=== PATIENT | male | born 1935 | race Caucasian/White ===

== ENCOUNTER 2018-01-26 09:14 | Inpatient (IN) ==
[2018-01-26] MEDS ORDERED: Furosemide 40 MG/4 ML VIAL IVP ONE (09:22)
--- NOTE | 2018-01-26 09:28 | Emergency Department Note ---
Disposition Clinical Impression: Anasarca, Atrial fibrillation with rapid ventricular response Disposition: Admitted As Inpatient Condition: Fair Referrals: Nguyễn Gilbert Jr, MD [Primary Care Provider] - Forms: ED Satisfaction Letter SOB HPI - General Chief Complaint: ED Shortness of Breath/Dyspnea Stated Complaint: BLE swelling; a-fib Time Seen by Provider: 01/26/18 09:19 Source: patient, EMS Mode of arrival: EMS Limitations: no limitations Nursing Notes Reviewed: Yes Vital Signs Reviewed: Yes - History of Present Illness Patient [facility] over from [facility] and Dr. Norton's office for increasing peripheral edema, A. fib, and shortness of breath. He does have a history of coronary artery disease, and 5 stents back in the s. His last EF in 2014 was approximately 65%. EMS reports that over the last few weeks, he has been having increasing swelling in his eye lateral lower extremities. He reports that he is more short of breath than usual. He is also having intermittent chest pain that is poorly localizable and he describes it as a heaviness. No headaches or changes in vision. EMS reports that the patient has been borderline hypotensive at times and they have tried adjusting his medication, but it keeps bottoming out his blood pressure. Patient states he feels okay other than his difficulty breathing. He does have orthopnea. - Related Data Home Medications Medication Instructions Recorded Confirmed Aspirin 81 mg PO QAM 04/20/15 01/01/16 Rivaroxaban [Xarelto] 15 mg PO QAM 04/20/15 01/01/16 Insulin Human Regular [HumuLIN R] 5 unit SQ TIDWM 04/22/15 01/01/16 Insulin Glargine,Hum.rec.anlog 50 units SQ BID 11/08/15 01/01/16 [Lantus Solostar] Digoxin [Lanoxin] 0.125 mg PO QAM 12/02/15 01/01/16 Diltiazem CD (24hr) [Cardizem CD] 360 mg PO QAM 12/02/15 01/01/16 Furosemide [Lasix] 40 mg PO BID 12/02/15 01/01/16 Allergies Allergy/AdvReac Type Severity Reaction Status Date / Time sulfamethoxazole Allergy See Verified 12/06/16 09:00 [From Bactrim] Comments trimethoprim [From Bactrim] Allergy See Verified 12/06/16 09:00 Comments atorvastatin AdvReac Dizziness Verified 12/06/16 09:00 clopidogrel [From Plavix] AdvReac Dizziness Verified 12/06/16 09:00 lovastatin AdvReac Dizziness Verified 12/06/16 09:00 pioglitazone [From Actos] AdvReac Dizziness Verified 12/06/16 09:00 pravastatin AdvReac Dizziness Verified 12/06/16 09:00 Rosiglitazone AdvReac Dizziness Verified 12/06/16 09:00 flu vaccine Allergy Dizziness Uncoded 06/14/16 22:01 Review of Systems: As reviewed in the HPI. All other systems reviewed are negative or normal. Past Medical History - Past Medical History Attestation: Yes The following information was validated with the patient. Source: patient, old records reviewed Medical history: Reports: asthma, atrial fibrillation, COPD, coronary artery disease, diabetes, hypertension, kidney stones, myocardial infarction, other Surgical history: Reports: cataract Psychiatric history: Reports: anxiety, depression - Social History Smoking Status: Former smoker Smokeless Tobacco Status: No Alcohol use: Reports: none Drug use: Reports: none Physical Exam CONSTITUTIONAL: [well appearing in no acute distress] SKIN: [Warm, dry, and intact without rash] EYES: [extraocular movements are grossly intact, clear conjunctiva] HENT: [Normocephalic, atraumatic, moist mucus membranes] NECK: [no obvious swelling, normal range of motion] PULMONARY: [normal chest rise and fall, no respiratory distress or stridor CARDIOVASCULAR: [Slightly tachycardic, irregularly irregular, distal extremities are warm and well perfused, pitting edema bilaterally, patient also has an area in a dermatomal distribution on his chest/back that is vesicular but well healing. He reports he was told that was psoriasis as well.] GASTROINSTESTINAL: [nondistended, non-tender] GENITOURINARY: [deferred] NEUROLOGIC: [normal speech, moves all extremities] MUSCULOSKELETAL: [no gross deformities, atraumatic, the left lower extremity does have what the patient described a psoriasis, but could also be an early cellulitis] PSYCHIATRIC: [normal mood and affect] Course Course Narrative: Patient presenting with suspected CHF exacerbation and A. fib. Unable to adjust his medications at [facility] due to hypotension. His blood pressure is fine here. He is stable. We will get workup and admit Shortness of Breath/Dyspnea - Medical Records Medical records reviewed: Yes I reviewed the patient's medical records. - Lab Data Lab results reviewed: Yes I reviewed the patient's lab results. Result diagrams: 01/26/18 09:35 01/26/18 09:35 - Radiology Data Radiology results reviewed: Yes I reviewed the patient's radiology results. - EKG Data EKG attestation: Yes I reviewed and interpreted this EKG. EKG results narrative: A. fib with RVR, rate 1:15, QRS 126, QTC 391, indeterminate axis, right bundle branch block, no previous available. Attestation Statement - Attestation Attestation: I examined this patient and my medical decision-making was reviewed with the Resident Physician. I agree with the documented findings, disposition and treatment plan as described except to the extent set forth below.
[2018-01-26 09:50] LABS: Basophils % 0.8 %; Eosinophils # 0.1 K/mcL (0.0-0.6); Eosinophils % 1.6 %; Hematocrit 32.5 % (37.5-50.1); Hemoglobin 11.1 g/dL (12.9-16.9); Immature Granulocytes % 3.2 % (0-4); Lymphocytes # 0.4 K/mcL (0.6-4.6); Lymphocytes % 7.1 %; Mean Corpuscular HGB Conc 34.2 g/dL (31.6-35.5); Mean Corpuscular Volume 96.7 fL (83.0-100.0); Mean Platelet Volume 8.7 fL (9.4-12.4); Monocytes # 0.5 K/mcL (0.0-1.3); Monocytes % 10.8 %; Neutrophils # 3.8 K/mcL (1.6-8.9); Platelet Count 198 K/mcL (140-400); Red Blood Count 3.36 M/mcL (4.19-5.50); Red Cell Distribution Width 16.7 % (11.5-14.5); Segmented Neutrophils % 76.5 %
[2018-01-26 09:57] LABS: INR 1.2; Prothrombin Time 12.9 Seconds (9.4-12.1)
[2018-01-26 10:00] LABS: Activated Partial Thrombo Time 32.2 Seconds (26.0-36.0)
[2018-01-26 10:05] LABS: BUN/Creatinine Ratio 17 (6-26); Blood Urea Nitrogen 16 mg/dL (8-23); Calcium 8.8 mg/dL (8.6-10.3); Carbon Dioxide 32 mEq/L (23-29); Chloride 92 mEq/L (98-107); Glucose 336 mg/dL (70-105); Magnesium 1.8 mg/dL (1.6-2.6); Osmolality,Calculated 284 (280-300); Potassium 3.8 mEq/L (3.5-5.1); Sodium 130 mEq/L (136-145); Troponin I < 0.03 ng/mL (< 0.04); eGFR For African Americans > 60 (> 60); eGFR For Non-African Americans > 60 (> 60)
[2018-01-26 10:19] LABS: Thyroid Stimulating Hormone 2.981 mcIU/mL (0.340-5.600)
[2018-01-26 11:15] LABS: Digoxin 1.1 ng/mL (0.8-2.0)
--- NOTE | 2018-01-26 12:10 | Emergency Department Note ---
Disposition Clinical Impression: Anasarca, Atrial fibrillation with rapid ventricular response Disposition: Admitted As Inpatient Condition: Fair Forms: ED Satisfaction Letter Time of Disposition: 12:14 General Adult HPI - General Chief complaint: ED Shortness of Breath/Dyspnea Stated complaint: BLE swelling; a-fib Time Seen by Provider: 01/26/18 09:19 Source: patient, EMS Mode of arrival: EMS Limitations: no limitations - History of Present Illness Pain Scale: 5 - Related Data Home Medications Medication Instructions Recorded Confirmed Aspirin 81 mg PO QAM 04/20/15 01/01/16 Rivaroxaban [Xarelto] 15 mg PO QAM 04/20/15 01/01/16 Insulin Human Regular [HumuLIN R] 5 unit SQ TIDWM 04/22/15 01/01/16 Insulin Glargine,Hum.rec.anlog 50 units SQ BID 11/08/15 01/01/16 [Lantus Solostar] Digoxin [Lanoxin] 0.125 mg PO QAM 12/02/15 01/01/16 Diltiazem CD (24hr) [Cardizem CD] 360 mg PO QAM 12/02/15 01/01/16 Furosemide [Lasix] 40 mg PO BID 12/02/15 01/01/16 Allergies Allergy/AdvReac Type Severity Reaction Status Date / Time sulfamethoxazole Allergy See Verified 12/06/16 09:00 [From Bactrim] Comments trimethoprim [From Bactrim] Allergy See Verified 12/06/16 09:00 Comments atorvastatin AdvReac Dizziness Verified 12/06/16 09:00 clopidogrel [From Plavix] AdvReac Dizziness Verified 12/06/16 09:00 lovastatin AdvReac Dizziness Verified 12/06/16 09:00 pioglitazone [From Actos] AdvReac Dizziness Verified 12/06/16 09:00 pravastatin AdvReac Dizziness Verified 12/06/16 09:00 Rosiglitazone AdvReac Dizziness Verified 12/06/16 09:00 flu vaccine Allergy Dizziness Uncoded 06/14/16 22:01 Past Medical History - Past Medical History Medical history: Reports: asthma, atrial fibrillation, COPD, coronary artery disease, diabetes, hypertension, kidney stones, myocardial infarction, other Surgical history: Reports: cataract Psychiatric history: Reports: anxiety, depression - Social History Smoking Status: Former smoker Smokeless Tobacco Status: No Alcohol use: Reports: none Drug use: Reports: none Physical Exam - General Limitations: no limitations General appearance: alert, in no apparent distress Course Vital Signs Temperature 98.3 F 01/26/18 09:21 Pulse Rate 110 01/26/18 09:21 Respiratory Rate 18 01/26/18 09:21 Blood Pressure 128/95 01/26/18 09:21 O2 Sat by Pulse Oximetry 96 01/26/18 09:21 Temperature 98.3 F 01/26/18 09:21 Pulse Rate 110 01/26/18 09:21 Respiratory Rate 18 01/26/18 09:21 Blood Pressure 128/95 01/26/18 09:21 O2 Sat by Pulse Oximetry 96 01/26/18 09:21 Oxygen Delivery Oxygen Delivery Room Air Medical Decision Making - Lab Data Result diagrams: 01/26/18 09:35 01/26/18 09:35 Lab Results 01/26/18 01/26/18 01/26/18 Range/Units 09:35 09:35 09:35 WBC 4.9 (4.3-11.1) K/mcL RBC 3.36 L (4.19-5.50) M/mcL Hgb 11.1 L (12.9-16.9) g/dL Hct 32.5 L (37.5-50.1) % MCV 96.7 (83.0-100.0) fL MCH 33.0 (28.0-33.3) pg MCHC 34.2 (31.6-35.5) g/dL RDW 16.7 H (11.5-14.5) % Plt Count 198 (140-400) K/mcL MPV 8.7 L (9.4-12.4) fL Immature Gran % 3.2 (0-4) % Seg Neutrophils % 76.5 % Lymphocytes % 7.1 % Monocytes % 10.8 % Eosinophils % 1.6 % Basophils % 0.8 % Neutrophils # 3.8 (1.6-8.9) K/mcL Lymphocytes # 0.4 L (0.6-4.6) K/mcL Monocytes # 0.5 (0.0-1.3) K/mcL Eosinophils # 0.1 (0.0-0.6) K/mcL Basophils # 0.0 (0.0-0.2) K/mcL PT (9.4-12.1) Seconds INR APTT (26.0-36.0) Seconds Sodium 130 L (136-145) mEq/L Potassium 3.8 (3.5-5.1) mEq/L Chloride 92 L (98-107) mEq/L Carbon Dioxide 32 H (23-29) mEq/L BUN 16 (8-23) mg/dL Creatinine 0.94 (0.70-1.30) mg/dL Est GFR ( Amer) > 60 (> 60) Est GFR (Non-Af Amer) > 60 (> 60) BUN/Creatinine Ratio 17 (6-26) Glucose 336 H (70-105) mg/dL Calculated Osmolality 284 (280-300) Calcium 8.8 (8.6-10.3) mg/dL Magnesium 1.8 (1.6-2.6) mg/dL Troponin I < 0.03 (< 0.04) ng/mL B-Natriuretic Peptide 156 H (Less than 100) pg/mL TSH 2.981 (0.340-5.600) mcIU/mL Digoxin 1.1 (0.8-2.0) ng/mL 01/26/18 Range/Units 09:35 WBC (4.3-11.1) K/mcL RBC (4.19-5.50) M/mcL Hgb (12.9-16.9) g/dL Hct (37.5-50.1) % MCV (83.0-100.0) fL MCH (28.0-33.3) pg MCHC (31.6-35.5) g/dL RDW (11.5-14.5) % Plt Count (140-400) K/mcL MPV (9.4-12.4) fL Immature Gran % (0-4) % Seg Neutrophils % % Lymphocytes % % Monocytes % % Eosinophils % % Basophils % % Neutrophils # (1.6-8.9) K/mcL Lymphocytes # (0.6-4.6) K/mcL Monocytes # (0.0-1.3) K/mcL Eosinophils # (0.0-0.6) K/mcL Basophils # (0.0-0.2) K/mcL PT 12.9 H (9.4-12.1) Seconds INR 1.2 APTT 32.2 (26.0-36.0) Seconds Sodium (136-145) mEq/L Potassium (3.5-5.1) mEq/L Chloride (98-107) mEq/L Carbon Dioxide (23-29) mEq/L BUN (8-23) mg/dL Creatinine (0.70-1.30) mg/dL Est GFR ( Amer) (> 60) Est GFR (Non-Af Amer) (> 60) BUN/Creatinine Ratio (6-26) Glucose (70-105) mg/dL Calculated Osmolality (280-300) Calcium (8.6-10.3) mg/dL Magnesium (1.6-2.6) mg/dL Troponin I (< 0.04) ng/mL B-Natriuretic Peptide (Less than 100) pg/mL TSH (0.340-5.600) mcIU/mL Digoxin (0.8-2.0) ng/mL Attestation Statement - Attestation Attestation: I examined this patient and my medical decision-making was reviewed with the Resident Physician. I agree with the documented findings, disposition and treatment plan as described except to the extent set forth below. 82-year-old male presents ED because of dyspnea, orthopnea and peripheral edema. He went to his flight nurse's office this morning and they deferred him here for initiation of IV diuretics and admission to the hospital. He has history of chronic paroxysmal atrial fibrillation and currently on digoxin for rate control when Xarelto for embolic prophylaxis. He denies associated chest pain. No fevers or productive cough. Denies abdominal pain. Denies palpitations. No focal weakness. No lightheadedness or dizziness. Pleasant, elderly male in no apparent physiologic distress. He has no conversational dyspnea. Maintains normal conversation. Oropharynx clear mucous membranes membranes moist. Neck is supple. No JVD. Chest with scattered inspiratory rales in the bases with diminished breath sounds in the right base. Cardiac exam is tachycardic, irregular. Chest wall nontender. Abdomen soft, nondistended not, nontender. Extremities with 2-3+ pitting edema lower extremities. There is erythema on the lateral aspect of the left lower leg as well. Peripheral pulses are brisk. EKG with atrial fibrillation with rapid ventricular response rate ranging from 110 - 130. He is given IV diuretics and will be admitted at the request of the flight nurse. At this point rate control was not necessary due to his heart rate of 110. The high probability of a clinically significant, sudden or life threatening deterioration of the [cardioopulmonary] system(s) required my full and direct attention, intervention and personal management. The aggregate critical care time was [10] minutes. This time is in addition to time spent performing reported procedures but includes the following: [x] Data Review and interpretation [x] Patient assessment and monitoring of vital signs [x] Documentation [x] Medication orders and management
[2018-01-26] MEDS ORDERED: Naloxone 0.4 MG/ML INJ IVP PRN (12:47)
--- NOTE | 2018-01-26 13:11 | Internal Med History&Physical ---
Date of Encounter: 01/26/18 Time of Encounter: 12:58 Internal Medicine - H&P: HPI Chief complaint: shortness of breath Admitted From: Emergency Dept Plans for Post Hospital Care: Transfer Pace Analyst Care History of present illness: Mr. Johnson is a 82 year old male was a background medical history for diabetes, hypertension, dyslipidemia, chronic kidney disease, atrial fibrillation on Xarelto, coronary artery disease. Patient was getting evaluated at the cardiology office. Data Processing Mechanic evaluated the patient. Noted that patient was tachycardic and also shortness of breath. He was not able to complete his sentences during the conversation. In view of this patient was sent to the emergency room from the cardiology office for further evaluation. Patient denies nausea, chest pain, abdominal pain, dizziness and diarrhea. Workup in the emergency room: Patient was evaluated in the emergency room. Basic labs were drawn. X-ray was done. Noted that patient's heart rate was in 120s. Reason for admission: Atrial fibrillation with rapid ventricular rate which is likely precipitated by congestive heart failure likely precipitated by underlying CAD. Family History: noncontributory Past Med Surg Social Fam HX - Past Medical History Medical history: asthma, atrial fibrillation, COPD, coronary artery disease, diabetes, hypertension, kidney stones, myocardial infarction, other Psychiatric history: anxiety, depression - Past Surgical History Surgical History: cataract - Social History Smoking Status: Former smoker Smokeless Tobacco Status: No Alcohol use: none Drug use: none - Family History Mother Living Status: Hx Family Cardiac Disorders: Yes Hx Family Respiratory Disorders: No Hx Family Cancer: No Hx Family GI Disorders: No Hx Family Endocrine Disorder: Yes Hx Family Neuromuscular Disorders: No Hx Family Neurologic Disorders: Yes Hx Family HEENT Disorders: No Hx Family Autoimmune Disorders: No Father Adopted: No Family Member Ethnicity: Non- Living Status: Hx Family Cardiac Disorders: Yes Internal Medicine - H&P: Meds Aspirin 81 mg PO QAM 04/20/15 [History] Rivaroxaban [Xarelto] 15 mg PO QAM 04/20/15 [History] Insulin Human Regular [HumuLIN R] 6 unit SQ TIDWM 04/22/15 [History] Insulin Glargine,Hum.rec.anlog [Lantus Solostar] 32 units SQ BID 11/08/15 [ History] Digoxin [Lanoxin] 0.125 mg PO QAM 12/02/15 [History] Diltiazem CD (24hr) [Cardizem CD] 360 mg PO QAM 12/02/15 [History] Furosemide [Lasix] 40 mg PO BID 12/02/15 [History] ALPRAZolam [Xanax 0.5 MG Tablet] 0.5 mg PO HS 01/26/18 [History] Acetaminophen [Non-Aspirin] 650 mg PO Q6H PRN 01/26/18 [History] Apremilast [Otezla] 30 mg PO BID 01/26/18 [History] Calcipotriene [Dovonex] 1 appl TP HS 01/26/18 [History] Clotrimazole/Betameth Dip CRM [Lotrisone CRM] 1 appl TP QAM 01/26/18 [History] Docusate Sodium [Dok] 100 mg PO BID 01/26/18 [History] FluocinoNIDE 0.05% CRM [Lidex] 1 appl TP BID 01/26/18 [History] Fluticasone/Vilanterol [Breo Ellipta 200-25 Mcg INH] 1 puff IH QAM 01/26/18 [ History] Guaifenesin [Mucinex] 600 mg PO BID 01/26/18 [History] Polyethylene Glycol 3350 [MiraLAX Powder Bulk 17.9 Oz] 1 scoop PO DAILY [History] Ranitidine HCl [Acid Director Of It Operations] 150 mg PO QAM 01/26/18 [History] Tizanidine HCl [Zanaflex] 2 mg PO TID 01/26/18 [History] carBAMazepine [Tegretol] 200 mg PO QAM 01/26/18 [History] 3 Allergy/AdvReac Type Severity Reaction Status Date / Time sulfamethoxazole Allergy See Verified 12/06/16 09:00 [From Bactrim] Comments trimethoprim [From Bactrim] Allergy See Verified 12/06/16 09:00 Comments atorvastatin AdvReac Dizziness Verified 12/06/16 09:00 clopidogrel [From Plavix] AdvReac Dizziness Verified 12/06/16 09:00 lovastatin AdvReac Dizziness Verified 12/06/16 09:00 pioglitazone [From Actos] AdvReac Dizziness Verified 12/06/16 09:00 pravastatin AdvReac Dizziness Verified 12/06/16 09:00 Rosiglitazone AdvReac Dizziness Verified 12/06/16 09:00 flu vaccine Allergy Dizziness Uncoded 06/14/16 22:01 All Systems PM: A 10-system review of systems was performed and is negative for pertinent findings except as documented above in the HPI. - Constitutional Constitutional: no chills, no fever(s), no night sweats - EENT Eyes: no change in vision, no discharge, no pain, no photophobia Ears: no ear discharge, no ear pain, no tinnitus Nose, mouth and throat: no dysphagia, no nasal discharge, no neck pain, no sore throat - Cardiovascular Cardiovascular ROS IM: dyspnea, dyspnea on exertion, irregular heart rhythm, no chest pain, no diaphoresis, no lightheadedness, no palpitations, no syncope - Respiratory Respiratory: dyspnea, dyspnea on exertion, no cough, no wheezing, no excessive phlegm production - Gastrointestinal Gastrointestinal: no abdominal pain, no diarrhea, no hematemesis, no hematochezia, no melena, no nausea, no vomiting - Musculoskeletal Musculoskeletal ROS IM: no numbness, no tingling - Integumentary Integumentary IM: no rash, no unusual bruising - Neurological Neurological ROS: no confusion, no convulsions, no focal weakness, no numbness, no tingling, no tremor(s) - Hematologic/Lymphatic Hematologic/Lymphatic: no easy bruising - Constitutional Vitals: Temp Pulse Resp BP Pulse Ox 98.3 F 106 16 123/95 93 01/26/18 09:21 01/26/18 12:13 01/26/18 12:13 01/26/18 12:13 01/26/18 12:13 General appearance: Present: A&O X 3, pleasant, no acute distress, loss of weight - Head Head exam: Present: atraumatic, normocephalic - Eye Eye exam: Present: PERRL, conjuntiva pink, sclera anicteric Pupils: Present: PERRL - Neck Neck exam general surgery: Present: supple, trachea midline. Absent: lymphadenopathy - Respiratory Respiratory exam: Present: CTAB. Absent: accessory muscle use, rales, rhonchi, wheezes - Cardiovascular Cardiovascular exam: Present: RRR, +S1, +S2. Absent: diastolic murmur, gallop, rubs, systolic murmur - GI/Abdominal GI/Abdominal exam: Present: normal bowel sounds, soft, no peritoneal signs. Absent: distended, tenderness - Extremities Exam Extremities exam: Present: warm, radial pulses palpable and symmetrical. Absent : calf tenderness, cyanotic, pedal edema - Neurological Exam Neurological exam: Present: CN II-XII intact, oriented X3, no focal deficits. Absent: pronater drift, facial droop, speech deficit - Skin Skin exam: Present: dry, intact Internal Med - H&P Results - Labs CBC & Chem 7: 01/26/18 09:35 01/26/18 09:35 - Assessment and plan (1) Atrial fibrillation with RVR Current Visit: No Status: Chronic Assessment and plan: 82/male Admitted with atrial fibrillation with rapid ventricular rate. Serum digoxin level is within therapeutic range. We will hold the Cardizem at this point by mouth. We will start intravenous Cardizem. Cardiology on the board. We will follow the recommendations from cardiology. Anticoagulation: Grant Proctor examined this patient in the emergency room #23. Along with me emergency room physician was present at bedside. Plan of care was expended the patient. He verbalized understanding. (2) Diabetes mellitus type 2, controlled Current Visit: No Status: Chronic Assessment and plan: Patient is known to have a diabetes mellitus. Patient's sugar is within acceptable range. We will follow the recommendations from subcutaneous tenderness insulin order set. Qualifiers: Diabetes mellitus correction insulin use: unspecified correction insulin use status Diabetes mellitus complication status: with other specified complication Qualified Code(s): E11.69 - Type 2 diabetes mellitus with other specified complication (3) Dry skin Current Visit: No Status: Acute Assessment and plan: The assessment is a dry skin, patient likely has a psoriasis. Patient is on appropriate medication for the psoriasis. We will resume this medication during this hospitalization. At this point I am not extremely concerned regarding the possibility of her infected psoriasis has patient does not have a elevated white blood cell count, does not have a fever, In spite of these medication if the patient's symptoms does not improve in next 1-2 days then please consider dermatology evaluation. I have discussed personally this with the cardiology nurse practitioner. (4) CAD (coronary artery disease) Current Visit: Yes Status: Acute Assessment and plan: Patient does have a coronary artery disease. Patient is on appropriate medication for the same. Cardiology on the board. we will follow the recommendations from cardiology. Qualifiers: Coronary Disease-Associated Artery/Lesion type: [place] artery [place] vs. transplanted heart: [place] heart Associated angina: without angina Qualified Code(s): I25.10 - Atherosclerotic heart disease of [place] coronary artery without angina pectoris (5) DVT prophylaxis Current Visit: No Status: Acute Assessment and plan: Xarelto Medical decision-making: This patient is a moderate to severe risk of worsening in spite of being on appropriate medication due to the complex underlying conditions. - Time Spent With Patient Total time spent is greater than 50% in coordination of care (as documented) at patient's floor/unit and/or counseling patient:
--- NOTE | 2018-01-26 13:16 | Cardiology Consult Note ---
Date of Encounter: 01/26/18 Time of Encounter: 13:00 Assessment and Plan (1) Dyspnea Current Visit: Yes Status: Acute Reports worsening shortness of breath over the past 3-4 months. BNP mildly elevated at 156, CXR demonstrates small bilateral pleural effusions. Prior TTE (2014) shows preserved LVEF, 60%. Agree with IV diuresis. Re-check TTE to evaluate structure and function. Strict I&O's, daily weights, Na/fluid restricted diet. Qualifiers: Dyspnea type: shortness of breath Qualified Code(s): R06.02 - Shortness of breath; R06.00 - Dyspnea, unspecified; R06.01 - Orthopnea (2) Atrial fibrillation with RVR Current Visit: Yes Status: Chronic Hx of persistent atrial fibrillation on Xarelto (renal adjusted dose) for AC. Reports palpitations/tachycardia over the past several weeks. Unable to titrate as outpatient d/t hypotension. ECG upon arrival shows AF, HR 115. On Cardizem gtt at 5 mg/hr, titrate to keep HR less than 100. Continue digoxin. Consider addition of BB if able. Continue Xarelto for AC. (3) CAD (coronary artery disease) Current Visit: Yes Status: Acute Hx of CAD with remote PCI to LAD, LCx. Atypical chest pain reported, suspect GI in etiology as occurs after eating. Troponin negative. No ischemic ECG changes. Negative nuclear stress in 2014. Prior TTE shows preserved LVEF. Continue asa. May add BB by d/c if BP will tolerate, d/c'ed in the outpatient setting d/t hypotension. Does not tolerate statin d/t myalgias. Repeat TTE pending. Qualifiers: Coronary Disease-Associated Artery/Lesion type: [place] artery [place] vs. transplanted heart: [place] heart Associated angina: without angina Qualified Code(s): I25.10 - Atherosclerotic heart disease of [place] coronary artery without angina pectoris Discussion w patient/family: The assessment and plan as outlined above was discussed with the patient and/or family members who expressed understanding and agreement. All questions were answered. Thank you for involving us in the care of your patient. Please call with any questions. The patient will be discussed and reviewed with Dr. Carney; changes to be made accordingly. History of Present Illness Consult date: 01/26/18 Requesting physician: Antonio Drake Consult reason: atrial fibrillation Chief complaint: Shortness of breath History of present illness: Mr. Johnson is a 82 year old male with PMHx significant for CAD s/p remote PCI ( LAD 2003, LCx 2005), atrial fibrillation on Xarelto, DMII, COPD, HTN, CKD-3 who presented to the ED after recommendation by Dr. Norton after being seen this morning due to concerns for shortness of breath and atrial fibrillation with RVR. ECG in office demonstrated mild RVR, HR 111. BP stable. Reportedly, at the SNF, medications were unable to be adjusted to improve HR due to hypotension. He reports progressively worsening shortness of breath over the past 3-4 months. Associated symptoms include chest discomfort, different from angina, primarily left-sided and extends to abdomen--occurs at rest and after meals. No significant distress upon exam. Reports chronic cough secondary to asbestos. CXR shows small bilateral pleural effusions. Prior CV testing: TTE 05/29/15: LVEF 60%, grossly normal left ventricular structure and function, indeterminate diastolic function, mildly dilated right ventricle with normal systolic function, moderately dilated left atrium, no obvious significant valvular dysfunction. [place] nuclear 06/2015: perfusion imagining negative for ischemia or infarct , normal hemodynamic response, EF 65% Past Med Surg Social Fam HX - Past Medical History Attestation: Yes The following information was validated with the patient. Source: patient Medical history: asthma, atrial fibrillation, COPD, coronary artery disease, diabetes, hypertension, kidney stones, myocardial infarction, other Psychiatric history: anxiety, depression - Past Surgical History Surgical History: cataract - Social History Smoking Status: Former smoker Smokeless Tobacco Status: No Alcohol use: none Drug use: none - Family History Mother Living Status: Hx Family Cardiac Disorders: Yes Hx Family Respiratory Disorders: No Hx Family Cancer: No Hx Family GI Disorders: No Hx Family Endocrine Disorder: Yes Hx Family Neuromuscular Disorders: No Hx Family Neurologic Disorders: Yes Hx Family HEENT Disorders: No Hx Family Autoimmune Disorders: No Father Adopted: No Family Member Ethnicity: Non- Living Status: Hx Family Cardiac Disorders: Yes Medications and Allergies Aspirin 81 mg PO QAM 04/20/15 [History] Rivaroxaban [Xarelto] 15 mg PO QAM 04/20/15 [History] Insulin Human Regular [HumuLIN R] 6 unit SQ TIDWM 04/22/15 [History] Insulin Glargine,Hum.rec.anlog [Lantus Solostar] 32 units SQ BID 11/08/15 [ History] Digoxin [Lanoxin] 0.125 mg PO QAM 12/02/15 [History] Diltiazem CD (24hr) [Cardizem CD] 360 mg PO QAM 12/02/15 [History] Furosemide [Lasix] 40 mg PO BID 12/02/15 [History] ALPRAZolam [Xanax 0.5 MG Tablet] 0.5 mg PO HS 01/26/18 [History] Acetaminophen [Non-Aspirin] 650 mg PO Q6H PRN 01/26/18 [History] Apremilast [Otezla] 30 mg PO BID 01/26/18 [History] Calcipotriene [Dovonex] 1 appl TP HS 01/26/18 [History] Clotrimazole/Betameth Dip CRM [Lotrisone CRM] 1 appl TP QAM 01/26/18 [History] Docusate Sodium [Dok] 100 mg PO BID 01/26/18 [History] FluocinoNIDE 0.05% CRM [Lidex] 1 appl TP BID 01/26/18 [History] Fluticasone/Vilanterol [Breo Ellipta 200-25 Mcg INH] 1 puff IH QAM 01/26/18 [ History] Guaifenesin [Mucinex] 600 mg PO BID 01/26/18 [History] Polyethylene Glycol 3350 [MiraLAX Powder Bulk 17.9 Oz] 1 scoop PO DAILY [History] Ranitidine HCl [Acid Director Of Knowledge Management] 150 mg PO QAM 01/26/18 [History] Tizanidine HCl [Zanaflex] 2 mg PO TID 01/26/18 [History] carBAMazepine [Tegretol] 200 mg PO QAM 01/26/18 [History] 3 Allergy/AdvReac Type Severity Reaction Status Date / Time sulfamethoxazole Allergy See Verified 12/06/16 09:00 [From Bactrim] Comments trimethoprim [From Bactrim] Allergy See Verified 12/06/16 09:00 Comments atorvastatin AdvReac Dizziness Verified 12/06/16 09:00 clopidogrel [From Plavix] AdvReac Dizziness Verified 12/06/16 09:00 lovastatin AdvReac Dizziness Verified 12/06/16 09:00 pioglitazone [From Actos] AdvReac Dizziness Verified 12/06/16 09:00 pravastatin AdvReac Dizziness Verified 12/06/16 09:00 Rosiglitazone AdvReac Dizziness Verified 12/06/16 09:00 flu vaccine Allergy Dizziness Uncoded 06/14/16 22:01 All Systems Review: The remainder of the systems were reviewed and are negative Physical Examination General: Conversant, No Apparent Distress HEENT: Atraumatic, Normocephaly Cardiac: Other (tachycardiac, irregularly irregular) Lungs: Normal Breath Sounds Neuro: Alert and responsive Abdomen: Soft Skin: No rashes noted on visualized skin Musculoskeletal: No Chest Wall Tenderness Extremities: Other (+1-2 BLE edema; open areas/scabs LLE) Results 01/26/18 09:35 01/26/18 09:35 Active Medications Alprazolam (Xanax) 0.5 mg PO HS [facility] PRN Reason: Protocol Stop: 07/28/18 21:01 Aspirin (Aspirin) 81 mg PO QAM [facility] Stop: 07/29/18 09:01 Betamethasone/Clotrimazole (Lotrisone Crm) 1 appl TP QAM [facility] Stop: 07/29/18 09:01 Budesonide/Formoterol Fumarate (Symbicort) 2 puff IH BIDR [facility] PRN Reason: Protocol Stop: 07/28/18 22:01 Carbamazepine (Tegretol) 200 mg PO QAM [facility] PRN Reason: Protocol Stop: 07/29/18 09:01 Digoxin (Lanoxin) 0.125 mg PO QAM [facility] Stop: 07/29/18 09:01 Docusate Sodium (Colace) 100 mg PO BID [facility] PRN Reason: Protocol Stop: 07/28/18 21:01 Famotidine (Pepcid) 20 mg PO QAM [facility] Stop: 07/29/18 09:01 Fluocinonide (Lidex) 1 appl TP BID [facility] PRN Reason: Protocol Stop: 07/28/18 21:01 Furosemide (Lasix) 40 mg IVP BIDDIURETIC [facility] Stop: 07/28/18 17:01 Guaifenesin (Mucinex) 600 mg PO BID [facility] Stop: 07/28/18 21:01 Diltiazem HCl 125 mg/ Sodium (Chloride) 125 mls @ 5 mls/hr IVC .Q24H MACIEL; 5 MG/ HR PRN Reason: Protocol Stop: 07/28/18 13:16 Insulin Detemir (Levemir) 32 unit SQ BID [facility] Stop: 07/28/18 21:01 Insulin Human Lispro (Humalog) 6 units SQ TIDWM [facility] Stop: 07/28/18 17:01 Naloxone HCl (Narcan) 0.4 mg IVP Q2MIN PRN PRN Reason: SEE COMMENTS Stop: 07/28/18 12:48 Pharmacy Profile Note (Patient Taking Own Medication) 1 each PO BID [facility] Stop: 07/28/18 21:01 Pharmacy Profile Note (Patient Taking Own Medication) 1 each TP HS [facility] Stop: 07/28/18 21:01 Polyethylene Glycol (Miralax) 17 gm PO DAILY [facility] Stop: 07/29/18 09:01 Rivaroxaban (Xarelto) 15 mg PO QAM [facility] Stop: 07/29/18 09:01 Tizanidine HCl (Zanaflex) 2 mg PO TID [facility] Stop: 07/28/18 15:01 - Imaging and Cardiology Stress Test: report reviewed Echo: report reviewed - EKG Interpretation EKG results cardiology: personally reviewed Consult Discharge Plan - Plan Referrals: Nguyễn Gilbert Jr, MD [Primary Care Provider] -
[2018-01-26] MEDS ORDERED: *HR* Dextrose 50 % in Water (Syg) 50 ML SYRINGE IVP PRN (13:59)
[2018-01-26] MEDS ORDERED: D5% in Water 1,000 ML IVC PRN (13:59)
[2018-01-26] MEDS ORDERED: Dextrose Gel 15 GM/37.5 ML TUBE PO PRN ×2 (13:59)
[2018-01-26] MEDS ORDERED: Furosemide 40 MG/4 ML VIAL IVP SCH (16:00)
[2018-01-26] MEDS: Insulin LISPRO 300 UNITS/3 ML VIAL SQ SCH (17:57)
[2018-01-26] MEDS: tiZANidine 4 MG TABLET PO SCH ×2 (17:57→20:25)
[2018-01-26] MEDS: Furosemide 40 MG/4 ML VIAL IVP SCH (18:00)
[2018-01-26] MEDS: Insulin DETEMIR 100 UNIT/ML X5UNITS SQ SCH (20:23)
[2018-01-26] MEDS ORDERED: [UNRECOGNIZED DRUG - OTHER] TP SCH (21:00)
[2018-01-26] MEDS ORDERED: Insulin LISPRO 300 UNITS/3 ML VIAL SQ SCH ×3 (21:00)
[2018-01-26] MEDS ORDERED: ALPRAZolam 0.5 MG TABLET PO SCH (21:00)
[2018-01-26] MEDS: Apremilast [Otezla] 30 MG PO SCH (21:09)
[2018-01-26] MEDS: FluocinoNIDE 0.05% CRM 15 GM TUBE TP SCH (21:09)
[2018-01-26] MEDS: Budesonide/Formoterol 160/4.5 MDI IH SCH (22:26)
--- NOTE | 2018-01-27 05:32 | Electrocardiograph Report ---
[place] [id number] Test Date: 2018-01-26 Pat Name: Lobito Johnson Department: 104 Room: 2A42 Gender: M Dorr Operator: SANJAY : 1935 Requested By: [id number] Order Number: [id number] Reading MD: Ortiz Pinto Measurements Intervals [place] Rate: 115 P: AR: 0 QRS: 21 QRSD: 126 T: 20 QT: 323 QTc: 391 Interpretive Statements ATRIAL FIBRILLATION WITH RAPID VENTRICULAR RESPONSE INDETERMINATE AXIS RIGHT BUNDLE BRANCH BLOCK Electronically Signed On 01-27-2018 5:31:10 EDT by Ortiz Pinto
[2018-01-27 06:04] LABS: Basophils % 0.5 %; Eosinophils # 0.1 K/mcL (0.0-0.6); Eosinophils % 1.6 %; Hematocrit 28.9 % (37.5-50.1); Hemoglobin 10.2 g/dL (12.9-16.9); Immature Granulocytes % 3.7 % (0-4); Immature Platelets 2.1 % (1.1-6.1); Lymphocytes # 0.4 K/mcL (0.6-4.6); Lymphocytes % 7.5 %; Mean Corpuscular HGB Conc 35.3 g/dL (31.6-35.5); Mean Corpuscular Hemoglobin 34.3 pg (28.0-33.3); Mean Corpuscular Volume 97.3 fL (83.0-100.0); Mean Platelet Volume 9.2 fL (9.4-12.4); Monocytes # 0.7 K/mcL (0.0-1.3); Monocytes % 11.9 %; Neutrophils # 4.1 K/mcL (1.6-8.9); Nucleated Red Blood Cells 0.5 /100 WBC (0); Platelet Count 243 K/mcL (140-400); Red Blood Count 2.97 M/mcL (4.19-5.50); Red Cell Distribution Width 16.3 % (11.5-14.5); Segmented Neutrophils % 74.8 %
[2018-01-27 06:08] LABS: Alanine Aminotransferase 16 Units/L (7-52); Albumin 3.3 g/dL (3.5-5.7); Albumin/Globulin Ratio 1.3 (1.1-2.2); Alkaline Phosphatase 136 Units/L (34-104); Aspartate Amino Transferase 23 Units/L (13-39); BUN/Creatinine Ratio 15 (6-26); Bilirubin,Total 0.7 mg/dL (0.3-1.0); Blood Urea Nitrogen 17 mg/dL (8-23); Calcium 8.7 mg/dL (8.6-10.3); Carbon Dioxide 33 mEq/L (23-29); Chloride 92 mEq/L (98-107); Chol/HDL Ratio 5.2 (0-4.9); Cholesterol 167 mg/dL (< 200); Globulin 2.6 g/dL (2.4-3.5); Glucose 247 mg/dL (70-105); HDL Cholesterol 32 mg/dL (40-59); LDL Cholesterol,Calculated 115 mg/dL (0-99); Magnesium 1.8 mg/dL (1.6-2.6); Osmolality,Calculated 284 (280-300); Phosphorous 2.7 mg/dL (2.7-4.5); Potassium 3.5 mEq/L (3.5-5.1); Sodium 132 mEq/L (136-145); Total Protein 5.9 g/dL (6.4-8.9); Triglycerides 102 mg/dL (< 150); eGFR For African Americans > 60 (> 60); eGFR For Non-African Americans > 60 (> 60)
[2018-01-27 06:44] LABS: Activated Partial Thrombo Time 30.3 Seconds (26.0-36.0)
[2018-01-27 06:46] LABS: INR 1.2; Prothrombin Time 13.2 Seconds (9.4-12.1)
[2018-01-27] MEDS ORDERED: Insulin LISPRO 300 UNITS/3 ML VIAL SQ SCH ×3 (07:45→21:00)
[2018-01-27] MEDS: Budesonide/Formoterol 160/4.5 MDI IH SCH (07:52)
[2018-01-27] MEDS: tiZANidine 4 MG TABLET PO SCH ×2 (08:40→15:49)
[2018-01-27] MEDS: Insulin LISPRO 300 UNITS/3 ML VIAL SQ SCH ×5 (08:41→15:59)
[2018-01-27] MEDS: Furosemide 40 MG/4 ML VIAL IVP SCH (08:41)
[2018-01-27] MEDS: FluocinoNIDE 0.05% CRM 15 GM TUBE TP SCH (08:43)
[2018-01-27] MEDS: Insulin DETEMIR 100 UNIT/ML X5UNITS SQ SCH (08:43)
[2018-01-27] MEDS: Apremilast [Otezla] 30 MG PO SCH (08:46)
[2018-01-27] MEDS ORDERED: carBAMazepine 200 MG TABLET PO SCH (09:00)
[2018-01-27] MEDS ORDERED: *HR* Digoxin 0.125 MG TABLET PO SCH (09:00)
[2018-01-27] MEDS ORDERED: *HR* Rivaroxaban 15 MG TABLET PO SCH ×2 (09:00→18:00)
[2018-01-27] MEDS ORDERED: Famotidine 20 MG TABLET PO SCH (09:00)
[2018-01-27] MEDS ORDERED: Aspirin 81 MG TAB.CHEW PO SCH (09:00)
[2018-01-27] MEDS ORDERED: (Fluticasone/Vilanterol [Breo Ellipta 200-25 Mcg Inh] IH SCH (09:00)
[2018-01-27] MEDS ORDERED: Clotrimazole/Betameth Dip CRM 45 APPL/45 GM TUBE TP SCH (09:00)
[2018-01-27] MEDS ORDERED: Metoprolol XL (24 HR) Succ 25 MG TAB.ER.24H PO SCH (09:00)
[2018-01-27 10:39] LABS: Bilirubin,Urine Negative (Negative); Blood,Urine Small (Negative); Clarity,Urine Turbid (Clear); Color,Urine Yellow (Yellow); Glucose,Urine (UA) 100 mg/dL (Normal); Ketones,Urine Negative (Negative); Leukocyte Esterase,Urine Large (Negative); Nitrite,Urine Negative (Negative); Protein,Urine 30 mg/dL (Neg-Trace); Specific Gravity,Urine 1.014 (1.010-1.025); Urobilinogen,Urine Normal (Normal)
--- NOTE | 2018-01-27 10:43 | Cardiology Progress Note ---
Date of Encounter: 01/27/18 Time of Encounter: 10:20 Assessment and Plan (1) Dyspnea Current Visit: Yes Status: Acute Reports worsening shortness of breath over the past 3-4 months. BNP mildly elevated at 156, CXR demonstrates small bilateral pleural effusions. Prior TTE (2014) shows preserved LVEF, 60%. Cumulative I&O: -400 mL; patient reports symptoms have improved. Transition to low dose po lasix by discharge. TTE this admission shows preserved LVEF, 60% with mild-moderate MR. Strict I&O's, daily weights, Na/fluid restricted diet. Qualifiers: Dyspnea type: shortness of breath Qualified Code(s): R06.02 - Shortness of breath; R06.00 - Dyspnea, unspecified; R06.01 - Orthopnea (2) Atrial fibrillation with RVR Current Visit: Yes Status: Chronic Hx of persistent atrial fibrillation on Xarelto (renal adjusted dose) for AC. Reports palpitations/tachycardia over the past several weeks. Unable to titrate as outpatient d/t hypotension. ECG upon arrival shows AF, HR 115. 12 hour tele: avg HR=97afib, low dose Toprol XL added this morning, HR 80-90's upon exam. Will stop IV cardizem gtt and transition to po cardizem. Continue Xarelto for AC. (3) CAD (coronary artery disease) Current Visit: Yes Status: Acute Hx of CAD with remote PCI to LAD, LCx. Atypical chest pain reported, suspect GI in etiology as occurs after eating. Troponin negative. No ischemic ECG changes. Negative nuclear stress in 2015. Prior TTE shows preserved LVEF. Continue asa, BB. No statin d/t intolerance. TTE shows normal LVEF. Qualifiers: Coronary Disease-Associated Artery/Lesion type: [place] artery [place] vs. transplanted heart: [place] heart Associated angina: without angina Qualified Code(s): I25.10 - Atherosclerotic heart disease of [place] coronary artery without angina pectoris Discussion w patient/family: The assessment and plan as outlined above was discussed with the patient and/or family members who expressed understanding and agreement. All questions were answered. Thank you for involving us in the care of your patient. Please call with any questions. The patient will be discussed and reviewed with Dr. Carney; changes to be made accordingly. Subjective Principal diagnosis: Afib, shortness of breath Interval history: Seen and examined. Patient reports he feels much better than yesterday. LE edema remains present, somewhat improved. Denies palpitations. Objective Vital Signs, Last 4 Hours Temp Pulse Resp BP Pulse Ox 01/27/18 07:07 98.1 F 96 15 123/71 93 General: Conversant HEENT: Atraumatic, Normocephaly Cardiac: Other (irregularly irregular ) Lungs: Normal Breath Sounds Neuro: Alert and responsive Abdomen: Soft Skin: No rashes noted on visualized skin Musculoskeletal: No Chest Wall Tenderness Extremities: No Edema, Normal Pulses Results 01/27/18 03:23 01/27/18 03:23 Lab Results 01/26/18 01/26/18 01/27/18 15:50 21:16 03:23 WBC Hgb Hct Plt Count INR APTT Sodium Potassium Chloride Carbon Dioxide BUN Creatinine Glucose Calcium Magnesium Total Bilirubin AST ALT Alkaline Phosphatase Troponin I < 0.03 < 0.03 < 0.03 B-Natriuretic Peptide 01/27/18 01/27/18 01/27/18 03:23 03:23 03:23 WBC 5.5 Hgb 10.2 L Hct 28.9 L Plt Count 243 INR 1.2 APTT 30.3 Sodium 132 L Potassium 3.5 Chloride 92 L Carbon Dioxide 33 H BUN 17 Creatinine 1.11 Glucose 247 H Calcium 8.7 Magnesium 1.8 Total Bilirubin 0.7 AST 23 ALT 16 Alkaline Phosphatase 136 H Troponin I B-Natriuretic Peptide 01/27/18 03:23 WBC Hgb Hct Plt Count INR APTT Sodium Potassium Chloride Carbon Dioxide BUN Creatinine Glucose Calcium Magnesium Total Bilirubin AST ALT Alkaline Phosphatase Troponin I B-Natriuretic Peptide 101 H Active Medications Alprazolam (Xanax) 0.5 mg PO [facility] PRN Reason: Protocol Stop: 07/28/18 21:01 Last Admin: 01/26/18 20:23 Dose: 0.5 mg Aspirin (Aspirin) [facility] Stop: 07/29/18 09:01 Last Admin: 01/27/18 08:40 Dose: 81 mg Betamethasone/Clotrimazole (Lotrisone Crm) 1 appl TP [facility] [place] Stop: 07/29/18 09:01 Last Admin: 01/27/18 08:43 Dose: 1 appl Budesonide/Formoterol Fumarate (Symbicort) 2 puff IH BIDR [facility] PRN Reason: Protocol Stop: 07/28/18 22:01 Last Admin: 01/27/18 07:52 Dose: 2 puff Carbamazepine (Tegretol) 200 mg PO QAM [facility]IEL PRN Reason: Protocol Stop: 07/29/18 09:01 Last Admin: 01/27/18 08:40 Dose: 200 mg Dextrose/Water (Dextrose 50% (Syg)) 25 ml IVP AD PRN PRN Reason: Hypoglycemia Stop: 07/28/18 14:00 Digoxin (Lanoxin) 0.125 mg PO QAM [facility] Stop: 07/29/18 09:01 Last Admin: 01/27/18 08:40 Dose: 0.125 mg Diltiazem HCl (Cardizem Cd) 180 mg PO DAILY [facility] Stop: 07/29/18 10:46 Last Admin: 01/27/18 10:57 Dose: 180 mg Docusate Sodium (Colace) 100 mg PO BID [facility] PRN Reason: Protocol Stop: 07/28/18 21:01 Last Admin: 01/27/18 08:41 Dose: 100 mg Famotidine (Pepcid) 20 mg PO QAM [facility] Stop: 07/29/18 09:01 Last Admin: 01/27/18 08:40 Dose: 20 mg Fluocinonide (Lidex) 1 appl TP BID [facility] PRN Reason: Protocol Stop: 07/28/18 21:01 Last Admin: 01/27/18 08:43 Dose: 1 appl Furosemide (Lasix) 40 mg IVP BIDDIURETIC [facility] Stop: 07/28/18 17:01 Last Admin: 01/27/18 08:41 Dose: 40 mg Glucagon (Glucagen) 1 mg IM ONCE PRN PRN Reason: Hypoglycemia Stop: 07/28/18 14:00 Glucose (Gluctose) 30 gm PO ONCE PRN PRN Reason: Hypoglycemia Stop: 07/28/18 14:00 Glucose (Gluctose) 15 gm PO ONCE PRN PRN Reason: Hypoglycemia Stop: 07/28/18 14:00 Guaifenesin (Mucinex) 600 mg PO BID [facility] Stop: 07/28/18 21:01 Last Admin: 01/27/18 08:40 Dose: 600 mg Dextrose (Dextrose 5%) 1,000 mls @ 100 mls/hr IVC .Q10H PRN PRN Reason: HYPOGLYCEMIA Stop: 07/28/18 14:00 Insulin Detemir (Levemir) 32 unit SQ BID [facility] Stop: 07/28/18 21:01 Last Admin: 01/27/18 08:43 Dose: 32 unit Insulin Human Lispro (Humalog) 6 units SQ TIDWM [facility] Stop: 07/28/18 17:01 Last Admin: 01/27/18 08:41 Dose: 6 units Insulin Human Lispro (Humalog) 0 units SQ TIDAC [facility] PRN Reason: Protocol Stop: 07/29/18 11:31 Insulin Human Lispro (Humalog) 0 units SQ HS [facility] PRN Reason: Protocol Stop: 07/29/18 09:31 Last Admin: 01/27/18 10:13 Dose: Not Given Metoprolol Succinate (Toprol Xl) 12.5 mg PO DAILY [facility] Stop: 07/29/18 09:01 Last Admin: 01/27/18 08:45 Dose: 12.5 mg Naloxone HCl (Narcan) 0.4 mg IVP Q2MIN PRN PRN Reason: SEE COMMENTS Stop: 07/28/18 12:48 Pharmacy Profile Note (Patient Taking Own Medication) 1 each PO BID [facility] Stop: 07/28/18 21:01 Last Admin: 01/27/18 08:46 Dose: Not Given Pharmacy Profile Note (Patient Taking Own Medication) 1 each TP HS [facility] Stop: 07/28/18 21:01 Last Admin: 01/26/18 21:10 Dose: Not Given Polyethylene Glycol (Miralax) 17 gm PO DAILY [facility] Stop: 07/29/18 09:01 Last Admin: 01/27/18 08:44 Dose: Not Given Rivaroxaban (Xarelto) 15 mg PO QPM [facility] Stop: 07/29/18 18:01 Tizanidine HCl (Zanaflex) 2 mg PO TID [facility] Stop: 07/28/18 15:01 Last Admin: 01/27/18 08:40 Dose: 2 mg - Imaging and Cardiology Echo: report reviewed Other Results: 12 hour tele: avg HR=97 afib. - EKG Interpretation EKG results cardiology: personally reviewed Consult Discharge Plan - Plan Referrals: Nguyễn Gilbert Jr, MD [Primary Care Provider] -
[2018-01-27 10:45] LABS: Bacteria,Urine Moderate per hpf (None-Few); Hyaline Casts,Urine None Seen per lpf (None-Few); Squamous Epithelial Cell,Urine Many per lpf (None-Few); WBC,Urine TNTC per hpf (0-3)
[2018-01-27] MEDS ORDERED: Diltiazem CD (24hr) 180 MG CAPSULE PO SCH (10:45)
[2018-01-27 10:56] LABS: Renal Epithelial Cells,Urine Present per hpf (None-Few)
[2018-01-27 10:57] LABS: Mucus,Urine Present (Few)
[2018-01-27 16:11] VITALS: BP 113/70
--- NOTE | 2018-01-27 16:19 | Discharge Summary ---
- NOTES TO OUTPATIENT PROVIDER Notes to Outpatient Provider: Follow up with SNF physician in 2-3 days after discharge. Follow up with cardiology as directed. Follow up with dermatology as directed. Orders not resulted at time of discharge: Pending orders 01/28/18 04:00 Basic Metabolic Panel AM 0400 CBC [Complete Blood Count] [HEME] AM 0400 Date of Encounter: 01/27/18 Time of Encounter: 14:57 - Discharge Diagnosis (1) Atrial fibrillation with RVR Priority: Primary Status: Chronic (2) Diabetes mellitus type 2, controlled Priority: Secondary Status: Chronic Qualifiers: Diabetes mellitus alf insulin use: unspecified alf insulin use status Diabetes mellitus complication status: with other specified complication Qualified Code(s): E11.69 - Type 2 diabetes mellitus with other specified complication (3) Dry skin Priority: Secondary Status: Acute (4) CAD (coronary artery disease) Priority: Secondary Status: Acute Qualifiers: Coronary Disease-Associated Artery/Lesion type: [place] artery [place] vs. transplanted heart: [place] heart Associated angina: without angina Qualified Code(s): I25.10 - Atherosclerotic heart disease of [place] coronary artery without angina pectoris (5) DVT prophylaxis Priority: Secondary Status: Acute Hospital course: Mr. Johnson is a 82 year old male admitted for atrial fibrillation with rapid ventricular response likely precipitated by chronic CHF likely precipitated by underlying CAD. Patient was admitted to general medical floor with telemetry. Cardiology was consulted. Home PO cardizem was held and IV cardizem drip started. Home digoxin was continued. Home xarelto was continued. HR improved. Cardiology lowered home PO cardizem dose and restarted. They also added new PO metoprolol XL. He will be discharged with these new doses. I personally spoke with guitar teacher Dr. Carney today, who states that patient is stable for discharge back to SNF. He had some hyperglycemia, that improved with high dose sliding scale insulin. He has history of psoriasis, for which his home topical ointments were continued. He will follow up with SNF physician in 2-3 days after discharge. He will follow up with cardiology as directed. He will follow up with dermatology as directed. Patient has met maximum benefit of this hospitalization and will be discharged to [facility] in stable condition. Discharge discussed with: patient, nurse, other (Pharmacist) - Time Spent with Patient Total time spent providing and/or coordinating discharge services: Greater than 30 minutes - Discharge Medications Prescriptions: ALPRAZolam [Xanax 0.5 MG Tablet] 0.5 mg PO HS 3 Days #3 tablet Diltiazem CD (24hr) [Cardizem CD] 180 mg PO DAILY 3 Days #3 cap.er.24h Metoprolol XL (24 HR) Succ [Toprol Xl] 12.5 mg PO DAILY 3 Days #3 tab.er.24h Home Medications: Aspirin 81 mg PO QAM 04/20/15 [History] Rivaroxaban [Xarelto] 15 mg PO QAM 04/20/15 [History] Insulin Human Regular [HumuLIN R] 6 unit SQ TIDWM 04/22/15 [History] Insulin Glargine,Hum.rec.anlog [Lantus Solostar] 32 units SQ BID 11/08/15 [ History] Digoxin [Lanoxin] 0.125 mg PO QAM 12/02/15 [History] Furosemide [Lasix] 40 mg PO BID 12/02/15 [History] Acetaminophen [Non-Aspirin] 650 mg PO Q6H PRN 01/26/18 [History] Apremilast [Otezla] 30 mg PO BID 01/26/18 [History] Calcipotriene [Dovonex] 1 appl TP HS 01/26/18 [History] Clotrimazole/Betameth Dip CRM [Lotrisone CRM] 1 appl TP QAM 01/26/18 [History] Docusate Sodium [Dok] 100 mg PO BID 01/26/18 [History] FluocinoNIDE 0.05% CRM [Lidex] 1 appl TP BID 01/26/18 [History] Fluticasone/Vilanterol [Breo Ellipta 200-25 Mcg INH] 1 puff IH QAM 01/26/18 [ History] Guaifenesin [Mucinex] 600 mg PO BID 01/26/18 [History] Polyethylene Glycol 3350 [MiraLAX Powder Bulk 17.9 Oz] 1 scoop PO DAILY [History] Ranitidine HCl [Acid Float Builder] 150 mg PO QAM 01/26/18 [History] Tizanidine HCl [Zanaflex] 2 mg PO TID 01/26/18 [History] carBAMazepine [Tegretol] 200 mg PO QAM 01/26/18 [History] ALPRAZolam [Xanax 0.5 MG Tablet] 0.5 mg PO HS 3 Days #3 tablet 01/27/18 [Rx] Diltiazem CD (24hr) [Cardizem CD] 180 mg PO DAILY 3 Days #3 cap.er.24h 01/27/18 [Rx] Metoprolol XL (24 HR) Succ [Toprol Xl] 12.5 mg PO DAILY 3 Days #3 tab.er.24h 07/07 [Rx] Allergies/Adverse Reactions: 3 Allergy/AdvReac Type Severity Reaction Status Date / Time sulfamethoxazole Allergy See Verified 12/06/16 09:00 [From Bactrim] Comments trimethoprim [From Bactrim] Allergy See Verified 12/06/16 09:00 Comments atorvastatin AdvReac Dizziness Verified 12/06/16 09:00 clopidogrel [From Plavix] AdvReac Dizziness Verified 12/06/16 09:00 lovastatin AdvReac Dizziness Verified 12/06/16 09:00 pioglitazone [From Actos] AdvReac Dizziness Verified 12/06/16 09:00 pravastatin AdvReac Dizziness Verified 12/06/16 09:00 Rosiglitazone AdvReac Dizziness Verified 12/06/16 09:00 flu vaccine Allergy Dizziness Uncoded 06/14/16 22:01 Date of admission: 01/26/18 13:23 Primary care physician: Nguyễn Gilbert Jr, MD Consults: Cardiology Discharging clinician: Bunny Salazar Anticipated date of discharge: 01/27/18 - Constitutional Vitals: Temp Pulse Resp BP Pulse Ox 97.9 F 108 17 113/70 96 01/27/18 16:09 01/27/18 16:09 01/27/18 16:09 01/27/18 16:09 01/27/18 16:09 General appearance: Present: cooperative, A&O X 3, pleasant, no acute distress, answers questions appropriately - Respiratory Respiratory exam: Present: CTAB. Absent: accessory muscle use, rales, rhonchi, wheezes Additional comments: Normal WOB - Cardiovascular Cardiovascular exam: Present: RRR, +S1, +S2. Absent: diastolic murmur, gallop, rubs, systolic murmur Additional comments: No BLE edema - GI/Abdominal GI/Abdominal exam: Present: normal bowel sounds, soft. Absent: distended, hepatomegaly, mass, splenomegaly, tenderness - Psychiatric Psychiatric exam: Present: normal affect, normal mood. Absent: agitated, anxious, depressed - Skin Skin exam: Present: dry, intact, warm. Absent: cyanosis Additional comments: Raised areas of inflamed skin with scattered areas of silvery-white scaly skin throughout entire body, worst on back - Patient Status Disposition: Transfer SNF Condition: Good Overall status at discharge: patient is progressing back to baseline - Discharge Instructions Follow Up With: Nguyễn Gilbert Jr, MD [Primary Care Provider] - Additional Instructions: Follow up with SNF physician in 2-3 days after discharge. Follow up with cardiology as directed. Follow up with dermatology as directed. - Diet and Activity Activity: resume usual activities as tolerated Diet: diabetic diet, low fat, low cholesterol, low salt diet, other (Cardiac Diet) - VTE Contraindication No Overlap Therapy: Admin of oral Factor Xa Inhibitor
--- NOTE | 2018-01-27 16:42 | Physician Discharge Referral ---
ExtendedCare Referral Info Transfer To: [facility] Provider in Charge after Transfer: Other (SNF Physician) Institutional Level of Care: Skilled - Diagnosis (1) Atrial fibrillation with RVR Priority: Primary Status: Chronic (2) Diabetes mellitus type 2, controlled Priority: Secondary Status: Chronic (3) Dry skin Priority: Secondary Status: Acute (4) CAD (coronary artery disease) Priority: Secondary Status: Acute (5) DVT prophylaxis Priority: Secondary Status: Acute Prognosis: Fair Aware of Diagnosis: Patient, Family Aware of Prognosis: Patient, Family - Transfer Medications Prescriptions: ALPRAZolam [Xanax 0.5 MG Tablet] 0.5 mg PO HS 3 Days #3 tablet Diltiazem CD (24hr) [Cardizem CD] 180 mg PO DAILY 3 Days #3 cap.er.24h Metoprolol XL (24 HR) Succ [Toprol Xl] 12.5 mg PO DAILY 3 Days #3 tab.er.24h Home Medications: Aspirin 81 mg PO QAM 04/20/15 [History] Rivaroxaban [Xarelto] 15 mg PO QAM 04/20/15 [History] Insulin Human Regular [HumuLIN R] 6 unit SQ TIDWM 04/22/15 [History] Insulin Glargine,Hum.rec.anlog [Lantus Solostar] 32 units SQ BID 11/08/15 [ History] Digoxin [Lanoxin] 0.125 mg PO QAM 12/02/15 [History] Furosemide [Lasix] 40 mg PO BID 12/02/15 [History] Acetaminophen [Non-Aspirin] 650 mg PO Q6H PRN 01/26/18 [History] Apremilast [Otezla] 30 mg PO BID 01/26/18 [History] Calcipotriene [Dovonex] 1 appl TP HS 01/26/18 [History] Clotrimazole/Betameth Dip CRM [Lotrisone CRM] 1 appl TP QAM 01/26/18 [History] Docusate Sodium [Dok] 100 mg PO BID 01/26/18 [History] FluocinoNIDE 0.05% CRM [Lidex] 1 appl TP BID 01/26/18 [History] Fluticasone/Vilanterol [Breo Ellipta 200-25 Mcg INH] 1 puff IH QAM 01/26/18 [ History] Guaifenesin [Mucinex] 600 mg PO BID 01/26/18 [History] Polyethylene Glycol 3350 [MiraLAX Powder Bulk 17.9 Oz] 1 scoop PO DAILY [History] Ranitidine HCl [Acid Vp [employer]] 150 mg PO QAM 01/26/18 [History] Tizanidine HCl [Zanaflex] 2 mg PO TID 01/26/18 [History] carBAMazepine [Tegretol] 200 mg PO QAM 01/26/18 [History] ALPRAZolam [Xanax 0.5 MG Tablet] 0.5 mg PO HS 3 Days #3 tablet 01/27/18 [Rx] Diltiazem CD (24hr) [Cardizem CD] 180 mg PO DAILY 3 Days #3 cap.er.24h 01/27/18 [Rx] Metoprolol XL (24 HR) Succ [Toprol Xl] 12.5 mg PO DAILY 3 Days #3 tab.er.24h 07/07 [Rx] Allergies/Adverse Reactions: 3 Allergy/AdvReac Type Severity Reaction Status Date / Time sulfamethoxazole Allergy See Verified 12/06/16 09:00 [From Bactrim] Comments trimethoprim [From Bactrim] Allergy See Verified 12/06/16 09:00 Comments atorvastatin AdvReac Dizziness Verified 12/06/16 09:00 clopidogrel [From Plavix] AdvReac Dizziness Verified 12/06/16 09:00 lovastatin AdvReac Dizziness Verified 12/06/16 09:00 pioglitazone [From Actos] AdvReac Dizziness Verified 12/06/16 09:00 pravastatin AdvReac Dizziness Verified 12/06/16 09:00 Rosiglitazone AdvReac Dizziness Verified 12/06/16 09:00 flu vaccine Allergy Dizziness Uncoded 06/14/16 22:01 - Respiratory Orders Smoking Cessation: Smoking cessation has been advised. For more information, call the [place] Tobacco Quit Line at 9-654-FPCG-NOW. - Mobility Orders Other (Per physical therapy) - Rehabiliation Orders Rehab Potential: Fair Rehab Orders: Evaluation for Physical Therapy, Evaluation for Occupational Therapy - Diet Orders No Added Salt (CLYDE), No Concentrated Sweets (Diabetic Diet), Cardiac CERTIFICATION: I certify that the transfer of the above named patient to an Extended Care Facility is necessary for the continuing treatment of the diagnosis listed. The above information is true and accurate reflection of patient's current condition. Confidential - Redisclosure prohibited without a patient's written consent.
== END 2018-01-27 18:06 | DRG 309 ==
LOC: EMEROO 09:14 → 2ANU 09:14
PROVIDERS: ADMIT Hospitalist; ATTEND Hospitalist

== ENCOUNTER 2018-03-21 13:49 | Inpatient (IN) ==
[2018-03-21 14:56] LABS: Bilirubin,Urine Negative (Negative); Blood,Urine Small (Negative); Clarity,Urine Turbid (Clear); Color,Urine Yellow (Yellow); Glucose,Urine (UA) Normal (Normal); Ketones,Urine Negative (Negative); Leukocyte Esterase,Urine Large (Negative); Nitrite,Urine Negative (Negative); Protein,Urine 30 mg/dL (Neg-Trace); Specific Gravity,Urine 1.013 (1.010-1.025); Urobilinogen,Urine Normal (Normal)
[2018-03-21 14:58] LABS: Bacteria,Urine Moderate per hpf (None-Few); Hyaline Casts,Urine None Seen per lpf (None-Few); RBC,Urine 0-3 per hpf (0-3); Squamous Epithelial Cell,Urine Few per lpf (None-Few); WBC,Urine TNTC per hpf (0-3)
[2018-03-21 15:28] LABS: Basophils % 0.4 %; Eosinophils # 0.1 K/mcL (0.0-0.6); Eosinophils % 1.1 %; Hemoglobin 7.2 g/dL (12.9-16.9); Immature Granulocytes % 2.4 % (0-4); Lymphocytes # 0.5 K/mcL (0.6-4.6); Lymphocytes % 6.4 %; Mean Corpuscular HGB Conc 32.7 g/dL (31.6-35.5); Mean Corpuscular Hemoglobin 39.3 pg (28.0-33.3); Mean Corpuscular Volume 120.2 fL (83.0-100.0); Mean Platelet Volume 8.7 fL (9.4-12.4); Monocytes # 0.6 K/mcL (0.0-1.3); Monocytes % 8.2 %; Platelet Count 243 K/mcL (140-400); Red Blood Count 1.83 M/mcL (4.19-5.50); Red Cell Distribution Width 18.4 % (11.5-14.5); Segmented Neutrophils % 81.5 %
[2018-03-21 15:30] LABS: Neutrophils # 5.9 K/mcL (1.6-8.9)
[2018-03-21 15:41] LABS: INR 1.2
[2018-03-21 15:47] LABS: Macrocytosis Present (Not Present); Platelet Estimate Normal (Normal); Polychromasia 2+ (Not Present)
[2018-03-21 15:49] LABS: Alanine Aminotransferase 16 Units/L (7-52); Albumin 3.7 g/dL (3.5-5.7); Albumin/Globulin Ratio 1.5 (1.1-2.2); Alkaline Phosphatase 155 Units/L (34-104); Aspartate Amino Transferase 30 Units/L (13-39); BUN/Creatinine Ratio 20 (6-26); Bilirubin,Total 2.1 mg/dL (0.3-1.0); Blood Urea Nitrogen 21 mg/dL (8-23); Calcium 8.8 mg/dL (8.6-10.3); Carbon Dioxide 29 mEq/L (23-29); Chloride 93 mEq/L (98-107); Globulin 2.5 g/dL (2.4-3.5); Glucose 119 mg/dL (70-105); Osmolality,Calculated 274 (280-300); Sodium 130 mEq/L (136-145); Total Protein 6.2 g/dL (6.4-8.9); Troponin I < 0.03 ng/mL (< 0.04); eGFR For African Americans > 60 (> 60); eGFR For Non-African Americans > 60 (> 60)
--- NOTE | 2018-03-21 16:35 | Emergency Department Note ---
Disposition Clinical Impression: Weakness Anemia Qualifiers: Anemia type: unspecified type Qualified Code(s): D64.9 - Anemia, unspecified GI bleed Qualifiers: GI bleed type/associated pathology: unspecified gastrointestinal hemorrhage type Qualified Code(s): K92.2 - Gastrointestinal hemorrhage, unspecified Disposition: Admitted As Inpatient Condition: Good Referrals: Nguyễn Gilbert Jr, MD [Primary Care Provider] - Forms: ED Satisfaction Letter General Adult HPI - General Chief complaint: ED Weakness Stated complaint: Weakness Time Seen by Provider: 03/21/18 13:55 Source: patient, EMS Limitations: no limitations Nursing Notes Reviewed: Yes Vital Signs Reviewed: Yes - History of Present Illness HPI Narrative: Patient presents today for evaluation of low hemoglobin. Patient states that he was recently evaluated in [place] secondary weakness and fatigue and found to have anemia. The patient's anemia was worked up and he was recommended to have endoscopy. Patient initially refused as he would rather have it done here. The patient went back to the retirement. Repeat labs and continued generalized weakness and fatigue show hemoglobin less than 7. Patient does not have any other specific complaints. Patient's chest pain or shortness of breath. No abdominal pain or noticeable blood in his stool. The patient was otherwise pleasant and very talkative. Pain Scale: 0 - Related Data Home Medications Medication Instructions Recorded Confirmed Aspirin 81 mg PO QAM 04/20/15 01/26/18 Digoxin [Lanoxin] 0.125 mg PO QAM 12/02/15 01/26/18 Apremilast [Otezla] 30 mg PO BID 01/26/18 01/26/18 Calcipotriene [Dovonex] 1 appl TP HS 01/26/18 01/26/18 Clotrimazole/Betameth Dip CRM 1 appl TP QAM 01/26/18 01/26/18 [Lotrisone CRM] Docusate Sodium [Dok] 100 mg PO BID 01/26/18 01/26/18 FluocinoNIDE 0.05% CRM [Lidex] 1 appl TP BID 01/26/18 01/26/18 Fluticasone/Vilanterol [Breo 1 puff IH QA 01/26/18 01/26/18 Ellipta 200-25 Mcg INH] Polyethylene Glycol 3350 [MiraLAX 1 scoop PO DAILY 01/26/18 01/26/18 Powder Bulk 17.9 Oz] Ranitidine HCl [Acid [employer] Manager] 150 mg PO QAM 01/26/18 01/26/18 carBAMazepine [Tegretol] 200 mg PO QAM 01/26/18 01/26/18 Furosemide [Lasix] 40 mg PO BID 03/21/18 03/21/18 Insulin DETEMIR [Levemir] 34 units SQ HS 03/21/18 03/21/18 Insulin Regular, Human [Novolin R] 6 units SQ TIDWM 03/21/18 03/21/18 Metoprolol [Lopressor] 25 mg PO BID 03/21/18 03/21/18 Tizanidine HCl 4 mg PO Q8H PRN 03/21/18 03/21/18 Previous Rx's Medication Instructions Recorded ALPRAZolam [Xanax 0.5 MG Tablet] 0.5 mg PO HS 3 Days #3 tablet 01/27/18 Diltiazem CD (24hr) [Cardizem CD] 180 mg PO DAILY 3 Days #3 01/27/18 cap.er.24h Allergies Allergy/AdvReac Type Severity Reaction Status Date / Time sulfamethoxazole Allergy See Verified 12/06/16 09:00 [From Bactrim] Comments trimethoprim [From Bactrim] Allergy See Verified 12/06/16 09:00 Comments atorvastatin AdvReac Dizziness Verified 12/06/16 09:00 clopidogrel [From Plavix] AdvReac Dizziness Verified 12/06/16 09:00 lovastatin AdvReac Dizziness Verified 12/06/16 09:00 pioglitazone [From Actos] AdvReac Dizziness Verified 12/06/16 09:00 pravastatin AdvReac Dizziness Verified 12/06/16 09:00 Rosiglitazone AdvReac Dizziness Verified 12/06/16 09:00 flu vaccine Allergy Dizziness Uncoded 06/14/16 22:01 Review of Systems: CONSTITUTIONAL: Generalized weakness and fatigue HEENT: Eyes: No visual changes. Ears, Nose, Throat: No hearing loss, difficulty talking or unable to swallow. SKIN: No rash or itching. CARDIOVASCULAR: No chest pain, chest pressure or chest discomfort. No palpitations or edema. RESPIRATORY: No shortness of breath, cough or sputum. GASTROINTESTINAL: No anorexia, nausea, vomiting or diarrhea. No abdominal pain or blood. GENITOURINARY: No burning on urination or hematuria. NEUROLOGICAL: No headache, dizziness, syncope, paralysis, ataxia, numbness or tingling in the extremities. No change in bowel or bladder control. MUSCULOSKELETAL: No muscle pain, back pain, joint pain or stiffness. Past Medical History - Past Medical History Medical history: Reports: asthma, atrial fibrillation, COPD, coronary artery disease, diabetes, hypertension, kidney stones, myocardial infarction, other Surgical history: Reports: cataract Psychiatric history: Reports: anxiety, depression - Social History Smoking Status: Former smoker Smokeless Tobacco Status: No Alcohol use: Reports: none Drug use: Reports: none Physical Exam General: Well appearing, nontoxic, no acute distress Head: Normocephalic Atraumatic Eyes: PERRL, EOMI ENT: Airway patent, no stridor Neck: supple, no meningismus Chest: Lungs clear to auscultation bilateral Cardiac: Regular rate and rhythm, no murmurs, rubs or gallops Abdomen: soft, nontender, nondistended; no guarding, rebound, or tenderness to percussion : Rectal exam without gross melena or bright red blood. Hemoccult positive. Musculoskeletal: There are shotty soft nontender. Skin: No rash, normal skin tone Neuro: Alert and Oriented to person, place, and time; No focal deficit, - General Limitations: no limitations General appearance: alert Course - Reevaluation(s) Reevaluation #1: Patient's blood work shows anemia greater than 7. Minimally symptomatic stable vital signs. 2 units been placed on hold but no transfusion at this time. Continue to monitor and defer to hospitalist. Atrial fibrillation on aspirin but no other blood thinners. Patient is also on digoxin as well as insulin. - Consultations Consultation #1: Discussed with hospitalist. Patient accepted for admission. Vital Signs Temperature 98.4 F 03/21/18 13:51 Pulse Rate 98 03/21/18 13:51 Respiratory Rate 18 03/21/18 13:51 Blood Pressure 138/68 03/21/18 13:51 O2 Sat by Pulse Oximetry 99 03/21/18 13:51 Temperature 98.4 F 03/21/18 13:51 Pulse Rate 87 03/21/18 13:58 Respiratory Rate 18 03/21/18 13:58 Blood Pressure 138/68 03/21/18 13:58 O2 Sat by Pulse Oximetry 97 03/21/18 13:58 Oxygen Delivery Oxygen Delivery Room Air Medical Decision Making - Medical Records Medical records reviewed: Yes I reviewed the patient's medical records. - Lab Data Lab results reviewed: Yes I reviewed the patient's lab results. Result diagrams: 03/21/18 14:50 03/21/18 14:50 Lab Results 03/21/18 03/21/18 03/21/18 Range/Units 14:19 14:48 14:50 WBC 7.2 (4.3-11.1) K/mcL RBC 1.83 L (4.19-5.50) M/mcL Hgb 7.2 L (12.9-16.9) g/dL Hct 22.0 L (37.5-50.1) % MCV 120.2 H (83.0-100.0) fL MCH 39.3 H (28.0-33.3) pg MCHC 32.7 (31.6-35.5) g/dL RDW 18.4 H (11.5-14.5) % Plt Count 243 (140-400) K/mcL MPV 8.7 L (9.4-12.4) fL Immature Gran % 2.4 (0-4) % Seg Neutrophils % 81.5 % Lymphocytes % 6.4 % Monocytes % 8.2 % Eosinophils % 1.1 % Basophils % 0.4 % Neutrophils # 5.9 (1.6-8.9) K/mcL Lymphocytes # 0.5 L (0.6-4.6) K/mcL Monocytes # 0.6 (0.0-1.3) K/mcL Eosinophils # 0.1 (0.0-0.6) K/mcL Basophils # 0.0 (0.0-0.2) K/mcL Platelet Estimate Normal (Normal) Polychromasia 2+ A (Not Present) Macrocytosis Present A (Not Present) PT (9.4-12.1) Seconds INR Sodium (136-145) mEq/L Potassium (3.5-5.1) mEq/L Chloride (98-107) mEq/L Carbon Dioxide (23-29) mEq/L BUN (8-23) mg/dL Creatinine (0.70-1.30) mg/dL Est GFR ( Amer) (> 60) Est GFR (Non-Af Amer) (> 60) BUN/Creatinine Ratio (6-26) Glucose (70-105) mg/dL Calculated Osmolality (280-300) Calcium (8.6-10.3) mg/dL Total Bilirubin (0.3-1.0) mg/dL AST (13-39) Units/L ALT (7-52) Units/L Alkaline Phosphatase (34-104) Units/L Troponin I (< 0.04) ng/mL Serum Total Protein (6.4-8.9) g/dL Albumin (3.5-5.7) g/dL Globulin (2.4-3.5) g/dL Albumin/Globulin Ratio (1.1-2.2) Urine Color Yellow (Yellow) Urine Clarity Turbid A (Clear) Urine pH 6.0 (5.0-8.0) pH Units Ur Specific [place] 1.013 (1.010-1.025) Urine Protein 30 H (Neg-Trace) mg/dL Urine Glucose (UA) Normal (Normal) mg/dL Urine Ketones Negative (Negative) mg/dL Urine Blood Small H (Negative) Urine Nitrite Negative (Negative) Urine Bilirubin Negative (Negative) Urine Urobilinogen Normal (Normal) mg/dL Ur Leukocyte Esterase Large H (Negative) Urine Microscopic RBC 0-3 (0-3) per hpf Urine Microscopic WBC TNTC H (0-3) per hpf Ur Squamous Epith Cells Few (None-Few) per lpf Urine Bacteria Moderate H (None-Few) per hpf Hyaline Casts None Seen (None-Few) per lpf Ur Culture Indicated? YES A (NO) Stool Occult Blood Positive A (Negative) Blood Type Antibody Screen 03/21/18 03/21/18 03/21/18 Range/Units 14:50 14:50 14:50 WBC (4.3-11.1) K/mcL RBC (4.19-5.50) M/mcL Hgb (12.9-16.9) g/dL Hct (37.5-50.1) % MCV (83.0-100.0) fL MCH (28.0-33.3) pg MCHC (31.6-35.5) g/dL RDW (11.5-14.5) % Plt Count (140-400) K/mcL MPV (9.4-12.4) fL Immature Gran % (0-4) % Seg Neutrophils % % Lymphocytes % % Monocytes % % Eosinophils % % Basophils % % Neutrophils # (1.6-8.9) K/mcL Lymphocytes # (0.6-4.6) K/mcL Monocytes # (0.0-1.3) K/mcL Eosinophils # (0.0-0.6) K/mcL Basophils # (0.0-0.2) K/mcL Platelet Estimate (Normal) Polychromasia (Not Present) Macrocytosis (Not Present) PT 13.0 H (9.4-12.1) Seconds INR 1.2 Sodium 130 L (136-145) mEq/L Potassium 4.0 (3.5-5.1) mEq/L Chloride 93 L (98-107) mEq/L Carbon Dioxide 29 (23-29) mEq/L BUN 21 (8-23) mg/dL Creatinine 1.07 (0.70-1.30) mg/dL Est GFR ( Amer) > 60 (> 60) Est GFR (Non-Af Amer) > 60 (> 60) BUN/Creatinine Ratio 20 (6-26) Glucose 119 H (70-105) mg/dL Calculated Osmolality 274 L (280-300) Calcium 8.8 (8.6-10.3) mg/dL Total Bilirubin 2.1 H (0.3-1.0) mg/dL AST 30 (13-39) Units/L ALT 16 (7-52) Units/L Alkaline Phosphatase 155 H (34-104) Units/L Troponin I < 0.03 (< 0.04) ng/mL Serum Total Protein 6.2 L (6.4-8.9) g/dL Albumin 3.7 (3.5-5.7) g/dL Globulin 2.5 (2.4-3.5) g/dL Albumin/Globulin Ratio 1.5 (1.1-2.2) Urine Color (Yellow) Urine Clarity (Clear) Urine pH (5.0-8.0) pH Units Ur Specific [place] (1.010-1.025) Urine Protein (Neg-Trace) mg/dL Urine Glucose (UA) (Normal) mg/dL Urine Ketones (Negative) mg/dL Urine Blood (Negative) Urine Nitrite (Negative) Urine Bilirubin (Negative) Urine Urobilinogen (Normal) mg/dL Ur Leukocyte Esterase (Negative) Urine Microscopic RBC (0-3) per hpf Urine Microscopic WBC (0-3) per hpf Ur Squamous Epith Cells (None-Few) per lpf Urine Bacteria (None-Few) per hpf Hyaline Casts (None-Few) per lpf Ur Culture Indicated? (NO) Stool Occult Blood (Negative) Blood Type A NEGATIVE Antibody Screen NEGATIVE - Radiology Data Radiology results reviewed: Yes I reviewed the patient's radiology results. - EKG Data EKG #1 EKG attestation: Yes I reviewed and interpreted this EKG. EKG results narrative: EKG shows atrial fibrillation with right bundle branch block. No significant ST elevations or depressions. No significant changes from previous of 2017. Rate of 95. QRS 130. QTC 389.
--- NOTE | 2018-03-21 17:43 | Event Note ---
Date of Encounter: 03/21/18 Time of Encounter: 17:37 82-year-old male patient with history of atrial fibrillation, COPD, coronary artery disease, diabetes, hypertension who presented to the ER from assisted for low hemoglobin levels. Patient has been having generalized weakness and was previously hospitalized at [facility] recently for anemia. At that time he was recommended endoscopies that patient did not want it done. He was then discharged back to rehabilitation. He denies any hematemesis or melena. He does report occasional blood in his stools once in a while. WBC 7.2, hemoglobin 7.2, sodium 130, PT was 13, INR 1.2, platelets 243. Chest x-ray showed pulmonary vascular congestion. On examination, patient is awake and alert. Appears pale. Heart sounds are normal. Breath sounds are normal. He does have bilateral lower extremity edema and a rash on his left foot. Anemia: Possibly acute blood loss anemia from GI bleed. Stool for occult blood was positive. Keep nothing by mouth. Consult GI for possible upper GI endoscopy and colonoscopy. Place patient on PPI. Acute cystitis: Patient's urinalysis is concerning for acute UTI. Will place him on ceftriaxone. Essential hypertension: Monitor blood pressure. Continue home medications. Atrial fibrillation: Paroxysmal. Monitor heart rate. Previously on Xarelto but this has since been stopped the eighth currently only on baby aspirin. Continue home medications. Diabetes mellitus type 2: Monitor blood sugars. Sliding scale insulin. Continue Levemir. Diabetic diet.
[2018-03-21] MEDS ORDERED: Naloxone 0.4 MG/ML INJ IVP PRN (17:46)
--- NOTE | 2018-03-21 17:46 | Electrocardiograph Report ---
[facility] Test Date: 2018-03-21 Pat Name: Lobito Johnson Department: 104 Room: 3A33 Gender: M Income Tax Analyst: : [id number] Requested By: [id number] Order Number: [id number] Reading MD: Burak Cazares Measurements Intervals [place] Rate: 95 P: [place]: 0 QRS: 42 QRSD: 130 T: 37 QT: 336 QTc: 389 Interpretive Statements ATRIAL FIBRILLATION RIGHT BUNDLE BRANCH BLOCK [120+ ms QRS DURATION, UPRIGHT V1, 40+ ms S IN I/aVL/V4/V5/V6] Electronically Signed On 03-21-2018 17:44:46 EDT by Burak Cazares
[2018-03-21] MEDS ORDERED: SODIUM CHLORIDE/NAHCO3/KCL/PEG 4,000 ML SOLN.RECON PO ONE (18:02)
--- NOTE | 2018-03-21 18:05 | Internal Med History&Physical ---
<Kaela Arora - Last Filed: 03/21/18 22:04> Date of Encounter: 03/21/18 Time of Encounter: 18:00 Internal Medicine - H&P: HPI Chief complaint: Anemia Admitted From: Home Plans for Post Hospital Care: Home History of present illness: Mr. Johnson is a 82 year old male with hx of THE[place], spinal stenosis, AFIB with RVR , CAD, dm, CKD, HF and COPD. The patient lives at [facility]. He had labs drawn and hgb was 6.6 at the CO. The patient has been having anemia and was told at [facility] that he needed to have a endoscopy. The patient refused it at that time. Hgb on admission was 7.2, patient was typed and crossed for 2 units. His baseline is 11.2-12.0. He was typed and crossed and 2 units currently on hold. Stool + for occult blood. Will transfuse 1 unit for now. Gastroenterology notified and agreed to consult. The patient will be given golytely and 20mg of dulcolax. The EKG shows AFIB with BBB, rate 95, this was. The patient bilat lower extremities with 2+ pitting edema and some erythema noted. The patient is also expressing a desire to leave [place] and return to the custodial we was at prior. Will ask for social service consult. CXR showed some pulmonary vascular congestion, pulm edema, HF or volume overlaod, bnp is elevated at 258, last echo was 01/2018 that showed LVEF of 60%, mild to mod mitral regurg, trace aortic regurg, trace tricuspid valve regurg and indeterminate diastolic function. Past Med Surg Social Fam HX - Past Medical History Medical history: asthma, atrial fibrillation, COPD, coronary artery disease, diabetes, hypertension, kidney stones, myocardial infarction, other Additional medical history: heart failure, anemia Psychiatric history: anxiety, depression - Past Surgical History Surgical History: cataract Additional surgical history: Umbilical hernia. - Social History Smoking Status: Former smoker Smokeless Tobacco Status: No Alcohol use: none Drug use: none - Family History Mother Living Status: Hx Family Cardiac Disorders: Yes Hx Family Respiratory Disorders: No Hx Family Cancer: No Hx Family GI Disorders: No Hx Family Endocrine Disorder: Yes Hx Family Neuromuscular Disorders: No Hx Family Neurologic Disorders: Yes Hx Family HEENT Disorders: No Hx Family Autoimmune Disorders: No Father Adopted: No Family Member Ethnicity: Non- Living Status: Hx Family Cardiac Disorders: Yes Internal Medicine - H&P: Meds Aspirin 81 mg PO QAM 04/20/15 [History] Digoxin [Lanoxin] 0.125 mg PO QAM 12/02/15 [History] Apremilast [Otezla] 30 mg PO BID 01/26/18 [History] Calcipotriene [Dovonex] 1 appl TP HS 01/26/18 [History] Clotrimazole/Betameth Dip CRM [Lotrisone CRM] 1 appl TP QAM 01/26/18 [History] Docusate Sodium [Dok] 100 mg PO BID 01/26/18 [History] FluocinoNIDE 0.05% CRM [Lidex] 1 appl TP BID 01/26/18 [History] Fluticasone/Vilanterol [Breo Ellipta 200-25 Mcg INH] 1 puff IH QAM 01/26/18 [ History] Polyethylene Glycol 3350 [MiraLAX Powder Bulk 17.9 Oz] 17 g PO DAILY 01/26/18 [ History] Ranitidine HCl [Acid Industrial Sociologist] 150 mg PO QAM 01/26/18 [History] carBAMazepine [Tegretol] 200 mg PO QAM 01/26/18 [History] ALPRAZolam [Xanax 0.5 MG Tablet] 0.5 mg PO HS 3 Days #3 tablet 01/27/18 [Rx] Diltiazem CD (24hr) [Cardizem CD] 180 mg PO DAILY 3 Days #3 cap.er.24h 01/27/18 [Rx] Furosemide [Lasix] 40 mg PO BID 03/21/18 [History] Insulin DETEMIR [Levemir] 34 units SQ HS 03/21/18 [History] Insulin Regular, Human [Novolin R] 6 units SQ TIDWM 03/21/18 [History] Metoprolol [Lopressor] 25 mg PO BID 03/21/18 [History] Tizanidine HCl 4 mg PO Q8H PRN 03/21/18 [History] 3 Allergy/AdvReac Type Severity Reaction Status Date / Time sulfamethoxazole Allergy See Verified 12/06/16 09:00 [From Bactrim] Comments trimethoprim [From Bactrim] Allergy See Verified 12/06/16 09:00 Comments atorvastatin AdvReac Dizziness Verified 12/06/16 09:00 clopidogrel [From Plavix] AdvReac Dizziness Verified 12/06/16 09:00 lovastatin AdvReac Dizziness Verified 12/06/16 09:00 pioglitazone [From Actos] AdvReac Dizziness Verified 12/06/16 09:00 pravastatin AdvReac Dizziness Verified 12/06/16 09:00 Rosiglitazone AdvReac Dizziness Verified 12/06/16 09:00 flu vaccine Allergy Dizziness Uncoded 06/14/16 22:01 All Systems PM: A 10-system review of systems was performed and is negative for pertinent findings except as documented above in the HPI. - Constitutional Constitutional: no chills, no fever(s), no night sweats - EENT Eyes: no change in vision, no discharge, no pain, no photophobia Ears: no ear discharge, no ear pain, no tinnitus Nose, mouth and throat: no dysphagia, no nasal discharge, no neck pain, no sore throat - Cardiovascular Cardiovascular ROS IM: irregular heart rhythm, no chest pain, no diaphoresis, no dyspnea, no lightheadedness, no palpitations, no syncope - Respiratory Respiratory: no cough, no dyspnea, no wheezing, no excessive phlegm production - Gastrointestinal Gastrointestinal: abdominal pain (generalized), no diarrhea, no hematemesis, no hematochezia, no melena, no nausea, no vomiting - Musculoskeletal Musculoskeletal ROS IM: no numbness, no tingling - Integumentary Integumentary IM: erythema (buikat lower extremities), no rash, no unusual bruising - Neurological Neurological ROS: frequent falls, no confusion, no convulsions, no focal weakness, no numbness, no tingling, no tremor(s) - Hematologic/Lymphatic Hematologic/Lymphatic: no easy bruising - Constitutional Vitals: Temp Pulse Resp BP Pulse Ox 98.4 F 112 18 109/61 98 03/21/18 13:51 03/21/18 17:33 03/21/18 17:33 03/21/18 17:33 03/21/18 17:33 General appearance: Present: A&O X 3, no acute distress, answers questions appropriately - Head Head exam: Present: atraumatic, normocephalic - Eye Eye exam: Present: PERRL, conjuntiva pink, sclera anicteric Pupils: Present: PERRL - Neck Neck exam general surgery: Present: supple, trachea midline. Absent: lymphadenopathy - Respiratory Respiratory exam: Present: decreased breath sounds. Absent: accessory muscle use, rales, rhonchi, wheezes - Cardiovascular Cardiovascular exam: Present: RRR, +S1, +S2. Absent: diastolic murmur, gallop, rubs, systolic murmur - GI/Abdominal GI/Abdominal exam: Present: normal bowel sounds, soft, tenderness (Generalized abdominal pain), no peritoneal signs. Absent: distended - Extremities Exam Extremities exam: Present: pedal edema (Severe pedal edema, 2-3+, with erythema to the lower legs. ), warm, radial pulses palpable and symmetrical. Absent: calf tenderness, cyanotic - Neurological Exam Neurological exam: Present: CN II-XII intact, oriented X3, no focal deficits. Absent: pronater drift, facial droop, speech deficit - Skin Skin exam: Present: dry, intact Internal Med - H&P Results - Labs CBC & Chem 7: 03/21/18 14:50 03/21/18 14:50 - Assessment and plan (1) GI bleed Current Visit: Yes Status: Acute Assessment and plan: The patient hgb at the CO was 6.6, stool positive for occult blood. Patient refused endoscopy at [facility]. Prefers to be scoped here. H and H q6hrs and daily. Gastroenterology consulted. Plan for colonoscopy in am Golytely prep x1 Dulcolax 20 mg po x1 PPI No IVF's due to hx of heart failure Type and cross, will give 1 unit Qualifiers: GI bleed type/associated pathology: unspecified gastrointestinal hemorrhage type Qualified Code(s): K92.2 - Gastrointestinal hemorrhage, unspecified (2) Atrial fibrillation Current Visit: No Status: Chronic Assessment and plan: Cardiac monitoring Patient not on prophylaxis, likely due to his recent anemia. Foot pumps bilat Qualifiers: Atrial fibrillation type: unspecified Qualified Code(s): I48.91 - Unspecified atrial fibrillation (3) Diabetes mellitus Current Visit: No Status: Chronic Assessment and plan: Blood sugars are controlled Keep under 200 while inpatient Accu checks q6h with mild humalog insulin sliding coverage Qualifiers: Diabetes mellitus type: type 2 Diabetes mellitus complication status: without complication Qualified Code(s): E11.9 - Type 2 diabetes mellitus without complications; Z79.4 - regional intermodal truck driver (current) use of insulin (4) UTI (urinary tract infection) Current Visit: Yes Status: Acute Assessment and plan: IV rocephin daily Monitor daily labs Qualifiers: Urinary tract infection type: acute cystitis Hematuria presence: without hematuria Qualified Code(s): N30.00 - Acute cystitis without hematuria (5) Pulmonary vascular congestion Current Visit: Yes Status: Acute Assessment and plan: Patient has hx of HF Last echo was BNP Continue furosemide (6) Morbid obesity Current Visit: No Status: Chronic Assessment and plan: Daily weights Nutrition consult - Time Spent With Patient Total time spent is greater than 50% in coordination of care (as documented) at patient's floor/unit and/or counseling patient: less than 15 minutes <Brandon Barahona - Last Filed: 03/29/18 07:20> Date of Encounter: 03/21/18 Time of Encounter: 17:37 Internal Medicine - H&P: HPI History of present illness: Mr. Johnson is a 82 year old male All Systems PM: A 10-system review of systems was performed and is negative for pertinent findings except as documented above in the HPI. - Constitutional Vitals: Temp Pulse Resp BP Pulse Ox 97.4 F L 91 16 108/65 96 03/29/18 06:50 03/29/18 06:50 03/29/18 06:50 03/29/18 06:50 03/29/18 06:50 Internal Med - H&P Results - Labs CBC & Chem 7: 03/29/18 05:06 03/29/18 05:06 Labs: Short CBC 03/29/18 Range/Units 05:06 WBC 8.1 (4.3-11.1) K/mcL Hgb 9.0 L D (12.9-16.9) g/dL Hct 27.5 L (37.5-50.1) % Plt Count 203 (140-400) K/mcL Neutrophils # 6.2 (1.6-8.9) K/mcL BMP 03/29/18 05:06 Sodium 134 L Potassium 3.6 Chloride 101 Carbon Dioxide 29 BUN 17 Creatinine 0.84 Glucose 129 H Calcium 7.9 L Liver Function 03/28/18 Range/Units 10:49 Total Bilirubin 1.6 H (0.3-1.0) mg/dL Direct Bilirubin 0.5 H (0.0-0.2) mg/dL - ABG Interpretation ABG results: 03/24/18 19:04 ABG pH 7.43 ABG pCO2 38 ABG pO2 107 H ABG HCO3 26 ABG Total CO2 27 H ABG O2 Saturation 98 ABG Base Excess 1 - Impressions ITS Impressions Chest X-Ray 03/24/18 18:38 IMPRESSION: Progressive CHF with bilateral pleural effusions and bibasilar atelectasis. D/ / Dickson Zhao MD / Dickson Zhao MD Interpreting Provider: Dickson Zhao MD Bleed Scan Nuclear Medicine 03/28/18 08:31 IMPRESSION: No evidence of active GI bleeding during acquisition. RECOMMENDATIONS: If the patient shows hemodynamic signs of an active bleed in the next 20 hours, additional images can be acquired. D/ / Winston Duke MD / Winston Duke MD Interpreting Provider: Winston Duke MD - Attending Attestation 82-year-old male patient with history of atrial fibrillation, COPD, coronary artery disease, diabetes, hypertension who presented to the ER from custodial for low hemoglobin levels. Patient has been having generalized weakness and was previously hospitalized at [facility] recently for anemia. At that time he was recommended endoscopies that patient did not want it done. He was then discharged back to rehabilitation. He denies any hematemesis or melena. He does report occasional blood in his stools once in a while. WBC 7.2, hemoglobin 7.2, sodium 130, PT was 13, INR 1.2, platelets 243. Chest x-ray showed pulmonary vascular congestion. On examination, patient is awake and alert. Appears pale. Heart sounds are normal. Breath sounds are normal. He does have bilateral lower extremity edema and a rash on his left foot. Anemia: Possibly acute blood loss anemia from GI bleed. Stool for occult blood was positive. Keep nothing by mouth. Consult GI for possible upper GI endoscopy and colonoscopy. Place patient on PPI. Acute cystitis: Patient's urinalysis is concerning for acute UTI. Will place him on ceftriaxone. Essential hypertension: Monitor blood pressure. Continue home medications. Atrial fibrillation: Paroxysmal. Monitor heart rate. Previously on Xarelto but this has since been stopped the eighth currently only on baby aspirin. Continue home medications. Diabetes mellitus type 2: Monitor blood sugars. Sliding scale insulin. Continue Levemir. Diabetic diet. - Assessment and plan (1) Atrial fibrillation with RVR Current Visit: Yes Status: Resolved (2) Diabetes mellitus type 2, controlled Current Visit: Yes Status: Chronic Qualifiers: Diabetes mellitus local intermodal truck driver insulin use: unspecified local intermodal truck driver insulin use status Diabetes mellitus complication status: with unspecified complications Qualified Code(s): E11.8 - Type 2 diabetes mellitus with unspecified complications (3) CKD (chronic kidney disease), stage III Current Visit: No Status: Inactive (4) Heart failure with preserved ejection fraction Current Visit: No Status: Chronic (5) Anemia Current Visit: Yes Status: Chronic Qualifiers: Anemia type: iron deficiency Iron deficiency anemia type: unspecified iron deficiency Qualified Code(s): D50.9 - Iron deficiency anemia, unspecified (6) CAD (coronary artery disease) Current Visit: No Status: Chronic Qualifiers: Coronary Disease-Associated Artery/Lesion type: [place] artery [place] vs. transplanted heart: [place] heart Associated angina: without angina Qualified Code(s): I25.10 - Atherosclerotic heart disease of [place] coronary artery without angina pectoris (7) GI bleed Current Visit: Yes Status: Acute Qualifiers: GI bleed type/associated pathology: unspecified gastrointestinal hemorrhage type Qualified Code(s): K92.2 - Gastrointestinal hemorrhage, unspecified (8) UTI (urinary tract infection) Current Visit: Yes Status: Acute Qualifiers: Urinary tract infection type: acute cystitis Hematuria presence: without hematuria Qualified Code(s): N30.00 - Acute cystitis without hematuria (9) Sepsis Current Visit: Yes Status: Resolved Qualifiers: Sepsis type: sepsis due to unspecified organism Qualified Code(s): A41.9 - Sepsis, unspecified organism - Time Spent With Patient Total time spent is greater than 50% in coordination of care (as documented) at patient's floor/unit and/or counseling patient:
[2018-03-21] MEDS ORDERED: cefTRIAXone 2,000 MG in Water for inj. (sterile) 20 ML 20 ML IVP SCH (19:00)
[2018-03-21] MEDS ORDERED: Pantoprazole 40 MG VIAL IVP ONE (19:09)
[2018-03-21] MEDS ORDERED: tiZANidine 4 MG TABLET PO PRN (20:42)
[2018-03-21] MEDS ORDERED: Dextrose Gel 15 GM/37.5 ML TUBE PO PRN ×2 (20:47)
[2018-03-21] MEDS ORDERED: *HR* Dextrose 50 % in Water (Syg) 50 ML SYRINGE IVP PRN (20:47)
[2018-03-21] MEDS ORDERED: Furosemide 20 MG/2 ML VIAL IVP SCH (21:00)
[2018-03-21] MEDS ORDERED: 0.9 % Sodium Chloride 500 ML ONE (21:35)
[2018-03-21] MEDS: ALPRAZolam 0.5 MG TABLET PO SCH (22:19)
[2018-03-21] MEDS: Apremilast [Otezla] 30 MG PO SCH (22:20)
[2018-03-22] MEDS ORDERED: 0.9 % Sodium Chloride 1,000 ML ONE (01:23)
[2018-03-22] MEDS ORDERED: methylPREDNISolone 125 MG/2 ML VIAL ONE (01:36)
[2018-03-22] MEDS ORDERED: 0.9 % Sodium Chloride 1,000 ML IVC ONE ×2 (01:40→02:15)
[2018-03-22] MEDS ORDERED: Furosemide 40 MG/4 ML VIAL ONE (01:47)
[2018-03-22] MEDS ORDERED: Ondansetron 4 MG/2 ML VIAL ONE (01:49)
[2018-03-22] MEDS ORDERED: methylPREDNISolone 125 MG/2 ML VIAL IVP ONE (01:55)
[2018-03-22] MEDS ORDERED: Furosemide 40 MG/4 ML VIAL IVP ONE (01:55)
[2018-03-22] MEDS ORDERED: Famotidine 20 MG/2 ML VIAL IVP ONE (02:00)
[2018-03-22] MEDS ORDERED: Ondansetron 4 MG/2 ML VIAL IVP ONE (02:05)
[2018-03-22 02:06] LABS: Bilirubin,Urine Negative (Negative); Blood,Urine Trace (Negative); Clarity,Urine Cloudy (Clear); Color,Urine Dark Yellow (Yellow); Glucose,Urine (UA) Normal (Normal); Ketones,Urine Negative (Negative); Leukocyte Esterase,Urine Large (Negative); Nitrite,Urine Negative (Negative); PH,Urine 6.5 pH Units (5.0-8.0); Protein,Urine 30 mg/dL (Neg-Trace); Specific Gravity,Urine 1.013 (1.010-1.025)
[2018-03-22 02:08] LABS: Bacteria,Urine Few per hpf (None-Few); Hyaline Casts,Urine None Seen per lpf (None-Few); RBC,Urine 0-3 per hpf (0-3); Squamous Epithelial Cell,Urine None Seen per lpf (None-Few); WBC,Urine TNTC per hpf (0-3)
[2018-03-22] MEDS: Insulin LISPRO 300 UNITS/3 ML VIAL SQ SCH ×5 (03:08→21:04)
--- NOTE | 2018-03-22 04:12 | Event Note ---
Date of Encounter: 03/22/18 Time of Encounter: 01:30 I the patient's nurse that the patient was in a fib RVR and she had concerns that he was having a blood transfusion reaction. The attending was called to bedside. Upon examination of the patient he was alert and oriented times 3 and was in acute distress shivering and complaining of being cold, shortness of breath, feeling unwell. His nurse reported that the patient had just finished one unit PRBC 10minutes prior when the symptoms started. The patient was tachycardic at HR 140s, BP 120 systolic, temperature increased to 102 from 98. EKG demonstrated a fib RVR. Patient was most likely experiencing a acute hemolytic reaction to the blood transfusion. The patient had informed me that he had just had a blood transfusion a few weeks ago and did not have a reaction during that time. The acute hemolytic reaction to a transfusion protocol was initiated and the blood link was called by the patient's nurse. Labs were drawn including CBC and BMP. The patient was given Solu-Medrol, Zofran, ranitidine, Benadryl, 2 IVF bolus. Cardizem bolus was given for the Afib RVR, however the drip was not initiated due to lowered blood pressure. The patient was transferred to the ICU.
[2018-03-22] MEDS ORDERED: Acetaminophen IV 1,000 MG/100 ML INFUS..BTL IVPB ONE (04:44)
[2018-03-22 04:55] LABS: Basophils % 0.1 %; Eosinophils % 0.1 %; Hematocrit 23.1 % (37.5-50.1); Hemoglobin 7.7 g/dL (12.9-16.9); Immature Granulocytes % 3.8 % (0-4); Lymphocytes # 0.1 K/mcL (0.6-4.6); Lymphocytes % 0.6 %; Mean Corpuscular HGB Conc 33.3 g/dL (31.6-35.5); Mean Corpuscular Hemoglobin 38.7 pg (28.0-33.3); Mean Corpuscular Volume 116.1 fL (83.0-100.0); Mean Platelet Volume 8.6 fL (9.4-12.4); Monocytes # 0.5 K/mcL (0.0-1.3); Monocytes % 3.1 %; Neutrophils # 14.5 K/mcL (1.6-8.9); Nucleated Red Blood Cells 0.2 /100 WBC (0); Platelet Count 216 K/mcL (140-400); Red Blood Count 1.99 M/mcL (4.19-5.50); Red Cell Distribution Width 20.9 % (11.5-14.5); Segmented Neutrophils % 92.3 %
[2018-03-22 05:09] LABS: BUN/Creatinine Ratio 21 (6-26); Blood Urea Nitrogen 22 mg/dL (8-23); Calcium 7.8 mg/dL (8.6-10.3); Carbon Dioxide 26 mEq/L (23-29); Chloride 97 mEq/L (98-107); Glucose 260 mg/dL (70-105); Osmolality,Calculated 282 (280-300); Potassium 4.2 mEq/L (3.5-5.1); Sodium 130 mEq/L (136-145); eGFR For African Americans > 60 (> 60); eGFR For Non-African Americans > 60 (> 60)
[2018-03-22 05:23] LABS: Platelet Estimate Normal (Normal); Toxic Granulation Present (Not Present)
[2018-03-22 05:24] LABS: Hypochromasia Present (Not Present); Macrocytosis Present (Not Present); Polychromasia 1+ (Not Present)
[2018-03-22] MEDS ORDERED: Diltiazem CD (24hr) 180 MG CAPSULE PO SCH (09:00)
[2018-03-22] MEDS: Apremilast [Otezla] 30 MG PO SCH ×2 (09:17→20:30)
[2018-03-22] MEDS: Breo Ellipta 200-25 Mcg IH SCH (09:17)
--- NOTE | 2018-03-22 10:14 | Gastroenterology Consult Note ---
Date of Encounter: 03/22/18 Time of Encounter: 10:11 - Assessment and plan (1) GI bleed Current Visit: Yes Status: Acute Assessment and plan: - Possible GI bleed - Patient reports no previous colonoscopy or EGD - Patient is on home aspirin - Patient reports bright red blood per rectum approximately one time per month. - He was evaluated [facility] recently and declining colonoscopy at that time - Patient was given prep yesterday and he reports drinking approximately half of it. Patient's nurse reports that he has not witnessed clear bowel movements - H/H stable from previous at 7.7/23.1, stable from 7.2. Baseline Hgb of 12-13 - Patient is borderline hypotensive and also in A. fib RVR with rate varying from 100s to 130s Plan - Patient is currently a poor candidate for colonoscopy given his hypotension and lack of prep, anesthesia would be high risk - H/H is stable at this time he is having no signs of active bleeding - Recommend restarting GoLYTELY as well as docusate with plan for colonoscopy once more medically stable - This was reviewed with patient and he states that he would like everything done for his care at this time. - We will discuss further plans with Dr. Kevin Qualifiers: GI bleed type/associated pathology: unspecified gastrointestinal hemorrhage type Qualified Code(s): K92.2 - Gastrointestinal hemorrhage, unspecified (2) Anemia Current Visit: Yes Status: Chronic Assessment and plan: - Likely mixed source of anemia with H/H of 7.7/23.1 - RDW of 20.9 and MCV elevated at 116. Combined macrocytic and iron deficient - Likely in the setting of possible GI bleed. -Attempt and transfusion of 1 unit of PRBCs yesterday however transfusion reaction noted. Transfusion reaction protocol was initiated yesterday. - Currently stable and asymptomatic. Borderline hypotensive and 90s/60s - Further management per primary team. Qualifiers: Anemia type: iron deficiency Iron deficiency anemia type: unspecified iron deficiency Qualified Code(s): D50.9 - Iron deficiency anemia, unspecified (3) Constipation Current Visit: Yes Status: Chronic Assessment and plan: - Patient reports a chronic history of constipation for which he takes laxatives - Patient denies any family history of colon cancer however he has never had colonoscopy Qualifiers: Constipation type: unspecified constipation type Qualified Code(s): K59.00 - Constipation, unspecified - Time Spent With Patient Total time spent is greater than 50% in coordination of care (as documented) at patient's floor/unit and/or counseling patient: GI History of Present Illness - Data of Consult Patient: new to practice Consult date: 03/22/18 Requesting Physician: Brandon Barahona MD - Consult Narrative Reason for consult: GI bleed History of present illness: Mr. Johnson is a 82 year old male with past medical history of atrial fibrillation, COPD, CAD, DM, HTN, CHF presented to hospital with complaint of weakness and lethargy 2 weeks. Patient was recently admitted to [facility] for the same symptoms and found to be anemic with hemoglobin in the sixes. He was recommended and have colonoscopy at that time however patient declined as he prefers to have his treatment in [place]. Patient states that he does occasionally notice some blood in his bowel movements, describes them as bright red and the nurse at his correction states that it is consistent with hemorrhoid bleeding. He denies any symptoms of abdominal pain, nausea, vomiting , fevers, chills. He denies ever getting a colonoscopy or EGD in the past. He is unsure if he has a history of anemia. He does complain of chronic constipation for which she takes laxatives approximately once per week. He denies any family history of malignancy. During course of this hospital stay, patient did present with a hemoglobin at 7.2. GI was consulted for evaluation and workup of possible GI bleed. He was started on GoLYTELY as well as docusate however patient states he was only able to complete one half of this prep. He denies more frequent bowel movements and states that he has not had one since he has been admitted. Denies any further episodes of bleeding. He was scheduled to get get 1 unit of packed red blood cells however approximately 10 minutes into transfusion he had a complaint of chest pain, chills and transfusion reaction protocol was initiated. Today he reports that he is asymptomatic. Past Med Surg Social Fam HX - Past Medical History Medical history: asthma, atrial fibrillation, COPD, coronary artery disease, diabetes, hypertension, kidney stones, myocardial infarction, other Additional medical history: heart failure, anemia Psychiatric history: anxiety, depression - Past Surgical History Surgical History: cataract Additional surgical history: Umbilical hernia. - Social History Smoking Status: Former smoker Smokeless Tobacco Status: No Alcohol use: none Drug use: none - Family History Mother Living Status: Hx Family Cardiac Disorders: Yes Hx Family Respiratory Disorders: No Hx Family Cancer: No Hx Family GI Disorders: No Hx Family Endocrine Disorder: Yes Hx Family Neuromuscular Disorders: No Hx Family Neurologic Disorders: Yes Hx Family HEENT Disorders: No Hx Family Autoimmune Disorders: No Father Adopted: No Family Member Ethnicity: Non- Living Status: Hx Family Cardiac Disorders: Yes - Gastrointestinal Gastrointestinal: Present: constipation, hematochezia. Absent: abdominal pain, bloating, change in bowel habits, coffee ground emesis, diarrhea, hematemesis, melena, nausea, vomiting - Constitutional Constitutional: no anorexia, no weight gain, no weight loss - Cardiovascular Cardiovascular ROS: Present: irregular heart rhythm. Absent: chest pain - Respiratory Respiratory IM: Absent: cough, dyspnea - Neurological ROS Neurological GI: Present: weakness. Absent: confusion, dizziness - Integumentary Integumentary GI: Absent: rash - Endocrine Endocrine IM: Present: fatigue - Constitutional Vitals: Temp Pulse Resp BP Pulse Ox 99.1 F 123 22 94/61 96 03/22/18 08:50 03/22/18 09:00 03/22/18 09:00 03/22/18 09:00 03/22/18 09:00 Exam: Gen.: Vitals noted. No acute distress. AAOx3. Resting comfortably in bed HEENT: PERRL/EOMI, oropharynx clear, Normocephalic, atraumatic, MMM Cardiac: Irregular rhythm, tachycardic, no murmur, +S1/S2 Pulmonary: CTA bilaterally, no wheezes, rales or rhonchi, equal chest expansion Abdomen: soft, tender to palpation diffusely, involuntary guarding, BS noted, no rebound. Extremities: 2+ BLE edema which is tender to palpation, nontender calf, no cyanosis or clubbing Neuro: A&Ox3, moves all extremities, no focal deficits Psych: Appropriate mood and behavior Results - Labs CBC & Chem 7: 03/22/18 04:38 03/22/18 04:38 Labs: Last Result Calcium 7.8 mg/dL (8.6-10.3) L 03/22/18 04:38 Troponin I < 0.03 ng/mL (< 0.04) 03/21/18 14:50 Stool Occult Blood Negative (Negative) 03/22/18 02:41 Entire Visit Hgb 7.7 g/dL (12.9-16.9) L 03/22/18 04:38 Hct 23.1 % (37.5-50.1) L 03/22/18 04:38 PT 13.0 Seconds (9.4-12.1) H 03/21/18 14:50 Total Bilirubin 2.1 mg/dL (0.3-1.0) H 03/21/18 14:50 AST 30 Units/L (13-39) 03/21/18 14:50 ALT 16 Units/L (7-52) 03/21/18 14:50 - ABG ABG results: PT/INR, D-dimer PT 13.0 Seconds (9.4-12.1) H 03/21/18 14:50 Consult Discharge Plan - Plan Referrals: Nguyễn Gilbert Jr, MD [Primary Care Provider] -
[2018-03-22] MEDS: *HR* Digoxin 0.125 MG TABLET PO SCH (10:47)
[2018-03-22] MEDS: Cyanocobalamin (B-12) 1,000 MCG TABLET PO SCH (10:48)
[2018-03-22] MEDS: carBAMazepine 200 MG TABLET PO SCH (10:48)
[2018-03-22] MEDS: Folic Acid 1 MG TABLET PO SCH (10:48)
[2018-03-22 12:12] LABS: Folate 17.8 ng/mL (3.0-16.0)
--- NOTE | 2018-03-22 16:17 | Internal Med Progress Note ---
<Geo De Santiago - Last Filed: 03/22/18 16:15> Date of Encounter: 03/22/18 Time of Encounter: 16:15 - Assessment and plan (1) GI bleed Current Visit: Yes Status: Acute Assessment and plan: Patient has suspected GI bleed. Patient is on aspirin at home. Since baseline hemoglobin is 13-12. Patient presented with hemoglobin of 7.2. He received 1 unit of packed red blood cells before experiencing a transfusion reaction. Blood was sent down for analysis for transfusion reaction was negative. Contacted blood bank at the hospital and reported patient can have additional transfusions if necessary. This morning his hemoglobin is 7.7 Transfuse if hemoglobin less than 7.0 pantopraole Q12hr repeat h/h in the evening. His fecal occult test was initially positive but repeat was negative. He underwent preparation for colonoscopy overnight however only finished half of it. This morning patient was tachycardic and on the hypotensive side as his blood pressure medications were continued. GI has held his colonoscopy because of this. Qualifiers: GI bleed type/associated pathology: unspecified gastrointestinal hemorrhage type Qualified Code(s): K92.2 - Gastrointestinal hemorrhage, unspecified (2) Anemia Current Visit: Yes Status: Chronic Assessment and plan: Secondary to GI bleed. Anemia and folate WNL Plan as above. Qualifiers: Anemia type: iron deficiency Iron deficiency anemia type: unspecified iron deficiency Qualified Code(s): D50.9 - Iron deficiency anemia, unspecified (3) Diabetes mellitus Current Visit: Yes Status: Chronic Assessment and plan: controlled continue insulin sliding scale. Qualifiers: Diabetes mellitus type: type 2 Diabetes mellitus complication status: without complication Qualified Code(s): E11.9 - Type 2 diabetes mellitus without complications (4) Atrial fibrillation with RVR Current Visit: Yes Status: Chronic Assessment and plan: Patient heart rate is above 100 this morning. Patient is on Cardizem and metoprolol. At this point we will increase his dosage of either medication as his blood pressure is in the systolics 90s. Differential cause of the sepsis secondary to UTI, anemia. Continue cardiac telemetry. (5) UTI (urinary tract infection) Current Visit: Yes Status: Acute Assessment and plan: Patient's urinalysis indicates UTI Patient has moderate bacteria and large leukocyte esterase. Urine culture has been sent. We will continue patient on Rocephin day 2 Qualifiers: Urinary tract infection type: acute cystitis Hematuria presence: without hematuria Qualified Code(s): N30.00 - Acute cystitis without hematuria (6) Sepsis Current Visit: Yes Status: Acute Assessment and plan: 2nd to uti tachycardic, tachypneic, elevated WBC, febrile overnight on rocephin will get blood cultures Qualifiers: Sepsis type: sepsis due to unspecified organism Qualified Code(s): A41.9 - Sepsis, unspecified organism - Time Spent With Patient Total time spent is greater than 50% in coordination of care (as documented) at patient's floor/unit and/or counseling patient: - Subjective Interval history: Patient is awake and alert and oriented 3. She is pleasant and conversing. He denies headache, chest pain, shortness of breath, abdominal pain, nausea vomiting diarrhea, hematochezia, melena. Patient was admitted for anemia secondary to GI bleed. He was given 1 unit of packed red blood cells last night and had a transfusion reaction. Thereafter he was treated appropriately by the 19. This morning he does not have fever, chills, shakes. He is confused. - Constitutional Vitals: Temp Pulse Resp BP Pulse Ox 98.1 F 123 22 82/70 94 03/22/18 15:00 03/22/18 15:31 03/22/18 15:00 03/22/18 15:00 03/22/18 15:00 General appearance: Present: A&O X 3, no acute distress, answers questions appropriately - Other Additional findings: General: without distress Heart: Regular rate and rhythm with no murmur Lungs: Clear to auscultation bilaterally Abdomen: Soft nontender, nondistended positive bowel sounds Skin: warm and dry, absent rash Extremities: Absent pedal edema, Neuro: Alert and Oriented 3 Vascular: Pedal and radial pulses 2 out of 4 Internal Medicine: Result - Labs CBC & Chem 7: 03/22/18 04:38 03/22/18 04:38 Labs: Short CBC 03/22/18 Range/Units 04:38 WBC 15.7 H D (4.3-11.1) K/mcL Hgb 7.7 L (12.9-16.9) g/dL Hct 23.1 L (37.5-50.1) % Plt Count 216 (140-400) K/mcL Neutrophils # 14.5 H (1.6-8.9) K/mcL BMP 03/22/18 04:38 Sodium 130 L Potassium 4.2 Chloride 97 L Carbon Dioxide 26 BUN 22 Creatinine 1.07 Glucose 260 H Calcium 7.8 L Urine 03/22/18 Range/Units 01:51 Urine Color Dark Yellow (Yellow) Urine Clarity Cloudy A (Clear) Urine pH 6.5 (5.0-8.0) pH Units Ur Specific [place] 1.013 (1.010-1.025) Urine Protein 30 H (Neg-Trace) mg/dL Urine Glucose (UA) Normal (Normal) mg/dL - ABG Interpretation ABG results: PT/INR, D-dimer PT 13.0 Seconds (9.4-12.1) H 03/21/18 14:50 - VTE Documentation of Mechanical Device: Venous foot pump, device Consult Discharge Plan - Plan Referrals: Nguyễn Gilbert Jr, MD [Primary Care Provider] - <Mayra Brewer - Last Filed: 03/22/18 23:29> Date of Encounter: 03/22/18 - Assessment and plan (1) Anemia Current Visit: Yes Status: Chronic Qualifiers: Anemia type: iron deficiency Iron deficiency anemia type: unspecified iron deficiency Qualified Code(s): D50.9 - Iron deficiency anemia, unspecified (2) Constipation Current Visit: Yes Status: Chronic Qualifiers: Constipation type: unspecified constipation type Qualified Code(s): K59.00 - Constipation, unspecified (3) GI bleed Current Visit: Yes Status: Acute Qualifiers: GI bleed type/associated pathology: unspecified gastrointestinal hemorrhage type Qualified Code(s): K92.2 - Gastrointestinal hemorrhage, unspecified - Time Spent With Patient Total time spent is greater than 50% in coordination of care (as documented) at patient's floor/unit and/or counseling patient: - Constitutional Vitals: Temp Pulse Resp BP Pulse Ox 98.2 F 117 25 107/66 98 03/22/18 19:57 03/22/18 20:00 03/22/18 20:46 03/22/18 20:46 03/22/18 20:46 Internal Medicine: Result - Labs CBC & Chem 7: 03/22/18 21:46 03/22/18 04:38 Labs: Short CBC 03/22/18 03/22/18 Range/Units 04:38 21:46 WBC 15.7 H D (4.3-11.1) K/mcL Hgb 7.7 L 7.8 L (12.9-16.9) g/dL Hct 23.1 L 23.3 L (37.5-50.1) % Plt Count 216 (140-400) K/mcL Neutrophils # 14.5 H (1.6-8.9) K/mcL BMP 03/22/18 04:38 Sodium 130 L Potassium 4.2 Chloride 97 L Carbon Dioxide 26 BUN 22 Creatinine 1.07 Glucose 260 H Calcium 7.8 L Urine 03/22/18 Range/Units 01:51 Urine Color Dark Yellow (Yellow) Urine Clarity Cloudy A (Clear) Urine pH 6.5 (5.0-8.0) pH Units Ur Specific [place] 1.013 (1.010-1.025) Urine Protein 30 H (Neg-Trace) mg/dL Urine Glucose (UA) Normal (Normal) mg/dL - ABG Interpretation ABG results: PT/INR, D-dimer PT 13.0 Seconds (9.4-12.1) H 03/21/18 14:50 - Attending Attestation I examined this patient and my medical decision-making was reviewed with the Resident Physician. I agree with the documented findings, disposition and treatment plan as described except to the extent set forth below.
[2018-03-22] MEDS: Pantoprazole 40 MG VIAL IVP SCH (18:26)
[2018-03-22] MEDS: Insulin DETEMIR 100 UNIT/ML X5UNITS SQ SCH (20:29)
[2018-03-22] MEDS: ALPRAZolam 0.5 MG TABLET PO SCH (20:29)
[2018-03-22] MEDS: Budesonide/Formoterol 160/4.5 MDI IH SCH (20:41)
[2018-03-22 21:56] LABS: Hematocrit 23.3 % (37.5-50.1); Hemoglobin 7.8 g/dL (12.9-16.9)
[2018-03-23] MEDS: Piperacillin/Tazobactam 3.375 GM in 0.9 % Sodium Chloride Mini Bag 100 ML IVPB SCH ×3 (00:26→17:50)
[2018-03-23 05:43] LABS: Basophils % 0.1 %; Eosinophils # 0.4 K/mcL (0.0-0.6); Eosinophils % 4.2 %; Hematocrit 22.8 % (37.5-50.1); Hemoglobin 7.7 g/dL (12.9-16.9); Immature Granulocytes % 1.8 % (0-4); Lymphocytes # 0.3 K/mcL (0.6-4.6); Mean Corpuscular HGB Conc 33.8 g/dL (31.6-35.5); Mean Corpuscular Hemoglobin 39.1 pg (28.0-33.3); Mean Corpuscular Volume 115.7 fL (83.0-100.0); Mean Platelet Volume 8.7 fL (9.4-12.4); Monocytes # 0.6 K/mcL (0.0-1.3); Monocytes % 6.9 %; Neutrophils # 7.8 K/mcL (1.6-8.9); Platelet Count 214 K/mcL (140-400); Red Blood Count 1.97 M/mcL (4.19-5.50); Red Cell Distribution Width 20.4 % (11.5-14.5)
[2018-03-23 05:59] LABS: BUN/Creatinine Ratio 25 (6-26); Blood Urea Nitrogen 28 mg/dL (8-23); Carbon Dioxide 30 mEq/L (23-29); Chloride 99 mEq/L (98-107); Glucose 70 mg/dL (70-105); Osmolality,Calculated 280 (280-300); Potassium 3.6 mEq/L (3.5-5.1); Sodium 133 mEq/L (136-145); eGFR For African Americans > 60 (> 60); eGFR For Non-African Americans > 60 (> 60)
[2018-03-23 06:08] LABS: Macrocytosis Present (Not Present); Platelet Estimate Normal (Normal)
[2018-03-23] MEDS: Insulin LISPRO 300 UNITS/3 ML VIAL SQ SCH ×3 (06:12→17:51)
[2018-03-23] MEDS: Acetaminophen 325 MG TABLET PO PRN (06:13)
[2018-03-23] MEDS: Pantoprazole 40 MG VIAL IVP SCH ×2 (06:13→17:52)
[2018-03-23] MEDS: Cyanocobalamin (B-12) 1,000 MCG TABLET PO SCH (07:58)
[2018-03-23] MEDS: *HR* Digoxin 0.125 MG TABLET PO SCH (07:58)
[2018-03-23] MEDS: Diltiazem CD (24hr) 180 MG CAPSULE PO SCH (07:58)
[2018-03-23] MEDS: carBAMazepine 200 MG TABLET PO SCH (07:58)
[2018-03-23] MEDS: Folic Acid 1 MG TABLET PO SCH (07:58)
[2018-03-23] MEDS: Apremilast [Otezla] 30 MG PO SCH ×2 (08:00→19:33)
[2018-03-23] MEDS: Breo Ellipta 200-25 Mcg IH SCH (08:00)
[2018-03-23] MEDS: Budesonide/Formoterol 160/4.5 MDI IH SCH ×2 (09:22→20:34)
--- NOTE | 2018-03-23 10:13 | Internal Med Progress Note ---
<Geo De Santiago - Last Filed: 03/23/18 10:11> Date of Encounter: 03/23/18 Time of Encounter: 10:11 - Assessment and plan (1) GI bleed Current Visit: Yes Status: Acute Assessment and plan: Patient had additional bowel movements this morning without evidence of antony blood or melena. His hemoglobin is stable at 7.7. He has not required any more blood transfusions. Patient's heart rate and blood pressure are better controlled this morning. He is tolerating his diet. We will continue pantoprazole every 12 hours and await instructions from GI for possible colonoscopy, endoscopy. Qualifiers: GI bleed type/associated pathology: unspecified gastrointestinal hemorrhage type Qualified Code(s): K92.2 - Gastrointestinal hemorrhage, unspecified (2) Atrial fibrillation with RVR Current Visit: Yes Status: Chronic Assessment and plan: Patient's heart rate is better controlled this morning. Ranges between 100-114. Since patient's blood pressure has improved we will restart the metoprolol and Cardizem. (3) Anemia Current Visit: Yes Status: Chronic Assessment and plan: Secondary to GI bleed. Stable. Continue monitor with CBC in the morning If hemoglobin less than 7 transfuse Qualifiers: Anemia type: iron deficiency Iron deficiency anemia type: unspecified iron deficiency Qualified Code(s): D50.9 - Iron deficiency anemia, unspecified (4) UTI (urinary tract infection) Current Visit: Yes Status: Acute Assessment and plan: Patient's urinalysis indicates UTI Patient has moderate bacteria and large leukocyte esterase. Urine culture has been sent, awaiting results. We will continue patient on Rocephin day 3 Qualifiers: Urinary tract infection type: acute cystitis Hematuria presence: without hematuria Qualified Code(s): N30.00 - Acute cystitis without hematuria (5) Sepsis Current Visit: Yes Status: Acute Assessment and plan: 2nd to uti Patient was tachycardic, tachypneic, elevated WBC, febrile overnight Today he is tachycardic but tachypnea, leukocytosis and fever have resolved Continue Rocephin Waiting blood culture results. Qualifiers: Sepsis type: sepsis due to unspecified organism Qualified Code(s): A41.9 - Sepsis, unspecified organism - Time Spent With Patient Total time spent is greater than 50% in coordination of care (as documented) at patient's floor/unit and/or counseling patient: - Subjective Interval history: Patient is awake and alert. She denies any acute overnight events. Late yesterday evening patient's glucose was in the 500s and he was given insulin lispro and also basal insulin was added on. This morning his glucose was 160 on BMP. He is tolerating his diet. He reports having multiple bowel movements this morning. He does reports abdominal pain with palpation of the abdomen. He denies shortness of breath. - Constitutional Vitals: Temp Pulse Resp BP Pulse Ox 97.8 F 116 21 91/60 98 03/23/18 08:00 03/23/18 08:00 03/23/18 04:00 03/23/18 04:00 03/23/18 04:00 General appearance: Present: A&O X 3, no acute distress, answers questions appropriately - Other Additional findings: General: without distress Heart: iregularly irregular Lungs: Clear to auscultation bilaterally Abdomen: Soft, tender RUQ with palpation Skin: warm and dry, absent rash Extremities: mild b/l pedal edema improving. Neuro: Alert and Oriented 3 Vascular: Pedal and radial pulses 2 out of 4 Internal Medicine: Result - Labs CBC & Chem 7: 03/23/18 05:05 03/23/18 05:05 Labs: Short CBC 03/22/18 03/23/18 Range/Units 21:46 05:05 WBC 9.3 (4.3-11.1) K/mcL Hgb 7.8 L 7.7 L (12.9-16.9) g/dL Hct 23.3 L 22.8 L (37.5-50.1) % Plt Count 214 (140-400) K/mcL Neutrophils # 7.8 (1.6-8.9) K/mcL BMP 03/23/18 05:05 Sodium 133 L Potassium 3.6 Chloride 99 Carbon Dioxide 30 H BUN 28 H Creatinine 1.10 Glucose 70 Calcium 8.0 L - ABG Interpretation ABG results: PT/INR, D-dimer PT 13.0 Seconds (9.4-12.1) H 03/21/18 14:50 - VTE Documentation of Mechanical Device: Intermittent pneumatic compression device Consult Discharge Plan - Plan Referrals: Nguyễn Gilbert Jr, MD [Primary Care Provider] - <Mayra Brewer - Last Filed: 03/23/18 19:05> Date of Encounter: 03/23/18 - Assessment and plan (1) Atrial fibrillation with RVR Current Visit: Yes Status: Chronic (2) Anemia Current Visit: Yes Status: Chronic Qualifiers: Anemia type: iron deficiency Iron deficiency anemia type: unspecified iron deficiency Qualified Code(s): D50.9 - Iron deficiency anemia, unspecified (3) GI bleed Current Visit: Yes Status: Acute Qualifiers: GI bleed type/associated pathology: unspecified gastrointestinal hemorrhage type Qualified Code(s): K92.2 - Gastrointestinal hemorrhage, unspecified (4) UTI (urinary tract infection) Current Visit: Yes Status: Acute Qualifiers: Urinary tract infection type: acute cystitis Hematuria presence: without hematuria Qualified Code(s): N30.00 - Acute cystitis without hematuria (5) Sepsis Current Visit: Yes Status: Acute Qualifiers: Sepsis type: sepsis due to unspecified organism Qualified Code(s): A41.9 - Sepsis, unspecified organism - Time Spent With Patient Total time spent is greater than 50% in coordination of care (as documented) at patient's floor/unit and/or counseling patient: - Constitutional Vitals: Temp Pulse Resp BP Pulse Ox 98.7 F 108 16 108/71 98 03/23/18 15:54 03/23/18 15:54 03/23/18 15:54 03/23/18 15:54 03/23/18 15:54 Internal Medicine: Result - Labs CBC & Chem 7: 03/23/18 05:05 03/23/18 05:05 Labs: Short CBC 03/22/18 03/23/18 Range/Units 21:46 05:05 WBC 9.3 (4.3-11.1) K/mcL Hgb 7.8 L 7.7 L (12.9-16.9) g/dL Hct 23.3 L 22.8 L (37.5-50.1) % Plt Count 214 (140-400) K/mcL Neutrophils # 7.8 (1.6-8.9) K/mcL BMP 03/23/18 05:05 Sodium 133 L Potassium 3.6 Chloride 99 Carbon Dioxide 30 H BUN 28 H Creatinine 1.10 Glucose 70 Calcium 8.0 L - ABG Interpretation ABG results: PT/INR, D-dimer PT 13.0 Seconds (9.4-12.1) H 03/21/18 14:50 - Attending Attestation I examined this patient and my medical decision-making was reviewed with the Resident Physician. I agree with the documented findings, disposition and treatment plan as described except to the extent set forth below.
[2018-03-23 11:53] LABS: Estimated Average Glucose 59 mg/dl
[2018-03-23 11:59] LABS: Hemoglobin A1C 3.7 %
[2018-03-23] MEDS ORDERED: *HR* Metoprolol 5 MG/5 ML VIAL IVP ONE (19:08)
[2018-03-23] MEDS: ALPRAZolam 0.5 MG TABLET PO SCH (19:36)
[2018-03-23] MEDS: Insulin DETEMIR 100 UNIT/ML X5UNITS SQ SCH (22:16)
[2018-03-24] MEDS: Acetaminophen 325 MG TABLET PO PRN (00:37)
[2018-03-24] MEDS: Piperacillin/Tazobactam 3.375 GM in 0.9 % Sodium Chloride Mini Bag 100 ML IVPB SCH ×2 (00:37→08:48)
[2018-03-24] MEDS: Insulin LISPRO 300 UNITS/3 ML VIAL SQ SCH ×4 (00:38→17:14)
[2018-03-24 03:37] LABS: Basophils % 0.1 %; Eosinophils # 0.5 K/mcL (0.0-0.6); Eosinophils % 6.7 %; Hematocrit 18.8 % (37.5-50.1); Immature Granulocytes % 1.7 % (0-4); Lymphocytes # 0.5 K/mcL (0.6-4.6); Lymphocytes % 6.5 %; Mean Corpuscular HGB Conc 32.4 g/dL (31.6-35.5); Mean Corpuscular Hemoglobin 37.2 pg (28.0-33.3); Mean Corpuscular Volume 114.6 fL (83.0-100.0); Mean Platelet Volume 8.8 fL (9.4-12.4); Monocytes # 0.6 K/mcL (0.0-1.3); Monocytes % 8.5 %; Neutrophils # 5.5 K/mcL (1.6-8.9); Nucleated Red Blood Cells 0.3 /100 WBC (0); Platelet Count 195 K/mcL (140-400); Red Blood Count 1.64 M/mcL (4.19-5.50); Red Cell Distribution Width 19.9 % (11.5-14.5); Segmented Neutrophils % 76.5 %
[2018-03-24 03:48] LABS: Hemoglobin 6.1 g/dL (12.9-16.9)
[2018-03-24 04:03] LABS: BUN/Creatinine Ratio 25 (6-26); Blood Urea Nitrogen 31 mg/dL (8-23); Calcium 7.9 mg/dL (8.6-10.3); Carbon Dioxide 27 mEq/L (23-29); Chloride 98 mEq/L (98-107); Glucose 162 mg/dL (70-105); Osmolality,Calculated 282 (280-300); Potassium 3.6 mEq/L (3.5-5.1); Sodium 131 mEq/L (136-145); eGFR For African Americans > 60 (> 60); eGFR For Non-African Americans 56 (> 60)
[2018-03-24 04:30] LABS: Platelet Estimate Normal (Normal)
[2018-03-24 04:31] LABS: Anisocytosis 1+ (Not Present); Basophilic Stippling 1+ (Not Present); Hypochromasia Present (Not Present); Macrocytosis Present (Not Present); Polychromasia 1+ (Not Present)
[2018-03-24] MEDS: Pantoprazole 40 MG VIAL IVP SCH ×2 (06:14→17:11)
[2018-03-24] MEDS: Budesonide/Formoterol 160/4.5 MDI IH SCH ×2 (08:09→19:43)
[2018-03-24] MEDS: Diltiazem CD (24hr) 180 MG CAPSULE PO SCH (08:49)
[2018-03-24] MEDS: carBAMazepine 200 MG TABLET PO SCH (08:49)
[2018-03-24] MEDS: Folic Acid 1 MG TABLET PO SCH (08:50)
[2018-03-24] MEDS: *HR* Digoxin 0.125 MG TABLET PO SCH (08:50)
[2018-03-24] MEDS: Cyanocobalamin (B-12) 1,000 MCG TABLET PO SCH (08:50)
[2018-03-24] MEDS: Apremilast [Otezla] 30 MG PO SCH ×2 (08:50→22:03)
--- NOTE | 2018-03-24 08:50 | Event Note ---
Date of Encounter: 03/24/18 Time of Encounter: 08:50 Hemoglobin reviewed today and now low as 6.1. He is hemodynamically stable. He had a supposed reaction to blood transfusion few days ago. I am unsure if this is a true reaction or not. I have consulted Hematology/Oncology for further recommendations and patient will be closely monitored.
[2018-03-24] MEDS: Breo Ellipta 200-25 Mcg IH SCH (08:51)
[2018-03-24] MEDS ORDERED: 0.9 % Sodium Chloride 250 ML ONE ×2 (09:14→15:04)
--- NOTE | 2018-03-24 09:55 | Internal Med Progress Note ---
<Geo De Santiago - Last Filed: 03/24/18 09:53> Date of Encounter: 03/24/18 Time of Encounter: 09:53 - Assessment and plan (1) GI bleed Current Visit: Yes Status: Acute Assessment and plan: Patient had additional bowel movements this morning evidence of blood This morning has decreased to 6. Due to his previous reaction to transfusion we have consulted hematology oncology referral given him additional unit of blood. Patient's heart rate and blood pressure are controlled this morning. Patient is unclear liquid diet for EGD and colonoscopy tomorrow Continue pantoprazole IV twice a day Qualifiers: GI bleed type/associated pathology: unspecified gastrointestinal hemorrhage type Qualified Code(s): K92.2 - Gastrointestinal hemorrhage, unspecified (2) Atrial fibrillation with RVR Current Visit: Yes Status: Chronic Assessment and plan: Patient's heart rate is better controlled this morning. Ranges between 100-114. Continue metoprolol and Cardizem (3) Anemia Current Visit: Yes Status: Chronic Assessment and plan: Secondary to GI bleed. Worsening hemoglobin 6 this morning Plan as above Qualifiers: Anemia type: iron deficiency Iron deficiency anemia type: unspecified iron deficiency Qualified Code(s): D50.9 - Iron deficiency anemia, unspecified (4) UTI (urinary tract infection) Current Visit: Yes Status: Acute Assessment and plan: Patient's urinalysis indicates UTI Secondary to enterococcus Vancomycin day 1 Qualifiers: Urinary tract infection type: acute cystitis Hematuria presence: without hematuria Qualified Code(s): N30.00 - Acute cystitis without hematuria (5) Diabetes mellitus Current Visit: Yes Status: Chronic Assessment and plan: controlled Continue insulin regimen Currently on a clear liquid diet for EGD colonoscopy tomorrow Qualifiers: Diabetes mellitus type: type 2 Diabetes mellitus complication status: without complication Qualified Code(s): E11.9 - Type 2 diabetes mellitus without complications (6) Sepsis Current Visit: Yes Status: Resolved Assessment and plan: 2nd to uti Patient was tachycardic, tachypneic, elevated WBC, febrile overnight Today he is tachycardic but tachypnea, leukocytosis and fever have resolved Blood cultures grew enterococcus resistant to ampicillin, nitrofurantoin Switch antibiotic to vancomycin. Qualifiers: Sepsis type: sepsis due to unspecified organism Qualified Code(s): A41.9 - Sepsis, unspecified organism - Time Spent With Patient Total time spent is greater than 50% in coordination of care (as documented) at patient's floor/unit and/or counseling patient: - Subjective Interval history: Patient is awake and alert. Last night patient became tachycardic again. He was given 1 dose of 5 mg IV Lopressor which improved his tachycardia from 150s to 100s. Patient had additional bloody bowel movements overnight. He denies chest pain, abdominal pain, shortness of breath. - Constitutional Vitals: Temp Pulse Resp BP Pulse Ox 97.8 F 110 18 101/65 100 03/24/18 09:26 03/24/18 09:26 03/24/18 09:26 03/24/18 09:26 03/24/18 09:26 General appearance: Present: A&O X 3, no acute distress, answers questions appropriately - Other Additional findings: General: Pleasant without distress, pale Heart: Regular rate and rhythm with no murmur Lungs: Clear to auscultation bilaterally Abdomen: Soft with mild tenderness diffusely, nondistended positive bowel sounds Skin: warm and dry, absent rash Extremities: 1+ bilateral pedal edema Neuro: Alert and oriented 3 Vascular: Pedal and radial pulses 2 out of 4 Internal Medicine: Result - Labs CBC & Chem 7: 03/24/18 03:26 03/24/18 03:26 Labs: Short CBC 03/24/18 Range/Units 03:26 WBC 7.2 (4.3-11.1) K/mcL Hgb 6.1 L D (12.9-16.9) g/dL Hct 18.8 L (37.5-50.1) % Plt Count 195 (140-400) K/mcL Neutrophils # 5.5 (1.6-8.9) K/mcL BMP 03/24/18 03:26 Sodium 131 L Potassium 3.6 Chloride 98 Carbon Dioxide 27 BUN 31 H Creatinine 1.24 Glucose 162 H Calcium 7.9 L - ABG Interpretation ABG results: PT/INR, D-dimer PT 13.0 Seconds (9.4-12.1) H 03/21/18 14:50 - VTE Documentation of Mechanical Device: Intermittent pneumatic compression device Consult Discharge Plan - Plan Referrals: Nguyễn Gilbert Jr, MD [Primary Care Provider] - <Mayra Brewer - Last Filed: 03/24/18 17:42> Date of Encounter: 03/24/18 - Assessment and plan (1) Atrial fibrillation with RVR Current Visit: Yes Status: Chronic (2) Diabetes mellitus Current Visit: Yes Status: Chronic Qualifiers: Diabetes mellitus type: type 2 Diabetes mellitus complication status: without complication Qualified Code(s): E11.9 - Type 2 diabetes mellitus without complications (3) Anemia Current Visit: Yes Status: Chronic Qualifiers: Anemia type: iron deficiency Iron deficiency anemia type: unspecified iron deficiency Qualified Code(s): D50.9 - Iron deficiency anemia, unspecified (4) GI bleed Current Visit: Yes Status: Acute Qualifiers: GI bleed type/associated pathology: unspecified gastrointestinal hemorrhage type Qualified Code(s): K92.2 - Gastrointestinal hemorrhage, unspecified (5) UTI (urinary tract infection) Current Visit: Yes Status: Acute Qualifiers: Urinary tract infection type: acute cystitis Hematuria presence: without hematuria Qualified Code(s): N30.00 - Acute cystitis without hematuria (6) Sepsis Current Visit: Yes Status: Resolved Qualifiers: Sepsis type: sepsis due to unspecified organism Qualified Code(s): A41.9 - Sepsis, unspecified organism - Time Spent With Patient Total time spent is greater than 50% in coordination of care (as documented) at patient's floor/unit and/or counseling patient: - Constitutional Vitals: Temp Pulse Resp BP Pulse Ox 99 F 97 16 111/59 100 03/24/18 15:43 03/24/18 15:43 03/24/18 15:43 03/24/18 15:43 03/24/18 15:43 Internal Medicine: Result - Labs CBC & Chem 7: 03/24/18 03:26 03/24/18 03:26 Labs: Short CBC 03/24/18 Range/Units 03:26 WBC 7.2 (4.3-11.1) K/mcL Hgb 6.1 L D (12.9-16.9) g/dL Hct 18.8 L (37.5-50.1) % Plt Count 195 (140-400) K/mcL Neutrophils # 5.5 (1.6-8.9) K/mcL BMP 03/24/18 03:26 Sodium 131 L Potassium 3.6 Chloride 98 Carbon Dioxide 27 BUN 31 H Creatinine 1.24 Glucose 162 H Calcium 7.9 L - ABG Interpretation ABG results: PT/INR, D-dimer PT 13.0 Seconds (9.4-12.1) H 03/21/18 14:50 - Attending Attestation I examined this patient and my medical decision-making was reviewed with the Resident Physician. I agree with the documented findings, disposition and treatment plan as described except to the extent set forth below.
--- NOTE | 2018-03-24 10:21 | Oncology Inp Consult Note ---
<Rubi Rojas Waylon - Last Filed: 03/24/18 14:17> Date of Encounter: 03/24/18 Time of Encounter: 09:45 Assessment and Plan (1) Febrile nonhemolytic transfusion reaction Status: Acute Assessment and plan: Transfusion reaction as detailed in HPI which occurred on 03/22/2018 Reviewed transfusion reaction pathology review and personally discussed with Dr. River with pathology, per review patient did not appear to have experienced a hemolytic reaction, likely HLA antibody or cytokine mediated. Per blood bank no other intervention needed or additional antibody testing necessary, safe for re-trial Patient is ok for re-trial of PRBC transfusion with hgb of 6 today- recommend pre-medications of hydrocortisone, benadryl and tylenol be administered 30 minutes prior to 2 units PRBC transfusion, monitor patient very closely during PRBC transfusion and transfuse slowly-discussed with nursing staff/pharmacy. (2) Anemia Status: Chronic Assessment and plan: Baseline hgb around 11-12 Presented with macrocytic anemia- macrocytosis may be secondary to recovery from prior GIB/current infection, among other etiologies which may be considered following endoscopy to rule out/in GIB Anemia appears to be likely secondary to GIB-stool occult blood positive on admission-reports BRBPR a few weeks prior As detailed in HPI, patient is planned for upcoming endoscopy B12 and folate replete Ordered iron profile, ferritin, SPEP, Retic and LDH Xarelto/ASA on hold Please refer to Dr. Pritchard's attestation below for additional details. Qualifiers: Anemia type: iron deficiency Iron deficiency anemia type: unspecified iron deficiency Qualified Code(s): D50.9 - Iron deficiency anemia, unspecified - Data of Consult Patient: new to practice Consult date: 03/24/18 Requesting Physician: Brandon Barahona MD Primary Care Provider: Nguyễn Gilbert Jr, MD - Consult Narrative Reason for consult: Anemia, GIB History of present illness: Mr. Johnson is a 82 year old male with past medical history significant for THEODORE, spinal stenosis, AFIB with RVR-on ASA and Xarelto 15 mg daily, CAD, dm, CKD, HF and COPD. He resides at [facility]. Mr. Johnson was admitted for anemia with hgb of 6.6 discovered on routine labs per half-way. He was recently admitted at [facility] about 3 weeks ago for anemia and suspected GIB, however , he had refused endoscopy at that time. He states a week or two prior to his presentation to [facility] he noticed BRBPR "once or twice" which he thought was secondary to hemorrhoids. Prior to this he has no history of GIB or blood transfusion. GI consult note reviewed-planned for endoscopy once prep adequate-he was unable to finish golytlely. He has no history of prior EGD/Colonoscopy. He states he was diagnosed with a "stomach ulcer" in his 30's. No personal or family history of cancer. On 03/22/2018 he was noted to have blood transfusion reaction like symptoms. He does not recall this event, information gathered from chart review. According to records, he had almost completed his first unit of blood when he became tachycardic (HR up to 145), febrile (temp 100.8), SOB, lethargic, rigors/chills and nauseated. Blood bank was notified, he was given solumedrol, benadryl, zofran, ranitidine, 2 IVF boluses, ofirmev, furosemide and a cardizem bolus ( drip was not initiated as patient then became hypotensive), he was transferred to ICU in stable condition. Patients hgb continues to decline and is 6.1 today, hematology consulted for recommendations for PRBC transfusion with recent reaction. Past Med Surg Social Fam HX - Past Medical History Medical history: asthma, atrial fibrillation, COPD, coronary artery disease, diabetes, hypertension, kidney stones, myocardial infarction, other Additional medical history: heart failure, anemia Psychiatric history: anxiety, depression - Past Surgical History Surgical History: cataract Additional surgical history: Umbilical hernia. - Social History Smoking Status: Former smoker Smokeless Tobacco Status: No Alcohol use: none Drug use: none - Family History Mother Living Status: Hx Family Cardiac Disorders: Yes Hx Family Respiratory Disorders: No Hx Family Cancer: No Hx Family GI Disorders: No Hx Family Endocrine Disorder: Yes Hx Family Neuromuscular Disorders: No Hx Family Neurologic Disorders: Yes Hx Family HEENT Disorders: No Hx Family Autoimmune Disorders: No Father Adopted: No Family Member Ethnicity: Non- Living Status: Hx Family Cardiac Disorders: Yes Medications and Allergies Aspirin 81 mg PO QAM 04/20/15 [History] Digoxin [Lanoxin] 0.125 mg PO QAM 12/02/15 [History] Apremilast [Otezla] 30 mg PO BID 01/26/18 [History] Calcipotriene [Dovonex] 1 appl TP HS 01/26/18 [History] Clotrimazole/Betameth Dip CRM [Lotrisone CRM] 1 appl TP QAM 01/26/18 [History] Docusate Sodium [Dok] 100 mg PO BID 01/26/18 [History] FluocinoNIDE 0.05% CRM [Lidex] 1 appl TP BID 01/26/18 [History] Fluticasone/Vilanterol [Breo Ellipta 200-25 Mcg INH] 1 puff IH QAM 01/26/18 [ History] Polyethylene Glycol 3350 [MiraLAX Powder Bulk 17.9 Oz] 17 g PO DAILY 01/26/18 [ History] Ranitidine HCl [Acid Patrol Commander] 150 mg PO QAM 01/26/18 [History] carBAMazepine [Tegretol] 200 mg PO QAM 01/26/18 [History] ALPRAZolam [Xanax 0.5 MG Tablet] 0.5 mg PO HS 3 Days #3 tablet 01/27/18 [Rx] Diltiazem CD (24hr) [Cardizem CD] 180 mg PO DAILY 3 Days #3 cap.er.24h 01/27/18 [Rx] Furosemide [Lasix] 40 mg PO BID 03/21/18 [History] Insulin DETEMIR [Levemir] 34 units SQ HS 03/21/18 [History] Insulin Regular, Human [Novolin R] 6 units SQ TIDWM 03/21/18 [History] Metoprolol [Lopressor] 25 mg PO BID 03/21/18 [History] Tizanidine HCl 4 mg PO Q8H PRN 03/21/18 [History] 3 Allergy/AdvReac Type Severity Reaction Status Date / Time sulfamethoxazole Allergy See Verified 12/06/16 09:00 [From Bactrim] Comments trimethoprim [From Bactrim] Allergy See Verified 12/06/16 09:00 Comments atorvastatin AdvReac Dizziness Verified 12/06/16 09:00 clopidogrel [From Plavix] AdvReac Dizziness Verified 12/06/16 09:00 lovastatin AdvReac Dizziness Verified 12/06/16 09:00 pioglitazone [From Actos] AdvReac Dizziness Verified 12/06/16 09:00 pravastatin AdvReac Dizziness Verified 12/06/16 09:00 Rosiglitazone AdvReac Dizziness Verified 12/06/16 09:00 flu vaccine Allergy Dizziness Uncoded 06/14/16 22:01 Constitutional: Present: fatigue, frequent falls (h/o falls at home, denies recent falls), weakness. Absent: anorexia, chills, fever(s), weight loss Eyes: Absent: change in vision Cardiovascular: Present: leg edema. Absent: chest pain, palpitations Respiratory: Present: dyspnea. Absent: hemoptysis Gastrointestinal: Present: as per HPI, abdominal pain. Absent: change in bowel habits, hematemesis, hematochezia, melena, nausea, vomiting Additional comments: denies dysuria or hematuria Musculoskeletal: Present: muscle weakness Integumentary: Absent: wounds Neurological: Present: as per HPI, confusion. Absent: focal weakness Psychiatric: Present: anxiety Hematologic/Lymphatic: Present: as per HPI Oncology - Exam - Constitutional Vitals: Temp Pulse Resp BP Pulse Ox 97.8 F 110 18 101/65 100 03/24/18 09:26 03/24/18 09:26 03/24/18 09:26 03/24/18 09:26 03/24/18 09:26 General appearance: cooperative, no acute distress, no febrile - Head Head exam: Present: atraumatic - ENT ENT exam: Present: mucous membranes moist - Respiratory Respiratory exam: Present: decreased breath sounds, CTAB. Absent: respiratory distress - Cardiovascular Cardiovascular exam: Present: irregular rhythm Additional comments: HR ranging from 95-110 per monitor during assessment - GI/Abdominal GI/Abdominal exam: Present: normal bowel sounds. Absent: guarding, rebound, soft Additional comments: diffuse abdominal tenderness, patient states this has been present for a number of months - Extremities Exam Extremities exam: Present: pedal edema. Absent: calf tenderness Additional comments: 2+ pitting BLE edema - Neurological Exam Neurological exam: Present: alert, oriented X3, no focal deficits, strengths equal and symetr throughout - Psychiatric Psychiatric exam: Present: normal affect, normal mood - Skin Skin exam: Present: dry, intact, pallor, warm Oncology - Results Labs: 3 03/24/18 03/24/18 03/24/18 03:26 03:26 00:04 WBC 7.2 RBC 1.64 L Hgb 6.1 L D Hct 18.8 L MCV 114.6 H MCH 37.2 H MCHC 32.4 RDW 19.9 H Plt Count 195 MPV 8.8 L Immature Gran % 1.7 Seg Neutrophils % 76.5 Lymphocytes % 6.5 Monocytes % 8.5 Eosinophils % 6.7 Basophils % 0.1 Neutrophils # 5.5 Lymphocytes # 0.5 L Monocytes # 0.6 Eosinophils # 0.5 Basophils # 0.0 Nucleated RBCs/100 WBC 0.3 H Toxic Granulation Platelet Estimate Normal Polychromasia 1+ A Hypochromasia Present A Basophilic Stippling 1+ A Anisocytosis 1+ A Macrocytosis Present A Sodium 131 L Potassium 3.6 Chloride 98 Carbon Dioxide 27 BUN 31 H Creatinine 1.24 Est GFR ( Amer) > 60 Est GFR (Non-Af Amer) 56 L BUN/Creatinine Ratio 25 Glucose 162 H POC Glucose 179 H Est Mean Plasma Glucose Hemoglobin A1c Calculated Osmolality 282 Calcium 7.9 L B-Natriuretic Peptide Vitamin B12 Folate Urine Color Urine Clarity Urine pH Ur Specific [place] Urine Protein Urine Glucose (UA) Urine Ketones Urine Blood Urine Nitrite Urine Bilirubin Urine Urobilinogen Ur Leukocyte Esterase Urine Microscopic RBC Urine Microscopic WBC Ur Squamous Epith Cells Urine Bacteria Hyaline Casts Stool Occult Blood MACY, Poly Interpret Crossmatch Reaction Pathol Review 3 03/23/18 03/23/18 03/23/18 21:48 16:36 12:22 WBC RBC Hgb Hct MCV MCH MCHC RDW Plt Count MPV Immature Gran % Seg Neutrophils % Lymphocytes % Monocytes % Eosinophils % Basophils % Neutrophils # Lymphocytes # Monocytes # Eosinophils # Basophils # Nucleated RBCs/100 WBC Toxic Granulation Platelet Estimate Polychromasia Hypochromasia Basophilic Stippling Anisocytosis Macrocytosis Sodium Potassium Chloride Carbon Dioxide BUN Creatinine Est GFR ( Amer) Est GFR (Non-Af Amer) BUN/Creatinine Ratio Glucose POC Glucose 218 H 271 H 279 H Est Mean Plasma Glucose Hemoglobin A1c Calculated Osmolality Calcium B-Natriuretic Peptide Vitamin B12 Folate Urine Color Urine Clarity Urine pH Ur Specific [place] Urine Protein Urine Glucose (UA) Urine Ketones Urine Blood Urine Nitrite Urine Bilirubin Urine Urobilinogen Ur Leukocyte Esterase Urine Microscopic RBC Urine Microscopic WBC Ur Squamous Epith Cells Urine Bacteria Hyaline Casts Stool Occult Blood MACY, Poly Interpret Crossmatch Reaction Pathol Review 3 03/23/18 03/23/18 03/23/18 05:05 05:05 05:05 WBC 9.3 RBC 1.97 L Hgb 7.7 L Hct 22.8 L MCV 115.7 H MCH 39.1 H MCHC 33.8 RDW 20.4 H Plt Count 214 MPV 8.7 L Immature Gran % 1.8 Seg Neutrophils % 84.0 Lymphocytes % 3.0 Monocytes % 6.9 Eosinophils % 4.2 Basophils % 0.1 Neutrophils # 7.8 Lymphocytes # 0.3 L Monocytes # 0.6 Eosinophils # 0.4 Basophils # 0.0 Nucleated RBCs/100 WBC Toxic Granulation Platelet Estimate Normal Polychromasia Hypochromasia Basophilic Stippling Anisocytosis Macrocytosis Present A Sodium 133 L Potassium 3.6 Chloride 99 Carbon Dioxide 30 H BUN 28 H Creatinine 1.10 Est GFR ( Amer) > 60 Est GFR (Non-Af Amer) > 60 BUN/Creatinine Ratio 25 Glucose 70 POC Glucose Est Mean Plasma Glucose 59 Hemoglobin A1c 3.7 Calculated Osmolality 280 Calcium 8.0 L B-Natriuretic Peptide Vitamin B12 Folate Urine Color Urine Clarity Urine pH Ur Specific [place] Urine Protein Urine Glucose (UA) Urine Ketones Urine Blood Urine Nitrite Urine Bilirubin Urine Urobilinogen Ur Leukocyte Esterase Urine Microscopic RBC Urine Microscopic WBC Ur Squamous Epith Cells Urine Bacteria Hyaline Casts Stool Occult Blood MACY, Poly Interpret Crossmatch Reaction Pathol Review 3 03/23/18 03/22/18 03/22/18 00:01 21:46 20:38 WBC RBC Hgb 7.8 L Hct 23.3 L MCV MCH MCHC RDW Plt Count MPV Immature Gran % Seg Neutrophils % Lymphocytes % Monocytes % Eosinophils % Basophils % Neutrophils # Lymphocytes # Monocytes # Eosinophils # Basophils # Nucleated RBCs/100 WBC Toxic Granulation Platelet Estimate Polychromasia Hypochromasia Basophilic Stippling Anisocytosis Macrocytosis Sodium Potassium Chloride Carbon Dioxide BUN Creatinine Est GFR ( Amer) Est GFR (Non-Af Amer) BUN/Creatinine Ratio Glucose POC Glucose 160 H 457 H* Est Mean Plasma Glucose Hemoglobin A1c Calculated Osmolality Calcium B-Natriuretic Peptide Vitamin B12 Folate Urine Color Urine Clarity Urine pH Ur Specific [place] Urine Protein Urine Glucose (UA) Urine Ketones Urine Blood Urine Nitrite Urine Bilirubin Urine Urobilinogen Ur Leukocyte Esterase Urine Microscopic RBC Urine Microscopic WBC Ur Squamous Epith Cells Urine Bacteria Hyaline Casts Stool Occult Blood MACY, Poly Interpret Crossmatch Reaction Pathol Review 3 03/22/18 03/22/18 03/22/18 20:25 18:42 18:24 WBC RBC Hgb Hct MCV MCH MCHC RDW Plt Count MPV Immature Gran % Seg Neutrophils % Lymphocytes % Monocytes % Eosinophils % Basophils % Neutrophils # Lymphocytes # Monocytes # Eosinophils # Basophils # Nucleated RBCs/100 WBC Toxic Granulation Platelet Estimate Polychromasia Hypochromasia Basophilic Stippling Anisocytosis Macrocytosis Sodium Potassium Chloride Carbon Dioxide BUN Creatinine Est GFR ( Amer) Est GFR (Non-Af Amer) BUN/Creatinine Ratio Glucose POC Glucose 488 H* 555 H* 537 H* Est Mean Plasma Glucose Hemoglobin A1c Calculated Osmolality Calcium B-Natriuretic Peptide Vitamin B12 Folate Urine Color Urine Clarity Urine pH Ur Specific [place] Urine Protein Urine Glucose (UA) Urine Ketones Urine Blood Urine Nitrite Urine Bilirubin Urine Urobilinogen Ur Leukocyte Esterase Urine Microscopic RBC Urine Microscopic WBC Ur Squamous Epith Cells Urine Bacteria Hyaline Casts Stool Occult Blood MACY, Poly Interpret Crossmatch Reaction Pathol Review 3 03/22/18 03/22/18 03/22/18 10:45 04:38 04:38 WBC 15.7 H D RBC 1.99 L Hgb 7.7 L Hct 23.1 L MCV 116.1 H MCH 38.7 H MCHC 33.3 RDW 20.9 H Plt Count 216 MPV 8.6 L Immature Gran % 3.8 Seg Neutrophils % 92.3 Lymphocytes % 0.6 Monocytes % 3.1 Eosinophils % 0.1 Basophils % 0.1 Neutrophils # 14.5 H Lymphocytes # 0.1 L Monocytes # 0.5 Eosinophils # 0.0 Basophils # 0.0 Nucleated RBCs/100 WBC 0.2 H Toxic Granulation Present A Platelet Estimate Normal Polychromasia 1+ A Hypochromasia Present A Basophilic Stippling Anisocytosis Macrocytosis Present A Sodium 130 L Potassium 4.2 Chloride 97 L Carbon Dioxide 26 BUN 22 Creatinine 1.07 Est GFR ( Amer) > 60 Est GFR (Non-Af Amer) > 60 BUN/Creatinine Ratio 21 Glucose 260 H POC Glucose Est Mean Plasma Glucose Hemoglobin A1c Calculated Osmolality 282 Calcium 7.8 L B-Natriuretic Peptide Vitamin B12 779 Folate 17.8 H Urine Color Urine Clarity Urine pH Ur Specific [place] Urine Protein Urine Glucose (UA) Urine Ketones Urine Blood Urine Nitrite Urine Bilirubin Urine Urobilinogen Ur Leukocyte Esterase Urine Microscopic RBC Urine Microscopic WBC Ur Squamous Epith Cells Urine Bacteria Hyaline Casts Stool Occult Blood MACY, Poly Interpret Crossmatch Reaction Pathol Review 3 03/22/18 03/22/18 03/22/18 02:41 02:38 02:06 WBC RBC Hgb Hct MCV MCH MCHC RDW Plt Count MPV Immature Gran % Seg Neutrophils % Lymphocytes % Monocytes % Eosinophils % Basophils % Neutrophils # Lymphocytes # Monocytes # Eosinophils # Basophils # Nucleated RBCs/100 WBC Toxic Granulation Platelet Estimate Polychromasia Hypochromasia Basophilic Stippling Anisocytosis Macrocytosis Sodium Potassium Chloride Carbon Dioxide BUN Creatinine Est GFR ( Amer) Est GFR (Non-Af Amer) BUN/Creatinine Ratio Glucose POC Glucose 243 H Est Mean Plasma Glucose Hemoglobin A1c Calculated Osmolality Calcium B-Natriuretic Peptide Vitamin B12 Folate Urine Color Urine Clarity Urine pH Ur Specific [place] Urine Protein Urine Glucose (UA) Urine Ketones Urine Blood Urine Nitrite Urine Bilirubin Urine Urobilinogen Ur Leukocyte Esterase Urine Microscopic RBC Urine Microscopic WBC Ur Squamous Epith Cells Urine Bacteria Hyaline Casts Stool Occult Blood Negative MACY, Poly Interpret TNP Crossmatch See Detail Reaction Pathol Review TNP 3 03/22/18 03/22/18 03/22/18 01:51 01:40 01:08 WBC RBC Hgb Hct MCV MCH MCHC RDW Plt Count MPV Immature Gran % Seg Neutrophils % Lymphocytes % Monocytes % Eosinophils % Basophils % Neutrophils # Lymphocytes # Monocytes # Eosinophils # Basophils # Nucleated RBCs/100 WBC Toxic Granulation Platelet Estimate Polychromasia Hypochromasia Basophilic Stippling Anisocytosis Macrocytosis Sodium Potassium Chloride Carbon Dioxide BUN Creatinine Est GFR ( Amer) Est GFR (Non-Af Amer) BUN/Creatinine Ratio Glucose POC Glucose 196 H Est Mean Plasma Glucose Hemoglobin A1c Calculated Osmolality Calcium B-Natriuretic Peptide Vitamin B12 Folate Urine Color Dark Yellow Urine Clarity Cloudy A Urine pH 6.5 Ur Specific [place] 1.013 Urine Protein 30 H Urine Glucose (UA) Normal Urine Ketones Negative Urine Blood Trace H Urine Nitrite Negative Urine Bilirubin Negative Urine Urobilinogen 2.0 H Ur Leukocyte Esterase Large H Urine Microscopic RBC 0-3 Urine Microscopic WBC TNTC H Ur Squamous Epith Cells None Seen Urine Bacteria Few Hyaline Casts None Seen Stool Occult Blood MACY, Poly Interpret NEG Crossmatch Reaction Pathol Review R 3 03/21/18 17:52 WBC RBC Hgb Hct MCV MCH MCHC RDW Plt Count MPV Immature Gran % Seg Neutrophils % Lymphocytes % Monocytes % Eosinophils % Basophils % Neutrophils # Lymphocytes # Monocytes # Eosinophils # Basophils # Nucleated RBCs/100 WBC Toxic Granulation Platelet Estimate Polychromasia Hypochromasia Basophilic Stippling Anisocytosis Macrocytosis Sodium Potassium Chloride Carbon Dioxide BUN Creatinine Est GFR ( Amer) Est GFR (Non-Af Amer) BUN/Creatinine Ratio Glucose POC Glucose Est Mean Plasma Glucose Hemoglobin A1c Calculated Osmolality Calcium B-Natriuretic Peptide 258 H Vitamin B12 Folate Urine Color Urine Clarity Urine pH Ur Specific [place] Urine Protein Urine Glucose (UA) Urine Ketones Urine Blood Urine Nitrite Urine Bilirubin Urine Urobilinogen Ur Leukocyte Esterase Urine Microscopic RBC Urine Microscopic WBC Ur Squamous Epith Cells Urine Bacteria Hyaline Casts Stool Occult Blood MACY, Poly Interpret Crossmatch Reaction Pathol Review Consult Discharge Plan - Plan Referrals: Nguyễn Gilbert Jr, MD [Primary Care Provider] - <Shannon Barber - Last Filed: 03/24/18 16:31> Date of Encounter: 03/24/18 - Data of Consult Requesting Physician: Brandon Barahona MD Primary Care Provider: Nguyễn Gilbert Jr, MD - Consult Narrative History of present illness: Patient had received a unit of PRBC without any reaction with premedications. Patient has severe anemia. His hemoglobin was around 7 in February 2018 when he was discharged from [facility] where he was seen for chest pain. He underwent a CT scan of the abdomen that did not show any lymphadenopathy but that showed hepatosplenomegaly of uncertain etiology spleen measuring 14.4 x 16.5 cm in size cystic lesion in the pancreatic uncinate process measuring 1.5 x 10.9 cm. B12 folic acid ferritin not deficient. SPEP is being ordered. He is scheduled for colonoscopy endoscopy tomorrow. Will obtain retic count, SPEP (macrocytosis). MDS in differential I examined this patient and my medical decision-making was reviewed with the Advanced Practice Nurse, Rubi Rojas. I agree with the documented findings, disposition and treatment plan as described except to the extent set forth below. Oncology - Exam - Constitutional Vitals: Temp Pulse Resp BP Pulse Ox 99 F 97 16 111/59 100 03/24/18 15:43 03/24/18 15:43 03/24/18 15:43 03/24/18 15:43 03/24/18 15:43 Oncology - Results Labs: 3 03/24/18 03/24/18 03/24/18 03:26 03:26 00:04 WBC 7.2 RBC 1.64 L Hgb 6.1 L D Hct 18.8 L MCV 114.6 H MCH 37.2 H MCHC 32.4 RDW 19.9 H Plt Count 195 MPV 8.8 L Immature Gran % 1.7 Seg Neutrophils % 76.5 Lymphocytes % 6.5 Monocytes % 8.5 Eosinophils % 6.7 Basophils % 0.1 Neutrophils # 5.5 Lymphocytes # 0.5 L Monocytes # 0.6 Eosinophils # 0.5 Basophils # 0.0 Nucleated RBCs/100 WBC 0.3 H Toxic Granulation Platelet Estimate Normal Polychromasia 1+ A Hypochromasia Present A Basophilic Stippling 1+ A Anisocytosis 1+ A Macrocytosis Present A Sodium 131 L Potassium 3.6 Chloride 98 Carbon Dioxide 27 BUN 31 H Creatinine 1.24 Est GFR ( Amer) > 60 Est GFR (Non-Af Amer) 56 L BUN/Creatinine Ratio 25 Glucose 162 H POC Glucose 179 H Est Mean Plasma Glucose Hemoglobin A1c Calculated Osmolality 282 Calcium 7.9 L Iron 204 H % Saturation 79 H Transferrin 184 L Ferritin > 1500 H Lactate Dehydrogenase 222 B-Natriuretic Peptide Vitamin B12 Folate Urine Color Urine Clarity Urine pH Ur Specific [place] Urine Protein Urine Glucose (UA) Urine Ketones Urine Blood Urine Nitrite Urine Bilirubin Urine Urobilinogen Ur Leukocyte Esterase Urine Microscopic RBC Urine Microscopic WBC Ur Squamous Epith Cells Urine Bacteria Hyaline Casts Stool Occult Blood MACY, Poly Interpret Crossmatch Reaction Pathol Review 3 03/23/18 03/23/18 03/23/18 21:48 16:36 12:22 WBC RBC Hgb Hct MCV MCH MCHC RDW Plt Count MPV Immature Gran % Seg Neutrophils % Lymphocytes % Monocytes % Eosinophils % Basophils % Neutrophils # Lymphocytes # Monocytes # Eosinophils # Basophils # Nucleated RBCs/100 WBC Toxic Granulation Platelet Estimate Polychromasia Hypochromasia Basophilic Stippling Anisocytosis Macrocytosis Sodium Potassium Chloride Carbon Dioxide BUN Creatinine Est GFR ( Amer) Est GFR (Non-Af Amer) BUN/Creatinine Ratio Glucose POC Glucose 218 H 271 H 279 H Est Mean Plasma Glucose Hemoglobin A1c Calculated Osmolality Calcium Iron % Saturation Transferrin Ferritin Lactate Dehydrogenase B-Natriuretic Peptide Vitamin B12 Folate Urine Color Urine Clarity Urine pH Ur Specific [place] Urine Protein Urine Glucose (UA) Urine Ketones Urine Blood Urine Nitrite Urine Bilirubin Urine Urobilinogen Ur Leukocyte Esterase Urine Microscopic RBC Urine Microscopic WBC Ur Squamous Epith Cells Urine Bacteria Hyaline Casts Stool Occult Blood MACY, Poly Interpret Crossmatch Reaction Pathol Review 3 03/23/18 03/23/18 03/23/18 05:05 05:05 05:05 WBC 9.3 RBC 1.97 L Hgb 7.7 L Hct 22.8 L MCV 115.7 H MCH 39.1 H MCHC 33.8 RDW 20.4 H Plt Count 214 MPV 8.7 L Immature Gran % 1.8 Seg Neutrophils % 84.0 Lymphocytes % 3.0 Monocytes % 6.9 Eosinophils % 4.2 Basophils % 0.1 Neutrophils # 7.8 Lymphocytes # 0.3 L Monocytes # 0.6 Eosinophils # 0.4 Basophils # 0.0 Nucleated RBCs/100 WBC Toxic Granulation Platelet Estimate Normal Polychromasia Hypochromasia Basophilic Stippling Anisocytosis Macrocytosis Present A Sodium 133 L Potassium 3.6 Chloride 99 Carbon Dioxide 30 H BUN 28 H Creatinine 1.10 Est GFR ( Amer) > 60 Est GFR (Non-Af Amer) > 60 BUN/Creatinine Ratio 25 Glucose 70 POC Glucose Est Mean Plasma Glucose 59 Hemoglobin A1c 3.7 Calculated Osmolality 280 Calcium 8.0 L Iron % Saturation Transferrin Ferritin Lactate Dehydrogenase B-Natriuretic Peptide Vitamin B12 Folate Urine Color Urine Clarity Urine pH Ur Specific [place] Urine Protein Urine Glucose (UA) Urine Ketones Urine Blood Urine Nitrite Urine Bilirubin Urine Urobilinogen Ur Leukocyte Esterase Urine Microscopic RBC Urine Microscopic WBC Ur Squamous Epith Cells Urine Bacteria Hyaline Casts Stool Occult Blood MACY, Poly Interpret Crossmatch Reaction Pathol Review 3 03/23/18 03/22/18 03/22/18 00:01 21:46 20:38 WBC RBC Hgb 7.8 L Hct 23.3 L MCV MCH MCHC RDW Plt Count MPV Immature Gran % Seg Neutrophils % Lymphocytes % Monocytes % Eosinophils % Basophils % Neutrophils # Lymphocytes # Monocytes # Eosinophils # Basophils # Nucleated RBCs/100 WBC Toxic Granulation Platelet Estimate Polychromasia Hypochromasia Basophilic Stippling Anisocytosis Macrocytosis Sodium Potassium Chloride Carbon Dioxide BUN Creatinine Est GFR ( Amer) Est GFR (Non-Af Amer) BUN/Creatinine Ratio Glucose POC Glucose 160 H 457 H* Est Mean Plasma Glucose Hemoglobin A1c Calculated Osmolality Calcium Iron % Saturation Transferrin Ferritin Lactate Dehydrogenase B-Natriuretic Peptide Vitamin B12 Folate Urine Color Urine Clarity Urine pH Ur Specific [place] Urine Protein Urine Glucose (UA) Urine Ketones Urine Blood Urine Nitrite Urine Bilirubin Urine Urobilinogen Ur Leukocyte Esterase Urine Microscopic RBC Urine Microscopic WBC Ur Squamous Epith Cells Urine Bacteria Hyaline Casts Stool Occult Blood MACY, Poly Interpret Crossmatch Reaction Pathol Review 3 03/22/18 03/22/18 03/22/18 20:25 18:42 18:24 WBC RBC Hgb Hct MCV MCH MCHC RDW Plt Count MPV Immature Gran % Seg Neutrophils % Lymphocytes % Monocytes % Eosinophils % Basophils % Neutrophils # Lymphocytes # Monocytes # Eosinophils # Basophils # Nucleated RBCs/100 WBC Toxic Granulation Platelet Estimate Polychromasia Hypochromasia Basophilic Stippling Anisocytosis Macrocytosis Sodium Potassium Chloride Carbon Dioxide BUN Creatinine Est GFR ( Amer) Est GFR (Non-Af Amer) BUN/Creatinine Ratio Glucose POC Glucose 488 H* 555 H* 537 H* Est Mean Plasma Glucose Hemoglobin A1c Calculated Osmolality Calcium Iron % Saturation Transferrin Ferritin Lactate Dehydrogenase B-Natriuretic Peptide Vitamin B12 Folate Urine Color Urine Clarity Urine pH Ur Specific [place] Urine Protein Urine Glucose (UA) Urine Ketones Urine Blood Urine Nitrite Urine Bilirubin Urine Urobilinogen Ur Leukocyte Esterase Urine Microscopic RBC Urine Microscopic WBC Ur Squamous Epith Cells Urine Bacteria Hyaline Casts Stool Occult Blood MACY, Poly Interpret Crossmatch Reaction Pathol Review 3 03/22/18 03/22/18 03/22/18 10:45 04:38 04:38 WBC 15.7 H D RBC 1.99 L Hgb 7.7 L Hct 23.1 L MCV 116.1 H MCH 38.7 H MCHC 33.3 RDW 20.9 H Plt Count 216 MPV 8.6 L Immature Gran % 3.8 Seg Neutrophils % 92.3 Lymphocytes % 0.6 Monocytes % 3.1 Eosinophils % 0.1 Basophils % 0.1 Neutrophils # 14.5 H Lymphocytes # 0.1 L Monocytes # 0.5 Eosinophils # 0.0 Basophils # 0.0 Nucleated RBCs/100 WBC 0.2 H Toxic Granulation Present A Platelet Estimate Normal Polychromasia 1+ A Hypochromasia Present A Basophilic Stippling Anisocytosis Macrocytosis Present A Sodium 130 L Potassium 4.2 Chloride 97 L Carbon Dioxide 26 BUN 22 Creatinine 1.07 Est GFR ( Amer) > 60 Est GFR (Non-Af Amer) > 60 BUN/Creatinine Ratio 21 Glucose 260 H POC Glucose Est Mean Plasma Glucose Hemoglobin A1c Calculated Osmolality 282 Calcium 7.8 L Iron % Saturation Transferrin Ferritin Lactate Dehydrogenase B-Natriuretic Peptide Vitamin B12 779 Folate 17.8 H Urine Color Urine Clarity Urine pH Ur Specific [place] Urine Protein Urine Glucose (UA) Urine Ketones Urine Blood Urine Nitrite Urine Bilirubin Urine Urobilinogen Ur Leukocyte Esterase Urine Microscopic RBC Urine Microscopic WBC Ur Squamous Epith Cells Urine Bacteria Hyaline Casts Stool Occult Blood MACY, Poly Interpret Crossmatch Reaction Pathol Review 3 03/22/18 03/22/18 03/22/18 02:41 02:38 02:06 WBC RBC Hgb Hct MCV MCH MCHC RDW Plt Count MPV Immature Gran % Seg Neutrophils % Lymphocytes % Monocytes % Eosinophils % Basophils % Neutrophils # Lymphocytes # Monocytes # Eosinophils # Basophils # Nucleated RBCs/100 WBC Toxic Granulation Platelet Estimate Polychromasia Hypochromasia Basophilic Stippling Anisocytosis Macrocytosis Sodium Potassium Chloride Carbon Dioxide BUN Creatinine Est GFR ( Amer) Est GFR (Non-Af Amer) BUN/Creatinine Ratio Glucose POC Glucose 243 H Est Mean Plasma Glucose Hemoglobin A1c Calculated Osmolality Calcium Iron % Saturation Transferrin Ferritin Lactate Dehydrogenase B-Natriuretic Peptide Vitamin B12 Folate Urine Color Urine Clarity Urine pH Ur Specific [place] Urine Protein Urine Glucose (UA) Urine Ketones Urine Blood Urine Nitrite Urine Bilirubin Urine Urobilinogen Ur Leukocyte Esterase Urine Microscopic RBC Urine Microscopic WBC Ur Squamous Epith Cells Urine Bacteria Hyaline Casts Stool Occult Blood Negative MACY, Poly Interpret TNP Crossmatch See Detail Reaction Pathol Review TNP 3 03/22/18 03/22/18 03/22/18 01:51 01:40 01:08 WBC RBC Hgb Hct MCV MCH MCHC RDW Plt Count MPV Immature Gran % Seg Neutrophils % Lymphocytes % Monocytes % Eosinophils % Basophils % Neutrophils # Lymphocytes # Monocytes # Eosinophils # Basophils # Nucleated RBCs/100 WBC Toxic Granulation Platelet Estimate Polychromasia Hypochromasia Basophilic Stippling Anisocytosis Macrocytosis Sodium Potassium Chloride Carbon Dioxide BUN Creatinine Est GFR ( Amer) Est GFR (Non-Af Amer) BUN/Creatinine Ratio Glucose POC Glucose 196 H Est Mean Plasma Glucose Hemoglobin A1c Calculated Osmolality Calcium Iron % Saturation Transferrin Ferritin Lactate Dehydrogenase B-Natriuretic Peptide Vitamin B12 Folate Urine Color Dark Yellow Urine Clarity Cloudy A Urine pH 6.5 Ur Specific [place] 1.013 Urine Protein 30 H Urine Glucose (UA) Normal Urine Ketones Negative Urine Blood Trace H Urine Nitrite Negative Urine Bilirubin Negative Urine Urobilinogen 2.0 H Ur Leukocyte Esterase Large H Urine Microscopic RBC 0-3 Urine Microscopic WBC TNTC H Ur Squamous Epith Cells None Seen Urine Bacteria Few Hyaline Casts None Seen Stool Occult Blood MACY, Poly Interpret NEG Crossmatch Reaction Pathol Review R 3 03/21/18 17:52 WBC RBC Hgb Hct MCV MCH MCHC RDW Plt Count MPV Immature Gran % Seg Neutrophils % Lymphocytes % Monocytes % Eosinophils % Basophils % Neutrophils # Lymphocytes # Monocytes # Eosinophils # Basophils # Nucleated RBCs/100 WBC Toxic Granulation Platelet Estimate Polychromasia Hypochromasia Basophilic Stippling Anisocytosis Macrocytosis Sodium Potassium Chloride Carbon Dioxide BUN Creatinine Est GFR ( Amer) Est GFR (Non-Af Amer) BUN/Creatinine Ratio Glucose POC Glucose Est Mean Plasma Glucose Hemoglobin A1c Calculated Osmolality Calcium Iron % Saturation Transferrin Ferritin Lactate Dehydrogenase B-Natriuretic Peptide 258 H Vitamin B12 Folate Urine Color Urine Clarity Urine pH Ur Specific [place] Urine Protein Urine Glucose (UA) Urine Ketones Urine Blood Urine Nitrite Urine Bilirubin Urine Urobilinogen Ur Leukocyte Esterase Urine Microscopic RBC Urine Microscopic WBC Ur Squamous Epith Cells Urine Bacteria Hyaline Casts Stool Occult Blood MACY, Poly Interpret Crossmatch Reaction Pathol Review
[2018-03-24] MEDS ORDERED: SODIUM CHLORIDE/NAHCO3/KCL/PEG 4,000 ML SOLN.RECON PO ONE ×2 (10:23→14:06)
[2018-03-24] MEDS ORDERED: Hydrocortisone Sodium Succ 100 MG/2 ML VIAL IVP ONE (11:00)
[2018-03-24] MEDS ORDERED: Acetaminophen 325 MG TABLET PO ONE (11:00)
[2018-03-24 11:32] LABS: Ferritin > 1500 ng/mL (20-250)
[2018-03-24 12:21] LABS: % Iron Saturation 79 % (20-55); Iron 204 mcg/dL (65-175); Lactate Dehydrogenase 222 Units/L (140-271); Transferrin 184 mg/dL (203-362)
[2018-03-24] MEDS ORDERED: *HR* LORazepam 2 MG/ML VIAL IVP STA (18:35)
[2018-03-24 19:08] LABS: ABG Base Excess 1 mEq/L (-2 to 3); ABG HCO3 26 mEq/L (21-27); ABG Oxygen Saturation 98 % (95-98); ABG PCO2 38 mmHg (35-45); ABG PH 7.43 pH Units (7.32-7.45); ABG PO2 107 mmHg (85-104); ABG TCO2 27 mEq/L (20-26)
[2018-03-24 19:24] LABS: Hematocrit 24.9 % (37.5-50.1); Mean Corpuscular HGB Conc 34.1 g/dL (31.6-35.5); Mean Corpuscular Hemoglobin 36.3 pg (28.0-33.3); Mean Platelet Volume 8.9 fL (9.4-12.4); Platelet Count 209 K/mcL (140-400); Red Blood Count 2.34 M/mcL (4.19-5.50); Red Cell Distribution Width 22.7 % (11.5-14.5)
[2018-03-24 19:25] LABS: Hemoglobin 8.5 g/dL (12.9-16.9); Mean Corpuscular Volume 106.4 fL (83.0-100.0)
[2018-03-24 19:35] LABS: Alanine Aminotransferase 18 Units/L (7-52); Albumin 3.2 g/dL (3.5-5.7); Albumin/Globulin Ratio 1.4 (1.1-2.2); Alkaline Phosphatase 128 Units/L (34-104); Aspartate Amino Transferase 33 Units/L (13-39); BUN/Creatinine Ratio 25 (6-26); Bilirubin,Direct 0.7 mg/dL (0.0-0.2); Bilirubin,Indirect 1.6 mg/dL (0.0-1.2); Bilirubin,Total 2.3 mg/dL (0.3-1.0); Blood Urea Nitrogen 28 mg/dL (8-23); Carbon Dioxide 24 mEq/L (23-29); Chloride 97 mEq/L (98-107); Globulin 2.3 g/dL (2.4-3.5); Glucose 350 mg/dL (70-105); Osmolality,Calculated 285 (280-300); Sodium 128 mEq/L (136-145); Total Protein 5.5 g/dL (6.4-8.9); eGFR For African Americans > 60 (> 60); eGFR For Non-African Americans > 60 (> 60)
[2018-03-24] MEDS: ALPRAZolam 0.5 MG TABLET PO SCH (22:03)
[2018-03-24] MEDS: Insulin DETEMIR 100 UNIT/ML X5UNITS SQ SCH (22:04)
[2018-03-24] MEDS ORDERED: Polyethylene Glycol 3350 255 GM POWDER PO ONE (22:10)
[2018-03-25] MEDS: Insulin LISPRO 300 UNITS/3 ML VIAL SQ SCH ×5 (00:17→22:00)
[2018-03-25 04:44] LABS: Immature Reticulocyte % 32.8 % (11.0-38.0); Retculocyte # 0.32 M/mcL (0.05-0.10); Reticulocyte % 14.4 % (1.6-2.8)
[2018-03-25 04:45] LABS: Basophils % 0.4 %; Eosinophils # 0.2 K/mcL (0.0-0.6); Eosinophils % 4.1 %; Hematocrit 24.5 % (37.5-50.1); Hemoglobin 8.1 g/dL (12.9-16.9); Immature Granulocytes % 4.9 % (0-4); Lymphocytes # 0.5 K/mcL (0.6-4.6); Lymphocytes % 10.2 %; Mean Corpuscular HGB Conc 33.1 g/dL (31.6-35.5); Mean Corpuscular Hemoglobin 35.5 pg (28.0-33.3); Mean Corpuscular Volume 107.5 fL (83.0-100.0); Mean Platelet Volume 8.9 fL (9.4-12.4); Monocytes # 0.4 K/mcL (0.0-1.3); Monocytes % 6.8 %; Neutrophils # 3.8 K/mcL (1.6-8.9); Platelet Count 196 K/mcL (140-400); Red Blood Count 2.28 M/mcL (4.19-5.50); Red Cell Distribution Width 23.2 % (11.5-14.5); Segmented Neutrophils % 73.6 %
[2018-03-25 05:01] LABS: BUN/Creatinine Ratio 23 (6-26); Blood Urea Nitrogen 24 mg/dL (8-23); Carbon Dioxide 28 mEq/L (23-29); Chloride 100 mEq/L (98-107); Glucose 222 mg/dL (70-105); Osmolality,Calculated 287 (280-300); Potassium 3.4 mEq/L (3.5-5.1); Sodium 133 mEq/L (136-145); eGFR For African Americans > 60 (> 60); eGFR For Non-African Americans > 60 (> 60)
[2018-03-25 05:07] LABS: Anisocytosis 2+ (Not Present); Macrocytosis Present (Not Present); Platelet Estimate Normal (Normal)
[2018-03-25 05:08] LABS: Polychromasia 1+ (Not Present)
[2018-03-25] MEDS ORDERED: Propofol 500 MG/50 ML INFUS..BTL ONE (06:35)
--- NOTE | 2018-03-25 07:23 | Anesthesia Evaluation PreOp ---
Date of Encounter: 03/25/18 Time of Encounter: 07:21 - Past History Planned Operation: EGD/Colonoscopy Cardiac History: ID (1995), HTN, Arrhythmia (H/O A-Fib), Cardiac Stent (stents x 5) Pulmonary History: Former smoker (quit in 1982), Asthma, COPD (home O2 qhs), [place] Dx (does not use CPAP) RELEASE ENGINEER History: Denies Any Significant HX Other Medical History: Diabetes Type II, GERD, Other (anxiety/depression) Anesthesia History: No Prior Anesthetic Complications, Past Anesthesia Alcohol Use: none Drug use: none Medications and Allergies Aspirin 81 mg PO QAM 04/20/15 [History] Digoxin [Lanoxin] 0.125 mg PO QAM 12/02/15 [History] Apremilast [Otezla] 30 mg PO BID 01/26/18 [History] Calcipotriene [Dovonex] 1 appl TP HS 01/26/18 [History] Clotrimazole/Betameth Dip CRM [Lotrisone CRM] 1 appl TP QAM 01/26/18 [History] Docusate Sodium [Dok] 100 mg PO BID 01/26/18 [History] FluocinoNIDE 0.05% CRM [Lidex] 1 appl TP BID 01/26/18 [History] Fluticasone/Vilanterol [Breo Ellipta 200-25 Mcg INH] 1 puff IH QA 01/26/18 [ History] Polyethylene Glycol 3350 [MiraLAX Powder Bulk 17.9 Oz] 17 g PO DAILY 01/26/18 [ History] Ranitidine HCl [Acid Bale Tie Machine Operator] 150 mg PO QAM 01/26/18 [History] carBAMazepine [Tegretol] 200 mg PO QAM 01/26/18 [History] ALPRAZolam [Xanax 0.5 MG Tablet] 0.5 mg PO HS 3 Days #3 tablet 01/27/18 [Rx] Diltiazem CD (24hr) [Cardizem CD] 180 mg PO DAILY 3 Days #3 cap.er.24h 01/27/18 [Rx] Furosemide [Lasix] 40 mg PO BID 03/21/18 [History] Insulin DETEMIR [Levemir] 34 units SQ HS 03/21/18 [History] Insulin Regular, Human [Novolin R] 6 units SQ TIDWM 03/21/18 [History] Metoprolol [Lopressor] 25 mg PO BID 03/21/18 [History] Tizanidine HCl 4 mg PO Q8H PRN 03/21/18 [History] 3 Allergy/AdvReac Type Severity Reaction Status Date / Time sulfamethoxazole Allergy See Verified 12/06/16 09:00 [From Bactrim] Comments trimethoprim [From Bactrim] Allergy See Verified 12/06/16 09:00 Comments atorvastatin AdvReac Dizziness Verified 12/06/16 09:00 clopidogrel [From Plavix] AdvReac Dizziness Verified 12/06/16 09:00 lovastatin AdvReac Dizziness Verified 12/06/16 09:00 pioglitazone [From Actos] AdvReac Dizziness Verified 12/06/16 09:00 pravastatin AdvReac Dizziness Verified 12/06/16 09:00 Rosiglitazone AdvReac Dizziness Verified 12/06/16 09:00 flu vaccine Allergy Dizziness Uncoded 06/14/16 22:01 - Meds/Allergy Pre-op Review Medications Reviewed: Yes Allergies Reviewed: Yes Beta Blockers on Current Med List: Yes If Beta Blockers taken, Date/Time (Last Dose taken): 03/24/2018 at 2203 Anesthesia Results - Labs 03/25/18 03:59 03/25/18 03:59 - Imaging EKG: report reviewed (03/21/2018 ATRIAL FIBRILLATION RIGHT BUNDLE BRANCH BLOCK [ 120+ ms QRS DURATION, UPRIGHT V1, 40+ ms S IN I/aVL/V4/V5/V6]) Additional studies: 01/26/2018 Echo Impressions: LVEF 60%. Indeterminate diastolic function. Normal right ventricular structure and function. Mild-moderate mitral regurgitation. No pulmonary hypertension. 07/02/2015 Stress Impression: Perfusion imaging was negative for ischemia or infarct. Pharmacologic ECG was negative for ischemia at the level of heart rate achieved. Patient had no chest pain with stress. Normal hemodynamic response. Uncontrolled atrial fibrillation throughout with occasional PVCs. Gated EF = 65%. The LV is not dilated. There is no evidence of TID. Anesthesia Exam Vital Signs/O2 Sat/Glucose, Most Recent Temp Pulse Resp BP Pulse Ox 98.4 F 95 16 108/68 99 03/25/18 06:55 03/25/18 06:55 03/25/18 06:55 03/25/18 06:55 03/25/18 06:55 Blood Glucose* 248 Height: 5'8''/1.73m Weight: 203 lbs/92.5 kg NPO (# of Hours): 8 Pain Scale: 0 Pain Scale Used: Numeric (1 - 10) - HEENT Pupil (Motor): EOMI Mallampati: II Teeth: Edentulous Oral Opening: Greater than 3 - RELEASE ENGINEER LOC: Oriented RELEASE ENGINEER Motor: Normal RUE, Normal RLE, Normal Face, Deficit LUE, Deficit LLE RELEASE ENGINEER Sensory: Normal: RUE, LUE, RLE, LLE, Face - Cardiac Rhythm: Irregular Murmur: None - Pulmonary Breath Sounds: bilateral Clear Respiratory Effort: Symmetrical Anesthesia Assess/Plan ASA Score: 4 Modified Brice Scale for Level of Consciousness: Cooperative, oriented, and tranquil Anesthetic Plan: MAC Monitoring Plan: Standard Monitors
[2018-03-25] MEDS ORDERED: 0.9 % Sodium Chloride 1,000 ML IVC SCH ×2 (08:00→08:15)
[2018-03-25] MEDS ORDERED: Tetracaine/Benzocaine/Butamben 200MG/SPRAY (100SPY/BOT) MM ONE (08:12)
[2018-03-25] MEDS ORDERED: Simethicone 40 MG/0.6 ML MLS IR ONE (08:12)
--- NOTE | 2018-03-25 08:13 | Electrocardiograph Report ---
[place] [id number] Test Date: 2018-03-22 Pat Name: Lobito Johnson Department: 115 Room: 2NE29 Gender: M Technical Instructor: [id number] : 1935 Requested By: Joelle Wilcox Order Number: [id number] Reading MD: Edwar Carney Measurements Intervals [place] Rate: 139 P: [place]: 0 QRS: 116 QRSD: 106 T: 21 QT: 205 QTc: 286 Interpretive Statements ATRIAL FIBRILLATION WITH RAPID VENTRICULAR RESPONSE INDETERMINATE AXIS RIGHT BUNDLE BRANCH BLOCK Electronically Signed On 03-25-2018 8:12:24 EDT by Edwar Carney
--- NOTE | 2018-03-25 08:21 | Internal Med Progress Note ---
<Geo De Santiago - Last Filed: 03/25/18 09:02> Date of Encounter: 03/25/18 Time of Encounter: 09:02 - Assessment and plan (1) GI bleed Current Visit: Yes Status: Acute Assessment and plan: Patient underwent EGD and colonoscopy this morning. Schatzki's ring, erythema. There is no active bleeding found. Colonoscopy found multiple polyps ranging from sizes 6-24 however these were not removed as GI thought patient was on anticoagulation specifically aspirin. However patient has not been on aspirin since admission. Hemoglobin this morning is 8.1 patietns BP is stable GI recommends outpatient follow-up for colonoscopy in 4 weeks. Qualifiers: GI bleed type/associated pathology: unspecified gastrointestinal hemorrhage type Qualified Code(s): K92.2 - Gastrointestinal hemorrhage, unspecified (2) Sepsis Current Visit: Yes Status: Resolved Assessment and plan: 2nd to uti Patient was tachycardic, tachypneic, elevated WBC, febrile Today he is tachycardic but tachypnea, leukocytosis and fever have resolved Blood cultures grew enterococcus resistant to ampicillin, nitrofurantoin vanc day 2 Qualifiers: Sepsis type: sepsis due to unspecified organism Qualified Code(s): A41.9 - Sepsis, unspecified organism (3) Atrial fibrillation with RVR Current Visit: Yes Status: Resolved Assessment and plan: resolved continue cardizem and metoprolol (4) Anemia Current Visit: Yes Status: Chronic Assessment and plan: Secondary to GI bleed. Plan as above Qualifiers: Anemia type: iron deficiency Iron deficiency anemia type: unspecified iron deficiency Qualified Code(s): D50.9 - Iron deficiency anemia, unspecified (5) UTI (urinary tract infection) Current Visit: Yes Status: Acute Assessment and plan: Patient's urinalysis indicates UTI Secondary to enterococcus Vancomycin day 2 Qualifiers: Urinary tract infection type: acute cystitis Hematuria presence: without hematuria Qualified Code(s): N30.00 - Acute cystitis without hematuria (6) Diabetes mellitus Current Visit: Yes Status: Chronic Assessment and plan: controlled Continue insulin regimen diabetic diet Qualifiers: Diabetes mellitus type: type 2 Diabetes mellitus assisted insulin use: with technician terminal and repeater use Diabetes mellitus complication status: without complication Qualified Code(s): E11.9 - Type 2 diabetes mellitus without complications; Z79.4 - terminal computer operator (current) use of insulin (7) Hypokalemia Current Visit: Yes Status: Acute Assessment and plan: 3.4 today replacing - Time Spent With Patient Total time spent is greater than 50% in coordination of care (as documented) at patient's floor/unit and/or counseling patient: - Subjective Interval history: patient underwent coloncoscopy and EGD this morning. Tolerated procedure well. No acute events overnight. He tolerated blood transfusion yesterday. - Constitutional Vitals: Temp Pulse Resp BP Pulse Ox 98.4 F 110 16 119/60 99 03/25/18 07:52 03/25/18 07:52 03/25/18 07:52 03/25/18 07:52 03/25/18 07:52 General appearance: Present: A&O X 3, no acute distress, answers questions appropriately - Other Additional findings: General: without distress Heart: Regular rate and rhythm with no murmur Lungs: Clear to auscultation bilaterally Abdomen: Soft nontender, nondistended positive bowel sounds Skin: warm and dry, absent rash Extremities: Absent pedal edema, Neuro: Alert oriented 3 Vascular: Pedal and radial pulses 2 out of 4 Internal Medicine: Result - Labs CBC & Chem 7: 03/25/18 03:59 03/25/18 03:59 Labs: Short CBC 03/24/18 03/25/18 Range/Units 19:01 03:59 WBC 5.9 5.1 (4.3-11.1) K/mcL Hgb 8.5 L D 8.1 L (12.9-16.9) g/dL Hct 24.9 L 24.5 L (37.5-50.1) % Plt Count 209 196 (140-400) K/mcL Neutrophils # 3.8 (1.6-8.9) K/mcL BMP 03/24/18 03/24/18 03/25/18 03:26 19:01 03:59 Sodium 131 L 128 L 133 L Potassium 3.6 4.0 3.4 L Chloride 98 97 L 100 Carbon Dioxide 27 24 28 BUN 31 H 28 H 24 H Creatinine 1.24 1.13 1.03 Glucose 162 H 350 H 222 H Calcium 7.9 L 8.0 L 8.0 L Cardiac Enzymes 03/24/18 03/24/18 Range/Units 19:01 22:49 Troponin I < 0.03 < 0.03 (< 0.04) ng/mL Liver Function 03/24/18 Range/Units 19:01 Total Bilirubin 2.3 H (0.3-1.0) mg/dL Direct Bilirubin 0.7 H (0.0-0.2) mg/dL AST 33 (13-39) Units/L ALT 18 (7-52) Units/L Alkaline Phosphatase 128 H (34-104) Units/L Albumin 3.2 L (3.5-5.7) g/dL - ABG Interpretation ABG results: ABG ABG pH 7.43 pH Units (7.32-7.45) 03/24/18 19:04 ABG pCO2 38 mmHg (35-45) 03/24/18 19:04 ABG pO2 107 mmHg (85-104) H 03/24/18 19:04 ABG O2 Saturation 98 % (95-98) 03/24/18 19:04 PT/INR, D-dimer PT 13.0 Seconds (9.4-12.1) H 03/21/18 14:50 - Impressions Impressions Chest X-Ray 03/24/18 18:38 IMPRESSION: Progressive CHF with bilateral pleural effusions and bibasilar atelectasis. D/ / Dickson Zhao MD / Dickson Zhao MD Interpreting Provider: Dickson Zhao MD - VTE Documentation of Mechanical Device: Intermittent pneumatic compression device Consult Discharge Plan - Plan Referrals: Nguyễn Gilbert Jr, MD [Primary Care Provider] - <Mayra Brewer - Last Filed: 03/25/18 18:46> Date of Encounter: 03/25/18 - Assessment and plan (1) Atrial fibrillation with RVR Current Visit: Yes Status: Resolved (2) Diabetes mellitus Current Visit: Yes Status: Chronic Qualifiers: Diabetes mellitus type: type 2 Diabetes mellitus technician terminal and repeater insulin use: with assisted use Diabetes mellitus complication status: without complication Qualified Code(s): E11.9 - Type 2 diabetes mellitus without complications; Z79.4 - halfway (current) use of insulin (3) Anemia Current Visit: Yes Status: Chronic Qualifiers: Anemia type: iron deficiency Iron deficiency anemia type: unspecified iron deficiency Qualified Code(s): D50.9 - Iron deficiency anemia, unspecified (4) GI bleed Current Visit: Yes Status: Acute Qualifiers: GI bleed type/associated pathology: unspecified gastrointestinal hemorrhage type Qualified Code(s): K92.2 - Gastrointestinal hemorrhage, unspecified (5) UTI (urinary tract infection) Current Visit: Yes Status: Acute Qualifiers: Urinary tract infection type: acute cystitis Hematuria presence: without hematuria Qualified Code(s): N30.00 - Acute cystitis without hematuria (6) Sepsis Current Visit: Yes Status: Resolved Qualifiers: Sepsis type: sepsis due to unspecified organism Qualified Code(s): A41.9 - Sepsis, unspecified organism (7) Hypokalemia Current Visit: Yes Status: Acute - Time Spent With Patient Total time spent is greater than 50% in coordination of care (as documented) at patient's floor/unit and/or counseling patient: - Constitutional Vitals: Temp Pulse Resp BP Pulse Ox 98.5 F 110 17 119/77 99 03/25/18 15:30 03/25/18 15:30 03/25/18 15:30 03/25/18 15:30 03/25/18 15:30 Internal Medicine: Result - Labs CBC & Chem 7: 03/25/18 03:59 03/25/18 03:59 Labs: Short CBC 03/24/18 03/25/18 Range/Units 19:01 03:59 WBC 5.9 5.1 (4.3-11.1) K/mcL Hgb 8.5 L D 8.1 L (12.9-16.9) g/dL Hct 24.9 L 24.5 L (37.5-50.1) % Plt Count 209 196 (140-400) K/mcL Neutrophils # 3.8 (1.6-8.9) K/mcL BMP 03/24/18 03/25/18 19:01 03:59 Sodium 128 L 133 L Potassium 4.0 3.4 L Chloride 97 L 100 Carbon Dioxide 24 28 BUN 28 H 24 H Creatinine 1.13 1.03 Glucose 350 H 222 H Calcium 8.0 L 8.0 L Cardiac Enzymes 03/24/18 03/24/18 Range/Units 19:01 22:49 Troponin I < 0.03 < 0.03 (< 0.04) ng/mL Liver Function 03/24/18 Range/Units 19:01 Total Bilirubin 2.3 H (0.3-1.0) mg/dL Direct Bilirubin 0.7 H (0.0-0.2) mg/dL AST 33 (13-39) Units/L ALT 18 (7-52) Units/L Alkaline Phosphatase 128 H (34-104) Units/L Albumin 3.2 L (3.5-5.7) g/dL - ABG Interpretation ABG results: ABG ABG pH 7.43 pH Units (7.32-7.45) 03/24/18 19:04 ABG pCO2 38 mmHg (35-45) 03/24/18 19:04 ABG pO2 107 mmHg (85-104) H 03/24/18 19:04 ABG O2 Saturation 98 % (95-98) 03/24/18 19:04 PT/INR, D-dimer PT 13.0 Seconds (9.4-12.1) H 03/21/18 14:50 - Impressions Impressions Chest X-Ray 03/24/18 18:38 IMPRESSION: Progressive CHF with bilateral pleural effusions and bibasilar atelectasis. D/ / Dickson Zhao MD / Dickson Zhao MD Interpreting Provider: Dickson Zhao MD - Attending Attestation I examined this patient and my medical decision-making was reviewed with the Resident Physician. I agree with the documented findings, disposition and treatment plan as described except to the extent set forth below.
[2018-03-25] MEDS: Budesonide/Formoterol 160/4.5 MDI IH SCH ×2 (09:45→19:50)
[2018-03-25] MEDS: Cyanocobalamin (B-12) 1,000 MCG TABLET PO SCH (13:29)
[2018-03-25] MEDS: Diltiazem CD (24hr) 180 MG CAPSULE PO SCH (13:29)
[2018-03-25] MEDS: Apremilast [Otezla] 30 MG PO SCH ×2 (13:29→20:41)
[2018-03-25] MEDS: Breo Ellipta 200-25 Mcg IH SCH (13:29)
[2018-03-25] MEDS: carBAMazepine 200 MG TABLET PO SCH (13:29)
[2018-03-25] MEDS: Folic Acid 1 MG TABLET PO SCH (13:29)
[2018-03-25] MEDS: *HR* Digoxin 0.125 MG TABLET PO SCH (13:29)
--- NOTE | 2018-03-25 17:36 | Electrocardiograph Report ---
[place] [id number] Test Date: 2018-03-24 Pat Name: Lobito Johnson Department: 111 Room: 2NE29 Gender: M Recovery Rn: : 1935 Requested By: Brandon Barahona Order Number: [id number] Reading MD: Ortiz Pinto Measurements Intervals [place] Rate: 104 P: [place]: 0 QRS: 40 QRSD: 134 T: 10 QT: 324 QTc: 384 Interpretive Statements ATRIAL FIBRILLATION WITH RAPID VENTRICULAR RESPONSE RIGHT BUNDLE BRANCH BLOCK Electronically Signed On 03-25-2018 17:35:22 EDT by Ortiz Pinto
[2018-03-25] MEDS: Insulin DETEMIR 100 UNIT/ML X5UNITS SQ SCH (20:45)
[2018-03-25] MEDS: ALPRAZolam 0.5 MG TABLET PO SCH (20:45)
[2018-03-26 04:27] LABS: Basophils % 0.6 %; Eosinophils # 0.2 K/mcL (0.0-0.6); Eosinophils % 4.5 %; Hematocrit 22.7 % (37.5-50.1); Hemoglobin 7.4 g/dL (12.9-16.9); Immature Granulocytes % 4.8 % (0-4); Lymphocytes # 0.6 K/mcL (0.6-4.6); Lymphocytes % 11.9 %; Mean Corpuscular HGB Conc 32.6 g/dL (31.6-35.5); Mean Corpuscular Hemoglobin 36.3 pg (28.0-33.3); Mean Corpuscular Volume 111.3 fL (83.0-100.0); Mean Platelet Volume 8.7 fL (9.4-12.4); Monocytes # 0.4 K/mcL (0.0-1.3); Monocytes % 8.9 %; Neutrophils # 3.2 K/mcL (1.6-8.9); Platelet Count 189 K/mcL (140-400); Red Blood Count 2.04 M/mcL (4.19-5.50); Red Cell Distribution Width 22.8 % (11.5-14.5); Segmented Neutrophils % 69.3 %
[2018-03-26 04:48] LABS: Macrocytosis Present (Not Present); Platelet Estimate Normal (Normal)
[2018-03-26 04:52] LABS: BUN/Creatinine Ratio 16 (6-26); Blood Urea Nitrogen 18 mg/dL (8-23); Carbon Dioxide 29 mEq/L (23-29); Chloride 108 mEq/L (98-107); Glucose 225 mg/dL (70-105); Osmolality,Calculated 277 (280-300); Potassium 3.8 mEq/L (3.5-5.1); Sodium 129 mEq/L (136-145); eGFR For African Americans > 60 (> 60); eGFR For Non-African Americans > 60 (> 60)
[2018-03-26] MEDS ORDERED: Pantoprazole 40 MG VIAL IVP SCH (09:00)
--- NOTE | 2018-03-26 09:04 | Oncology Inp Progress Note ---
Date of Encounter: 03/26/18 Time of Encounter: 08:00 (1) Anemia Current Visit: Yes Status: Chronic Assessment and plan: Patient with anemia with hemoglobin from 6-7 g status post transfusion, hemoglobin declined this a.m. to 7.4. Status post endoscopy colonoscopy findings noted no active bleeding. His reticulocyte count is markedly elevated at 14%, iron stores appeared to be adequate at this point. Anticoagulation is to be held. Transfuse as necessary. Repeat colonoscopy, consider capsule endoscopy outpatient. Qualifiers: Anemia type: iron deficiency Iron deficiency anemia type: unspecified iron deficiency Qualified Code(s): D50.9 - Iron deficiency anemia, unspecified Oncology: Subj Interval history: Patient reports that he is tired, he denies any other complaints. He underwent GI endoscopy procedure yesterday. - Constitutional Vitals: Vital Signs Temp Pulse Resp BP Pulse Ox 03/26/18 06:39 98.3 F 102 16 126/76 99 03/26/18 04:00 98.3 F 95 18 102/58 98 03/25/18 23:44 98.5 F 110 18 104/76 97 03/25/18 20:00 98.7 F 90 18 102/82 98 03/25/18 19:50 16 97 03/25/18 15:30 98.5 F 110 17 119/77 99 03/25/18 12:04 98.1 F 105 16 104/66 99 03/25/18 09:47 16 99 Intake and Output 03/25/18 03/26/18 03/26/18 23:59 07:59 15:59 Intake Total 690 / 690 120 / 120 Output Total 400 / 400 200 / 200 Balance 290 / 290 -80 / -80 Intake: IV Fluids 450 / 450 Potassium Chloride 10 mEq/100mL 200 / 200 10 meq In 100 ml @ 100 mls/hr IVPB Q1H [facility] Rx#:[id number] Vancocin 1,250 MG In 0.9 % 250 / 250 Sodium Chloride 250 ML @ 166.67 mls/hr IVPB Q24H [facility] Rx#: [id number] Oral 240 / 240 120 / 120 Output: Urine 400 / 400 200 / 200 Other: Meal Dinner Percent of Meal Consumed 100% Weight 93.7 kg Blood Glucose* 330 204 Patient Weight 03/26/18 23:59 Weight 93.7 kg General appearance: average body habitus, no acute distress - Head Head exam: Present: atraumatic - Neck Neck exam: Present: full ROM, normal inspection - Respiratory Respiratory exam: Present: CTAB - Cardiovascular Cardiovascular exam: Present: irregular rhythm, +S1, +S2 - GI/Abdominal GI/Abdominal exam: Present: normal bowel sounds, soft - Neurological Exam Neurological exam: Present: alert, CN II-XII intact, oriented X3, no focal deficits Oncology: Obj Data - Labs CBC & Chem 7: 03/26/18 03:49 03/26/18 03:49 Labs: Laboratory Results - last 24 hr 03/22/18 03/25/18 03/25/18 18:14 06:07 12:08 WBC RBC Hgb Hct MCV MCH MCHC RDW Plt Count MPV Immature Gran % Seg Neutrophils % Lymphocytes % Monocytes % Eosinophils % Basophils % Neutrophils # Lymphocytes # Monocytes # Eosinophils # Basophils # Platelet Estimate Macrocytosis Sodium Potassium Chloride Carbon Dioxide BUN Creatinine Est GFR ( Amer) Est GFR (Non-Af Amer) BUN/Creatinine Ratio Glucose POC Glucose 248 H 146 H Calculated Osmolality Calcium Procalcitonin 6.36 H 03/25/18 03/25/18 03/25/18 16:41 21:54 23:09 WBC RBC Hgb Hct MCV MCH MCHC RDW Plt Count MPV Immature Gran % Seg Neutrophils % Lymphocytes % Monocytes % Eosinophils % Basophils % Neutrophils # Lymphocytes # Monocytes # Eosinophils # Basophils # Platelet Estimate Macrocytosis Sodium Potassium Chloride Carbon Dioxide BUN Creatinine Est GFR ( Amer) Est GFR (Non-Af Amer) BUN/Creatinine Ratio Glucose POC Glucose 247 H 338 H 330 H Calculated Osmolality Calcium Procalcitonin 03/26/18 03/26/18 03:49 03:49 WBC 4.6 RBC 2.04 L Hgb 7.4 L Hct 22.7 L MCV 111.3 H MCH 36.3 H MCHC 32.6 RDW 22.8 H Plt Count 189 MPV 8.7 L Immature Gran % 4.8 H Seg Neutrophils % 69.3 Lymphocytes % 11.9 Monocytes % 8.9 Eosinophils % 4.5 Basophils % 0.6 Neutrophils # 3.2 Lymphocytes # 0.6 Monocytes # 0.4 Eosinophils # 0.2 Basophils # 0.0 Platelet Estimate Normal Macrocytosis Present A Sodium 129 L Potassium 3.8 Chloride 108 H Carbon Dioxide 29 BUN 18 Creatinine 1.11 Est GFR ( Amer) > 60 Est GFR (Non-Af Amer) > 60 BUN/Creatinine Ratio 16 Glucose 225 H POC Glucose Calculated Osmolality 277 L Calcium 8.0 L Procalcitonin - ABG Interpretation ABG results: ABG ABG pH 7.43 pH Units (7.32-7.45) 03/24/18 19:04 ABG pCO2 38 mmHg (35-45) 03/24/18 19:04 ABG pO2 107 mmHg (85-104) H 03/24/18 19:04 ABG O2 Saturation 98 % (95-98) 03/24/18 19:04 PT/INR, D-dimer PT 13.0 Seconds (9.4-12.1) H 03/21/18 14:50 Consult Discharge Plan - Plan Referrals: Nguyễn Gilbert Jr, MD [Primary Care Provider] -
[2018-03-26] MEDS: Folic Acid 1 MG TABLET PO SCH (09:24)
[2018-03-26] MEDS: Cyanocobalamin (B-12) 1,000 MCG TABLET PO SCH (09:24)
[2018-03-26] MEDS: Diltiazem CD (24hr) 180 MG CAPSULE PO SCH (09:24)
[2018-03-26] MEDS: carBAMazepine 200 MG TABLET PO SCH (09:24)
[2018-03-26] MEDS: *HR* Digoxin 0.125 MG TABLET PO SCH (09:24)
[2018-03-26] MEDS: Insulin LISPRO 300 UNITS/3 ML VIAL SQ SCH ×4 (09:24→23:56)
[2018-03-26] MEDS: Apremilast [Otezla] 30 MG PO SCH ×2 (09:25→23:57)
[2018-03-26] MEDS: Budesonide/Formoterol 160/4.5 MDI IH SCH ×2 (10:08→20:22)
--- NOTE | 2018-03-26 16:37 | Internal Med Progress Note ---
Date of Encounter: 03/26/18 Time of Encounter: 16:37 - Assessment and plan (1) GI bleed Current Visit: Yes Status: Acute Assessment and plan: EGD showed: Schatzki's ring, erythema. There is no active bleeding found. Colonoscopy: found multiple polyps ranging from sizes 6-24 however these were not removed as GI thought patient was on anticoagulation specifically aspirin. However patient has not been on aspirin since admission. H&H went down again from 8.1 and now this AM 7.4. Will need to recheck H&H this afternoon may need another transfusion. Qualifiers: GI bleed type/associated pathology: unspecified gastrointestinal hemorrhage type Qualified Code(s): K92.2 - Gastrointestinal hemorrhage, unspecified (2) Atrial fibrillation with RVR Current Visit: Yes Status: Resolved Assessment and plan: resolved continue cardizem and metoprolol (3) Diabetes mellitus Current Visit: Yes Status: Chronic Assessment and plan: controlled Continue insulin regimen diabetic diet Qualifiers: Diabetes mellitus type: type 2 Diabetes mellitus truck terminal manager insulin use: with truck terminal manager use Diabetes mellitus complication status: without complication Qualified Code(s): E11.9 - Type 2 diabetes mellitus without complications; Z79.4 - bed bug exterminator (current) use of insulin (4) Anemia Current Visit: Yes Status: Chronic Assessment and plan: Secondary to GI bleed. Plan as above Qualifiers: Anemia type: iron deficiency Iron deficiency anemia type: unspecified iron deficiency Qualified Code(s): D50.9 - Iron deficiency anemia, unspecified (5) UTI (urinary tract infection) Current Visit: Yes Status: Acute Assessment and plan: Patient's urinalysis indicates UTI Secondary to enterococcus Vancomycin day 3 Qualifiers: Urinary tract infection type: acute cystitis Hematuria presence: without hematuria Qualified Code(s): N30.00 - Acute cystitis without hematuria (6) Sepsis Current Visit: Yes Status: Resolved Assessment and plan: 2nd to uti Patient was tachycardic, tachypneic, elevated WBC, febrile Sepsis resolved Blood cultures grew enterococcus resistant to ampicillin, nitrofurantoin vanc day 3 Qualifiers: Sepsis type: sepsis due to unspecified organism Qualified Code(s): A41.9 - Sepsis, unspecified organism (7) Hypokalemia Current Visit: Yes Status: Acute (8) CAD (coronary artery disease) Current Visit: No Status: Acute Qualifiers: Coronary Disease-Associated Artery/Lesion type: [place] artery [place] vs. transplanted heart: [place] heart Associated angina: without angina Qualified Code(s): I25.10 - Atherosclerotic heart disease of [place] coronary artery without angina pectoris (9) Diabetes mellitus type 2, controlled Current Visit: No Status: Chronic Qualifiers: Diabetes mellitus chcf insulin use: unspecified chcf insulin use status Diabetes mellitus complication status: with unspecified complications Qualified Code(s): E11.8 - Type 2 diabetes mellitus with unspecified complications (10) Heart failure with preserved ejection fraction Current Visit: No Status: Chronic (11) CKD (chronic kidney disease), stage III Current Visit: No Status: Inactive - Time Spent With Patient Total time spent is greater than 50% in coordination of care (as documented) at patient's floor/unit and/or counseling patient: - Subjective Interval history: Patient has some edema buildup in abdomen, denies chest pain, SOB, n/v, melena, hematemesis, dizziness, hematochezia. - Constitutional Vitals: Temp Pulse Resp BP Pulse Ox 98.1 F 91 16 112/51 98 03/26/18 16:15 03/26/18 16:15 03/26/18 16:15 03/26/18 16:15 03/26/18 16:15 General appearance: Present: A&O X 3, no acute distress, answers questions appropriately Exam: Skin: pallor, warm CVS: RRR Lungs: decreased breath sounds at bases Abd: mild edema Ext: 2+ bipedal edema Internal Medicine: Result - Labs CBC & Chem 7: 03/26/18 16:56 03/26/18 03:49 Labs: Short CBC 03/26/18 Range/Units 03:49 WBC 4.6 (4.3-11.1) K/mcL Hgb 7.4 L (12.9-16.9) g/dL Hct 22.7 L (37.5-50.1) % Plt Count 189 (140-400) K/mcL Neutrophils # 3.2 (1.6-8.9) K/mcL BMP 03/26/18 03:49 Sodium 129 L Potassium 3.8 Chloride 108 H Carbon Dioxide 29 BUN 18 Creatinine 1.11 Glucose 225 H Calcium 8.0 L - ABG Interpretation ABG results: ABG ABG pH 7.43 pH Units (7.32-7.45) 07/05/18 19:04 ABG pCO2 38 mmHg (35-45) 03/24/18 19:04 ABG pO2 107 mmHg (85-104) H 03/24/18 19:04 ABG O2 Saturation 98 % (95-98) 03/24/18 19:04 PT/INR, D-dimer PT 13.0 Seconds (9.4-12.1) H 03/21/18 14:50 - VTE Documentation of Mechanical Device: Graduated compression elastic hosiery Consult Discharge Plan - Plan Referrals: Nguyễn Gilbert Jr, MD [Primary Care Provider] -
[2018-03-26] MEDS ORDERED: Furosemide 20 MG/2 ML VIAL IVP ONE (17:03)
[2018-03-26 17:11] LABS: Hematocrit 23.9 % (37.5-50.1); Hemoglobin 7.9 g/dL (12.9-16.9)
[2018-03-26] MEDS: ALPRAZolam 0.5 MG TABLET PO SCH (21:17)
[2018-03-26] MEDS: Insulin DETEMIR 100 UNIT/ML X5UNITS SQ SCH (23:58)
[2018-03-26] MEDS: Pantoprazole 40 MG VIAL IVP SCH (23:58)
[2018-03-27 05:18] LABS: Alpha 2 Globulin (PEP) 0.61 g/dL (0.48-1.05); Beta Globulin (PEP) 0.71 g/dL (0.48-1.10)
[2018-03-27 06:36] LABS: Basophils % 0.7 %; Eosinophils # 0.2 K/mcL (0.0-0.6); Eosinophils % 2.5 %; Hematocrit 24.4 % (37.5-50.1); Hemoglobin 7.8 g/dL (12.9-16.9); Immature Granulocytes % 2.8 % (0-4); Lymphocytes # 0.6 K/mcL (0.6-4.6); Lymphocytes % 9.7 %; Mean Corpuscular Hemoglobin 36.1 pg (28.0-33.3); Mean Platelet Volume 8.6 fL (9.4-12.4); Monocytes # 0.5 K/mcL (0.0-1.3); Monocytes % 8.5 %; Neutrophils # 4.6 K/mcL (1.6-8.9); Platelet Count 211 K/mcL (140-400); Red Blood Count 2.16 M/mcL (4.19-5.50); Segmented Neutrophils % 75.8 %
[2018-03-27 06:57] LABS: Anisocytosis 2+ (Not Present); Macrocytosis Present (Not Present); Platelet Estimate Normal (Normal); Polychromasia 1+ (Not Present)
[2018-03-27 07:00] LABS: BUN/Creatinine Ratio 17 (6-26); Blood Urea Nitrogen 17 mg/dL (8-23); Calcium 8.3 mg/dL (8.6-10.3); Carbon Dioxide 30 mEq/L (23-29); Chloride 102 mEq/L (98-107); Glucose 221 mg/dL (70-105); Osmolality,Calculated 286 (280-300); Potassium 3.7 mEq/L (3.5-5.1); Sodium 134 mEq/L (136-145); eGFR For African Americans > 60 (> 60); eGFR For Non-African Americans > 60 (> 60)
[2018-03-27] MEDS: Budesonide/Formoterol 160/4.5 MDI IH SCH ×2 (07:46→20:43)
[2018-03-27] MEDS: *HR* Digoxin 0.125 MG TABLET PO SCH (09:54)
[2018-03-27] MEDS: Folic Acid 1 MG TABLET PO SCH (09:54)
[2018-03-27] MEDS: Apremilast [Otezla] 30 MG PO SCH ×2 (09:54→23:30)
[2018-03-27] MEDS: Pantoprazole 40 MG VIAL IVP SCH ×2 (09:54→21:39)
[2018-03-27] MEDS: Insulin LISPRO 300 UNITS/3 ML VIAL SQ SCH ×4 (09:54→21:40)
[2018-03-27] MEDS: carBAMazepine 200 MG TABLET PO SCH (09:54)
[2018-03-27] MEDS: Diltiazem CD (24hr) 180 MG CAPSULE PO SCH (09:54)
[2018-03-27] MEDS: Cyanocobalamin (B-12) 1,000 MCG TABLET PO SCH (09:54)
--- NOTE | 2018-03-27 12:36 | Internal Med Progress Note ---
Date of Encounter: 03/27/18 Time of Encounter: 12:33 - Assessment and plan (1) GI bleed Current Visit: Yes Status: Acute Assessment and plan: - EGD showed: Schatzki's ring, erythema. There is no active bleeding found. - Colonoscopy: found multiple polyps ranging from sizes 6-24 however these were not removed as GI thought patient was on anticoagulation specifically aspirin. However patient has not been on aspirin since admission. H&H running 7.8-7.9, hemodynamically stable. Qualifiers: GI bleed type/associated pathology: unspecified gastrointestinal hemorrhage type Qualified Code(s): K92.2 - Gastrointestinal hemorrhage, unspecified (2) Sepsis Current Visit: Yes Status: Resolved Assessment and plan: 2nd to uti, possibly non-infectious (transfusion reaction - less likely) - He has since received blood without any SIRS criteria positive. 4 SIRS criteria: tachycardic, tachypneic, elevated WBC, fever Urine culture: enterococcus resistant to ampicillin, nitrofurantoin vanc day 4 Blood cultures negative (03/22) May need IV antibiotics at [facility]. Consult ID on Wednesday Qualifiers: Sepsis type: sepsis due to unspecified organism Qualified Code(s): A41.9 - Sepsis, unspecified organism (3) UTI (urinary tract infection) Current Visit: Yes Status: Acute Assessment and plan: Patient's urinalysis indicates UTI Secondary to enterococcus Continue Vancomycin Qualifiers: Urinary tract infection type: acute cystitis Hematuria presence: without hematuria Qualified Code(s): N30.00 - Acute cystitis without hematuria (4) Atrial fibrillation with RVR Current Visit: Yes Status: Resolved Assessment and plan: resolved continue cardizem and metoprolol (5) Diabetes mellitus Current Visit: Yes Status: Chronic Assessment and plan: controlled Continue insulin regimen diabetic diet Qualifiers: Diabetes mellitus type: type 2 Diabetes mellitus rat exterminator insulin use: with jail use Diabetes mellitus complication status: without complication Qualified Code(s): E11.9 - Type 2 diabetes mellitus without complications; Z79.4 - shelter (current) use of insulin (6) Anemia Current Visit: Yes Status: Chronic Assessment and plan: Secondary to GI bleed. Plan as above Qualifiers: Anemia type: iron deficiency Iron deficiency anemia type: unspecified iron deficiency Qualified Code(s): D50.9 - Iron deficiency anemia, unspecified (7) CAD (coronary artery disease) Current Visit: No Status: Acute Qualifiers: Coronary Disease-Associated Artery/Lesion type: [place] artery [place] vs. transplanted heart: [place] heart Associated angina: without angina Qualified Code(s): I25.10 - Atherosclerotic heart disease of [place] coronary artery without angina pectoris (8) Diabetes mellitus type 2, controlled Current Visit: No Status: Chronic Qualifiers: Diabetes mellitus rat exterminator insulin use: unspecified jail insulin use status Diabetes mellitus complication status: with unspecified complications Qualified Code(s): E11.8 - Type 2 diabetes mellitus with unspecified complications (9) Heart failure with preserved ejection fraction Current Visit: No Status: Chronic Assessment and plan: No acute exacerbation Continue Lasix, takes 40 mg PO BID prior to admission. (10) CKD (chronic kidney disease), stage III Current Visit: No Status: Inactive Assessment and plan: Close monitoring of renal function. If vancomycin isn't needed will discontinue. - Time Spent With Patient Total time spent is greater than 50% in coordination of care (as documented) at patient's floor/unit and/or counseling patient: - Subjective Interval history: Denies chest pain, SOB, n/v, melena, hematemesis, dizziness, hematochezia. Edema of extremity is improving. - Constitutional Vitals: Temp Pulse Resp BP Pulse Ox 97.9 F 91 16 112/63 99 03/27/18 11:34 03/27/18 11:34 03/27/18 11:34 03/27/18 11:34 03/27/18 11:34 General appearance: Present: A&O X 3, no acute distress, answers questions appropriately - Head Head exam: Present: atraumatic, normocephalic - Eye Eye exam: Present: PERRL, conjuntiva pink, sclera anicteric Pupils: Present: PERRL - Neck Neck exam general surgery: Present: supple, trachea midline. Absent: lymphadenopathy - Respiratory Respiratory exam: Present: CTAB. Absent: accessory muscle use, rales, rhonchi, wheezes - Cardiovascular Cardiovascular exam: Present: RRR, +S1, +S2. Absent: diastolic murmur, gallop, rubs, systolic murmur - GI/Abdominal GI/Abdominal exam: Present: normal bowel sounds, soft, no peritoneal signs. Absent: distended, tenderness - Extremities Exam Extremities exam: Present: pedal edema, warm, radial pulses palpable and symmetrical. Absent: calf tenderness, cyanotic - Neurological Exam Neurological exam: Present: CN II-XII intact, oriented X3, no focal deficits. Absent: pronater drift, facial droop, speech deficit - Skin Skin exam: Present: dry, intact, pallor Internal Medicine: Result - Labs CBC & Chem 7: 03/27/18 06:19 03/27/18 06:19 Labs: Short CBC 03/26/18 03/27/18 Range/Units 16:56 06:19 WBC 6.0 (4.3-11.1) K/mcL Hgb 7.9 L 7.8 L (12.9-16.9) g/dL Hct 23.9 L 24.4 L (37.5-50.1) % Plt Count 211 (140-400) K/mcL Neutrophils # 4.6 (1.6-8.9) K/mcL BMP 03/27/18 06:19 Sodium 134 L Potassium 3.7 Chloride 102 Carbon Dioxide 30 H BUN 17 Creatinine 1.02 Glucose 221 H Calcium 8.3 L - ABG Interpretation ABG results: ABG ABG pH 7.43 pH Units (7.32-7.45) 03/24/18 19:04 ABG pCO2 38 mmHg (35-45) 03/24/18 19:04 ABG pO2 107 mmHg (85-104) H 03/24/18 19:04 ABG O2 Saturation 98 % (95-98) 03/24/18 19:04 PT/INR, D-dimer PT 13.0 Seconds (9.4-12.1) H 03/21/18 14:50 - VTE Documentation of Mechanical Device: Intermittent pneumatic compression device Consult Discharge Plan - Plan Referrals: Nguyễn Gilbert Jr, MD [Primary Care Provider] -
[2018-03-27] MEDS: Furosemide 40 MG/4 ML VIAL IVP SCH (17:20)
[2018-03-27] MEDS: Insulin DETEMIR 100 UNIT/ML X5UNITS SQ SCH (21:39)
[2018-03-27] MEDS: ALPRAZolam 0.5 MG TABLET PO SCH (21:39)
[2018-03-28] MEDS: Acetaminophen 325 MG TABLET PO PRN (00:22)
[2018-03-28 05:05] LABS: Basophils % 0.5 %; Eosinophils # 0.2 K/mcL (0.0-0.6); Hematocrit 21.2 % (37.5-50.1); Hemoglobin 6.8 g/dL (12.9-16.9); Immature Granulocytes % 3.3 % (0-4); Lymphocytes # 0.8 K/mcL (0.6-4.6); Lymphocytes % 12.2 %; Mean Corpuscular HGB Conc 32.1 g/dL (31.6-35.5); Mean Corpuscular Hemoglobin 36.4 pg (28.0-33.3); Mean Corpuscular Volume 113.4 fL (83.0-100.0); Mean Platelet Volume 8.8 fL (9.4-12.4); Monocytes # 0.5 K/mcL (0.0-1.3); Monocytes % 7.4 %; Neutrophils # 4.7 K/mcL (1.6-8.9); Platelet Count 199 K/mcL (140-400); Red Blood Count 1.87 M/mcL (4.19-5.50); Segmented Neutrophils % 73.6 %
[2018-03-28 05:21] LABS: BUN/Creatinine Ratio 18 (6-26); Blood Urea Nitrogen 17 mg/dL (8-23); Carbon Dioxide 30 mEq/L (23-29); Chloride 102 mEq/L (98-107); Glucose 141 mg/dL (70-105); Osmolality,Calculated 284 (280-300); Potassium 3.6 mEq/L (3.5-5.1); Sodium 135 mEq/L (136-145); eGFR For African Americans > 60 (> 60); eGFR For Non-African Americans > 60 (> 60)
[2018-03-28 05:35] LABS: Anisocytosis 2+ (Not Present); Macrocytosis Present (Not Present); Microcytosis Present (Not Present); Platelet Estimate Normal (Normal)
[2018-03-28] MEDS: Budesonide/Formoterol 160/4.5 MDI IH SCH ×2 (07:38→20:12)
[2018-03-28] MEDS ORDERED: Aminoglycoside Consult 1 EACH MC ONE (07:52)
[2018-03-28 08:04] LABS: IFE Reflexed NOT DONE
[2018-03-28] MEDS: Insulin LISPRO 300 UNITS/3 ML VIAL SQ SCH ×4 (08:52→23:01)
[2018-03-28] MEDS: Diltiazem CD (24hr) 180 MG CAPSULE PO SCH (08:54)
[2018-03-28] MEDS: carBAMazepine 200 MG TABLET PO SCH (08:54)
[2018-03-28] MEDS: Folic Acid 1 MG TABLET PO SCH (08:54)
[2018-03-28] MEDS: *HR* Digoxin 0.125 MG TABLET PO SCH (08:54)
[2018-03-28] MEDS: Furosemide 40 MG/4 ML VIAL IVP SCH ×2 (08:54→16:45)
[2018-03-28] MEDS: Cyanocobalamin (B-12) 1,000 MCG TABLET PO SCH (08:54)
[2018-03-28] MEDS: Pantoprazole 40 MG VIAL IVP SCH ×2 (08:54→23:01)
[2018-03-28] MEDS: Apremilast [Otezla] 30 MG PO SCH ×2 (08:55→23:03)
[2018-03-28] MEDS ORDERED: 0.9 % Sodium Chloride 500 ML ONE (14:05)
[2018-03-28 14:22] LABS: Bilirubin,Direct 0.5 mg/dL (0.0-0.2); Bilirubin,Indirect 1.1 mg/dL (0.0-1.2); Bilirubin,Total 1.6 mg/dL (0.3-1.0)
--- NOTE | 2018-03-28 14:39 | Internal Med Progress Note ---
<Geo De Santiago - Last Filed: 03/28/18 14:37> Date of Encounter: 03/28/18 Time of Encounter: 14:37 - Assessment and plan (1) GI bleed Current Visit: Yes Status: Acute Assessment and plan: - EGD showed: Schatzki's ring, erythema. There is no active bleeding found. - Colonoscopy: found multiple polyps ranging from sizes 6-24 however these were not removed as GI thought patient was on anticoagulation specifically aspirin. However patient has not been on aspirin since admission. Hemoglobin again was decreased to less than 7. Transfusion 2 additional units. Ordering a nuclear medicine GI bleed scan. Continue IV protonic's Awaiting recommendations from gastroenterology as well. Qualifiers: GI bleed type/associated pathology: unspecified gastrointestinal hemorrhage type Qualified Code(s): K92.2 - Gastrointestinal hemorrhage, unspecified (2) Diabetes mellitus type 2, controlled Current Visit: Yes Status: Chronic Assessment and plan: Controlled. Continue sliding scale insulin and insulin regimen. Diabetic cardiac diet. Qualifiers: Diabetes mellitus usp insulin use: unspecified terminal system operator insulin use status Diabetes mellitus complication status: with unspecified complications Qualified Code(s): E11.8 - Type 2 diabetes mellitus with unspecified complications (3) CKD (chronic kidney disease), stage III Current Visit: No Status: Inactive Assessment and plan: Close monitoring of renal function. If vancomycin isn't needed will discontinue. (4) Heart failure with preserved ejection fraction Current Visit: No Status: Chronic Assessment and plan: No acute exacerbation Continue Lasix, takes 40 mg PO BID prior to admission. (5) Anemia Current Visit: Yes Status: Chronic Assessment and plan: Secondary to GI bleed. Plan as above Qualifiers: Anemia type: iron deficiency Iron deficiency anemia type: unspecified iron deficiency Qualified Code(s): D50.9 - Iron deficiency anemia, unspecified (6) UTI (urinary tract infection) Current Visit: Yes Status: Acute Assessment and plan: Patient's urinalysis indicates UTI Secondary to enterococcus Continue Vancomycin day 5 Infectious diseases consulted for antibiotic recommendations. Qualifiers: Urinary tract infection type: acute cystitis Hematuria presence: without hematuria Qualified Code(s): N30.00 - Acute cystitis without hematuria (7) CAD (coronary artery disease) Current Visit: No Status: Chronic Qualifiers: Coronary Disease-Associated Artery/Lesion type: [place] artery [place] vs. transplanted heart: [place] heart Associated angina: without angina Qualified Code(s): I25.10 - Atherosclerotic heart disease of [place] coronary artery without angina pectoris (8) Atrial fibrillation with RVR Current Visit: Yes Status: Resolved Assessment and plan: resolved continue cardizem and metoprolol (9) Sepsis Current Visit: Yes Status: Resolved Assessment and plan: 2nd to uti, possibly non-infectious (transfusion reaction - less likely) - He has since received blood without any SIRS criteria positive. 4 SIRS criteria: tachycardic, tachypneic, elevated WBC, fever Urine culture: enterococcus resistant to ampicillin, nitrofurantoin vanc day 5 Blood cultures negative (03/22) ID consulted. Qualifiers: Sepsis type: sepsis due to unspecified organism Qualified Code(s): A41.9 - Sepsis, unspecified organism - Time Spent With Patient Total time spent is greater than 50% in coordination of care (as documented) at patient's floor/unit and/or counseling patient: - Subjective Interval history: No acute overnight events. This morning patient's hemoglobin has decreased again to less than 7. He was receiving additional blood transfusions. He has no complaints. She denies headache, chest pain, shortness of breath, abdominal pain. He is tolerating his diet. - Constitutional Vitals: Temp Pulse Resp BP Pulse Ox 98.5 F 82 16 116/63 96 03/28/18 14:30 03/28/18 14:30 03/28/18 14:30 03/28/18 14:30 03/28/18 14:30 General appearance: Present: A&O X 3, no acute distress, answers questions appropriately - Other Additional findings: General: Pleasant without distress Heart: Regular rate and rhythm with no murmur Lungs: Clear to auscultation bilaterally Abdomen: Soft nontender, nondistended positive bowel sounds Skin: warm and dry, absent rash Extremities: Absent pedal edema, Neuro: Alert oriented 3 Vascular: Pedal and radial pulses 2 out of 4 Internal Medicine: Result - Labs CBC & Chem 7: 03/28/18 04:27 03/28/18 04:27 Labs: Short CBC 03/28/18 Range/Units 04:27 WBC 6.4 (4.3-11.1) K/mcL Hgb 6.8 L (12.9-16.9) g/dL Hct 21.2 L (37.5-50.1) % Plt Count 199 (140-400) K/mcL Neutrophils # 4.7 (1.6-8.9) K/mcL BMP 03/28/18 04:27 Sodium 135 L Potassium 3.6 Chloride 102 Carbon Dioxide 30 H BUN 17 Creatinine 0.93 Glucose 141 H Calcium 8.0 L Liver Function 03/28/18 Range/Units 10:49 Total Bilirubin 1.6 H (0.3-1.0) mg/dL Direct Bilirubin 0.5 H (0.0-0.2) mg/dL - ABG Interpretation ABG results: ABG ABG pH 7.43 pH Units (7.32-7.45) 03/24/18 19:04 ABG pCO2 38 mmHg (35-45) 03/24/18 19:04 ABG pO2 107 mmHg (85-104) H 03/24/18 19:04 ABG O2 Saturation 98 % (95-98) 03/24/18 19:04 PT/INR, D-dimer PT 13.0 Seconds (9.4-12.1) H 03/21/18 14:50 - Impressions Impressions GI Bleed Scan Nuclear Medicine 03/28/18 08:31 IMPRESSION: No evidence of active GI bleeding during acquisition. RECOMMENDATIONS: If the patient shows hemodynamic signs of an active bleed in the next 20 hours, additional images can be acquired. D/ / Winston Duke MD / Winston Duke MD Interpreting Provider: Winston Duke MD - VTE Documentation of Mechanical Device: Intermittent pneumatic compression device Consult Discharge Plan - Plan Referrals: Nguyễn Gilbert Jr, MD [Primary Care Provider] - <Mayra Brewer - Last Filed: 03/28/18 17:58> Date of Encounter: 03/28/18 - Assessment and plan (1) Atrial fibrillation with RVR Current Visit: Yes Status: Resolved (2) Diabetes mellitus type 2, controlled Current Visit: Yes Status: Chronic Qualifiers: Diabetes mellitus terminal system operator insulin use: unspecified terminal system operator insulin use status Diabetes mellitus complication status: with unspecified complications Qualified Code(s): E11.8 - Type 2 diabetes mellitus with unspecified complications (3) CKD (chronic kidney disease), stage III Current Visit: No Status: Inactive (4) Heart failure with preserved ejection fraction Current Visit: No Status: Chronic (5) Anemia Current Visit: Yes Status: Chronic Qualifiers: Anemia type: iron deficiency Iron deficiency anemia type: unspecified iron deficiency Qualified Code(s): D50.9 - Iron deficiency anemia, unspecified (6) CAD (coronary artery disease) Current Visit: No Status: Chronic Qualifiers: Coronary Disease-Associated Artery/Lesion type: [place] artery [place] vs. transplanted heart: [place] Associated angina: without angina Qualified Code(s): I25.10 - Atherosclerotic heart disease of [place] coronary artery without angina pectoris (7) GI bleed Current Visit: Yes Status: Acute Qualifiers: GI bleed type/associated pathology: unspecified gastrointestinal hemorrhage type Qualified Code(s): K92.2 - Gastrointestinal hemorrhage, unspecified (8) UTI (urinary tract infection) Current Visit: Yes Status: Acute Qualifiers: Urinary tract infection type: acute cystitis Hematuria presence: without hematuria Qualified Code(s): N30.00 - Acute cystitis without hematuria (9) Sepsis Current Visit: Yes Status: Resolved Qualifiers: Sepsis type: sepsis due to unspecified organism Qualified Code(s): A41.9 - Sepsis, unspecified organism - Time Spent With Patient Total time spent is greater than 50% in coordination of care (as documented) at patient's floor/unit and/or counseling patient: - Constitutional Vitals: Temp Pulse Resp BP Pulse Ox 98.2 F 101 16 122/66 96 03/28/18 16:40 03/28/18 16:40 03/28/18 16:40 03/28/18 16:40 03/28/18 16:40 Internal Medicine: Result - Labs CBC & Chem 7: 03/28/18 04:27 03/28/18 04:27 Labs: Short CBC 03/28/18 Range/Units 04:27 WBC 6.4 (4.3-11.1) K/mcL Hgb 6.8 L (12.9-16.9) g/dL Hct 21.2 L (37.5-50.1) % Plt Count 199 (140-400) K/mcL Neutrophils # 4.7 (1.6-8.9) K/mcL BMP 07/09/18 04:27 Sodium 135 L Potassium 3.6 Chloride 102 Carbon Dioxide 30 H BUN 17 Creatinine 0.93 Glucose 141 H Calcium 8.0 L Liver Function 03/28/18 Range/Units 10:49 Total Bilirubin 1.6 H (0.3-1.0) mg/dL Direct Bilirubin 0.5 H (0.0-0.2) mg/dL - ABG Interpretation ABG results: ABG ABG pH 7.43 pH Units (7.32-7.45) 03/24/18 19:04 ABG pCO2 38 mmHg (35-45) 03/24/18 19:04 ABG pO2 107 mmHg (85-104) H 03/24/18 19:04 ABG O2 Saturation 98 % (95-98) 03/24/18 19:04 PT/INR, D-dimer PT 13.0 Seconds (9.4-12.1) H 03/21/18 14:50 - Impressions Impressions GI Bleed Scan Nuclear Medicine 03/28/18 08:31 IMPRESSION: No evidence of active GI bleeding during acquisition. RECOMMENDATIONS: If the patient shows hemodynamic signs of an active bleed in the next 20 hours, additional images can be acquired. D/ / Winston Duke MD / Winston Duke MD Interpreting Provider: Winston Duke MD - Attending Attestation I examined this patient and my medical decision-making was reviewed with the Resident Physician. I agree with the documented findings, disposition and treatment plan as described except to the extent set forth below. Patient has no complaints for me. He still exhibits pallor, hgb today onec again <7.0. VS reviewed and stable. NM scan was ordered, giving additional two units. Appreciate GI recommendations.
--- NOTE | 2018-03-28 14:57 | Infectious Disease Consult ---
Date of Encounter: 03/28/18 Time of Encounter: 14:56 Infectious Disease HPI - Data of Consult Requesting Physician: Brandon Barahona MD Primary Care Provider: Nguyễn Gilbert Jr, MD - Consult Narrative Reason for consult: Enterococcus UTI History of present illness: Patient is a 82-year-old male presented on 03/21 for evaluation of low hemoglobin. We are consulted for the management of enterococcus UTI. Patient has no past medical history of AK I, spinal stenosis, A. fib with RVR, CAD, diabetes, seat Rashida, heart failure, COPD. Patient lives at the [facility]. Labs are drawn at the [facility], hemoglobin was 6.6. Patient has had anemia for quite some time; was told at [facility] that he needed an endoscopy. He refused at this time. Hemoglobin at admission was 7.2. GI was consulted on 03/22. Patient did not have any specific complaints on admission. Denied having weakness or shortness of breath. Patient denied having any abdominal pain or any noticeable blood in the stool. Upon arrival to the emergency department, patients vital signs were as follows : Temperature was 98.4, pulse was 98, respiratory rate was 18, blood pressure was 130/68, and O2 saturation was 99. Laboratory analysis was significant for a hemoglobin of 7.2. Urinalysis demonstrated the presence of a possible UTI. Stool occult test was positive. GI was consulted; patient underwent a colonoscopy and EGD. No active bleeding source was found. Patients hemoglobin continued to drop. He was transfused with a total of 4 units. Currently on IV Protonix. Developed A. fib with RVR; was treated with Cardizem and metoprolol. On 03/22, patient had blood transfusion reaction like symptoms. He almost completed his first unit of blood when he became tachycardic (HR 145), febrile ( temp 100.8), SOB, lethargic, rigors/chills and nauseated. He was given solumedrol, benadryl, zofran, ranitidine, 2 IVF boluses, ofirmev, furosemide and a cardizem bolus (drip was not initiated as patient then became hypotensive) , he was transferred to ICU in stable condition. Patient was seen and examined at bedside; he states that he is feeling well. Denies any frequency, urgency, dysuria, nausea, or vomiting. Denies a history of UTIs, bladder catheterizations, or prostate issues. No complaints at this time. CC: Brandon Barahona MD Past Med Surg Social Fam HX - Past Medical History Medical history: asthma, atrial fibrillation, COPD, coronary artery disease, diabetes, hypertension, kidney stones, myocardial infarction, other Additional medical history: heart failure, anemia Psychiatric history: anxiety, depression - Past Surgical History Surgical History: cataract Additional surgical history: Umbilical hernia. - Social History Smoking Status: Former smoker Smokeless Tobacco Status: No Alcohol use: none Drug use: none - Family History Mother Living Status: Hx Family Cardiac Disorders: Yes Hx Family Respiratory Disorders: No Hx Family Cancer: No Hx Family GI Disorders: No Hx Family Endocrine Disorder: Yes Hx Family Neuromuscular Disorders: No Hx Family Neurologic Disorders: Yes Hx Family HEENT Disorders: No Hx Family Autoimmune Disorders: No Father Adopted: No Family Member Ethnicity: Non- Living Status: Hx Family Cardiac Disorders: Yes Infectious Disease-CN:Meds Aspirin 81 mg PO QAM 04/20/15 [History] Digoxin [Lanoxin] 0.125 mg PO QAM 12/02/15 [History] Apremilast [Otezla] 30 mg PO BID 01/26/18 [History] Calcipotriene [Dovonex] 1 appl TP HS 01/26/18 [History] Clotrimazole/Betameth Dip CRM [Lotrisone CRM] 1 appl TP QAM 01/26/18 [History] Docusate Sodium [Dok] 100 mg PO BID 01/26/18 [History] FluocinoNIDE 0.05% CRM [Lidex] 1 appl TP BID 01/26/18 [History] Fluticasone/Vilanterol [Breo Ellipta 200-25 Mcg INH] 1 puff IH QAM 01/26/18 [ History] Polyethylene Glycol 3350 [MiraLAX Powder Bulk 17.9 Oz] 17 g PO DAILY 01/26/18 [ History] Ranitidine HCl [Acid [employer]] 150 mg PO QAM 01/26/18 [History] carBAMazepine [Tegretol] 200 mg PO QAM 01/26/18 [History] ALPRAZolam [Xanax 0.5 MG Tablet] 0.5 mg PO HS 3 Days #3 tablet 01/27/18 [Rx] Diltiazem CD (24hr) [Cardizem CD] 180 mg PO DAILY 3 Days #3 cap.er.24h 01/27/18 [Rx] Furosemide [Lasix] 40 mg PO BID 03/21/18 [History] Insulin DETEMIR [Levemir] 34 units SQ HS 03/21/18 [History] Insulin Regular, Human [Novolin R] 6 units SQ TIDWM 03/21/18 [History] Metoprolol [Lopressor] 25 mg PO BID 03/21/18 [History] Tizanidine HCl 4 mg PO Q8H PRN 03/21/18 [History] 3 Allergy/AdvReac Type Severity Reaction Status Date / Time sulfamethoxazole Allergy See Verified 12/06/16 09:00 [From Bactrim] Comments trimethoprim [From Bactrim] Allergy See Verified 12/06/16 09:00 Comments atorvastatin AdvReac Dizziness Verified 12/06/16 09:00 clopidogrel [From Plavix] AdvReac Dizziness Verified 12/06/16 09:00 lovastatin AdvReac Dizziness Verified 12/06/16 09:00 pioglitazone [From Actos] AdvReac Dizziness Verified 12/06/16 09:00 pravastatin AdvReac Dizziness Verified 12/06/16 09:00 Rosiglitazone AdvReac Dizziness Verified 12/06/16 09:00 flu vaccine Allergy Dizziness Uncoded 06/14/16 22:01 Review of systems: 10 point review of systems done, negative other for what mentioned in history of present illness - Constitutional Constitutional: Absent: chills, fatigue, lethargy, weight gain - Cardiovascular Cardiovascular: Absent: chest pain, chest pain at rest, diaphoresis, dyspnea - Respiratory Respiratory: Absent: cough, dyspnea - Gastrointestinal Gastrointestinal: Absent: nausea, vomiting Exam - Constitutional Vitals: Temp Pulse Resp BP Pulse Ox 98.5 F 82 16 116/63 96 03/28/18 14:30 03/28/18 14:30 03/28/18 14:30 03/28/18 14:30 03/28/18 14:30 - Head Head exam: Present: atraumatic, normocephalic - Neck Neck exam: Present: full ROM. Absent: meningismus - Respiratory Respiratory exam: Present: CTAB. Absent: rales, rhonchi - Cardiovascular Cardiovascular exam: Present: RRR, +S1, +S2. Absent: bradycardia, systolic murmur, tachycardia - GI/Abdominal GI/Abdominal exam: Present: soft. Absent: tenderness - Extremities Exam Extremities exam: Present: full ROM, normal inspection - Psychiatric Psychiatric exam: Present: normal affect, normal mood - Skin Skin exam: Present: normal color. Absent: rash Infectious Disease CN: Results - Labs CBC & Chem 7: 03/29/18 05:06 03/29/18 05:06 Cultures: Cultures 03/22/18 17:00 Blood Culture - Final Peripheral Venipuncture No growth. Final report. 03/22/18 17:00 Blood Culture - Final Peripheral Venipuncture No growth. Final report. Serology: Serology 03/22/18 03/22/18 Range/Units 02:41 01:51 Urine Color Dark Yellow (Yellow) Urine Clarity Cloudy A (Clear) Urine pH 6.5 (5.0-8.0) pH Units Ur Specific [place] 1.013 (1.010-1.025) Urine Protein 30 H (Neg-Trace) mg/dL Urine Glucose (UA) Normal (Normal) mg/dL Urine Ketones Negative (Negative) mg/dL Urine Blood Trace H (Negative) Urine Nitrite Negative (Negative) Urine Bilirubin Negative (Negative) Urine Urobilinogen 2.0 H (Normal) mg/dL Ur Leukocyte Esterase Large H (Negative) Urine Microscopic RBC 0-3 (0-3) per hpf Urine Microscopic WBC TNTC H (0-3) per hpf Ur Squamous Epith Cells None Seen (None-Few) per lpf Urine Bacteria Few (None-Few) per hpf Hyaline Casts None Seen (None-Few) per lpf Stool Occult Blood Negative (Negative) - VTE Documentation of Mechanical Device: Intermittent pneumatic compression device Consult Discharge Plan - Plan Referrals: Nguyễn Gilbert Jr, MD [Primary Care Provider] - - Attending Attestation I examined this patient and my medical decision-making was reviewed with the Resident Physician. I agree with the documented findings, disposition and treatment plan as described except to the extent set forth below. This is an addendum to original report dictated by resident physician. Please refer to resident's note for full details. Patient is an 82-year-old gentleman who is a patient of Dr. Olivera who has an extensive past medical history mentioned below including spinal stenosis, A. fib with RVR, coronary disease, diabetes mellitus type 2, congestive heart failure and COPD. Patient apparently has been having anemia and was evaluated at [facility]. Patient came in for weakness. They checked a urine on the patient and it came back positive for Enterococcus faecalis that is ampicillin resistant but vancomycin susceptible. Patient has been on antibiotics including vancomycin and we were asked to evaluate the patient's make further recommendations. Currently patient appears comfortable laying in bed in no acute distress. Does not appear toxic. Has no sepsis. Patient denies any urinary symptoms. Assessment and plan: Sepsis on admission patient did not have tachycardia tachypnea and was febrile. Also had leukocytosis. Urinary tract infection with Enterococcus faecalis and resistant GI bleed Coronary artery disease Patient's urine culture was positive on 03/21/18, he has been on vancomycin since it. Patient's received a total of 5 days of IV vancomycin. Patient clinically doing great and is asymptomatic. We will continue vancomycin for now. Patient will be treated with a total of 7 days. I believe he needs a PICC line or IV antibiotics on discharge patient will were saying. We will continue to follow. Monitor labs and for drug toxicity.
--- NOTE | 2018-03-28 16:21 | Oncology Inp Progress Note ---
<Rubi Peterson L - Last Filed: 03/28/18 19:27> Date of Encounter: 03/28/18 Time of Encounter: 16:00 (1) Febrile nonhemolytic transfusion reaction Current Visit: Yes Status: Acute Assessment and plan: Transfusion reaction as detailed in HPI which occurred on 03/22/2018 Reviewed transfusion reaction pathology review and personally discussed with Dr. River with pathology, per review patient did not appear to have experienced a hemolytic reaction, likely HLA antibody or cytokine mediated. He was re-trialed with pre-medications of hydrocortisone, benadryl and tylenol prior to PRBC transfusion and has since tolerated subsequent transfusions well without any adverse symptoms noted. (2) Anemia Current Visit: Yes Status: Chronic Assessment and plan: Baseline hgb around 11-12 Presented with macrocytic anemia B12, Iron and folate replete SPEP-no monoclonal proteins Retic- Elevated LDH re-ordered today-normal Bili reordered today-improving since admission Repeat Poly MACY-pending Stool occult blood positive on admission-reports BRBPR a few weeks prior- hematochezia/melena on admission Xarelto/ASA on hold He has again developed acute drop in hgb today to 6.8-2 units PRBC transfusing. He had a NM tagged RBC study today which revealed no active GI bleeding Etiology may include delayed transfusion reaction, bone marrow etiology or GI bleeding. May consider bone marrow biopsy if anemia continues to decline or not improve Please refer to Dr. England's attestation below for additional details. Qualifiers: Anemia type: iron deficiency Iron deficiency anemia type: unspecified iron deficiency Qualified Code(s): D50.9 - Iron deficiency anemia, unspecified Oncology: Subj Interval history: Mr. Johnson is resting in bed, no s/s distress, reports feeling slightly fatigued today. He reports mild pain to his IV site, nurse notified, otherwise denies pain. He denies s/s bleeding. - Constitutional Vitals: Vital Signs Temp Pulse Resp BP Pulse Ox 03/28/18 15:19 98.4 F 92 17 120/62 97 03/28/18 14:30 98.5 F 82 16 116/63 96 03/28/18 14:15 98.2 F 98 16 120/60 96 03/28/18 14:11 98.2 F 94 16 120/60 96 03/28/18 13:40 98.2 F 98 16 118/69 98 03/28/18 11:22 98.3 F 106 16 109/65 98 03/28/18 11:21 98.3 F 106 16 102/65 98 03/28/18 11:07 98.2 F 101 18 115/70 97 03/28/18 10:59 98.2 F 102 18 111/68 98 03/28/18 07:39 16 98 03/28/18 07:06 98.4 F 108 18 122/68 98 03/28/18 00:10 98.4 F 106 18 100/64 97 03/27/18 20:49 98.5 F 118 16 107/68 96 03/27/18 20:43 18 98 03/27/18 16:43 98.4 F 101 17 117/72 97 Intake and Output 03/28/18 03/28/18 03/28/18 07:59 15:59 23:59 Intake Total 250 / 250 1080 / 1080 Output Total 400 / 400 375 / 375 Balance -150 / -150 705 / 705 Intake: IV Fluids 250 / 250 Vancocin 1,500 MG In 0.9 % 250 / 250 Sodium Chloride 250 ML @ 166.67 mls/hr IVPB Q24H [facility] Rx#: [id number] Oral 250 / 250 480 / 480 Blood Product 350 / 350 Rbcs Leuko Poor As-1 Unit 0 / 0 [id number] Rbcs Leuko Poor As-1 Unit 350 / 350 [id number] Output: Urine 400 / 400 375 / 375 Other: Meal Lunch Percent of Meal Consumed 75% Weight 95.7 kg Blood Glucose* 134 277 343 Patient Weight 03/28/18 23:59 Weight 95.7 kg General appearance: cooperative, no acute distress, no febrile Exam: fatigue, generalized weakness noted - Head Head exam: Present: atraumatic - ENT ENT exam: Present: mucous membranes moist - Respiratory Respiratory exam: Present: decreased breath sounds, CTAB. Absent: respiratory distress - Cardiovascular Cardiovascular exam: Present: RRR, +S1, +S2 - GI/Abdominal GI/Abdominal exam: Present: normal bowel sounds, soft. Absent: guarding, rebound, tenderness - Extremities Exam Extremities exam: Absent: calf tenderness - Neurological Exam Neurological exam: Present: alert, oriented X3, no focal deficits, strengths equal and symetr throughout - Psychiatric Psychiatric exam: Present: normal affect, normal mood - Skin Skin exam: Present: dry, intact, pallor, warm Oncology: Obj Data - Labs CBC & Chem 7: 03/28/18 04:27 03/28/18 04:27 - Impressions Impressions GI Bleed Scan Nuclear Medicine 03/28/18 08:31 IMPRESSION: No evidence of active GI bleeding during acquisition. RECOMMENDATIONS: If the patient shows hemodynamic signs of an active bleed in the next 20 hours, additional images can be acquired. D/ / Winston Duke MD / Winston Duke MD Interpreting Provider: Winston Duke MD - ABG Interpretation ABG results: ABG ABG pH 7.43 pH Units (7.32-7.45) 03/24/18 19:04 ABG pCO2 38 mmHg (35-45) 03/24/18 19:04 ABG pO2 107 mmHg (85-104) H 03/24/18 19:04 ABG O2 Saturation 98 % (95-98) 03/24/18 19:04 PT/INR, D-dimer PT 13.0 Seconds (9.4-12.1) H 03/21/18 14:50 Consult Discharge Plan - Plan Referrals: Nguyễn Gilbert Jr, MD [Primary Care Provider] - <Renate England S - Last Filed: 03/29/18 14:00> Date of Encounter: 03/29/18 - Constitutional Vitals: Vital Signs Temp Pulse Resp BP Pulse Ox 03/28/18 16:40 98.2 F 101 16 122/66 96 03/28/18 15:19 98.4 F 92 17 120/62 97 03/28/18 14:30 98.5 F 82 16 116/63 96 03/28/18 14:15 98.2 F 98 16 120/60 96 03/28/18 14:11 98.2 F 94 16 120/60 96 03/28/18 13:40 98.2 F 98 16 118/69 98 03/28/18 11:22 98.3 F 106 16 109/65 98 03/28/18 11:21 98.3 F 106 16 102/65 98 03/28/18 11:07 98.2 F 101 18 115/70 97 03/28/18 10:59 98.2 F 102 18 111/68 98 03/28/18 07:39 16 98 03/28/18 07:06 98.4 F 108 18 122/68 98 03/28/18 00:10 98.4 F 106 18 100/64 97 03/27/18 20:49 98.5 F 118 16 107/68 96 03/27/18 20:43 18 98 Intake and Output 03/28/18 03/28/18 03/28/18 07:59 15:59 23:59 Intake Total 250 / 250 1080 / 1080 350 / 350 Output Total 400 / 400 375 / 375 100 / 100 Balance -150 / -150 705 / 705 250 / 250 Intake: IV Fluids 250 / 250 Vancocin 1,500 MG In 0.9 % 250 / 250 Sodium Chloride 250 ML @ 166.67 mls/hr IVPB Q24H [facility] Rx#: [id number] Oral 250 / 250 480 / 480 Blood Product 350 / 350 350 / 350 Rbcs Leuko Poor As-1 Unit 0 / 0 350 / 350 [id number] Rbcs Leuko Poor As-1 Unit 350 / 350 [id number] Output: Urine 400 / 400 375 / 375 100 / 100 Other: Meal Lunch Percent of Meal Consumed 75% Weight 95.7 kg Blood Glucose* 134 277 343 Patient Weight 03/28/18 23:59 Weight 95.7 kg Oncology: Obj Data - Labs CBC & Chem 7: 03/29/18 05:06 03/29/18 05:06 Labs: Laboratory Results - last 24 hr 03/25/18 03/26/18 03/27/18 03:59 21:22 07:03 WBC RBC Hgb Hct MCV MCH MCHC RDW Plt Count MPV Immature Gran % Seg Neutrophils % Lymphocytes % Monocytes % Eosinophils % Basophils % Neutrophils # Lymphocytes # Monocytes # Eosinophils # Basophils # Platelet Estimate Anisocytosis Microcytosis Macrocytosis Sodium Potassium Chloride Carbon Dioxide BUN Creatinine Est GFR ( Amer) Est GFR (Non-Af Amer) BUN/Creatinine Ratio Glucose POC Glucose 179 H 221 H Calculated Osmolality Calcium Total Bilirubin Direct Bilirubin Indirect Bilirubin Lactate Dehydrogenase Prot Electrophor EER SEE NOTE Total Protein (PEP) 5.30 L Albumin (PEP) 2.87 L Qktvu-3-Okcgittyk 0.40 Qusga-7-Yaxbzqeza 0.61 Beta Globulins 0.71 Gamma Globulins 0.71 PEP Interpretation SEE NOTE Serum Immunofix Reflex NOT DONE Vancomycin Trough IgG TNP IgA TNP IgM TNP Blood Type Antibody Screen MACY, Poly Interpret Crossmatch 03/27/18 03/27/18 03/27/18 11:33 16:42 20:54 WBC RBC Hgb Hct MCV MCH MCHC RDW Plt Count MPV Immature Gran % Seg Neutrophils % Lymphocytes % Monocytes % Eosinophils % Basophils % Neutrophils # Lymphocytes # Monocytes # Eosinophils # Basophils # Platelet Estimate Anisocytosis Microcytosis Macrocytosis Sodium Potassium Chloride Carbon Dioxide BUN Creatinine Est GFR ( Amer) Est GFR (Non-Af Amer) BUN/Creatinine Ratio Glucose POC Glucose 226 H 198 H 199 H Calculated Osmolality Calcium Total Bilirubin Direct Bilirubin Indirect Bilirubin Lactate Dehydrogenase Prot Electrophor EER Total Protein (PEP) Albumin (PEP) Ytcee-5-Snfqcflxa Pugbo-2-Yyspgmryv Beta Globulins Gamma Globulins PEP Interpretation Serum Immunofix Reflex Vancomycin Trough IgG IgA IgM Blood Type Antibody Screen MACY, Poly Interpret Crossmatch 03/28/18 03/28/18 03/28/18 04:27 04:27 08:17 WBC 6.4 RBC 1.87 L Hgb 6.8 L Hct 21.2 L MCV 113.4 H MCH 36.4 H MCHC 32.1 RDW TNP Plt Count 199 MPV 8.8 L Immature Gran % 3.3 Seg Neutrophils % 73.6 Lymphocytes % 12.2 Monocytes % 7.4 Eosinophils % 3.0 Basophils % 0.5 Neutrophils # 4.7 Lymphocytes # 0.8 Monocytes # 0.5 Eosinophils # 0.2 Basophils # 0.0 Platelet Estimate Normal Anisocytosis 2+ A Microcytosis Present A Macrocytosis Present A Sodium 135 L Potassium 3.6 Chloride 102 Carbon Dioxide 30 H BUN 17 Creatinine 0.93 Est GFR ( Amer) > 60 Est GFR (Non-Af Amer) > 60 BUN/Creatinine Ratio 18 Glucose 141 H POC Glucose Calculated Osmolality 284 Calcium 8.0 L Total Bilirubin Direct Bilirubin Indirect Bilirubin Lactate Dehydrogenase Prot Electrophor EER Total Protein (PEP) Albumin (PEP) Icray-7-Fvtliearg Fmrvj-7-Dpcveeqxw Beta Globulins Gamma Globulins PEP Interpretation Serum Immunofix Reflex Vancomycin Trough IgG IgA IgM Blood Type Antibody Screen MACY, Poly Interpret NEG Crossmatch 03/28/18 03/28/18 09:18 10:49 WBC RBC Hgb Hct MCV MCH MCHC RDW Plt Count MPV Immature Gran % Seg Neutrophils % Lymphocytes % Monocytes % Eosinophils % Basophils % Neutrophils # Lymphocytes # Monocytes # Eosinophils # Basophils # Platelet Estimate Anisocytosis Microcytosis Macrocytosis Sodium Potassium Chloride Carbon Dioxide BUN Creatinine Est GFR ( Amer) Est GFR (Non-Af Amer) BUN/Creatinine Ratio Glucose POC Glucose Calculated Osmolality Calcium Total Bilirubin 1.6 H Direct Bilirubin 0.5 H Indirect Bilirubin 1.1 Lactate Dehydrogenase 229 Prot Electrophor EER Total Protein (PEP) Albumin (PEP) Gyqlx-3-Lrnwudljn Euhht-1-Owapcahpw Beta Globulins Gamma Globulins PEP Interpretation Serum Immunofix Reflex Vancomycin Trough 11 H IgG IgA IgM Blood Type A NEGATIVE Antibody Screen NEGATIVE MACY, Poly Interpret Crossmatch See Detail - Impressions Impressions GI Bleed Scan Nuclear Medicine 03/28/18 08:31 IMPRESSION: No evidence of active GI bleeding during acquisition. RECOMMENDATIONS: If the patient shows hemodynamic signs of an active bleed in the next 20 hours, additional images can be acquired. D/ / Winston Duke MD / Winston Duke MD Interpreting Provider: Winston Duke MD - ABG Interpretation ABG results: ABG ABG pH 7.43 pH Units (7.32-7.45) 03/24/18 19:04 ABG pCO2 38 mmHg (35-45) 03/24/18 19:04 ABG pO2 107 mmHg (85-104) H 03/24/18 19:04 ABG O2 Saturation 98 % (95-98) 03/24/18 19:04 PT/INR, D-dimer PT 13.0 Seconds (9.4-12.1) H 03/21/18 14:50 - Attending Attestation I examined this patient and my medical decision-making was reviewed with the Advanced Practice Nurse. I agree with the documented findings, disposition and treatment plan as described except to the extent set forth below. 1. Progressive macrocytic anemia. Hemoglobin dropped to 6.8 in spite of multiple blood transfusion. MCV 113 No evidence to nutritional deficiency. B12 folate TSH normal There is history of GI bleed. EGD and colonoscopy showed some polyps in the colon. No biopsy done. No obvious source of bleeding Nuclear bleeding scan was negative. No evidence of major liver disease to account for macrocytosis. Serum protein electrophoresis negative Most likely there is underlying delayed hemolysis. This may explain macrocytosis, elevated reticulocyte count and elevated bilirubin. His indirect bilirubin was elevated at 1.6 last week and coming towards normal range now. His MACY has been negative 2. hyperbilirubinemia. Admission bilirubin 2.1 which improved to 1.6. Direct bilirubin 0.7 He had some gallbladder sludge January 2017. She may benefit from another CT abdomen and pelvis. She also had mild splenomegaly We will rule out underlying hemolysis as well. LDH normal. Sherron direct negative If anemia continues to be a problem in the future may consider bone marrow aspiration and biopsy as an outpatient
[2018-03-28] MEDS: Sucralfate 1 GM TABLET PO SCH ×2 (16:44→23:01)
[2018-03-28] MEDS: ALPRAZolam 0.5 MG TABLET PO SCH (23:01)
[2018-03-28] MEDS: Insulin DETEMIR 100 UNIT/ML X5UNITS SQ SCH (23:02)
[2018-03-29 05:58] LABS: Basophils # 0.1 K/mcL (0.0-0.2); Basophils % 0.7 %; Eosinophils # 0.2 K/mcL (0.0-0.6); Eosinophils % 2.6 %; Hematocrit 27.5 % (37.5-50.1); Immature Granulocytes % 3.6 % (0-4); Lymphocytes # 0.7 K/mcL (0.6-4.6); Lymphocytes % 8.9 %; Mean Corpuscular HGB Conc 32.7 g/dL (31.6-35.5); Mean Corpuscular Hemoglobin 34.5 pg (28.0-33.3); Mean Platelet Volume 8.8 fL (9.4-12.4); Monocytes # 0.6 K/mcL (0.0-1.3); Monocytes % 7.3 %; Neutrophils # 6.2 K/mcL (1.6-8.9); Nucleated Red Blood Cells 0.2 /100 WBC (0); Platelet Count 203 K/mcL (140-400); Red Blood Count 2.61 M/mcL (4.19-5.50); Segmented Neutrophils % 76.9 %
[2018-03-29 06:00] LABS: Mean Corpuscular Volume 105.4 fL (83.0-100.0)
[2018-03-29 06:16] LABS: BUN/Creatinine Ratio 20 (6-26); Blood Urea Nitrogen 17 mg/dL (8-23); Calcium 7.9 mg/dL (8.6-10.3); Carbon Dioxide 29 mEq/L (23-29); Chloride 101 mEq/L (98-107); Glucose 129 mg/dL (70-105); Osmolality,Calculated 281 (280-300); Potassium 3.6 mEq/L (3.5-5.1); Sodium 134 mEq/L (136-145); eGFR For African Americans > 60 (> 60); eGFR For Non-African Americans > 60 (> 60)
[2018-03-29] MEDS ORDERED: Isovue-370 500 ML INFUS..BTL IV ONE (08:03)
[2018-03-29] MEDS ORDERED: Furosemide 20 MG/2 ML VIAL IVP ONE (10:14)
[2018-03-29] MEDS: Furosemide 40 MG/4 ML VIAL IVP SCH (10:15)
[2018-03-29] MEDS: Pantoprazole 40 MG VIAL IVP SCH ×2 (10:15→23:20)
[2018-03-29] MEDS: Sucralfate 1 GM TABLET PO SCH ×4 (10:20→23:20)
[2018-03-29] MEDS: Insulin LISPRO 300 UNITS/3 ML VIAL SQ SCH ×4 (10:20→23:21)
--- NOTE | 2018-03-29 10:27 | Infectious Disease Progress No ---
Date of Encounter: 03/29/18 Time of Encounter: 14:00 - Subjective Interval history: Patient was seen and examined at bedside; patient states that he is feeling well today. Denies having any frequency, urgency, dysuria, suprapubic tenderness, back pain, or abdominal pain. Denies any nausea, vomiting, fever, or chills. Reports that he slept well last night, and has had no difficulty eating. He has no complaints at this time. Infect Dis PN-Objective Data - Labs CBC & Chem 7: 03/29/18 05:06 03/29/18 05:06 Labs: Laboratory Results - last 24 hr 03/28/18 03/28/18 03/28/18 07:05 08:17 09:18 WBC RBC Hgb Hct MCV MCH MCHC RDW Plt Count MPV Immature Gran % Seg Neutrophils % Lymphocytes % Monocytes % Eosinophils % Basophils % Neutrophils # Lymphocytes # Monocytes # Eosinophils # Basophils # Nucleated RBCs/100 WBC Sodium Potassium Chloride Carbon Dioxide BUN Creatinine Est GFR ( Amer) Est GFR (Non-Af Amer) BUN/Creatinine Ratio Glucose POC Glucose 134 H Calculated Osmolality Calcium Total Bilirubin Direct Bilirubin Indirect Bilirubin Lactate Dehydrogenase Vancomycin Trough Blood Type A NEGATIVE Antibody Screen NEGATIVE MACY, Poly Interpret NEG Crossmatch See Detail 03/28/18 03/28/18 03/28/18 10:49 11:14 16:08 WBC RBC Hgb Hct MCV MCH MCHC RDW Plt Count MPV Immature Gran % Seg Neutrophils % Lymphocytes % Monocytes % Eosinophils % Basophils % Neutrophils # Lymphocytes # Monocytes # Eosinophils # Basophils # Nucleated RBCs/100 WBC Sodium Potassium Chloride Carbon Dioxide BUN Creatinine Est GFR ( Amer) Est GFR (Non-Af Amer) BUN/Creatinine Ratio Glucose POC Glucose 277 H 343 H Calculated Osmolality Calcium Total Bilirubin 1.6 H Direct Bilirubin 0.5 H Indirect Bilirubin 1.1 Lactate Dehydrogenase 229 Vancomycin Trough 11 H Blood Type Antibody Screen MACY, Poly Interpret Crossmatch 03/28/18 03/29/18 03/29/18 20:50 05:06 05:06 WBC 8.1 RBC 2.61 L Hgb 9.0 L D Hct 27.5 L MCV 105.4 H D MCH 34.5 H MCHC 32.7 RDW 25.0 H Plt Count 203 MPV 8.8 L Immature Gran % 3.6 Seg Neutrophils % 76.9 Lymphocytes % 8.9 Monocytes % 7.3 Eosinophils % 2.6 Basophils % 0.7 Neutrophils # 6.2 Lymphocytes # 0.7 Monocytes # 0.6 Eosinophils # 0.2 Basophils # 0.1 Nucleated RBCs/100 WBC 0.2 H Sodium 134 L Potassium 3.6 Chloride 101 Carbon Dioxide 29 BUN 17 Creatinine 0.84 Est GFR ( Amer) > 60 Est GFR (Non-Af Amer) > 60 BUN/Creatinine Ratio 20 Glucose 129 H POC Glucose 246 H Calculated Osmolality 281 Calcium 7.9 L Total Bilirubin Direct Bilirubin Indirect Bilirubin Lactate Dehydrogenase Vancomycin Trough Blood Type Antibody Screen MACY, Poly Interpret Crossmatch Cultures: Cultures 03/22/18 17:00 Blood Culture - Final Peripheral Venipuncture No growth. Final report. 03/22/18 17:00 Blood Culture - Final Peripheral Venipuncture No growth. Final report. Serology 03/22/18 03/22/18 Range/Units 02:41 01:51 Urine Color Dark Yellow (Yellow) Urine Clarity Cloudy A (Clear) Urine pH 6.5 (5.0-8.0) pH Units Ur Specific [place] 1.013 (1.010-1.025) Urine Protein 30 H (Neg-Trace) mg/dL Urine Glucose (UA) Normal (Normal) mg/dL Urine Ketones Negative (Negative) mg/dL Urine Blood Trace H (Negative) Urine Nitrite Negative (Negative) Urine Bilirubin Negative (Negative) Urine Urobilinogen 2.0 H (Normal) mg/dL Ur Leukocyte Esterase Large H (Negative) Urine Microscopic RBC 0-3 (0-3) per hpf Urine Microscopic WBC TNTC H (0-3) per hpf Ur Squamous Epith Cells None Seen (None-Few) per lpf Urine Bacteria Few (None-Few) per hpf Hyaline Casts None Seen (None-Few) per lpf Stool Occult Blood Negative (Negative) - Impressions Impressions GI Bleed Scan Nuclear Medicine 03/28/18 08:31 IMPRESSION: No evidence of active GI bleeding during acquisition. RECOMMENDATIONS: If the patient shows hemodynamic signs of an active bleed in the next 20 hours, additional images can be acquired. D/ / Winston Duke MD / Winston Duke MD Interpreting Provider: Winston Duke MD Exam - Constitutional Vitals: Temp Pulse Resp BP Pulse Ox 97.4 F L 91 16 108/65 96 03/29/18 06:50 03/29/18 06:50 03/29/18 06:50 03/29/18 06:50 03/29/18 06:50 General appearance: no acute distress - Respiratory Respiratory exam: Present: CTAB. Absent: wheezes, tachypnea - Cardiovascular Cardiovascular exam: Present: RRR, +S1, +S2. Absent: bradycardia, systolic murmur - GI/Abdominal GI/Abdominal exam: Present: soft. Absent: tenderness - Psychiatric Psychiatric exam: Present: normal affect, normal mood - Skin Skin exam: Present: dry, intact - VTE Documentation of Mechanical Device: Intermittent pneumatic compression device Consult Discharge Plan - Plan Referrals: Nguyễn Gilbert Jr, MD [Primary Care Provider] - - Attending Attestation I examined this patient and my medical decision-making was reviewed with the Resident Physician. I agree with the documented findings, disposition and treatment plan as described except to the extent set forth below.
[2018-03-29] MEDS: Budesonide/Formoterol 160/4.5 MDI IH SCH ×2 (10:36→20:14)
--- NOTE | 2018-03-29 10:36 | Oncology Inp Progress Note ---
<Zach Castaneda - Last Filed: 03/29/18 10:34> Date of Encounter: 03/29/18 Time of Encounter: 10:34 (1) Febrile nonhemolytic transfusion reaction Current Visit: Yes Status: Acute Assessment and plan: Patient had a transfusion reaction to PRBC transfusion on 03/22/2018. - Transfusion reaction suspected to be HLA antibody or cytokine mediated and knots hemolytic in nature. - He was reintroduced with pre-medications of hydrocortisone, benadryl and tylenol prior to PRBC transfusion and has since tolerated subsequent transfusions well without any adverse symptoms noted. - Continue with current plan when providing PRBC transfusions. (2) Hyperbilirubinemia Current Visit: Yes Status: Acute Assessment and plan: Admission bilirubin 2.1 which improved to 1.6. Direct bilirubin 0.7 - Patient has splenomegaly and CT will be performed for evaluation, rule out underlying cholecystitis. LDH was normal, Sherron direct was negative. - He had a reaction to blood transfusion last week. Possible delayed transfusion reaction. (3) Macrocytic anemia Current Visit: Yes Status: Acute Assessment and plan: Macrocytic anemia. Current hemoglobin 9.0 up from 6.8 yesterday after 2 unit transfusion. Total of 5 units PRBC transfusion. Review of patient records demonstrates progressive anemia since 2014, baseline hemoglobin around 11.0-12.0.Hemoglobin slowly trending down since January 2017 with significant drop noted on 03/21/2018 correlating with significant elevation of MCV 120. - Patient does admit to bright red blood per rectum a few weeks prior but no significant known blood loss,No known acute events to correlate with new onset macrocytic anemia. - Patient was on Xarelto and aspirin at the time of admission both are on hold. B12, Iron and folate replete SPEP-no monoclonal proteins Retic- Elevated LDH re-ordered today-normal Bili reordered today-improving since admission EGD: 2 cm hiatal hernia, mild Schatzki ring at the gastroesophageal junction. Diffuse moderately erythematous mucosa without bleeding throughout the entire stomach. Colonoscopy: 4 sessile polyps noted in the sigmoid colon, ascending colon and proximal ascending colon ranging from 6 mm to 24 mm. None were taken due to the patient suspected to be on aspirin. Grade 2 internal hemorrhoids nonbleeding were also noted. GI bleed nuclear scan: No evidence of active GI bleeding. Plan: - Awaiting further recommendations from gastroenterology for consideration for portion endoscopy versus pill endoscopy. - Patient undergo CT scan of the abdomen and pelvis for further workup or any source of bleeding. - Patient will likely need PRBC transfusion if he continues to have unidentified source of bleeding. Oncology: Subj Interval history: Mr. Johnson 82-year-old male has been seen and evaluated at patient bedside this morning. He is a very pleasant gentleman in no acute distress alert oriented and interactive. He denies any discomfort or pain overnight. States that he has been having regular bowel movements, no noticeable darkness, black tarry or blood in his stool. He denies noticing any blood in his stool at home prior to this admission. He denies any GERD-like symptoms but has mild diffuse abdominal tenderness with light palpation. He states that this is not abnormal. He denies acute events overnight and states that he is doing well. He tolerated his blood transfusions last evening without any concerning symptoms. - Constitutional Vitals: Vital Signs Temp Pulse Resp BP Pulse Ox 03/29/18 06:50 97.4 F L 91 16 108/65 96 03/29/18 04:46 98.3 F 90 16 106/62 96 03/28/18 20:14 16 97 03/28/18 19:55 98.3 F 105 18 110/67 95 03/28/18 16:40 98.2 F 101 16 122/66 96 03/28/18 15:19 98.4 F 92 17 120/62 97 03/28/18 14:30 98.5 F 82 16 116/63 96 03/28/18 14:15 98.2 F 98 16 120/60 96 03/28/18 14:11 98.2 F 94 16 120/60 96 03/28/18 13:40 98.2 F 98 16 118/69 98 03/28/18 11:22 98.3 F 106 16 109/65 98 03/28/18 11:21 98.3 F 106 16 102/65 98 03/28/18 11:07 98.2 F 101 18 115/70 97 03/28/18 10:59 98.2 F 102 18 111/68 98 Intake and Output 03/28/18 03/29/18 03/29/18 23:59 07:59 15:59 Intake Total 840 / 840 250 / 250 240 / 240 Output Total 875 / 875 250 / 250 100 / 100 Balance -35 / -35 0 / 0 140 / 140 Intake: IV Fluids 250 / 250 Vancocin 1,500 MG In 0.9 % 250 / 250 Sodium Chloride 250 ML @ 166.67 mls/hr IVPB Q24H [facility] Rx#: [id number] Oral 240 / 240 250 / 250 240 / 240 Blood Product 350 / 350 Rbcs Leuko Poor As-1 Unit 350 / 350 [id number] Output: Urine 875 / 875 250 / 250 100 / 100 Other: Meal Dinner Breakfast Percent of Meal Consumed 50% 50% Weight 95.8 kg Blood Glucose* 246 138 Patient Weight 03/29/18 23:59 Weight 95.8 kg Exam: General: Patient alert, awake, oriented 3, interactive, in no acute distress HEENT: Normocephalic, atraumatic, pupils equal reactive to light, nasal cavity patent and open septum median position, oral mucosa moist, neck supple trachea midline no palpable lymphadenopathy, no thyromegaly. Chest: Symmetric bilateral correlating with respiratory effort, effort nonlabored. Cardiac: Irregularly irregular heart rate and rhythm Respiratory: Diffuse rhonchi Abdomen: Soft, mild diffuse tenderness to light palpation, positive bowel sounds , no palpable masses appreciated on examination Extremities: Symmetric bilateral, bilateral 3+ pitting edema with dependent edema to mid back. Neurologic: No focal deficits appreciated on examination. Face symmetric, muscle strength symmetric bilateral upper and lower extremities. Oncology: Obj Data - Labs CBC & Chem 7: 03/29/18 05:06 03/29/18 05:06 Labs: Laboratory Results - last 24 hr 03/28/18 03/28/18 03/28/18 07:05 08:17 09:18 WBC RBC Hgb Hct MCV MCH MCHC RDW Plt Count MPV Immature Gran % Seg Neutrophils % Lymphocytes % Monocytes % Eosinophils % Basophils % Neutrophils # Lymphocytes # Monocytes # Eosinophils # Basophils # Nucleated RBCs/100 WBC Sodium Potassium Chloride Carbon Dioxide BUN Creatinine Est GFR ( Amer) Est GFR (Non-Af Amer) BUN/Creatinine Ratio Glucose POC Glucose 134 H Calculated Osmolality Calcium Total Bilirubin Direct Bilirubin Indirect Bilirubin Lactate Dehydrogenase Vancomycin Trough Blood Type A NEGATIVE Antibody Screen NEGATIVE MACY, Poly Interpret NEG Crossmatch See Detail 03/28/18 03/28/18 03/28/18 10:49 11:14 16:08 WBC RBC Hgb Hct MCV MCH MCHC RDW Plt Count MPV Immature Gran % Seg Neutrophils % Lymphocytes % Monocytes % Eosinophils % Basophils % Neutrophils # Lymphocytes # Monocytes # Eosinophils # Basophils # Nucleated RBCs/100 WBC Sodium Potassium Chloride Carbon Dioxide BUN Creatinine Est GFR ( Amer) Est GFR (Non-Af Amer) BUN/Creatinine Ratio Glucose POC Glucose 277 H 343 H Calculated Osmolality Calcium Total Bilirubin 1.6 H Direct Bilirubin 0.5 H Indirect Bilirubin 1.1 Lactate Dehydrogenase 229 Vancomycin Trough 11 H Blood Type Antibody Screen MACY, Poly Interpret Crossmatch 03/28/18 03/29/18 03/29/18 20:50 05:06 05:06 WBC 8.1 RBC 2.61 L Hgb 9.0 L D Hct 27.5 L MCV 105.4 H D MCH 34.5 H MCHC 32.7 RDW 25.0 H Plt Count 203 MPV 8.8 L Immature Gran % 3.6 Seg Neutrophils % 76.9 Lymphocytes % 8.9 Monocytes % 7.3 Eosinophils % 2.6 Basophils % 0.7 Neutrophils # 6.2 Lymphocytes # 0.7 Monocytes # 0.6 Eosinophils # 0.2 Basophils # 0.1 Nucleated RBCs/100 WBC 0.2 H Sodium 134 L Potassium 3.6 Chloride 101 Carbon Dioxide 29 BUN 17 Creatinine 0.84 Est GFR ( Amer) > 60 Est GFR (Non-Af Amer) > 60 BUN/Creatinine Ratio 20 Glucose 129 H POC Glucose 246 H Calculated Osmolality 281 Calcium 7.9 L Total Bilirubin Direct Bilirubin Indirect Bilirubin Lactate Dehydrogenase Vancomycin Trough Blood Type Antibody Screen MACY, Poly Interpret Crossmatch - Impressions Impressions GI Bleed Scan Nuclear Medicine 03/28/18 08:31 IMPRESSION: No evidence of active GI bleeding during acquisition. RECOMMENDATIONS: If the patient shows hemodynamic signs of an active bleed in the next 20 hours, additional images can be acquired. D/ / Winston Duke MD / Winston Duke MD Interpreting Provider: Winston Duke MD - ABG Interpretation ABG results: ABG ABG pH 7.43 pH Units (7.32-7.45) 03/24/18 19:04 ABG pCO2 38 mmHg (35-45) 03/24/18 19:04 ABG pO2 107 mmHg (85-104) H 03/24/18 19:04 ABG O2 Saturation 98 % (95-98) 03/24/18 19:04 PT/INR, D-dimer PT 13.0 Seconds (9.4-12.1) H 03/21/18 14:50 Consult Discharge Plan - Plan Referrals: Nguyễn Gilbert Jr, MD [Primary Care Provider] - <Renate England S - Last Filed: 03/30/18 08:33> Date of Encounter: 03/30/18 - Constitutional Vitals: Vital Signs Temp Pulse Resp BP Pulse Ox 03/29/18 15:26 98.2 F 92 17 110/69 96 03/29/18 10:57 98.1 F 107 18 138/86 95 03/29/18 10:36 16 97 03/29/18 06:50 97.4 F L 91 16 108/65 96 03/29/18 04:46 98.3 F 90 16 106/62 96 03/28/18 20:14 16 97 03/28/18 19:55 98.3 F 105 18 110/67 95 Intake and Output 03/29/18 03/29/18 03/29/18 07:59 15:59 23:59 Intake Total 250 / 250 1200 / 1200 Output Total 250 / 250 725 / 725 425 / 425 Balance 0 / 0 475 / 475 -425 / -425 Intake: Oral 250 / 250 1200 / 1200 Output: Urine 250 / 250 725 / 725 425 / 425 Other: Meal Lunch Percent of Meal Consumed 50% Stool Size Small Moderate Stool Consistency soft soft # Bowel Movements 1 1 Weight 95.8 kg Blood Glucose* 138 228 Patient Weight 03/29/18 23:59 Weight 95.8 kg Oncology: Obj Data - Labs CBC & Chem 7: 03/30/18 04:55 03/30/18 04:55 Labs: Laboratory Results - last 24 hr 03/28/18 03/28/18 03/28/18 07:05 11:14 16:08 WBC RBC Hgb Hct MCV MCH MCHC RDW Plt Count MPV Immature Gran % Seg Neutrophils % Lymphocytes % Monocytes % Eosinophils % Basophils % Neutrophils # Lymphocytes # Monocytes # Eosinophils # Basophils # Nucleated RBCs/100 WBC Sodium Potassium Chloride Carbon Dioxide BUN Creatinine Est GFR ( Amer) Est GFR (Non-Af Amer) BUN/Creatinine Ratio Glucose POC Glucose 134 H 277 H 343 H Calculated Osmolality Calcium 03/28/18 03/29/18 03/29/18 20:50 05:06 05:06 WBC 8.1 RBC 2.61 L Hgb 9.0 L D Hct 27.5 L MCV 105.4 H D MCH 34.5 H MCHC 32.7 RDW 25.0 H Plt Count 203 MPV 8.8 L Immature Gran % 3.6 Seg Neutrophils % 76.9 Lymphocytes % 8.9 Monocytes % 7.3 Eosinophils % 2.6 Basophils % 0.7 Neutrophils # 6.2 Lymphocytes # 0.7 Monocytes # 0.6 Eosinophils # 0.2 Basophils # 0.1 Nucleated RBCs/100 WBC 0.2 H Sodium 134 L Potassium 3.6 Chloride 101 Carbon Dioxide 29 BUN 17 Creatinine 0.84 Est GFR ( Amer) > 60 Est GFR (Non-Af Amer) > 60 BUN/Creatinine Ratio 20 Glucose 129 H POC Glucose 246 H Calculated Osmolality 281 Calcium 7.9 L - Impressions Impressions Abdomen/Pelvis CT 03/29/18 12:00 IMPRESSION: Moderate bilateral pleural effusions, stable to mildly worsened on the right from prior exam 02/09/2017, and significantly worsened on the left from prior exam. Mildly nodular contour to the liver concerning for cirrhosis. No focal liver lesions. Findings concerning for portal hypertension with stable mild splenomegaly. Mild high attenuation material dependently within the gallbladder, similar to prior exam which may be on the basis of gallbladder sludge or stones. Small volume ascites. Mild diffuse subcutaneous edema, nonspecific. Colonic diverticulosis without evidence for diverticulitis. D/ / 03/29/2018 13:08:32 Cedric Jon MD / bcarter Interpreting Provider: Cedric Jon MD - ABG Interpretation ABG results: ABG ABG pH 7.43 pH Units (7.32-7.45) 03/24/18 19:04 ABG pCO2 38 mmHg (35-45) 03/24/18 19:04 ABG pO2 107 mmHg (85-104) H 03/24/18 19:04 ABG O2 Saturation 98 % (95-98) 03/24/18 19:04 PT/INR, D-dimer PT 13.0 Seconds (9.4-12.1) H 03/21/18 14:50 - Attending Attestation I examined this patient and my medical decision-making was reviewed with the Advanced Practice Nurse. I agree with the documented findings, disposition and treatment plan as described except to the extent set forth below. 1. Macrocytic anemia. Likely delayed transfusion related hemolysis which could happen to a protein antigen. His MACY and antibody screen has been negative. But he did elevated bilirubin which is coming down. Also increased reticulocyte count of 14%. His hemoglobin improved after recent transfusion to 10. We will continue to watch for any antibodies that may have caused hemolysis 2. Ferritin and iron levels are high. Again this is secondary to hemolysis. Currently no evidence of iron deficiency 3. CT abdomen and pelvis cirrhosis related changes. His underlying liver disease may contribute to macrocytosis as well
--- NOTE | 2018-03-29 11:04 | Gastroenterology Progress Note ---
Date of Encounter: 03/29/18 Time of Encounter: 10:50 - Assessment and plan (1) GI bleed Current Visit: Yes Status: Acute Assessment and plan: EGD on 03/25 showed 2cm hiatal hernia, mild Schatzki ring, erythematous gastric mucosa. Cscope on 03/25 with 4 polyps ranging in size from 6-24mm (polypectomy not completed), diverticulosis, and internal hemorrhoid. Hgb continues to drop. GI bleeding scan was negative. Plan to complete push enteroscopy and repeat colonoscopy tomorrow. Clear liquid diet today, no red or purple. NPO at midnight. If unable tolerate NuLytely please use MiraLAX prep. If not clear by 6 AM, give 2 tap water enemas. If push enteroscopy and colonoscopy are negative, consider capsule endoscopy as outpatient. Qualifiers: GI bleed type/associated pathology: unspecified gastrointestinal hemorrhage type Qualified Code(s): K92.2 - Gastrointestinal hemorrhage, unspecified (2) Anemia Current Visit: Yes Status: Chronic Assessment and plan: Hgb dropped to 6.8 yesterday and after 2 unit PRBC Hgb 9 this AM. Continue to monitor CBC and transfuse PRBC as needed. Qualifiers: Anemia type: iron deficiency Iron deficiency anemia type: unspecified iron deficiency Qualified Code(s): D50.9 - Iron deficiency anemia, unspecified - Time Spent With Patient Total time spent is greater than 50% in coordination of care (as documented) at patient's floor/unit and/or counseling patient: - Subjective Interval history: Hgb dropped to 6.8 yesterday and after 2 units PRBC, Hgb 9 this AM. He is without acute complaint at this time. - Constitutional Vitals: Temp Pulse Resp BP Pulse Ox 97.4 F L 91 16 108/65 96 03/29/18 06:50 03/29/18 06:50 03/29/18 06:50 03/29/18 06:50 03/29/18 06:50 General appearance: Present: cooperative, A&O X 3, no acute distress, answers questions appropriately - Head Head exam: Present: atraumatic, normocephalic - Eye Eye exam: Present: normal appearance, sclera anicteric - ENT ENT exam: Present: mucous membranes moist - Neck Neck exam general surgery: Present: normal inspection, trachea midline - Respiratory Respiratory exam: Present: decreased breath sounds, CTAB. Absent: rales, rhonchi - Cardiovascular Cardiovascular exam: Present: RRR, +S1, +S2 - GI/Abdominal GI/Abdominal exam: Present: soft, no peritoneal signs. Absent: distended, firm , guarding, tenderness - Rectal Rectal exam: Present: deferred - Extremities Exam Extremities exam: Present: warm - Neurological Exam Neurological exam: Present: no focal deficits - Psychiatric Psychiatric exam: Present: normal affect, normal mood - Skin Skin exam: Present: dry, intact, normal color, warm Results - Labs CBC & Chem 7: 03/29/18 05:06 03/29/18 05:06 Labs: Last Result Calcium 7.9 mg/dL (8.6-10.3) L 03/29/18 05:06 Iron 204 mcg/dL (65-175) H 03/24/18 03:26 % Saturation 79 % (20-55) H 03/24/18 03:26 Transferrin 184 mg/dL (203-362) L 03/24/18 03:26 Ferritin > 1500 ng/mL (20-250) H 03/24/18 03:26 Troponin I < 0.03 ng/mL (< 0.04) 03/24/18 22:49 Vitamin B12 779 pg/mL (250-1100) 03/22/18 10:45 Folate 17.8 ng/mL (3.0-16.0) H 03/22/18 10:45 Stool Occult Blood Negative (Negative) 03/22/18 02:41 Entire Visit Hgb 9.0 g/dL (12.9-16.9) L D 03/29/18 05:06 Hct 27.5 % (37.5-50.1) L 03/29/18 05:06 PT 13.0 Seconds (9.4-12.1) H 03/21/18 14:50 Ferritin > 1500 ng/mL (20-250) H 03/24/18 03:26 Total Bilirubin 1.6 mg/dL (0.3-1.0) H 03/28/18 10:49 AST 33 Units/L (13-39) 03/24/18 19:01 ALT 18 Units/L (7-52) 03/24/18 19:01 Folate 17.8 ng/mL (3.0-16.0) H 03/22/18 10:45 - ABG ABG results: ABG ABG pH 7.43 pH Units (7.32-7.45) 03/24/18 19:04 ABG pCO2 38 mmHg (35-45) 03/24/18 19:04 ABG pO2 107 mmHg (85-104) H 03/24/18 19:04 ABG O2 Saturation 98 % (95-98) 03/24/18 19:04 PT/INR, D-dimer PT 13.0 Seconds (9.4-12.1) H 03/21/18 14:50 - Impressions Impressions GI Bleed Scan Nuclear Medicine 03/28/18 08:31 IMPRESSION: No evidence of active GI bleeding during acquisition. RECOMMENDATIONS: If the patient shows hemodynamic signs of an active bleed in the next 20 hours, additional images can be acquired. D/ / Winston Duke MD / Winston Duke MD Interpreting Provider: Winston Duke MD - VTE Documentation of Mechanical Device: Intermittent pneumatic compression device Consult Discharge Plan - Plan Referrals: Nguyễn Gilbert Jr, MD [Primary Care Provider] -
--- NOTE | 2018-03-29 13:09 | Internal Med Progress Note ---
<Geo De Santiago - Last Filed: 03/29/18 13:34> Date of Encounter: 03/29/18 Time of Encounter: 13:07 - Assessment and plan (1) GI bleed Current Visit: Yes Status: Acute Assessment and plan: - EGD showed: Schatzki's ring, erythema. There is no active bleeding found. - Colonoscopy: found multiple polyps ranging from sizes 6-24 however these were not removed as GI thought patient was on anticoagulation specifically aspirin. After being transfused 2 units yesterday patient's hemoglobin is 9 today. He has not had additional bloody bowel movements. Nuclear medicine GI bleed scan negative. GI reports they will complete a push enteroscopy and colonoscopy tomorrow. CT scan of the abdomen/pelvis does not show any signs of acute bleeding. Qualifiers: GI bleed type/associated pathology: unspecified gastrointestinal hemorrhage type Qualified Code(s): K92.2 - Gastrointestinal hemorrhage, unspecified (2) Heart failure with preserved ejection fraction Current Visit: Yes Status: Acute Assessment and plan: Patient is exacerbation diastolic HF Previous echocardiogram on 01/26/18 showed: LVEF 60%. Indeterminate diastolic function. Normal right ventricular structure and function. Mild-moderate mitral regurgitation. No pulmonary hypertension. Exacerbation is secondary to receiving multiple blood transfusions and can also be caused by acute GI bleed. We will continue IV Lasix for another 24 hours Strict I's and O's. Fluid restricted diet of 2 L. low salt diet. (3) Anemia Current Visit: Yes Status: Acute Assessment and plan: 2nd to GI bleed Macrocytic anemia as stated above, no active bleeding found on EGD or colonoscopy or CT abdomen/ pelvis. Patient's reticulocyte is elevated showing proper erythropoiesis B12 and folate within normal limits. Plan: Undergo partial enteroscopy and colonoscopy tomorrow. Qualifiers: Anemia type: iron deficiency Iron deficiency anemia type: unspecified iron deficiency Qualified Code(s): D50.9 - Iron deficiency anemia, unspecified (4) Atrial fibrillation with RVR Current Visit: Yes Status: Resolved Assessment and plan: Due to patient's anemia is afebrile transitions from being controlled to uncontrolled. Today his heart rate is 100 to 115. In his uncle and his 9. We will continue metoprolol and Cardizem. Xeralto is on hold secondary to GI bleed. (5) CKD (chronic kidney disease), stage III Current Visit: Yes Status: Chronic Assessment and plan: Stable. montior renal funciton due to anemia and being on lasix. plus recieved contrast when undergoing CT abdomen/pelvis (6) UTI (urinary tract infection) Current Visit: Yes Status: Resolved Assessment and plan: Patient's urinalysis indicates UTI Secondary to enterococcus as seen on culture Treated with 5 days of vancomycin which is now discontinued. Infectious diseases consulted preshave recommendations Qualifiers: Urinary tract infection type: acute cystitis Hematuria presence: without hematuria Qualified Code(s): N30.00 - Acute cystitis without hematuria (7) Sepsis Current Visit: Yes Status: Resolved Assessment and plan: 2nd to uti, possibly non-infectious (transfusion reaction - less likely) - He has since received blood without any SIRS criteria positive. 4 SIRS criteria: tachycardic, tachypneic, elevated WBC, fever Urine culture: enterococcus resistant to ampicillin, nitrofurantoin Blood cultures negative (/) Resolved. Qualifiers: Sepsis type: sepsis due to unspecified organism Qualified Code(s): A41.9 - Sepsis, unspecified organism (8) Diabetes mellitus type 2, controlled Current Visit: Yes Status: Chronic Assessment and plan: Controlled. Continue sliding scale insulin and insulin regimen. Diabetic cardiac diet. Qualifiers: Diabetes mellitus termite helper insulin use: unspecified shelter insulin use status Diabetes mellitus complication status: with unspecified complications Qualified Code(s): E11.8 - Type 2 diabetes mellitus with unspecified complications (9) Cirrhosis Current Visit: Yes Status: Acute Assessment and plan: Patient's CT of the abdomen and pelvis indicates Child Class B Meld-NA score 15 (<2% 90 day mortality) Mildly nodular contour to the liver concerning for cirrhosis. No focal liver lesions. Findings concerning for portal hypertension with stable mild splenomegaly. Small volume ascites. Mild diffuse subcutaneous edema, nonspecific. Unclear etiology of cirrosis. INR, platelets WNL. No varicies found on EGD. Portal hypertension noted on exam as well. He would benefit from spironolactone for diuresis will send hepatitis panel. Qualifiers: Hepatic cirrhosis type: unspecified hepatic cirrhosis Ascites presence: with ascites Qualified Code(s): K74.60 - Unspecified cirrhosis of liver; R18.8 - Other ascites - Time Spent With Patient Total time spent is greater than 50% in coordination of care (as documented) at patient's floor/unit and/or counseling patient: - Subjective Interval history: Patient did not have any complaints this morning. He is tolerating his diet. No evidence of additional bloody bowel movements. He denied headache, chest pain, shortness of breath, nausea, vomiting, diarrhea. He denied problems with urination. - Constitutional Vitals: Temp Pulse Resp BP Pulse Ox 98.1 F 107 18 138/86 95 03/29/18 10:57 03/29/18 10:57 03/29/18 10:57 03/29/18 10:57 03/29/18 10:57 General appearance: Present: A&O X 3, no acute distress, answers questions appropriately - Other Additional findings: General: Pleasant without distress Heart: Irregularly irregular, tachycardic Lungs: Clear to auscultation bilaterally Abdomen: Soft nontender, nondistended positive bowel sounds, anasarca Skin: warm and dry, absent rash Extremities: Bilateral pedal edema, Neuro: Alert oriented 3 Vascular: Pedal and radial pulses 2 out of 4 Internal Medicine: Result - Labs CBC & Chem 7: 03/29/18 05:06 03/29/18 05:06 Labs: Short CBC 03/29/18 Range/Units 05:06 WBC 8.1 (4.3-11.1) K/mcL Hgb 9.0 L D (12.9-16.9) g/dL Hct 27.5 L (37.5-50.1) % Plt Count 203 (140-400) K/mcL Neutrophils # 6.2 (1.6-8.9) K/mcL BMP 03/29/18 05:06 Sodium 134 L Potassium 3.6 Chloride 101 Carbon Dioxide 29 BUN 17 Creatinine 0.84 Glucose 129 H Calcium 7.9 L Liver Function 03/28/18 Range/Units 10:49 Total Bilirubin 1.6 H (0.3-1.0) mg/dL Direct Bilirubin 0.5 H (0.0-0.2) mg/dL - ABG Interpretation ABG results: ABG ABG pH 7.43 pH Units (7.32-7.45) 03/24/18 19:04 ABG pCO2 38 mmHg (35-45) 03/24/18 19:04 ABG pO2 107 mmHg (85-104) H 03/24/18 19:04 ABG O2 Saturation 98 % (95-98) 03/24/18 19:04 PT/INR, D-dimer PT 13.0 Seconds (9.4-12.1) H 03/21/18 14:50 - Impressions Impressions Abdomen/Pelvis CT 03/29/18 12:00 IMPRESSION: Moderate bilateral pleural effusions, stable to mildly worsened on the right from prior exam 02/09/2017 and significantly worsened on the left from prior exam. Mildly nodular contour to the liver concerning for cirrhosis. No focal liver lesions. Findings concerning for portal hypertension with stable mild splenomegaly. Mild high attenuation material dependently within the gallbladder, similar to prior exam which may be on the basis of gallbladder sludge or stones. Small volume ascites. Mild diffuse subcutaneous edema, nonspecific. Colonic diverticulosis without evidence for diverticulitis. D/ / Cedric Jon MD / Cedric Jon MD Interpreting Provider: Cedric Jon MD - VTE Documentation of Mechanical Device: Intermittent pneumatic compression device Consult Discharge Plan - Plan Referrals: Nguyễn Gilbert Jr, MD [Primary Care Provider] - <Mayra Brewer - Last Filed: 03/30/18 00:04> Date of Encounter: 03/30/18 - Assessment and plan (1) Atrial fibrillation with RVR Current Visit: Yes Status: Resolved (2) Diabetes mellitus type 2, controlled Current Visit: Yes Status: Chronic Qualifiers: Diabetes mellitus termite helper insulin use: unspecified termite helper insulin use status Diabetes mellitus complication status: with unspecified complications Qualified Code(s): E11.8 - Type 2 diabetes mellitus with unspecified complications (3) CKD (chronic kidney disease), stage III Current Visit: Yes Status: Chronic (4) Heart failure with preserved ejection fraction Current Visit: Yes Status: Acute (5) Anemia Current Visit: Yes Status: Acute Qualifiers: Anemia type: iron deficiency Iron deficiency anemia type: unspecified iron deficiency Qualified Code(s): D50.9 - Iron deficiency anemia, unspecified (6) GI bleed Current Visit: Yes Status: Acute Qualifiers: GI bleed type/associated pathology: unspecified gastrointestinal hemorrhage type Qualified Code(s): K92.2 - Gastrointestinal hemorrhage, unspecified (7) UTI (urinary tract infection) Current Visit: Yes Status: Resolved Qualifiers: Urinary tract infection type: acute cystitis Hematuria presence: without hematuria Qualified Code(s): N30.00 - Acute cystitis without hematuria (8) Sepsis Current Visit: Yes Status: Resolved Qualifiers: Sepsis type: sepsis due to unspecified organism Qualified Code(s): A41.9 - Sepsis, unspecified organism (9) Cirrhosis Current Visit: Yes Status: Acute Qualifiers: Hepatic cirrhosis type: unspecified hepatic cirrhosis Ascites presence: with ascites Qualified Code(s): K74.60 - Unspecified cirrhosis of liver; R18.8 - Other ascites - Time Spent With Patient Total time spent is greater than 50% in coordination of care (as documented) at patient's floor/unit and/or counseling patient: - Constitutional Vitals: Temp Pulse Resp BP Pulse Ox 98.3 F 103 18 110/63 97 03/29/18 20:52 03/29/18 20:52 03/29/18 20:52 03/29/18 20:52 03/29/18 20:52 Internal Medicine: Result - Labs CBC & Chem 7: 03/29/18 05:06 03/29/18 05:06 Labs: Short CBC 03/29/18 Range/Units 05:06 WBC 8.1 (4.3-11.1) K/mcL Hgb 9.0 L D (12.9-16.9) g/dL Hct 27.5 L (37.5-50.1) % Plt Count 203 (140-400) K/mcL Neutrophils # 6.2 (1.6-8.9) K/mcL BMP 03/29/18 05:06 Sodium 134 L Potassium 3.6 Chloride 101 Carbon Dioxide 29 BUN 17 Creatinine 0.84 Glucose 129 H Calcium 7.9 L - ABG Interpretation ABG results: ABG ABG pH 7.43 pH Units (7.32-7.45) 03/24/18 19:04 ABG pCO2 38 mmHg (35-45) 03/24/18 19:04 ABG pO2 107 mmHg (85-104) H 03/24/18 19:04 ABG O2 Saturation 98 % (95-98) 03/24/18 19:04 PT/INR, D-dimer PT 13.0 Seconds (9.4-12.1) H 03/21/18 14:50 - Impressions Impressions Abdomen/Pelvis CT 03/29/18 12:00 IMPRESSION: Moderate bilateral pleural effusions, stable to mildly worsened on the right from prior exam 02/09/2017, and significantly worsened on the left from prior exam. Mildly nodular contour to the liver concerning for cirrhosis. No focal liver lesions. Findings concerning for portal hypertension with stable mild splenomegaly. Mild high attenuation material dependently within the gallbladder, similar to prior exam which may be on the basis of gallbladder sludge or stones. Small volume ascites. Mild diffuse subcutaneous edema, nonspecific. Colonic diverticulosis without evidence for diverticulitis. D/ / 03/29/2018 13:08:32 Cedric Jon MD / magnolia Interpreting Provider: Cedric Jon MD - Attending Attestation I examined this patient and my medical decision-making was reviewed with the Resident Physician. I agree with the documented findings, disposition and treatment plan as described except to the extent set forth below. No complaints today. Hemoglobin stable this morning s/p 2 units PRBC yesterday. He is in no distress. Skin pallor, VS reviewed HR 90-105 with normal BP. GI following, likely push enteroscopy tomorrow. Continue to monitor VS and H&H and transfuse as needed. Antibiotics have been discontinued.
[2018-03-29] MEDS: Diltiazem CD (24hr) 180 MG CAPSULE PO SCH (13:19)
[2018-03-29] MEDS: Folic Acid 1 MG TABLET PO SCH (13:19)
[2018-03-29] MEDS: Cyanocobalamin (B-12) 1,000 MCG TABLET PO SCH (13:19)
[2018-03-29] MEDS: carBAMazepine 200 MG TABLET PO SCH (13:20)
[2018-03-29] MEDS: *HR* Digoxin 0.125 MG TABLET PO SCH (13:20)
[2018-03-29] MEDS: Apremilast [Otezla] 30 MG PO SCH ×2 (13:24→23:28)
[2018-03-29] MEDS ORDERED: SODIUM CHLORIDE/NAHCO3/KCL/PEG 4,000 ML SOLN.RECON PO ONE (17:00)
[2018-03-29] MEDS: Furosemide 20 MG/2 ML VIAL IVP SCH (17:04)
[2018-03-29] MEDS: Insulin DETEMIR 100 UNIT/ML X5UNITS SQ SCH (23:20)
[2018-03-29] MEDS: ALPRAZolam 0.5 MG TABLET PO SCH (23:20)
[2018-03-30 05:38] LABS: Basophils # 0.1 K/mcL (0.0-0.2); Basophils % 0.7 %; Eosinophils # 0.2 K/mcL (0.0-0.6); Eosinophils % 2.6 %; Hematocrit 28.7 % (37.5-50.1); Hemoglobin 9.5 g/dL (12.9-16.9); Immature Granulocytes % 2.6 % (0-4); Lymphocytes # 0.6 K/mcL (0.6-4.6); Lymphocytes % 7.9 %; Mean Corpuscular HGB Conc 33.1 g/dL (31.6-35.5); Mean Corpuscular Hemoglobin 35.6 pg (28.0-33.3); Mean Corpuscular Volume 107.5 fL (83.0-100.0); Mean Platelet Volume 8.9 fL (9.4-12.4); Monocytes # 0.6 K/mcL (0.0-1.3); Monocytes % 7.8 %; Neutrophils # 5.7 K/mcL (1.6-8.9); Platelet Count 202 K/mcL (140-400); Red Blood Count 2.67 M/mcL (4.19-5.50); Red Cell Distribution Width 23.2 % (11.5-14.5); Segmented Neutrophils % 78.4 %
[2018-03-30 05:57] LABS: Alanine Aminotransferase 22 Units/L (7-52); Albumin 2.8 g/dL (3.5-5.7); Albumin/Globulin Ratio 1.3 (1.1-2.2); Alkaline Phosphatase 152 Units/L (34-104); Aspartate Amino Transferase 22 Units/L (13-39); BUN/Creatinine Ratio 18 (6-26); Bilirubin,Total 1.6 mg/dL (0.3-1.0); Blood Urea Nitrogen 14 mg/dL (8-23); Carbon Dioxide 31 mEq/L (23-29); Chloride 99 mEq/L (98-107); Globulin 2.2 g/dL (2.4-3.5); Glucose 103 mg/dL (70-105); Osmolality,Calculated 283 (280-300); Potassium 3.4 mEq/L (3.5-5.1); Sodium 136 mEq/L (136-145); eGFR For African Americans > 60 (> 60); eGFR For Non-African Americans > 60 (> 60)
[2018-03-30 06:02] LABS: Anisocytosis 3+ (Not Present); Macrocytosis Present (Not Present)
[2018-03-30 06:03] LABS: Platelet Estimate Normal (Normal)
[2018-03-30] MEDS: Insulin LISPRO 300 UNITS/3 ML VIAL SQ SCH ×4 (07:51→22:54)
[2018-03-30] MEDS: Apremilast [Otezla] 30 MG PO SCH ×2 (07:52→23:05)
[2018-03-30] MEDS: Budesonide/Formoterol 160/4.5 MDI IH SCH ×2 (07:52→20:05)
[2018-03-30] MEDS: Folic Acid 1 MG TABLET PO SCH (08:05)
[2018-03-30] MEDS: carBAMazepine 200 MG TABLET PO SCH (08:05)
[2018-03-30] MEDS: Spironolactone 25 MG TABLET PO SCH (08:05)
[2018-03-30] MEDS: *HR* Digoxin 0.125 MG TABLET PO SCH (08:05)
[2018-03-30] MEDS: Cyanocobalamin (B-12) 1,000 MCG TABLET PO SCH (08:05)
[2018-03-30] MEDS: Diltiazem CD (24hr) 180 MG CAPSULE PO SCH (08:05)
[2018-03-30] MEDS: Sucralfate 1 GM TABLET PO SCH ×4 (08:06→22:53)
[2018-03-30] MEDS: Pantoprazole 40 MG VIAL IVP SCH ×2 (08:06→22:53)
[2018-03-30] MEDS: Furosemide 20 MG/2 ML VIAL IVP SCH (08:06)
[2018-03-30 08:41] LABS: Hepatitis A Antibody IgM Nonreactive (Nonreactive); Hepatitis B Core IgM Nonreactive (Nonreactive); Hepatitis C Virus Antibody Nonreactive (Nonreactive)
--- NOTE | 2018-03-30 08:54 | Oncology Inp Progress Note ---
<Zach Castaneda - Last Filed: 03/30/18 10:17> Date of Encounter: 03/30/18 Time of Encounter: 08:53 (1) Febrile nonhemolytic transfusion reaction Current Visit: Yes Status: Acute Assessment and plan: Patient had a transfusion reaction to PRBC transfusion on 03/22/2018. - Transfusion reaction suspected to be HLA antibody or cytokine mediated and not hemolytic in nature. - He was reintroduced with pre-medications of hydrocortisone, benadryl and tylenol prior to PRBC transfusion and has since tolerated subsequent transfusions well without any adverse symptoms noted. - Initial Sherron test was negative, will recheck at a later date for evaluation. - Continue with current plan when providing PRBC transfusions. (2) Hyperbilirubinemia Current Visit: Yes Status: Acute Assessment and plan: Admission bilirubin 2.1 which improved to 1.6. Direct bilirubin 0.7 - Patient has splenomegaly and CT without concerning findings. LDH was normal, Sherron direct was negative. - He had a reaction to blood transfusion last week. Possible delayed transfusion reaction. (3) Macrocytic anemia Current Visit: Yes Status: Acute Assessment and plan: Macrocytic anemia. Current hemoglobin 9.0 up from 6.8 yesterday after 2 unit transfusion. Total of 5 units PRBC transfusion. Review of patient records demonstrates progressive anemia since 2014, baseline hemoglobin around 11.0-12.0.Hemoglobin slowly trending down since January 2017 with significant drop noted on 03/21/2018 correlating with significant elevation of MCV 120. - Patient does admit to bright red blood per rectum a few weeks prior but no significant known blood loss,No known acute events to correlate with new onset macrocytic anemia. - Patient was on Xarelto and aspirin at the time of admission both are on hold. B12, Iron and folate replete SPEP-no monoclonal proteins Retic- Elevated LDH re-ordered today-normal Bili reordered today-improving since admission EGD: 2 cm hiatal hernia, mild Schatzki ring at the gastroesophageal junction. Diffuse moderately erythematous mucosa without bleeding throughout the entire stomach. Colonoscopy: 4 sessile polyps noted in the sigmoid colon, ascending colon and proximal ascending colon ranging from 6 mm to 24 mm. None were taken due to the patient suspected to be on aspirin. Grade 2 internal hemorrhoids nonbleeding were also noted. GI bleed nuclear scan: No evidence of active GI bleeding. - Patient has cirrhosis of the liver and this can also contribute to Macorcytosis. Plan: - Colonoscopy and push enteroscopy this afternoon. - Patient will likely need PRBC transfusion if he continues to have unidentified source of bleeding. Oncology: Subj Interval history: Mr. Johnson 82 male seen about the patient bedside this morning. He has been drinking his GoLYTELY in preparation for colonoscopy and push enteroscopy this morning. He denies any acute events or noticeable signs of bleeding. States that his stools have been loose due to the bowel prep but did not notice any blood. He has had no acute events overnight. He is in good spirits today. - Constitutional Vitals: Vital Signs Temp Pulse Resp BP Pulse Ox 03/30/18 07:52 16 96 03/30/18 06:57 98.5 F 90 15 114/80 96 03/30/18 05:05 98.1 F 106 18 106/74 95 03/29/18 20:52 98.3 F 103 18 110/63 97 03/29/18 20:14 18 90 03/29/18 15:26 98.2 F 92 17 110/69 96 03/29/18 10:57 98.1 F 107 18 138/86 95 03/29/18 10:36 16 97 Intake and Output 03/29/18 03/30/18 03/30/18 23:59 07:59 15:59 Intake Total 60 / 60 0 / 0 Output Total 775 / 775 450 / 450 Balance -715 / -715 -450 / -450 Intake: Oral 60 / 60 0 / 0 Output: Urine 775 / 775 450 / 450 Other: Stool Size Small Moderate Stool Consistency loose soft Stool Color Brown Brown # Voids 0 # Bowel Movements 1 # Bowel Movement Diapers 1 Weight 95.2 kg Blood Glucose* 213 114 Patient Weight 03/30/18 23:59 Weight 95.2 kg Exam: General: Patient alert, awake, oriented 3, interactive, in no acute distress HEENT: Normocephalic, atraumatic, pupils equal reactive to light, nasal cavity patent and open septum median position, oral mucosa moist, neck supple trachea midline no palpable lymphadenopathy, no thyromegaly. Chest: Symmetric bilateral correlating with respiratory effort, effort nonlabored. Cardiac: Irregularly irregular heart rate and rhythm Respiratory: Diffuse rhonchi Abdomen: Soft, mild diffuse tenderness to light palpation, positive bowel sounds , no palpable masses appreciated on examination Extremities: Symmetric bilateral, bilateral 3+ pitting edema with dependent edema to mid back. Neurologic: No focal deficits appreciated on examination. Face symmetric, muscle strength symmetric bilateral upper and lower extremities. Oncology: Obj Data - Labs CBC & Chem 7: 03/30/18 04:55 03/30/18 04:55 Labs: Laboratory Results - last 24 hr 03/29/18 03/29/18 03/29/18 06:51 11:00 15:30 WBC RBC Hgb Hct MCV MCH MCHC RDW Plt Count MPV Immature Gran % Seg Neutrophils % Lymphocytes % Monocytes % Eosinophils % Basophils % Neutrophils # Lymphocytes # Monocytes # Eosinophils # Basophils # Platelet Estimate Anisocytosis Macrocytosis Sodium Potassium Chloride Carbon Dioxide BUN Creatinine Est GFR ( Amer) Est GFR (Non-Af Amer) BUN/Creatinine Ratio Glucose POC Glucose 138 H 200 H 228 H Calculated Osmolality Calcium Total Bilirubin AST ALT Alkaline Phosphatase Serum Total Protein Albumin Globulin Albumin/Globulin Ratio 03/29/18 03/30/18 03/30/18 20:54 04:55 04:55 WBC 7.3 RBC 2.67 L Hgb 9.5 L Hct 28.7 L MCV 107.5 H MCH 35.6 H MCHC 33.1 RDW 23.2 H Plt Count 202 MPV 8.9 L Immature Gran % 2.6 Seg Neutrophils % 78.4 Lymphocytes % 7.9 Monocytes % 7.8 Eosinophils % 2.6 Basophils % 0.7 Neutrophils # 5.7 Lymphocytes # 0.6 Monocytes # 0.6 Eosinophils # 0.2 Basophils # 0.1 Platelet Estimate Normal Anisocytosis 3+ A Macrocytosis Present A Sodium 136 Potassium 3.4 L Chloride 99 Carbon Dioxide 31 H BUN 14 Creatinine 0.80 Est GFR ( Amer) > 60 Est GFR (Non-Af Amer) > 60 BUN/Creatinine Ratio 18 Glucose 103 POC Glucose 213 H Calculated Osmolality 283 Calcium 8.0 L Total Bilirubin 1.6 H AST 22 ALT 22 Alkaline Phosphatase 152 H Serum Total Protein 5.0 L Albumin 2.8 L Globulin 2.2 L Albumin/Globulin Ratio 1.3 - Impressions Impressions Abdomen/Pelvis CT 03/29/18 12:00 IMPRESSION: Moderate bilateral pleural effusions, stable to mildly worsened on the right from prior exam 02/09/2017, and significantly worsened on the left from prior exam. Mildly nodular contour to the liver concerning for cirrhosis. No focal liver lesions. Findings concerning for portal hypertension with stable mild splenomegaly. Mild high attenuation material dependently within the gallbladder, similar to prior exam which may be on the basis of gallbladder sludge or stones. Small volume ascites. Mild diffuse subcutaneous edema, nonspecific. Colonic diverticulosis without evidence for diverticulitis. D/ / 03/29/2018 13:08:32 Cedric Jon MD / [facility] Interpreting Provider: Cedric Jon MD - ABG Interpretation ABG results: ABG ABG pH 7.43 pH Units (7.32-7.45) 03/24/18 19:04 ABG pCO2 38 mmHg (35-45) 03/24/18 19:04 ABG pO2 107 mmHg (85-104) H 03/24/18 19:04 ABG O2 Saturation 98 % (95-98) 03/24/18 19:04 PT/INR, D-dimer PT 13.0 Seconds (9.4-12.1) H 03/21/18 14:50 Consult Discharge Plan - Plan Instructions: Spironolactone (By mouth), Sucralfate (By mouth), Alprazolam (By mouth), Omeprazole (By mouth), Atrial Fibrillation (DC), Chest Pain (DC), Urinary Tract Infection in Men (DC), Diabetes Mellitus Type 2 in Adults (DC), Chronic Obstructive Pulmonary Disease (DC), Sepsis (DC), Anemia (GEN), Pneumonia (DC) Additional Instructions: Follow up with ECF physician in 2 days after discharge. Recheck CBC at that time. Follow up on polyp pathology results at that time. Follow up with heme/ onc and GI as directed. Referrals: Renate England MD [Partnered Physician] - 04/08/18 1:30 pm Nguyễn Gilbert Jr, MD [Primary Care Provider] - Prescriptions: ALPRAZolam [Xanax 0.5 MG Tablet] 0.5 mg PO HS 7 Days #7 tablet Omeprazole [PriLOSEC] 20 mg PO BIDAC 7 Days #14 capsule. Spironolactone [Aldactone] 25 mg PO DAILY 7 Days #7 tablet Sucralfate [Carafate] 1 gm PO QIDAC 7 Days #28 tablet <Renate England S - Last Filed: 03/31/18 18:19> Date of Encounter: 03/31/18 - Constitutional Vitals: Vital Signs Temp Pulse Resp BP Pulse Ox 03/31/18 14:53 98 F 86 16 108/62 93 03/31/18 11:09 98.2 F 88 16 118/68 97 03/31/18 07:24 16 99 03/31/18 06:32 98.3 F 83 16 110/67 94 03/31/18 04:28 99.1 F 92 17 117/75 98 03/30/18 20:05 16 98 03/30/18 19:25 99.0 F 97 18 116/73 98 Intake and Output 03/31/18 03/31/18 03/31/18 07:59 15:59 23:59 Intake Total 600 / 600 240 / 240 Output Total 200 / 200 590 / 590 125 / 125 Balance -200 / -200 115 / 115 Intake: Oral 600 / 600 240 / 240 Output: Urine 200 / 200 590 / 590 125 / 125 Other: Meal Lunch Dinner Percent of Meal Consumed 30% 100% Blood Glucose* 163 166 80 Oncology: Obj Data - Labs CBC & Chem 7: 03/31/18 04:37 03/31/18 04:37 Labs: Laboratory Results - last 24 hr 03/29/18 03/30/18 03/30/18 05:06 04:55 19:30 WBC RBC Hgb Hct MCV MCH MCHC RDW Plt Count MPV Immature Gran % Seg Neutrophils % Lymphocytes % Monocytes % Eosinophils % Basophils % Neutrophils # Lymphocytes # Monocytes # Eosinophils # Basophils # Sodium Potassium Chloride Carbon Dioxide BUN Creatinine Est GFR ( Amer) Est GFR (Non-Af Amer) BUN/Creatinine Ratio Glucose POC Glucose 240 H Calculated Osmolality Calcium Total Bilirubin Direct Bilirubin Indirect Bilirubin Lactate Dehydrogenase Free [place] LC, Quant 2.58 H Free Lambda LC, Quant 2.72 H Free [place]/Lambda Ratio 0.95 Hep Bs Antigen Nonreactive 03/31/18 03/31/18 03/31/18 04:37 04:37 04:37 WBC 6.3 RBC 2.54 L Hgb 9.1 L Hct 27.6 L MCV 108.7 H MCH 35.8 H MCHC 33.0 RDW 21.8 H Plt Count 202 MPV 8.9 L Immature Gran % 1.7 Seg Neutrophils % 81.5 Lymphocytes % 7.0 Monocytes % 7.5 Eosinophils % 1.7 Basophils % 0.6 Neutrophils # 5.1 Lymphocytes # 0.4 L Monocytes # 0.5 Eosinophils # 0.1 Basophils # 0.0 Sodium 134 L Potassium 4.1 Chloride 99 Carbon Dioxide 31 H BUN 19 Creatinine 0.96 Est GFR ( Amer) > 60 Est GFR (Non-Af Amer) > 60 BUN/Creatinine Ratio 20 Glucose 212 H POC Glucose Calculated Osmolality 287 Calcium 8.2 L Total Bilirubin 1.2 H Direct Bilirubin 0.4 H Indirect Bilirubin 0.8 Lactate Dehydrogenase 307 H Free [place] LC, Quant Free Lambda LC, Quant Free [place]/Lambda Ratio Hep Bs Antigen 03/31/18 11:11 WBC RBC Hgb Hct MCV MCH MCHC RDW Plt Count MPV Immature Gran % Seg Neutrophils % Lymphocytes % Monocytes % Eosinophils % Basophils % Neutrophils # Lymphocytes # Monocytes # Eosinophils # Basophils # Sodium Potassium Chloride Carbon Dioxide BUN Creatinine Est GFR ( Amer) Est GFR (Non-Af Amer) BUN/Creatinine Ratio Glucose POC Glucose 166 H Calculated Osmolality Calcium Total Bilirubin Direct Bilirubin Indirect Bilirubin Lactate Dehydrogenase Free [place] LC, Quant Free [place]ambda LC, Quant Free [place]/Lambda Ratio Hep Bs Antigen - ABG Interpretation ABG results: ABG ABG pH 7.43 pH Units (7.32-7.45) 03/24/18 19:04 ABG pCO2 38 mmHg (35-45) 03/24/18 19:04 ABG pO2 107 mmHg (85-104) H 03/24/18 19:04 ABG O2 Saturation 98 % (95-98) 03/24/18 19:04 PT/INR, D-dimer PT 13.0 Seconds (9.4-12.1) H 03/21/18 14:50 - Attending Attestation I examined this patient and my medical decision-making was reviewed with the Advanced Practice Nurse. I agree with the documented findings, disposition and treatment plan as described except to the extent set forth below. 1. Anemia. Aggravated by delayed hemolytic transfusion reaction. His LDH is getting elevated now at 307. Current bilateral been stable at 1.2. Overall he is responding to further transfusion with hemoglobin around 9-10. He also had history of GI bleed on admission He was on Xarelto prior to admission. Unless there is a clear indication will hold off on restarting Xarelto
--- NOTE | 2018-03-30 11:46 | Anesthesia Evaluation PreOp ---
Date of Encounter: 03/30/18 Time of Encounter: 11:43 - Past History Planned Operation: Colonoscopy, Push enteroscopy Cardiac History: CA, HTN, Arrhythmia (H/o AF), Cardiac Stent (stents x 5) Pulmonary History: Former smoker (quit 1982), Asthma, COPD (home O2 at night), [place] Dx (does not use CPAP) PHYSICIAN'S AIDE History: Other (Anxiety/Depression) Other Medical History: Diabetes Type II, GERD Anesthesia History: No Prior Anesthetic Complications, Past Anesthesia ( umbilical hernia, EGD/Colonoscopy) Alcohol Use: none Drug use: none Medications and Allergies Aspirin 81 mg PO QAM 04/20/15 [History] Digoxin [Lanoxin] 0.125 mg PO QAM 12/02/15 [History] Apremilast [Otezla] 30 mg PO BID 01/26/18 [History] Calcipotriene [Dovonex] 1 appl TP HS 01/26/18 [History] Clotrimazole/Betameth Dip CRM [Lotrisone CRM] 1 appl TP QAM 01/26/18 [History] Docusate Sodium [Dok] 100 mg PO BID 01/26/18 [History] FluocinoNIDE 0.05% CRM [Lidex] 1 appl TP BID 01/26/18 [History] Fluticasone/Vilanterol [Breo Ellipta 200-25 Mcg INH] 1 puff IH QA 01/26/18 [ History] Polyethylene Glycol 3350 [MiraLAX Powder Bulk 17.9 Oz] 17 g PO DAILY 01/26/18 [ History] Ranitidine HCl [Acid Byproducts Supervisor] 150 mg PO QAM 01/26/18 [History] carBAMazepine [Tegretol] 200 mg PO QAM 01/26/18 [History] ALPRAZolam [Xanax 0.5 MG Tablet] 0.5 mg PO HS 3 Days #3 tablet 01/27/18 [Rx] Diltiazem CD (24hr) [Cardizem CD] 180 mg PO DAILY 3 Days #3 cap.er.24h 01/27/18 [Rx] Furosemide [Lasix] 40 mg PO BID 03/21/18 [History] Insulin DETEMIR [Levemir] 34 units SQ HS 03/21/18 [History] Insulin Regular, Human [Novolin R] 6 units SQ TIDWM 03/21/18 [History] Metoprolol [Lopressor] 25 mg PO BID 03/21/18 [History] Tizanidine HCl 4 mg PO Q8H PRN 03/21/18 [History] 3 Allergy/AdvReac Type Severity Reaction Status Date / Time sulfamethoxazole Allergy See Verified 12/06/16 09:00 [From Bactrim] Comments trimethoprim [From Bactrim] Allergy See Verified 12/06/16 09:00 Comments atorvastatin AdvReac Dizziness Verified 12/06/16 09:00 clopidogrel [From Plavix] AdvReac Dizziness Verified 12/06/16 09:00 lovastatin AdvReac Dizziness Verified 12/06/16 09:00 pioglitazone [From Actos] AdvReac Dizziness Verified 12/06/16 09:00 pravastatin AdvReac Dizziness Verified 12/06/16 09:00 Rosiglitazone AdvReac Dizziness Verified 12/06/16 09:00 flu vaccine Allergy Dizziness Uncoded 06/14/16 22:01 - Meds/Allergy Pre-op Review Medications Reviewed: Yes Allergies Reviewed: Yes Beta Blockers on Current Med List: Yes If Beta Blockers taken, Date/Time (Last Dose taken): 08:05 03/30/2018 Anesthesia Results - Labs 03/30/18 04:55 03/30/18 04:55 01/26/2018 Echo Impressions: LVEF 60%. Indeterminate diastolic function. Normal right ventricular structure and function. Mild-moderate mitral regurgitation. No pulmonary hypertension. 07/02/2015 Stress Impression: Perfusion imaging was negative for ischemia or infarct. Pharmacologic ECG was negative for ischemia at the level of heart rate achieved. Patient had no chest pain with stress. Normal hemodynamic response. Uncontrolled atrial fibrillation throughout with occasional PVCs. Gated EF = 65%. The LV is not dilated. There is no evidence of TID. - Imaging EKG: report reviewed (ATRIAL FIBRILLATION WITH RAPID VENTRICULAR RESPONSE RIGHT BUNDLE BRANCH BLOCK) Anesthesia Exam Vital Signs/O2 Sat, Most Current Temp Pulse Resp BP Pulse Ox 99.3 F 89 15 103/57 93 03/30/18 11:37 03/30/18 11:37 03/30/18 11:37 03/30/18 11:37 03/30/18 11:37 NPO (# of Hours): > 8 hrs Pain Scale: 0 Pain Scale Used: Numeric (1 - 10) - HEENT Pupil (Motor): Pupils equal, EOMI Mallampati: II Teeth: Edentulous Oral Opening: Greater than 3 - PHYSICIAN'S AIDE LOC: Oriented PHYSICIAN'S AIDE Motor: Normal RUE, Normal LUE, Normal RLE, Normal LLE, Normal Face PHYSICIAN'S AIDE Sensory: Normal: RUE, LUE, RLE, LLE, Face - Cardiac Rhythm: Regular Murmur: None JVD: No Carotid Bruit: No - Pulmonary Breath Sounds: bilateral Clear Respiratory Effort: Symmetrical Anesthesia Assess/Plan ASA Score: 3 Modified Brice Scale for Level of Consciousness: Cooperative, oriented, and tranquil Anesthetic Plan: MAC Autologous Blood: Yes Recovery Plan: Other
[2018-03-30] MEDS ORDERED: Propofol 500 MG/50 ML INFUS..BTL ONE (12:36)
[2018-03-30] MEDS ORDERED: *HR* Propofol 200 MG/20 ML VIAL IVP ONE (13:42)
[2018-03-30] MEDS ORDERED: Lidocaine Jelly 11 ml Syringe TP ONE (13:53)
--- NOTE | 2018-03-30 14:51 | Anesthesia Evaluation Post Op ---
Date of Encounter: 03/30/18 Time of Encounter: 14:49 - Vital Signs Vital Signs: 3 Vital Signs Time 1450 BP 99/66 Pulse 110 Resp 28 O2 Sat 92 - Lungs Lungs: Clear Ascult./Percussion - Airway Airway: Non-obstructed - Cardiovascular Irregular Rate, Baseline Rhythm - Mental Status Mental Status: Asleep with brisk response to light stimulation - Nausea Vomiting Nausea Vomiting: Not Present - Hydration Hydration: NPO, Has not voided - Discharge PostOp Status: Transfer Patient to floor
[2018-03-30] MEDS: Furosemide 40 MG TABLET PO SCH (15:20)
--- NOTE | 2018-03-30 17:37 | Internal Med Progress Note ---
Date of Encounter: 03/30/18 Time of Encounter: 17:35 - Assessment and plan (1) Atrial fibrillation with RVR Current Visit: Yes Status: Resolved Assessment and plan: HR now controlled. Continue home metoprolol and Cardizem. Xarelto is on hold secondary to GI bleed. (2) Diabetes mellitus type 2, controlled Current Visit: Yes Status: Chronic Assessment and plan: Controlled. Continue sliding scale insulin and insulin regimen. Diabetic cardiac diet. Qualifiers: Diabetes mellitus group home insulin use: unspecified group home insulin use status Diabetes mellitus complication status: with unspecified complications Qualified Code(s): E11.8 - Type 2 diabetes mellitus with unspecified complications (3) CKD (chronic kidney disease), stage III Current Visit: Yes Status: Chronic Assessment and plan: At baseline. Avoid nephrotoxins. Recheck BMP in AM. (4) Heart failure with preserved ejection fraction Current Visit: Yes Status: Acute Assessment and plan: Patient is exacerbation or diastolic CHF. Previous echocardiogram on 01/26/18 showed: LVEF 60%. Exacerbation is secondary to receiving multiple blood transfusions and can also be caused by acute GI bleed. Discontinue IV lasix and resume home PO lasix today. Continue fluid restricted diet to 2L/day. Continue low salt diet. Continue strict I&Os and daily weights. (5) Anemia Current Visit: Yes Status: Acute Assessment and plan: Secondary to GI bleed. S/P partial enteroscopy and colonoscopy today with hemostasis of polyps. Recheck CBC in AM. Continue IV PPI; transition to PO PPI tomorrow if H/H stable. Plan for [facility] to [facility] tomorrow if cleared by GI and H/H stable. Qualifiers: Anemia type: iron deficiency Iron deficiency anemia type: unspecified iron deficiency Qualified Code(s): D50.9 - Iron deficiency anemia, unspecified (6) GI bleed Current Visit: Yes Status: Acute Assessment and plan: Management as per above. Qualifiers: GI bleed type/associated pathology: unspecified gastrointestinal hemorrhage type Qualified Code(s): K92.2 - Gastrointestinal hemorrhage, unspecified (7) UTI (urinary tract infection) Current Visit: Yes Status: Resolved Assessment and plan: Secondary to enterococcus as seen on culture. Treated with 5 days of vancomycin which is now discontinued. ID was consulted; appreciate input. Qualifiers: Urinary tract infection type: acute cystitis Hematuria presence: without hematuria Qualified Code(s): N30.00 - Acute cystitis without hematuria (8) Sepsis Current Visit: Yes Status: Resolved Assessment and plan: Likely secondary to UTI. Now resolved. Qualifiers: Sepsis type: sepsis due to unspecified organism Qualified Code(s): A41.9 - Sepsis, unspecified organism (9) Cirrhosis Current Visit: Yes Status: Acute Assessment and plan: Patient's CT of the abdomen and pelvis indicates Child Class B, Meld-NA score 15 (<2% 90 day mortality). Continue spironolactone. Qualifiers: Hepatic cirrhosis type: unspecified hepatic cirrhosis Ascites presence: with ascites Qualified Code(s): K74.60 - Unspecified cirrhosis of liver; R18.8 - Other ascites (10) DVT prophylaxis Current Visit: Yes Status: Acute Assessment and plan: Holding anticoagulation due to GI bleed and anemia requiring transfusions. Continue SCDs. - Time Spent With Patient Total time spent is greater than 50% in coordination of care (as documented) at patient's floor/unit and/or counseling patient: less than 15 minutes - Subjective Interval history: Patient had no acute events overnight. He has noticed no BRBPR or melena. He denies fever, chills, chest pain, SOB, nausea, vomiting, or abdominal pain. He has no complaints at this time. - Constitutional Vitals: Temp Pulse Resp BP Pulse Ox 97.9 F 75 15 114/60 98 03/30/18 15:23 03/30/18 15:23 03/30/18 15:23 03/30/18 15:23 03/30/18 15:23 General appearance: Present: cooperative, A&O X 3, no acute distress, answers questions appropriately - Respiratory Respiratory exam: Present: CTAB. Absent: accessory muscle use, rales, rhonchi, wheezes Additional comments: Normal WOB - Cardiovascular Cardiovascular exam: Present: RRR, +S1, +S2. Absent: diastolic murmur, gallop, rubs, systolic murmur Additional comments: Trace BLE edema - GI/Abdominal GI/Abdominal exam: Present: normal bowel sounds, soft. Absent: distended, hepatomegaly, mass, splenomegaly, tenderness - Psychiatric Psychiatric exam: Present: normal affect, normal mood. Absent: agitated, anxious, depressed - Skin Skin exam: Present: dry, intact, warm. Absent: cyanosis, rash Internal Medicine: Result - Labs CBC & Chem 7: 03/30/18 04:55 03/30/18 04:55 Labs: Short CBC 03/30/18 Range/Units 04:55 WBC 7.3 (4.3-11.1) K/mcL Hgb 9.5 L (12.9-16.9) g/dL Hct 28.7 L (37.5-50.1) % Plt Count 202 (140-400) K/mcL Neutrophils # 5.7 (1.6-8.9) K/mcL BMP 03/30/18 04:55 Sodium 136 Potassium 3.4 L Chloride 99 Carbon Dioxide 31 H BUN 14 Creatinine 0.80 Glucose 103 Calcium 8.0 L Liver Function 03/30/18 Range/Units 04:55 Total Bilirubin 1.6 H (0.3-1.0) mg/dL AST 22 (13-39) Units/L ALT 22 (7-52) Units/L Alkaline Phosphatase 152 H (34-104) Units/L Albumin 2.8 L (3.5-5.7) g/dL - ABG Interpretation ABG results: ABG ABG pH 7.43 pH Units (7.32-7.45) 03/24/18 19:04 ABG pCO2 38 mmHg (35-45) 03/24/18 19:04 ABG pO2 107 mmHg (85-104) H 03/24/18 19:04 ABG O2 Saturation 98 % (95-98) 03/24/18 19:04 PT/INR, D-dimer PT 13.0 Seconds (9.4-12.1) H 03/21/18 14:50 - VTE Reasons for not Prescribing Prophylaxis: Medical contraindication (GI Bleed, Anemia Requiring Transfusions) Documentation of Mechanical Device: Intermittent pneumatic compression device Consult Discharge Plan - Plan Referrals: Nguyễn Gilbert Jr, MD [Primary Care Provider] -
[2018-03-30 20:45] LABS: Kappa Qnt Free Light Chains 2.58 mg/dL (0.33-1.94); Lambda Qnt Free Light Chains 2.72 mg/dL (0.57-2.63)
[2018-03-30] MEDS: ALPRAZolam 0.5 MG TABLET PO SCH (22:53)
[2018-03-30] MEDS: Insulin DETEMIR 100 UNIT/ML X5UNITS SQ SCH (22:54)
[2018-03-31 02:00] LABS: Hepatitis B Surface Antigen Nonreactive (Nonreactive)
[2018-03-31 05:00] LABS: Basophils % 0.6 %; Eosinophils # 0.1 K/mcL (0.0-0.6); Eosinophils % 1.7 %; Hematocrit 27.6 % (37.5-50.1); Hemoglobin 9.1 g/dL (12.9-16.9); Immature Granulocytes % 1.7 % (0-4); Lymphocytes # 0.4 K/mcL (0.6-4.6); Mean Corpuscular Hemoglobin 35.8 pg (28.0-33.3); Mean Corpuscular Volume 108.7 fL (83.0-100.0); Mean Platelet Volume 8.9 fL (9.4-12.4); Monocytes # 0.5 K/mcL (0.0-1.3); Monocytes % 7.5 %; Neutrophils # 5.1 K/mcL (1.6-8.9); Platelet Count 202 K/mcL (140-400); Red Blood Count 2.54 M/mcL (4.19-5.50); Red Cell Distribution Width 21.8 % (11.5-14.5); Segmented Neutrophils % 81.5 %
[2018-03-31 05:20] LABS: BUN/Creatinine Ratio 20 (6-26); Blood Urea Nitrogen 19 mg/dL (8-23); Calcium 8.2 mg/dL (8.6-10.3); Carbon Dioxide 31 mEq/L (23-29); Chloride 99 mEq/L (98-107); Glucose 212 mg/dL (70-105); Osmolality,Calculated 287 (280-300); Potassium 4.1 mEq/L (3.5-5.1); Sodium 134 mEq/L (136-145); eGFR For African Americans > 60 (> 60); eGFR For Non-African Americans > 60 (> 60)
[2018-03-31 05:26] LABS: Bilirubin,Direct 0.4 mg/dL (0.0-0.2); Bilirubin,Indirect 0.8 mg/dL (0.0-1.2); Bilirubin,Total 1.2 mg/dL (0.3-1.0)
[2018-03-31] MEDS: Budesonide/Formoterol 160/4.5 MDI IH SCH ×2 (07:23→19:57)
[2018-03-31] MEDS: Diltiazem CD (24hr) 180 MG CAPSULE PO SCH (08:46)
[2018-03-31] MEDS: Furosemide 40 MG TABLET PO SCH ×2 (08:46→16:27)
[2018-03-31] MEDS: *HR* Digoxin 0.125 MG TABLET PO SCH (08:47)
[2018-03-31] MEDS: Spironolactone 25 MG TABLET PO SCH (08:47)
[2018-03-31] MEDS: Cyanocobalamin (B-12) 1,000 MCG TABLET PO SCH (08:47)
[2018-03-31] MEDS: Sucralfate 1 GM TABLET PO SCH ×3 (08:47→16:27)
[2018-03-31] MEDS: Pantoprazole 40 MG VIAL IVP SCH (08:47)
[2018-03-31] MEDS: Insulin LISPRO 300 UNITS/3 ML VIAL SQ SCH ×3 (08:47→16:28)
[2018-03-31] MEDS: carBAMazepine 200 MG TABLET PO SCH (08:47)
[2018-03-31] MEDS: Folic Acid 1 MG TABLET PO SCH (08:47)
[2018-03-31] MEDS: Apremilast [Otezla] 30 MG PO SCH (09:02)
--- NOTE | 2018-03-31 10:58 | Oncology Inp Progress Note ---
<Zach Castaneda - Last Filed: 03/31/18 10:55> Date of Encounter: 03/31/18 Time of Encounter: 10:55 (1) Febrile nonhemolytic transfusion reaction Status: Acute Assessment and plan: Patient had a transfusion reaction to PRBC transfusion on 03/22/2018. - Transfusion reaction suspected to be HLA antibody or cytokine mediated and not hemolytic in nature. - He was reintroduced with pre-medications of hydrocortisone, benadryl and tylenol prior to PRBC transfusion and has since tolerated subsequent transfusions well without any adverse symptoms noted. - Antigen screening was negative on 03/21 and 03/28. Negative direct crow. Plan: Continue to monitor H&H. - Continue with current plan when providing PRBC transfusions. (2) Hyperbilirubinemia Status: Acute Assessment and plan: Admission bilirubin 2.1 which improved to 1.6. Direct bilirubin 0.7 - Patient has splenomegaly and CT without concerning findings. LDH was normal now 307, Crow direct was negative. - He had a reaction to blood transfusion last week. Possible delayed transfusion reaction. - clinically stable, continue to monitor H&H and for signs of delayed transfusion reaction. Last transfusion on 03/28 (3) Macrocytic anemia Status: Acute Assessment and plan: Macrocytic anemia. Current hemoglobin 9.0 up from 6.8 yesterday after 2 unit transfusion. Total of 5 units PRBC transfusion. Review of patient records demonstrates progressive anemia since 2014, baseline hemoglobin around 11.0-12.0.Hemoglobin slowly trending down since January 2017 with significant drop noted on 03/21/2018 correlating with significant elevation of MCV 120. - Patient does admit to bright red blood per rectum a few weeks prior but no significant known blood loss,No known acute events to correlate with new onset macrocytic anemia. - Patient was on Xarelto and aspirin at the time of admission both are on hold. B12, Iron and folate replete SPEP-no monoclonal proteins Retic- Elevated LDH re-ordered today-normal Bili reordered today-improving since admission EGD: 2 cm hiatal hernia, mild Schatzki ring at the gastroesophageal junction. Diffuse moderately erythematous mucosa without bleeding throughout the entire stomach. initial Colonoscopy: 4 sessile polyps noted in the sigmoid colon, ascending colon and proximal ascending colon ranging from 6 mm to 24 mm. None were taken due to the patient suspected to be on aspirin. Grade 2 internal hemorrhoids nonbleeding were also noted. GI bleed nuclear scan: No evidence of active GI bleeding. - Patient has cirrhosis of the liver and this can also contribute to Macorcytosis. 03/31: Clinically stable. Polyp resection by GI yesterday. GI recommendation for EMR of colon lesion at [facility] per their management. Hgb stable, and primary team considering discharge today. Plan: - Patient will likely need PRBC transfusion if he continues to have unidentified source of bleeding. Oncology: Subj Interval history: Mr. Johnson has been seen and evaluated at bedside. He is in no acute distress, alert and interactive. He has no complaints and no acute events over night. He tolerated colonoscopy with biopsy yesterday. Denies any blood per rectum, dark stools, fevers, chills or diaphoresis. He understands plan and recommendations after our discussion today. No further concerns at this time. - Constitutional Vitals: Vital Signs Temp Pulse Resp BP Pulse Ox 03/31/18 07:24 16 99 03/31/18 06:32 98.3 F 83 16 110/67 94 03/31/18 04:28 99.1 F 92 17 117/75 98 03/30/18 20:05 16 98 03/30/18 19:25 99.0 F 97 18 116/73 98 03/30/18 15:23 97.9 F 75 15 114/60 98 03/30/18 13:32 98.9 F 111 16 116/77 93 03/30/18 11:37 99.3 F 89 15 103/57 93 Intake and Output 03/30/18 03/31/18 03/31/18 23:59 07:59 15:59 Intake Total 480 / 480 480 / 480 Output Total 775 / 775 200 / 200 Balance -295 / -295 -200 / -200 480 / 480 Intake: Oral 480 / 480 480 / 480 Output: Urine 775 / 775 200 / 200 Other: Meal Dinner Breakfast Percent of Meal Consumed 80% 75% Weight 93.9 kg Blood Glucose* 240 163 Exam: General: Patient alert, awake, oriented 3, interactive, in no acute distress HEENT: Normocephalic, atraumatic, pupils equal reactive to light, nasal cavity patent and open septum median position, oral mucosa moist, neck supple trachea midline no palpable lymphadenopathy, no thyromegaly. Chest: Symmetric bilateral correlating with respiratory effort, effort nonlabored. Cardiac: Irregularly irregular heart rate and rhythm Respiratory: CTABL Abdomen: Soft, mild diffuse tenderness to light palpation, positive bowel sounds , no palpable masses appreciated on examination Extremities: Symmetric bilateral, bilateral 2+ pitting edema Neurologic: No focal deficits appreciated on examination. Face symmetric, muscle strength symmetric bilateral upper and lower extremities. Oncology: Obj Data - Labs CBC & Chem 7: 03/31/18 04:37 03/31/18 04:37 Labs: Laboratory Results - last 24 hr 03/29/18 03/30/18 03/30/18 05:06 04:55 06:01 WBC RBC Hgb Hct MCV MCH MCHC RDW Plt Count MPV Immature Gran % Seg Neutrophils % Lymphocytes % Monocytes % Eosinophils % Basophils % Neutrophils # Lymphocytes # Monocytes # Eosinophils # Basophils # Sodium Potassium Chloride Carbon Dioxide BUN Creatinine Est GFR ( Amer) Est GFR (Non-Af Amer) BUN/Creatinine Ratio Glucose POC Glucose 115 H Calculated Osmolality Calcium Total Bilirubin Direct Bilirubin Indirect Bilirubin Lactate Dehydrogenase Free [place] LC, Quant 2.58 H Free Lambda LC, Quant 2.72 H Free [place]/Lambda Ratio 0.95 Hepatitis A IgM Ab Nonreactive Hep Bs Antigen Nonreactive Hep B Core IgM Ab Nonreactive Hepatitis C Ab Screen Nonreactive 03/30/18 03/30/18 03/30/18 07:04 11:40 16:55 WBC RBC Hgb Hct MCV MCH MCHC RDW Plt Count MPV Immature Gran % Seg Neutrophils % Lymphocytes % Monocytes % Eosinophils % Basophils % Neutrophils # Lymphocytes # Monocytes # Eosinophils # Basophils # Sodium Potassium Chloride Carbon Dioxide BUN Creatinine Est GFR ( Amer) Est GFR (Non-Af Amer) BUN/Creatinine Ratio Glucose POC Glucose 114 H 95 135 H Calculated Osmolality Calcium Total Bilirubin Direct Bilirubin Indirect Bilirubin Lactate Dehydrogenase Free [place] LC, Quant Free Lambda LC, Quant Free [place]/Lambda Ratio Hepatitis A IgM Ab Hep Bs Antigen Hep B Core IgM Ab Hepatitis C Ab Screen 03/30/18 03/31/18 03/31/18 19:30 04:37 04:37 WBC 6.3 RBC 2.54 L Hgb 9.1 L Hct 27.6 L MCV 108.7 H MCH 35.8 H MCHC 33.0 RDW 21.8 H Plt Count 202 MPV 8.9 L Immature Gran % 1.7 Seg Neutrophils % 81.5 Lymphocytes % 7.0 Monocytes % 7.5 Eosinophils % 1.7 Basophils % 0.6 Neutrophils # 5.1 Lymphocytes # 0.4 L Monocytes # 0.5 Eosinophils # 0.1 Basophils # 0.0 Sodium 134 L Potassium 4.1 Chloride 99 Carbon Dioxide 31 H BUN 19 Creatinine 0.96 Est GFR ( Amer) > 60 Est GFR (Non-Af Amer) > 60 BUN/Creatinine Ratio 20 Glucose 212 H POC Glucose 240 H Calculated Osmolality 287 Calcium 8.2 L Total Bilirubin Direct Bilirubin Indirect Bilirubin Lactate Dehydrogenase Free [place] LC, Quant Free Lambda LC, Quant Free [place]/Lambda Ratio Hepatitis A IgM Ab Hep Bs Antigen Hep B Core IgM Ab Hepatitis C Ab Screen 03/31/18 04:37 WBC RBC Hgb Hct MCV MCH MCHC RDW Plt Count MPV Immature Gran % Seg Neutrophils % Lymphocytes % Monocytes % Eosinophils % Basophils % Neutrophils # Lymphocytes # Monocytes # Eosinophils # Basophils # Sodium Potassium Chloride Carbon Dioxide BUN Creatinine Est GFR ( Amer) Est GFR (Non-Af Amer) BUN/Creatinine Ratio Glucose POC Glucose Calculated Osmolality Calcium Total Bilirubin 1.2 H Direct Bilirubin 0.4 H Indirect Bilirubin 0.8 Lactate Dehydrogenase 307 H Free [place] LC, Quant Free Lambda LC, Quant Free [place]/Lambda Ratio Hepatitis A IgM Ab Hep Bs Antigen Hep B Core IgM Ab Hepatitis C Ab Screen - ABG Interpretation ABG results: ABG ABG pH 7.43 pH Units (7.32-7.45) 03/24/18 19:04 ABG pCO2 38 mmHg (35-45) 03/24/18 19:04 ABG pO2 107 mmHg (85-104) H 03/24/18 19:04 ABG O2 Saturation 98 % (95-98) 03/24/18 19:04 PT/INR, D-dimer PT 13.0 Seconds (9.4-12.1) H 03/21/18 14:50 Consult Discharge Plan - Plan Instructions: Spironolactone (By mouth), Sucralfate (By mouth), Alprazolam (By mouth), Omeprazole (By mouth), Atrial Fibrillation (DC), Chest Pain (DC), Urinary Tract Infection in Men (DC), Diabetes Mellitus Type 2 in Adults (DC), Chronic Obstructive Pulmonary Disease (DC), Sepsis (DC), Anemia (GEN), Pneumonia (DC) Additional Instructions: Follow up with ECF physician in 2 days after discharge. Recheck CBC at that time. Follow up on polyp pathology results at that time. Follow up with heme/ onc and GI as directed. Referrals: Renate England MD [Partnered Physician] - 04/08/18 1:30 pm Nguyễn Gilbert Jr, MD [Primary Care Provider] - Prescriptions: ALPRAZolam [Xanax 0.5 MG Tablet] 0.5 mg PO HS 7 Days #7 tablet Omeprazole [PriLOSEC] 20 mg PO BIDAC 7 Days #14 capsule. Spironolactone [Aldactone] 25 mg PO DAILY 7 Days #7 tablet Sucralfate [Carafate] 1 gm PO QIDAC 7 Days #28 tablet <Renate England - Last Filed: 04/01/18 08:42> Date of Encounter: 04/01/18 - Constitutional Vitals: Vital Signs Temp Pulse Resp BP Pulse Ox 03/31/18 14:53 98 F 86 16 108/62 93 03/31/18 11:09 98.2 F 88 16 118/68 97 Intake and Output 03/31/18 04/01/18 04/01/18 23:59 07:59 15:59 Intake Total 240 / 240 Output Total 125 / 125 Balance 115 / 115 Intake: Oral 240 / 240 Output: Urine 125 / 125 Other: Meal Dinner Percent of Meal Consumed 100% Blood Glucose* 80 Oncology: Obj Data - Labs CBC & Chem 7: 03/31/18 04:37 03/31/18 04:37 Labs: Laboratory Results - last 24 hr 03/31/18 03/31/18 03/31/18 06:35 11:11 16:14 POC Glucose 163 H 166 H 80 - ABG Interpretation ABG results: ABG ABG pH 7.43 pH Units (7.32-7.45) 03/24/18 19:04 ABG pCO2 38 mmHg (35-45) 03/24/18 19:04 ABG pO2 107 mmHg (85-104) H 03/24/18 19:04 ABG O2 Saturation 98 % (95-98) 03/24/18 19:04 PT/INR, D-dimer PT 13.0 Seconds (9.4-12.1) H 03/21/18 14:50 - Attending Attestation I examined this patient and my medical decision-making was reviewed with the Advanced Practice Nurse. I agree with the documented findings, disposition and treatment plan as described except to the extent set forth below. 1. Anemia. He presented with some GI bleeding. He had EGD and colonoscopy which was essentially negative other than to polyps 11 and 18 mm in the ascending colon biopsied Push upper enteroscopy showed 1 duodenal polyp. Examined jejunum was unremarkable
[2018-03-31 14:54] VITALS: BP 108/62
--- NOTE | 2018-03-31 16:34 | Discharge Summary ---
- NOTES TO OUTPATIENT PROVIDER Notes to Outpatient Provider: Follow up with ECF physician in 2 days after discharge. Recheck CBC at that time. Follow up on polyp pathology results at that time. Follow up with heme/onc and GI as directed. Orders not resulted at time of discharge: Pending orders 03/30/18 14:54 Surgical Pathology [PTH] Routine Date of Encounter: 03/31/18 Time of Encounter: 16:24 - Discharge Diagnosis (1) Atrial fibrillation with RVR Priority: Secondary Status: Resolved (2) Diabetes mellitus type 2, controlled Priority: Secondary Status: Chronic Qualifiers: Diabetes mellitus usp insulin use: unspecified usp insulin use status Diabetes mellitus complication status: with unspecified complications Qualified Code(s): E11.8 - Type 2 diabetes mellitus with unspecified complications (3) CKD (chronic kidney disease), stage III Priority: Secondary Status: Chronic (4) Heart failure with preserved ejection fraction Priority: Secondary Status: Acute (5) Anemia Priority: Secondary Status: Acute Qualifiers: Anemia type: iron deficiency Iron deficiency anemia type: unspecified iron deficiency Qualified Code(s): D50.9 - Iron deficiency anemia, unspecified (6) GI bleed Priority: Primary Status: Acute Qualifiers: GI bleed type/associated pathology: unspecified gastrointestinal hemorrhage type Qualified Code(s): K92.2 - Gastrointestinal hemorrhage, unspecified (7) UTI (urinary tract infection) Priority: Secondary Status: Resolved Qualifiers: Urinary tract infection type: acute cystitis Hematuria presence: without hematuria Qualified Code(s): N30.00 - Acute cystitis without hematuria (8) Sepsis Priority: Secondary Status: Resolved Qualifiers: Sepsis type: sepsis due to unspecified organism Qualified Code(s): A41.9 - Sepsis, unspecified organism (9) Cirrhosis Priority: Secondary Status: Acute Qualifiers: Hepatic cirrhosis type: unspecified hepatic cirrhosis Ascites presence: with ascites Qualified Code(s): K74.60 - Unspecified cirrhosis of liver; R18.8 - Other ascites (10) DVT prophylaxis Priority: Secondary Status: Acute Hospital course: Mr. Johnson is a 82 year old male admitted for GI bleed, macrocytic anemia requiring tranfusions, UTI, and acute on chronic CHF exacerbation. Patient was admitted to general medical floor with telemetry. He was transfused PRBCs. Initial transfusion resulted in likely febrile non-hemolytic transfusion reaction. He received pretreatment with hydrocortisone, benadryl, and tylenol prior to subsequent transfusions. He was started on IV PPI. GI and heme/onc were consulted. CT scan of the abdomen/pelvis did not show any signs of acute bleeding; cirrhosis was noted and he was started on aldactone. EGD showed Schatzki's ring, erythema; no active bleeding. Initial colonoscopy showed multiple polyps, but since he was on anticoagulation, there were removed during subsequent push enteroscopy and colonoscopy. He was diuresed with IV lasix due to CHF exacerbation and fluid overload from multiple transfusions. His enterococcus UTI was treated with five days of IV vancomycin per ID's recommendation. Over last 48 hours, H/H has stabilized. He is asymptomatic, with no signs of GI bleed. He is in good spirits and wants to go back to long term. He will be discharged to [facility]. He will follow up with F physician there in 2 days after discharge. They can recheck CBC at that time. They can also follow up on polyp pathology results. He will follow up with heme/onc and GI as directed. Patient has met maximum benefit of this hospitalization and will be discharged to [facility] in stable condition. Discharge discussed with: patient, nurse, case management, leasing consultant (Heme/onc resident physician) - Time Spent with Patient Total time spent providing and/or coordinating discharge services: Greater than 30 minutes - Discharge Medications Prescriptions: ALPRAZolam [Xanax 0.5 MG Tablet] 0.5 mg PO HS 7 Days #7 tablet Omeprazole [PriLOSEC] 20 mg PO BIDAC 7 Days #14 capsule. Spironolactone [Aldactone] 25 mg PO DAILY 7 Days #7 tablet Sucralfate [Carafate] 1 gm PO QIDAC 7 Days #28 tablet Home Medications: Aspirin 81 mg PO QAM 04/20/15 [History] Digoxin [Lanoxin] 0.125 mg PO QAM 12/02/15 [History] Apremilast [Otezla] 30 mg PO BID 01/26/18 [History] Calcipotriene [Dovonex] 1 appl TP HS 01/26/18 [History] Clotrimazole/Betameth Dip CRM [Lotrisone CRM] 1 appl TP QAM 01/26/18 [History] Docusate Sodium [Dok] 100 mg PO BID 01/26/18 [History] FluocinoNIDE 0.05% CRM [Lidex] 1 appl TP BID 01/26/18 [History] Fluticasone/Vilanterol [Breo Ellipta 200-25 Mcg INH] 1 puff IH QAM 01/26/18 [ History] Polyethylene Glycol 3350 [MiraLAX Powder Bulk 17.9 Oz] 17 g PO DAILY 01/26/18 [ History] Ranitidine HCl [Acid Food Cooking Machine Operator] 150 mg PO QAM 01/26/18 [History] carBAMazepine [Tegretol] 200 mg PO QAM 01/26/18 [History] Diltiazem CD (24hr) [Cardizem CD] 180 mg PO DAILY 3 Days #3 cap.er.24h 01/27/18 [Rx] Furosemide [Lasix] 40 mg PO BID 03/21/18 [History] Insulin DETEMIR [Levemir] 34 units SQ HS 03/21/18 [History] Insulin Regular, Human [Novolin R] 6 units SQ TIDWM 03/21/18 [History] Metoprolol [Lopressor] 25 mg PO BID 03/21/18 [History] Tizanidine HCl 4 mg PO Q8H PRN 03/21/18 [History] ALPRAZolam [Xanax 0.5 MG Tablet] 0.5 mg PO HS 7 Days #7 tablet 03/31/18 [Rx] Omeprazole [PriLOSEC] 20 mg PO BIDAC 7 Days #14 capsule. 03/31/18 [Rx] Spironolactone [Aldactone] 25 mg PO DAILY 7 Days #7 tablet 03/31/18 [Rx] Sucralfate [Carafate] 1 gm PO QIDAC 7 Days #28 tablet 03/31/18 [Rx] Allergies/Adverse Reactions: 3 Allergy/AdvReac Type Severity Reaction Status Date / Time sulfamethoxazole Allergy See Verified 12/06/16 09:00 [From Bactrim] Comments trimethoprim [From Bactrim] Allergy See Verified 12/06/16 09:00 Comments atorvastatin AdvReac Dizziness Verified 12/06/16 09:00 clopidogrel [From Plavix] AdvReac Dizziness Verified 12/06/16 09:00 lovastatin AdvReac Dizziness Verified 12/06/16 09:00 pioglitazone [From Actos] AdvReac Dizziness Verified 12/06/16 09:00 pravastatin AdvReac Dizziness Verified 12/06/16 09:00 Rosiglitazone AdvReac Dizziness Verified 12/06/16 09:00 flu vaccine Allergy Dizziness Uncoded 06/14/16 22:01 Date of admission: 03/21/18 17:46 Primary care physician: Nguyễn Gilbert Jr, MD Consults: 03/21/18 17:58 Consult to Gastroenterology [CONS] Routine Consulting Provider: Gastroenterology [place] Reason for Consult: GI bleed, + occult stool and hgb 7.2 Time Notified: 17:58 Call Completed: Yes 03/21/18 18:45 Consult to Reports Analysis Manager [CONS] Routine Reason for SW Consult: Patient indicated that he would like to leave [facility] and return to his previous long term upon discharge. 03/21/18 19:07 Consult to Pastoral Services [CONS] Routine Comment: 03/21/18 19:09 Consult to Nutrition [CONS] Routine Comment: Consulting Provider: NUTRITION Reason for Dietary Consult: Diet Education 03/24/18 08:35 Consult to Oncology [CONS] Routine Consulting Provider: [facility] [place] Reason for Consult: Patient has acute blood loss anemia. Had supposed reaction to PRBC. Call Completed: Yes 03/28/18 12:17 Consult to Invasive Line Access Team [CONS] Routine Reason for Consult: Limited Vascular Access Line Type: EPIV 03/28/18 12:21 Consult to Infectious Diseases [CONS] Routine Consulting Provider: Infectious [facility] [place] Reason for Consult: Recent sepsis, UTI, anemia Call Completed: No Discharging clinician: Bunny Salazar Anticipated date of discharge: 03/31/18 - Constitutional Vitals: Temp Pulse Resp BP Pulse Ox 98 F 86 16 108/62 93 03/31/18 14:53 03/31/18 14:53 03/31/18 14:53 03/31/18 14:53 03/31/18 14:53 General appearance: Present: cooperative, A&O X 3, no acute distress, answers questions appropriately - Respiratory Respiratory exam: Present: CTAB. Absent: accessory muscle use, rales, rhonchi, wheezes Additional comments: Normal WOB - Cardiovascular Cardiovascular exam: Present: RRR, +S1, +S2. Absent: diastolic murmur, gallop, rubs, systolic murmur Additional comments: Trace BLE edema - GI/Abdominal GI/Abdominal exam: Present: normal bowel sounds, soft. Absent: distended, hepatomegaly, mass, splenomegaly, tenderness - Psychiatric Psychiatric exam: Present: normal affect, normal mood. Absent: agitated, anxious, depressed - Skin Skin exam: Present: dry, intact, warm. Absent: cyanosis, rash - Patient Status Disposition: Transfer LTC Condition: Good Overall status at discharge: patient is progressing back to baseline - Discharge Instructions Follow Up With: Nguyễn Gilbert Jr, MD [Primary Care Provider] - Additional Instructions: Follow up with ECF physician in 2 days after discharge. Recheck CBC at that time. Follow up on polyp pathology results at that time. Follow up with heme/ onc and GI as directed. - Diet and Activity Activity: as per physical therapy Diet: diabetic diet, low fat, low cholesterol, low salt diet, other (Cardiac Diet, Renal Diet) - VTE Reasons for not Prescribing Prophylaxis: Medical contraindication (GI Bleed, Anemia Requiring Transfusions) Documentation of Mechanical Device: Intermittent pneumatic compression device
--- NOTE | 2018-03-31 17:00 | Physician Discharge Referral ---
[facility] Other ([facility] Physician) Institutional Level of Care: Skilled - Diagnosis (1) Atrial fibrillation with RVR Priority: Secondary Status: Resolved (2) Diabetes mellitus type 2, controlled Priority: Secondary Status: Chronic (3) CKD (chronic kidney disease), stage III Priority: Secondary Status: Chronic (4) Heart failure with preserved ejection fraction Priority: Secondary Status: Acute (5) Anemia Priority: Secondary Status: Acute (6) GI bleed Priority: Primary Status: Acute (7) UTI (urinary tract infection) Priority: Secondary Status: Resolved (8) Sepsis Priority: Secondary Status: Resolved (9) Cirrhosis Priority: Secondary Status: Acute (10) DVT prophylaxis Priority: Secondary Status: Acute Expected Duration of Placement: Indefinitely Prognosis: Fair Aware of Diagnosis: Patient Aware of Prognosis: Patient - Transfer Medications Prescriptions: ALPRAZolam [Xanax 0.5 MG Tablet] 0.5 mg PO HS 7 Days #7 tablet Omeprazole [PriLOSEC] 20 mg PO BIDAC 7 Days #14 capsule. Spironolactone [Aldactone] 25 mg PO DAILY 7 Days #7 tablet Sucralfate [Carafate] 1 gm PO QIDAC 7 Days #28 tablet Home Medications: Aspirin 81 mg PO QAM 04/20/15 [History] Digoxin [Lanoxin] 0.125 mg PO QAM 12/02/15 [History] Apremilast [Otezla] 30 mg PO BID 01/26/18 [History] Calcipotriene [Dovonex] 1 appl TP HS 01/26/18 [History] Clotrimazole/Betameth Dip CRM [Lotrisone CRM] 1 appl TP QAM 01/26/18 [History] Docusate Sodium [Dok] 100 mg PO BID 01/26/18 [History] FluocinoNIDE 0.05% CRM [Lidex] 1 appl TP BID 01/26/18 [History] Fluticasone/Vilanterol [Breo Ellipta 200-25 Mcg INH] 1 puff IH QAM 01/26/18 [ History] Polyethylene Glycol 3350 [MiraLAX Powder Bulk 17.9 Oz] 17 g PO DAILY 01/26/18 [ History] Ranitidine HCl [Acid Marketing Sales Consultant] 150 mg PO QAM 01/26/18 [History] carBAMazepine [Tegretol] 200 mg PO QAM 01/26/18 [History] Diltiazem CD (24hr) [Cardizem CD] 180 mg PO DAILY 3 Days #3 cap.er.24h 01/27/18 [Rx] Furosemide [Lasix] 40 mg PO BID 03/21/18 [History] Insulin DETEMIR [Levemir] 34 units SQ HS 03/21/18 [History] Insulin Regular, Human [Novolin R] 6 units SQ TIDWM 03/21/18 [History] Metoprolol [Lopressor] 25 mg PO BID 03/21/18 [History] Tizanidine HCl 4 mg PO Q8H PRN 03/21/18 [History] ALPRAZolam [Xanax 0.5 MG Tablet] 0.5 mg PO HS 7 Days #7 tablet 03/31/18 [Rx] Omeprazole [PriLOSEC] 20 mg PO BIDAC 7 Days #14 capsule.dr 03/31/18 [Rx] Spironolactone [Aldactone] 25 mg PO DAILY 7 Days #7 tablet 03/31/18 [Rx] Sucralfate [Carafate] 1 gm PO QIDAC 7 Days #28 tablet 03/31/18 [Rx] Allergies/Adverse Reactions: 3 Allergy/AdvReac Type Severity Reaction Status Date / Time sulfamethoxazole Allergy See Verified 12/06/16 09:00 [From Bactrim] Comments trimethoprim [From Bactrim] Allergy See Verified 12/06/16 09:00 Comments atorvastatin AdvReac Dizziness Verified 12/06/16 09:00 clopidogrel [From Plavix] AdvReac Dizziness Verified 12/06/16 09:00 lovastatin AdvReac Dizziness Verified 12/06/16 09:00 pioglitazone [From Actos] AdvReac Dizziness Verified 12/06/16 09:00 pravastatin AdvReac Dizziness Verified 12/06/16 09:00 Rosiglitazone AdvReac Dizziness Verified 12/06/16 09:00 flu vaccine Allergy Dizziness Uncoded 06/14/16 22:01 - Respiratory Orders Oxygen / L per min (2L NC PRN hypoxemia) Smoking Cessation: Smoking cessation has been advised. For more information, call the [place] Tobacco Quit Line at 2-956-MYQZ-NOW. - Lab Orders Lab Orders: CBC (2 days after discharge) - Advance Directives Code Status: DNR-Arrest (DNR-Comfort Care-Arrest) - Mobility Orders Other (Per physical therapy) - Rehabiliation Orders Rehab Potential: Fair Rehab Orders: Evaluation for Physical Therapy, Evaluation for Occupational Therapy - Diet Orders No Added Salt (CLYDE), No Concentrated Sweets (Diabetic Diet), Renal, Cardiac CERTIFICATION: I certify that the transfer of the above named patient to an Extended Care Facility is necessary for the continuing treatment of the diagnosis listed. The above information is true and accurate reflection of patient's current condition. Confidential - Redisclosure prohibited without a patient's written consent.
== END 2018-03-31 18:50 | DRG 871 ==
LOC: EMEROO 13:49 → 3ANU 13:49 → ICNU 03-22 03:53 → 2NENU 03-23 10:57
PROVIDERS: ADMIT Internal Medicine; ATTEND Internal Medicine

== ENCOUNTER 2019-06-05 16:58 | Inpatient (IN) ==
[2019-06-05] MEDS ORDERED: 0.9 % Sodium Chloride 500 ML IVC ONE (17:39)
[2019-06-05] MEDS ORDERED: methylPREDNISolone 125 MG/2 ML VIAL IVP ONE (17:39)
[2019-06-05] MEDS ORDERED: Ipratropium/Albuterol Neb 3 ML IH ONE (17:39)
--- NOTE | 2019-06-05 17:48 | Emergency Department Note ---
Disposition Clinical Impression: Hyponatremia, Acute exacerbation of COPD with asthma, Acute exacerbation of CHF (congestive heart failure), Shortness of breath, Body aches, Generalized weakness Disposition: Admitted As Inpatient Condition: Fair Forms: ED Satisfaction Letter Time of Disposition: 20:39 General Adult HPI - General Chief complaint: ED Recheck/Abnormal Lab/Rx Stated complaint: Abnormal Labs [facility] Time Seen by Provider: 06/05/19 17:27 Source: patient Mode of arrival: ambulatory Limitations: no limitations Nursing Notes Reviewed: Yes Vital Signs Reviewed: Yes - History of Present Illness HPI Narrative: Patient presents emergency Department with chief complaint of 3 days of generalized weakness body aches nasal congestion cough shortness of breath abdominal pain and not feeling well. He went to the cancer center today although he is unable to come in by he goes the [facility] center he had laboratory studies performed and was sent here for these laboratory studies. Reviewing, these laboratory studies were sent with him which showed a leukocytosis of 17,800 and no other acute findings with a hemoglobin of 12.5 which is increasing from baseline. Patient denies headache or neck pain denies sore throat does endorse nasal congestion denies sinus pain. Patient does endorse a cough, states he is coughing up some clear slimy stuff no green or yellow sputum. He has not checked his temperature and does not know if he has had a fever. He states he feels generally weak and has no energy. He denies chest pain but does endorse some mild shortness of breath has a history of COPD as well as CHF and coronary artery disease and A. fib. He endorses abdominal pain which he states been present for months, since he had some polyps removed but he does not know when these were removed his colonoscopy was not at this facility according to him. He has had no black or bloody-looking stool. Denies diarrhea. Denies significant nausea or vomiting. Denies urinary changes. Denies any unilateral numbness or weakness. Denies any unilateral leg swelling has some chronic bilateral lower extremity swelling that is unchanged. Patient denies any recent trauma. He denies a history of cancer. He is not on chemotherapy. Patient den ies any other acute concerns. Patient denies any yellowing of his vision he does not know what all medications he is on but does appear to be on digoxin by his medical list, as well as on Tegretol. Pain Scale: 9 - Related Data Home Medications Medication Instructions Recorded Confirmed Aspirin 81 mg PO DAILY 04/20/15 02/27/19 Digoxin [Lanoxin] 0.125 mg PO DAILY 12/02/15 02/27/19 Apremilast [Otezla] 30 mg PO BID 01/26/18 02/27/19 Docusate Sodium [Dok] 100 mg PO DAILY 01/26/18 02/27/19 Fluticasone/Vilanterol [Breo 1 puff IH DAILY 01/26/18 02/27/19 Ellipta 200-25 Mcg INH] Polyethylene Glycol 3350 [MiraLAX 17 g PO QAM 01/26/18 02/27/19 Powder Bulk 17.9 Oz] carBAMazepine [Tegretol] 200 mg PO DAILY 01/26/18 02/27/19 Insulin DETEMIR [Levemir] 38 units SQ HS 03/21/18 02/27/19 Insulin Regular, Human [Novolin R] 6 units SQ TIDAC 03/21/18 02/27/19 Metoprolol [Lopressor] 25 mg PO BID 03/21/18 02/27/19 Spironolactone [Aldactone] 50 mg PO BID 04/28/18 02/27/19 Ursodiol [Actigall] 300 mg PO BID 08/25/18 02/27/19 Furosemide [Lasix] 40 mg PO DAILY 11/24/18 02/27/19 dilTIAZem HCl [Diltiazem HCl] 180 mg PO DAILY 11/24/18 02/27/19 Previous Rx's Medication Instructions Recorded ALPRAZolam [Xanax 0.5 MG Tablet] 0.5 mg PO HS 7 Days #7 tablet 03/31/18 Allergies Allergy/AdvReac Type Severity Reaction Status Date / Time sulfamethoxazole Allergy See Verified 02/27/19 08:40 [From Bactrim] Comments trimethoprim [From Bactrim] Allergy See Verified 02/27/19 08:40 Comments atorvastatin AdvReac Dizziness Verified 02/27/19 08:40 clopidogrel [From Plavix] AdvReac Dizziness Verified 02/27/19 08:40 lovastatin AdvReac Dizziness Verified 02/27/19 08:40 pioglitazone [From Actos] AdvReac Dizziness Verified 02/27/19 08:40 pravastatin AdvReac Dizziness Verified 02/27/19 08:40 Rosiglitazone AdvReac Dizziness Verified 02/27/19 08:40 flu vaccine Allergy Dizziness Uncoded 02/27/19 08:40 All systems ED: reviewed and negative except as stated. Review of Systems: As Per HPI (Somewhat limited secondary to some underlying dementia but is able to provide me majority of the history. He is not completely able to provide me his past medical history which does make some of this limited.) Past Medical History - Past Medical History Medical history: Reports: asthma, atrial fibrillation, cancer, COPD, coronary artery disease, diabetes, hypertension, kidney stones, myocardial infarction, renal disease, other Surgical history: Reports: cataract Psychiatric history: Reports: anxiety, depression - Social History Smoking Status: Former smoker Smokeless Tobacco Status: No Alcohol use: Reports: none Drug use: Reports: none Physical Exam - General Limitations: no limitations General appearance: alert, in no apparent distress - Head Head exam: atraumatic, normocephalic - Eye Eye exam: Present: normal appearance, PERRL, EOMI. Absent: scleral icterus, conjunctival injection, nystagmus - ENT ENT exam: normal exam, normal oropharynx, mucous membranes moist, TM's normal bilaterally, other (Nostrils are inspected, no significant swelling, there is no blackened abnormality of the tissue no evidence of Mucor, some very mild tenderness over the sinuses of the frontal sinuses, without tenderness over the maxillary sinus region, there is some slight clear mucus) - Neck Neck exam: Present: normal inspection, full ROM, trachea midline. Absent: tenderness, meningismus, lymphadenopathy, thyromegaly - Chest Chest inspection: Present: normal inspection, symmetric chest wall rise - Respiratory Respiratory exam: Present: other (Diminished breath sounds diffusely bilaterally, question some very faint expiratory wheezes. No focal rales rhonchi or crackles or focal adventitious sound, there is a coarse cough noted.) - Cardiovascular Cardiovascular exam: Present: other (Irregularly irregular, no tachycardia, 2/6 holosystolic murmur no rubs no gallops.). Absent: gallop, clicks, JVD - Abdominal Exam Abdominal exam: Present: soft, tenderness, other (No obvious palpable or pulsatile Mass. no ecchymosis on the abdomen. With palpation of the left lower quadrant and suprapubic abdomen patient gets moderate tenderness, with some voluntary guarding but no involuntary guarding no significant percussion tenderness or shake tenderness. No obvious hernias. Very mild right lower quadrant tenderness the upper abdomen is completely nontender to palpation no palpable pulsatile mass.) - Extremities Exam Extremities exam: Present: other (Normal distal pulses in all 4 extremities no unilateral swelling palpable cords calf tenderness Homans sign or clinical evidence of DVT, there is a trace to 1+ bilateral lower some edema with some very mild venous stasis change without evidence of superinfection) - Expanded Lower Extremity Exam Neurovascular/Tendon exam: Present: normal capillary refill. Absent: pulse deficit, motor deficit, sensory deficit - Back Exam Back exam: Present: normal inspection, full ROM. Absent: tenderness, CVA tenderness (R), CVA tenderness (L) - Neurological Exam Neurological exam: Present: alert, oriented X3, CN II-XII intact. Absent: motor sensory deficit - Psychiatric Psychiatric exam: Present: normal affect, normal mood - Skin Skin exam: Present: warm, dry, intact, normal color, rash (The patient does have evidence to suggest that he has some underlying psoriasis, with psoriatic- appearing plaques on his upper extremities, lower extremities and on his back. No evidence of superinfection no evidence of zoster) Course Vital Signs Temperature 98.5 F 06/05/19 17:18 Pulse Rate 99 06/05/19 17:18 Respiratory Rate 16 06/05/19 17:18 Blood Pressure 127/77 06/05/19 17:18 O2 Sat by Pulse Oximetry 93 06/05/19 17:18 Temperature 98.5 F 06/05/19 17:40 Pulse Rate 105 06/05/19 18:37 Respiratory Rate 20 06/05/19 18:37 Blood Pressure 107/65 06/05/19 18:37 O2 Sat by Pulse Oximetry 96 06/05/19 18:37 Oxygen Delivery Oxygen Delivery Room Air Medical Decision Making - [facility] Narrative Medical decision making narrative: Patient had an IV placed is given breathing treatments he was given Solu-Medrol he was given a 500 mL bolus of IV fluids. Laboratory studies were ordered. Digoxin level was ordered CBC basic metabolic profile cardiac enzymes magnesium chest x-ray influenza screen urinalysis. Secondary to abdominal tenderness and leukocytosis, a CT scan of the abdomen pelvis was also ordered. Tegretol level was ordered secondary to generalized fatigue and weakness as well. Influenza screen was negative. Chest x-ray showed evidence to suggest potential CHF with some interstitial edema bilaterally. This is worse from prior chest x-ray. CT scan of the abdomen pelvis showed no acute intra-abdominal process small bilateral pleural effusions, with improved lower lobe infiltrates from previous. CBC showed a leukocytosis of 14,700 decreased from 17,800 from earlier today as an outpatient. Renal panel showed worsened hyponatremia with a sodium of 124, baseline seems to be between 127-132 renal panel was otherwise within acceptable limits. Cardiac enzymes were negative. BNP mildly elevated at 147. Urinalysis without evidence to suggest UTI. Patient reports improvement of his symptoms after breathing treatments and steroids, and is resting more comfortably. He had a digoxin level and a Tegretol level that were both within therapeutic range. He had an EKG that showed A. fib, no significant tachycardia no acute change from baseline EKG no evidence of acute ischemia or acute dysrhythmia, no evidence of hyperkalemia. Patient does have a history of COPD, does report increased cough, did have some wheezing and diminished breath sounds on exam with a coarse cough, was given 1 dose of Zithromax for potential bronchitis and COPD exacerbation with leukocytosis. But there was no evidence of pneumonia by x-ray and improved in appearance from bases on CT scan of the abdomen pelvis. Findings on CT scan of chronic pancreatitis. LFTs and lipase were within acceptable limits. Patient did have blood culture sent. Patient was admitted to the hospital for further evaluation and management of hyponatremia acute COPD exacerbation potential CHF exacerbation, Shortness of breath generalized weakness and body aches. - Lab Data Result diagrams: 06/05/19 18:07 06/05/19 18:07 Lab Results 06/05/19 06/05/19 06/05/19 Range/Units 18:07 18:07 18:07 WBC 14.7 H (4.3-11.1) K/mcL RBC 3.58 L (4.19-5.50) M/mcL Hgb 12.4 L (12.9-16.9) g/dL Hct 34.3 L (37.5-50.1) % MCV 95.8 (83.0-100.0) fL MCH 34.6 H (28.0-33.3) pg MCHC 36.2 H (31.6-35.5) g/dL RDW 13.7 (11.5-14.5) % Plt Count 236 (140-400) K/mcL MPV 8.3 L (9.4-12.4) fL Immature Gran % 2.8 (0-4) % Seg Neutrophils % 83.8 % Lymphocytes % 3.4 % Monocytes % 7.7 % Eosinophils % 1.6 % Basophils % 0.7 % Neutrophils # 12.3 H (1.6-8.9) K/mcL Lymphocytes # 0.5 L (0.6-4.6) K/mcL Monocytes # 1.1 (0.0-1.3) K/mcL Eosinophils # 0.2 (0.0-0.6) K/mcL Basophils # 0.1 (0.0-0.2) K/mcL Sodium 124 L (136-145) mEq/L Potassium 4.6 (3.5-5.1) mEq/L Chloride 87 L (98-107) mEq/L Carbon Dioxide 27 (23-29) mEq/L BUN 21 (8-23) mg/dL Creatinine 1.08 (0.70-1.30) mg/dL Est GFR ( Amer) > 60 (> 60) Est GFR (Non-Af Amer) > 60 (> 60) BUN/Creatinine Ratio 19 (6-26) Glucose 174 H (70-105) mg/dL Calculated Osmolality 265 L (280-300) Lactic Acid 1.1 (0.5-2.2) mmol/L Calcium 9.4 (8.6-10.3) mg/dL Magnesium 1.8 (1.6-2.6) mg/dL Total Bilirubin 1.0 (0.3-1.0) mg/dL Direct Bilirubin 0.3 H (0.0-0.2) mg/dL Indirect Bilirubin 0.7 (0.0-1.2) mg/dL AST 27 (13-39) Units/L ALT 31 (7-52) Units/L Alkaline Phosphatase 124 H (34-104) Units/L Troponin I 0.03 (< 0.04) ng/mL B-Natriuretic Peptide (Less than 100) pg/mL Serum Total Protein 7.5 (6.4-8.9) g/dL Albumin 3.9 (3.5-5.7) g/dL Globulin 3.6 H (2.4-3.5) g/dL Albumin/Globulin Ratio 1.1 (1.1-2.2) Lipase 5 L (11-82) Units/L Urine Color (Yellow) Urine Clarity (Clear) Urine pH (5.0-8.0) pH Units Ur Specific [place] (1.010-1.025) Urine Protein (Neg-Trace) mg/dL Urine Glucose (UA) (Normal) mg/dL Urine Ketones (Negative) mg/dL Urine Blood (Negative) Urine Nitrite (Negative) Urine Bilirubin (Negative) Urine Urobilinogen (Normal) mg/dL Ur Leukocyte Esterase (Negative) Urine Microscopic RBC (0-3) per hpf Urine Microscopic WBC (0-3) per hpf Ur Squamous Epith Cells (None-Few) per lpf Urine Bacteria (None-Few) per hpf Hyaline Casts (None-Few) per lpf Ur Culture Indicated? (NO) Digoxin (0.8-2.0) ng/mL Carbamazepine (4-12) mcg/mL 06/05/19 06/05/19 06/05/19 Range/Units 18:07 18:07 19:50 WBC (4.3-11.1) K/mcL RBC (4.19-5.50) M/mcL Hgb (12.9-16.9) g/dL Hct (37.5-50.1) % MCV (83.0-100.0) fL MCH (28.0-33.3) pg MCHC (31.6-35.5) g/dL RDW (11.5-14.5) % Plt Count (140-400) K/mcL MPV (9.4-12.4) fL Immature Gran % (0-4) % Seg Neutrophils % % Lymphocytes % % Monocytes % % Eosinophils % % Basophils % % Neutrophils # (1.6-8.9) K/mcL Lymphocytes # (0.6-4.6) K/mcL Monocytes # (0.0-1.3) K/mcL Eosinophils # (0.0-0.6) K/mcL Basophils # (0.0-0.2) K/mcL Sodium (136-145) mEq/L Potassium (3.5-5.1) mEq/L Chloride (98-107) mEq/L Carbon Dioxide (23-29) mEq/L BUN (8-23) mg/dL Creatinine (0.70-1.30) mg/dL Est GFR ( Amer) (> 60) Est GFR (Non-Af Amer) (> 60) BUN/Creatinine Ratio (6-26) Glucose (70-105) mg/dL Calculated Osmolality (280-300) Lactic Acid (0.5-2.2) mmol/L Calcium (8.6-10.3) mg/dL Magnesium (1.6-2.6) mg/dL Total Bilirubin (0.3-1.0) mg/dL Direct Bilirubin (0.0-0.2) mg/dL Indirect Bilirubin (0.0-1.2) mg/dL AST (13-39) Units/L ALT (7-52) Units/L Alkaline Phosphatase (34-104) Units/L Troponin I (< 0.04) ng/mL B-Natriuretic Peptide 147 H (Less than 100) pg/mL Serum Total Protein (6.4-8.9) g/dL Albumin (3.5-5.7) g/dL Globulin (2.4-3.5) g/dL Albumin/Globulin Ratio (1.1-2.2) Lipase (11-82) Units/L Urine Color Yellow (Yellow) Urine Clarity Clear (Clear) Urine pH 6.5 (5.0-8.0) pH Units Ur Specific [place] 1.015 (1.010-1.025) Urine Protein 100 H (Neg-Trace) mg/dL Urine Glucose (UA) 100 H (Normal) mg/dL Urine Ketones Negative (Negative) mg/dL Urine Blood Trace-lysed H (Negative) Urine Nitrite Negative (Negative) Urine Bilirubin Negative (Negative) Urine Urobilinogen Normal (Normal) mg/dL Ur Leukocyte Esterase Negative (Negative) Urine Microscopic RBC 0-3 (0-3) per hpf Urine Microscopic WBC 0-3 (0-3) per hpf Ur Squamous Epith Cells Moderate H (None-Few) per lpf Urine Bacteria None Seen (None-Few) per hpf Hyaline Casts None Seen (None-Few) per lpf Ur Culture Indicated? NO (NO) Digoxin 1.1 (0.8-2.0) ng/mL Carbamazepine 12 (4-12) mcg/mL
[2019-06-05 18:20] LABS: Basophils # 0.1 K/mcL (0.0-0.2); Basophils % 0.7 %; Eosinophils # 0.2 K/mcL (0.0-0.6); Eosinophils % 1.6 %; Hematocrit 34.3 % (37.5-50.1); Hemoglobin 12.4 g/dL (12.9-16.9); Immature Granulocytes % 2.8 % (0-4); Lymphocytes # 0.5 K/mcL (0.6-4.6); Lymphocytes % 3.4 %; Mean Corpuscular HGB Conc 36.2 g/dL (31.6-35.5); Mean Corpuscular Hemoglobin 34.6 pg (28.0-33.3); Mean Corpuscular Volume 95.8 fL (83.0-100.0); Mean Platelet Volume 8.3 fL (9.4-12.4); Monocytes # 1.1 K/mcL (0.0-1.3); Monocytes % 7.7 %; Neutrophils # 12.3 K/mcL (1.6-8.9); Platelet Count 236 K/mcL (140-400); Red Blood Count 3.58 M/mcL (4.19-5.50); Red Cell Distribution Width 13.7 % (11.5-14.5); Segmented Neutrophils % 83.8 %; White Blood Count 14.7 K/mcL (4.3-11.1)
[2019-06-05] MEDS ORDERED: 0.9 % Sodium Chloride 500 ML ONE ×2 (18:28→20:44)
[2019-06-05 18:43] LABS: Digoxin 1.1 ng/mL (0.8-2.0)
[2019-06-05 18:46] LABS: Alanine Aminotransferase 31 Units/L (7-52); Albumin 3.9 g/dL (3.5-5.7); Albumin/Globulin Ratio 1.1 (1.1-2.2); Alkaline Phosphatase 124 Units/L (34-104); Aspartate Amino Transferase 27 Units/L (13-39); BUN/Creatinine Ratio 19 (6-26); Bilirubin,Direct 0.3 mg/dL (0.0-0.2); Bilirubin,Indirect 0.7 mg/dL (0.0-1.2); Blood Urea Nitrogen 21 mg/dL (8-23); Calcium 9.4 mg/dL (8.6-10.3); Carbon Dioxide 27 mEq/L (23-29); Chloride 87 mEq/L (98-107); Globulin 3.6 g/dL (2.4-3.5); Glucose 174 mg/dL (70-105); Lipase 5 Units/L (11-82); Magnesium 1.8 mg/dL (1.6-2.6); Osmolality,Calculated 265 (280-300); Potassium 4.6 mEq/L (3.5-5.1); Sodium 124 mEq/L (136-145); Total Protein 7.5 g/dL (6.4-8.9); Troponin I 0.03 ng/mL (< 0.04); eGFR For African Americans > 60 (> 60); eGFR For Non-African Americans > 60 (> 60)
[2019-06-05 20:01] LABS: Bilirubin,Urine Negative (Negative); Blood,Urine Trace-lysed (Negative); Clarity,Urine Clear (Clear); Color,Urine Yellow (Yellow); Glucose,Urine (UA) 100 mg/dL (Normal); Ketones,Urine Negative (Negative); Leukocyte Esterase,Urine Negative (Negative); Nitrite,Urine Negative (Negative); PH,Urine 6.5 pH Units (5.0-8.0); Protein,Urine 100 mg/dL (Neg-Trace); Specific Gravity,Urine 1.015 (1.010-1.025); Urobilinogen,Urine Normal (Normal)
[2019-06-05 20:03] LABS: Bacteria,Urine None Seen per hpf (None-Few); Hyaline Casts,Urine None Seen per lpf (None-Few); RBC,Urine 0-3 per hpf (0-3); Squamous Epithelial Cell,Urine Moderate per lpf (None-Few); WBC,Urine 0-3 per hpf (0-3)
[2019-06-05] MEDS ORDERED: Azithromycin 500 MG in D5% in Water 250 ML IVPB ONE (20:35)
[2019-06-05] MEDS ORDERED: Ipratropium/Albuterol Neb 3 ML IH PRN (21:15)
[2019-06-05] MEDS ORDERED: 0.9 % Sodium Chloride 1,000 ML IVC SCH (21:15)
[2019-06-05] MEDS ORDERED: *HR* Dextrose 50 % in Water (Syg) 50 ML SYRINGE IVP PRN (21:17)
[2019-06-05] MEDS ORDERED: Dextrose Gel 15 GM/37.5 ML TUBE PO PRN ×2 (21:17)
[2019-06-05] MEDS ORDERED: Acetaminophen 325 MG TABLET PO PRN (22:00)
--- NOTE | 2019-06-05 22:16 | Internal Med History&Physical ---
Date of Encounter: 06/05/19 Time of Encounter: 22:15 Internal Medicine - H&P: HPI Chief complaint: sob Admitted From: Home Plans for Post Hospital Care: Home History of present illness: Lobito Johnson is an 84-year-old man with atrial fibrillation on rivaroxaban, coronary artery disease, diabetes, chronic kidney disease and COPD on home oxygen and currently resides at a retirement and went to the cancer Center today for routine blood work where he is being followed for anemia. He was referred from there to our ER because lab studies performed revealed a leukocyte count of 17 and he felt unwell. Reports several days of generalized weakness, generalized body aches, productive cough and nasal congestion. He also reports increasing shortness of breath. He denies chest pain, fever and chills. Reports significant fatigue because of his symptoms, loss of appetite. No nausea, vomiting or diarrhea reported. No dysuria. Repeat lab studies showed a leukocyte count of 14.7, sodium of 124, chloride 87. Digoxin and carbamazepine levels were done as these medications were found on his medication list but found to be within normal limits. Imaging studies were not remarkable for acute findings. The stated that he was rhonchorous on auscultation had diffuse wheezing so he was given a nebulizer treatment in addition to systemic steroids, fluids and a dose of azithromycin. He is admitted for observation. At the time of my assessment he says he feels much better after receiving the aforementioned treatment. Vitals: Reviewed General: We will developed elderly man lying comfortably in bed in no acute distress. Skin: Warm pale and dry. HEENT: Slightly dry mucous membranes. No conjunctivae pallor. Neck: No lymphadenopathy. No JVD. No carotid bruits. No palpable thyroid. Chest: Diminished thoracic expansion. No wheezes, rales or rhonchi. Heart: Normal S1 & S2; rhythmic. No rubs or murmurs. Abdomen: Non-distended, soft and mildly tender to palpation diffusely. No peritoneal reaction. Extremities: No clubbing, cyanosis or edema. No calf tenderness. Normal distal pulses. Neurological: Awake, alert and oriented to person, place and time. No focal deficits. Psych: Affect appropriate. Assessment/Plan 1. Upper respiratory infection: Suspect the patient had developed a viral syndrome precipitating the symptoms compounded by his underlying COPD but given his residence as a nursing facility and his elderly age there is always a possibility for bacterial coinfection as well given the leukocytosis and productive cough. His chest x-ray does not reveal a focal infiltrate suggesting pneumonia therefore bronchitis picture may be more at play. Approved with nebulizer therapy and at the time of my evaluation he was saturating comfortably on room air. We will place nebulizer therapy orders overnight, continue azithromycin for 3 day course in addition to steroids. Obtain a respiratory infection panel. 2. Electrolyte imbalances: As evidenced by hyponatremia and hypochloremia. Suspect hypovolemic in etiology. Will provide IV NS overnight and recheck values. 3. Atrial fibrillation: Adequate rate control and on anticoagulation. Medications to be continued. 4. Diabetes: Will order diabetic diet, continue basal insulin and sliding scale. 5. CAD: On aspirin. Past Med Surg Social Fam HX - Past Medical History Medical history: asthma, atrial fibrillation, cancer, COPD, coronary artery disease, diabetes, hypertension, kidney stones, myocardial infarction, renal disease, other Additional medical history: anemia, type II diabetic, hernia, colon cancer, sleep apnea Psychiatric history: anxiety, depression - Past Surgical History Surgical History: cataract Additional surgical history: 5 cardiac stents, right hand - Social History Smoking Status: Former smoker Smokeless Tobacco Status: No Alcohol use: none Drug use: none - Family History Mother Living Status: Hx Family Cardiac Disorders: Yes Hx Family Respiratory Disorders: No Hx Family Cancer: No Hx Family GI Disorders: No Hx Family Endocrine Disorder: Yes Hx Family Neuromuscular Disorders: No Hx Family Neurologic Disorders: Yes Hx Family HEENT Disorders: No Hx Family Autoimmune Disorders: No Father Adopted: No Family Member Ethnicity: Non- Living Status: Hx Family Cardiac Disorders: Yes Internal Medicine - H&P: Meds Aspirin 81 mg PO DAILY 04/20/15 [History] Digoxin [Lanoxin] 0.125 mg PO DAILY 12/02/15 [History] Apremilast [Otezla] 30 mg PO BID 01/26/18 [History] Docusate Sodium [Dok] 100 mg PO DAILY 01/26/18 [History] Fluticasone/Vilanterol [Breo Ellipta 200-25 Mcg INH] 1 puff IH DAILY 01/26/18 [History] Polyethylene Glycol 3350 [MiraLAX Powder Bulk 17.9 Oz] 17 g PO QAM 01/26/18 [History] carBAMazepine [Tegretol] 200 mg PO BID 01/26/18 [History] Insulin DETEMIR [Levemir] 38 units SQ HS 03/21/18 [History] Insulin Regular, Human [Novolin R] 6 units SQ TIDAC 03/21/18 [History] Metoprolol [Lopressor] 12.5 mg PO BID 03/21/18 [History] ALPRAZolam [Xanax 0.5 MG Tablet] 0.5 mg PO HS 7 Days #7 tablet 03/31/18 [Rx] Spironolactone [Aldactone] 50 mg PO BID 04/28/18 [History] Ursodiol [Actigall] 300 mg PO BID 08/25/18 [History] Furosemide [Lasix] 40 mg PO DAILY 11/24/18 [History] Acetaminophen [Non-Aspirin] 650 mg PO Q4H PRN 06/05/19 [History] Diltiazem CD (24hr) [Cardizem CD] 180 mg PO DAILY 06/05/19 [History] Allergy/AdvReac Type Severity Reaction Status Date / Time sulfamethoxazole Allergy See Verified 02/27/19 08:40 [From Bactrim] Comments trimethoprim [From Bactrim] Allergy See Verified 02/27/19 08:40 Comments atorvastatin AdvReac Dizziness Verified 02/27/19 08:40 clopidogrel [From Plavix] AdvReac Dizziness Verified 02/27/19 08:40 lovastatin AdvReac Dizziness Verified 02/27/19 08:40 pioglitazone [From Actos] AdvReac Dizziness Verified 02/27/19 08:40 pravastatin AdvReac Dizziness Verified 02/27/19 08:40 Rosiglitazone AdvReac Dizziness Verified 02/27/19 08:40 flu vaccine Allergy Dizziness Uncoded 02/27/19 08:40 All Systems PM: A 10-system review of systems was performed and is negative for pertinent findings except as documented above in the HPI. - Constitutional Vitals: Temp Pulse Resp BP Pulse Ox 98.5 F 89 19 105/61 96 06/05/19 17:40 06/05/19 21:21 06/05/19 21:21 06/05/19 21:21 06/05/19 21:21 Exam: . Internal Med - H&P Results - Labs CBC & Chem 7: 06/05/19 18:07 06/05/19 18:07 Labs: Short CBC 06/05/19 Range/Units 18:07 WBC 14.7 H (4.3-11.1) K/mcL Hgb 12.4 L (12.9-16.9) g/dL Hct 34.3 L (37.5-50.1) % Plt Count 236 (140-400) K/mcL Neutrophils # 12.3 H (1.6-8.9) K/mcL BMP 06/05/19 18:07 Sodium 124 L Potassium 4.6 Chloride 87 L Carbon Dioxide 27 BUN 21 Creatinine 1.08 Glucose 174 H Calcium 9.4 Cardiac Enzymes 06/05/19 Range/Units 18:07 Troponin I 0.03 (< 0.04) ng/mL Liver Function 06/05/19 Range/Units 18:07 Total Bilirubin 1.0 (0.3-1.0) mg/dL Direct Bilirubin 0.3 H (0.0-0.2) mg/dL AST 27 (13-39) Units/L ALT 31 (7-52) Units/L Alkaline Phosphatase 124 H (34-104) Units/L Albumin 3.9 (3.5-5.7) g/dL Urine 06/05/19 Range/Units 19:50 Urine Color Yellow (Yellow) Urine Clarity Clear (Clear) Urine pH 6.5 (5.0-8.0) pH Units Ur Specific [place] 1.015 (1.010-1.025) Urine Protein 100 H (Neg-Trace) mg/dL Urine Glucose (UA) 100 H (Normal) mg/dL - Impressions ITS Impressions Abdomen/Pelvis CT 06/05/19 18:16 IMPRESSION: Findings of chronic pancreatitis. Small pleural effusions and partial consolidation lower lobes, improved. D/ / Halie Mejia MD / Halie Mejia MD Interpreting Provider: Halie Mejia MD Chest X-Ray 06/05/19 19:11 IMPRESSION: Findings as above concerning for congestive heart failure and mild edema. D/ / Halie Mejia MD / Halie Mejia MD Interpreting Provider: Halie Mejia MD - Time Spent With Patient Total time spent is greater than 50% in coordination of care (as documented) at patient's floor/unit and/or counseling patient:
[2019-06-05] MEDS ORDERED: Insulin LISPRO 300 UNITS/3 ML VIAL SQ SCH (23:15)
[2019-06-05] MEDS ORDERED: Insulin LISPRO 300 UNITS/3 ML VIAL SQ ONE (23:30)
[2019-06-05 23:37] LABS: Adenovirus Not Detected (Not Detect); Bordetella Pertussis Not Detected (Not Detect); Chlamydophila pneumoniae Not Detected (Not Detect); Coronavirus 229E Not Detected (Not Detect); Coronavirus HKU1 Not Detected (Not Detect); Coronavirus NL63 Not Detected (Not Detect); Coronavirus OC43 Not Detected (Not Detect); Human Metapneumovirus Not Detected (Not Detect); Human Rhinovirus/Enterovirus DETECTED (Not Detect); Influenza A Subtype 2009 H1 Not Detected (Not Detect); Influenza A Untypeable Not Detected (Not Detect); Influenza B Not Detected (Not Detect); Mycoplasma pneumoniae Not Detected (Not Detect); Parainfluenza Virus 1 Not Detected (Not Detect); Parainfluenza Virus 2 Not Detected (Not Detect); Parainfluenza Virus 3 Not Detected (Not Detect); Parainfluenza Virus 4 Not Detected (Not Detect); Respiratory Syncytial Virus Not Detected (Not Detect)
[2019-06-06] MEDS: Ipratropium/Albuterol Neb 3 ML IH SCH ×7 (00:13→23:53)
[2019-06-06] MEDS: GuaiFENesin Liq 200 MG/10 ML UDC PO PRN ×3 (01:15→21:24)
[2019-06-06 03:49] LABS: BUN/Creatinine Ratio 21 (6-26); Blood Urea Nitrogen 22 mg/dL (8-23); Calcium 8.5 mg/dL (8.6-10.3); Carbon Dioxide 24 mEq/L (23-29); Chloride 90 mEq/L (98-107); Glucose 333 mg/dL (70-105); Osmolality,Calculated 276 (280-300); Phosphorous 2.7 mg/dL (2.7-4.5); Potassium 4.8 mEq/L (3.5-5.1); Sodium 125 mEq/L (136-145); eGFR For African Americans > 60 (> 60); eGFR For Non-African Americans > 60 (> 60)
[2019-06-06 03:55] LABS: Basophils % 0.4 %; Eosinophils % 0.1 %; Hematocrit 31.6 % (37.5-50.1); Hemoglobin 10.9 g/dL (12.9-16.9); Lymphocytes # 0.2 K/mcL (0.6-4.6); Lymphocytes % 1.9 %; Mean Corpuscular HGB Conc 34.5 g/dL (31.6-35.5); Mean Corpuscular Hemoglobin 34.2 pg (28.0-33.3); Mean Corpuscular Volume 99.1 fL (83.0-100.0); Mean Platelet Volume 9.1 fL (9.4-12.4); Monocytes # 0.1 K/mcL (0.0-1.3); Monocytes % 1.5 %; Neutrophils # 8.7 K/mcL (1.6-8.9); Nucleated Red Blood Cells 0.2 /100 WBC (0); Platelet Count 199 K/mcL (140-400); Red Blood Count 3.19 M/mcL (4.19-5.50); Red Cell Distribution Width 13.9 % (11.5-14.5); Segmented Neutrophils % 93.1 %; White Blood Count 9.3 K/mcL (4.3-11.1)
[2019-06-06] MEDS: *HR* Heparin 5,000 UNIT/ML VIAL SQ SCH ×2 (05:05→17:02)
[2019-06-06 05:16] LABS: Platelet Estimate Normal (Normal)
[2019-06-06] MEDS ORDERED: Insulin LISPRO 300 UNITS/3 ML VIAL SQ SCH (07:30)
[2019-06-06] MEDS: Ringers Solution, Lactated 1,000 ML IVC SCH ×2 (08:24→21:25)
[2019-06-06] MEDS: Aspirin 81 MG TAB.CHEW PO SCH (08:28)
[2019-06-06] MEDS: carBAMazepine 200 MG TABLET PO SCH ×2 (08:28→21:23)
[2019-06-06] MEDS: Spironolactone 25 MG TABLET PO SCH ×2 (08:28→21:24)
[2019-06-06] MEDS: Diltiazem CD (24hr) 180 MG CAPSULE PO SCH (08:28)
[2019-06-06] MEDS: predniSONE 20 MG TABLET PO SCH (08:28)
[2019-06-06] MEDS: *HR* Digoxin 0.125 MG TABLET PO SCH (08:28)
[2019-06-06] MEDS: Insulin LISPRO 300 UNITS/3 ML VIAL SQ SCH ×7 (08:30→21:41)
[2019-06-06] MEDS ORDERED: (Breo Ellipta 200-25 Mcg Inh) IH SCH (09:00)
[2019-06-06] MEDS ORDERED: (Apremilast [Otezla] 30 MG) PO SCH (09:00)
--- NOTE | 2019-06-06 11:17 | Internal Med Progress Note ---
Hospitalist Progress Note - Encounter Date of Encounter: 06/06/19 Time of Encounter: 09:45 - Subjective Interval History: H&P reviewed. 84-year-old male with history of atrial fibrillation not on anticoagulation, oxygen dependent COPD, CAD, was admitted overnight due to acute exacerbation of COPD. Entero/rhinovirus +ve. Reports mild improvement in his dyspnea. No fever overnight. Denies any headache, blurring of vision, or focal weakness/numbness. - Exam Vitals: Temp Pulse Resp BP Pulse Ox 98 F 97 22 125/83 100 06/06/19 04:50 06/06/19 07:02 06/06/19 07:19 06/06/19 07:02 06/06/19 07:19 Exam: General: Alert and oriented, mild distress Cardiovascular:Normal S1 & S2, No JVD. Pulse irregular and tachycardic Lungs: Diffuse wheezing bilaterally Abdomen:Soft, non-tender, no rigidity. Extremities:No deformity or swelling Neurological:Normal cognition and motor skills. Non-focal - Assessment and Plan (1) COPD with acute exacerbation Current Visit: Yes Status: Acute Assessment and Plan: Was transferred from cancer center to the ED due to leukocytosis and pt's reported symptom of generalized weakness and SOB No evidence of antony consolidation on chest x-ray Entero/rhinovirus +ve Clinically improving on azithromycin, steroid, and scheduled bronchodilators. Continue (2) Hyponatremia Current Visit: Yes Status: Acute Assessment and Plan: acute on chronic, baseline appears to be around 130 124-125 after IVF, will continue LR at 75ml/hr today (3) Atrial fibrillation Current Visit: No Status: Chronic Assessment and Plan: not on AC at home ?presumably due to high fall risk Resume home meds (4) CAD (coronary artery disease) Current Visit: No Status: Chronic Assessment and Plan: Resume all meds (5) CKD (chronic kidney disease), stage III Current Visit: No Status: Chronic Assessment and Plan: Creatinine at his baseline, avoid nephrotoxins (6) Diabetes mellitus Current Visit: No Status: Chronic Assessment and Plan: Continue basal bolus insulin but will increase the sliding scale to medium dose. DVT Prophylaxis: Subcutaneous heparin - Time Spent with Patient Total time spent is greater than 50% in coordination of care (as documented) at patient's floor/unit and/or counseling patient: 25 - 35 minutes Plan of Care Discussed with: patient Internal Medicine: Result - Labs CBC & Chem 7: 06/06/19 01:56 06/06/19 01:56 Labs: Short CBC 06/05/19 06/06/19 Range/Units 18:07 01:56 WBC 14.7 H 9.3 (4.3-11.1) K/mcL Hgb 12.4 L 10.9 L D (12.9-16.9) g/dL Hct 34.3 L 31.6 L (37.5-50.1) % Plt Count 236 199 (140-400) K/mcL Neutrophils # 12.3 H 8.7 (1.6-8.9) K/mcL BMP 06/05/19 06/06/19 18:07 01:56 Sodium 124 L 125 L Potassium 4.6 4.8 Chloride 87 L 90 L Carbon Dioxide 27 24 BUN 21 22 Creatinine 1.08 1.05 Glucose 174 H 333 H Calcium 9.4 8.5 L Cardiac Enzymes 06/05/19 Range/Units 18:07 Troponin I 0.03 (< 0.04) ng/mL Liver Function 06/05/19 Range/Units 18:07 Total Bilirubin 1.0 (0.3-1.0) mg/dL Direct Bilirubin 0.3 H (0.0-0.2) mg/dL AST 27 (13-39) Units/L ALT 31 (7-52) Units/L Alkaline Phosphatase 124 H (34-104) Units/L Albumin 3.9 (3.5-5.7) g/dL Urine 06/05/19 Range/Units 19:50 Urine Color Yellow (Yellow) Urine Clarity Clear (Clear) Urine pH 6.5 (5.0-8.0) pH Units Ur Specific [place] 1.015 (1.010-1.025) Urine Protein 100 H (Neg-Trace) mg/dL Urine Glucose (UA) 100 H (Normal) mg/dL - Impressions Impressions Abdomen/Pelvis CT 06/05/19 18:16 IMPRESSION: Findings of chronic pancreatitis. Small pleural effusions and partial consolidation lower lobes, improved. D/ / Halie Mejia MD / Halie Mejia MD Interpreting Provider: Halie Mejia MD Chest X-Ray 06/05/19 19:11 IMPRESSION: Findings as above concerning for congestive heart failure and mild edema. D/ / Halie Mejia MD / Halie Mejia MD Interpreting Provider: Halie Mejia MD Consult Discharge Plan - Plan Referrals: Roldan Collado DO [Primary Care Provider] - (3) Atrial fibrillation Qualifiers: Atrial fibrillation type: chronic Qualified Code(s): I48.2 - Chronic atrial fibrillation (4) CAD (coronary artery disease) Qualifiers: Coronary Disease-Associated Artery/Lesion type: [place] artery [place] vs. transplanted heart: [place] heart Associated angina: without angina Qualified Code(s): I25.10 - Atherosclerotic heart disease of [place] coronary artery without angina pectoris (6) Diabetes mellitus Qualifiers: Diabetes mellitus type: type 2 Diabetes mellitus correction insulin use: with tool pusher use Diabetes mellitus complication status: without complication Qualified Code(s): E11.9 - Type 2 diabetes mellitus without complications; Z79.4 - budget officer (current) use of insulin
[2019-06-06] MEDS: *HR* Metoprolol 5 MG/5 ML VIAL IVP PRN ×2 (17:35→22:40)
[2019-06-06] MEDS: Budesonide/Formoterol 80/4.5 1 PUFF INH IH SCH (20:07)
[2019-06-06] MEDS ORDERED: Insulin DETEMIR 100 UNIT/ML X5UNITS SQ SCH (21:00)
[2019-06-06] MEDS ORDERED: Azithromycin 500 MG in D5% in Water 250 ML IVPB SCH (21:00)
[2019-06-06] MEDS: Benzonatate 100 MG CAPSULE PO PRN (21:24)
[2019-06-06] MEDS: Acetaminophen 325 MG TABLET PO PRN (21:53)
[2019-06-06] MEDS: ALPRAZolam 0.5 MG TABLET PO SCH (22:02)
[2019-06-06] MEDS ORDERED: *HR* HYDROcodone/Acet 5/325 mg TABLET PO ONE (22:34)
[2019-06-06] MEDS ORDERED: Insulin LISPRO 300 UNITS/3 ML VIAL SQ ONE (22:53)
[2019-06-07] MEDS: Ipratropium/Albuterol Neb 3 ML IH SCH ×6 (04:26→23:45)
[2019-06-07 05:01] LABS: Hematocrit 27.8 % (37.5-50.1); Hemoglobin 9.8 g/dL (12.9-16.9); Mean Corpuscular HGB Conc 35.3 g/dL (31.6-35.5); Mean Corpuscular Hemoglobin 35.1 pg (28.0-33.3); Mean Corpuscular Volume 99.6 fL (83.0-100.0); Mean Platelet Volume 8.8 fL (9.4-12.4); Platelet Count 195 K/mcL (140-400); Red Blood Count 2.79 M/mcL (4.19-5.50); Red Cell Distribution Width 13.8 % (11.5-14.5); White Blood Count 11.5 K/mcL (4.3-11.1)
[2019-06-07 05:19] LABS: BUN/Creatinine Ratio 28 (6-26); Blood Urea Nitrogen 28 mg/dL (8-23); Calcium 8.5 mg/dL (8.6-10.3); Carbon Dioxide 26 mEq/L (23-29); Chloride 90 mEq/L (98-107); Glucose 296 mg/dL (70-105); Osmolality,Calculated 274 (280-300); Potassium 4.3 mEq/L (3.5-5.1); Sodium 124 mEq/L (136-145); eGFR For African Americans > 60 (> 60); eGFR For Non-African Americans > 60 (> 60)
[2019-06-07] MEDS: *HR* Heparin 5,000 UNIT/ML VIAL SQ SCH ×2 (05:56→17:47)
[2019-06-07] MEDS: Budesonide/Formoterol 80/4.5 1 PUFF INH IH SCH ×2 (07:26→19:45)
[2019-06-07] MEDS: *HR* HYDROcodone/Acet 5/325 mg TABLET PO PRN ×2 (09:15→14:08)
[2019-06-07] MEDS: GuaiFENesin Liq 200 MG/10 ML UDC PO PRN ×3 (09:16→21:33)
[2019-06-07] MEDS: carBAMazepine 200 MG TABLET PO SCH ×2 (09:16→21:32)
[2019-06-07] MEDS: predniSONE 20 MG TABLET PO SCH (09:17)
[2019-06-07] MEDS: Spironolactone 25 MG TABLET PO SCH ×2 (09:17→21:31)
[2019-06-07] MEDS: *HR* Digoxin 0.125 MG TABLET PO SCH (09:17)
[2019-06-07] MEDS: Diltiazem CD (24hr) 180 MG CAPSULE PO SCH (09:17)
[2019-06-07] MEDS: Insulin LISPRO 300 UNITS/3 ML VIAL SQ SCH ×6 (09:18→21:33)
[2019-06-07] MEDS: Aspirin 81 MG TAB.CHEW PO SCH (09:18)
[2019-06-07] MEDS: Ringers Solution, Lactated 1,000 ML IVC SCH (10:05)
[2019-06-07] MEDS ORDERED: 0.9 % Sodium Chloride 1,000 ML IVC SCH (11:30)
--- NOTE | 2019-06-07 11:38 | Internal Med Progress Note ---
Hospitalist Progress Note - Encounter Date of Encounter: 06/07/19 Time of Encounter: 11:34 - Subjective Interval History: I have seen and evaluated the patient at bedside. patient reported pleuritic chest pain, aggravated with coughing. reports LUQ abdominal discomfort associated with coughing as well. denies nausea or vomiting. reports still feeling mildly short of breath. - Exam Vitals: Temp Pulse Resp BP Pulse Ox 97.7 F 90 17 111/75 96 06/07/19 07:39 06/07/19 07:39 06/07/19 11:15 06/07/19 07:39 06/07/19 11:15 Exam: Vitals: Reviewed General: Alert and oriented x4. in mild distress due to pleuritic chest pain Skin: Normal color, no rash, no lesions. HEENT: EOM, pupils equal, round and reactive. Cardiovascular: Irregularly irregular, normal S1 & S2, no rubs, murmurs or gallops. Lungs: b/l expiratory wheezes, no rales or crackles. Abdomen: Soft, mild tenderness to deep palpation LUQ, no rigidity. Extremities: 1+ pitting edema in the lower extr b/l. Neurological: Normal cognition and motor skills. Rest of the physical exam is non contributory - Assessment and Plan (1) COPD with acute exacerbation Current Visit: Yes Status: Acute Assessment and Plan: patient still reports shortness of breath, productive cough. wheezing on auscult ation. +ve enter/[place] virus Plan dc oral steroids started on IV steroids 40mg/IV Q8HRs c/w bronchodilators Q4RT scheduled on symbicort incentive spirometry sputum culture and gram stain ordered legionella, and strep ordered (2) Hyponatremia Current Visit: Yes Status: Acute Assessment and Plan: unclear etiology possible due to acute bronchitis. started on oral sodium chloride. Discontinue lactated Ringer. started on 0.9%NS @75ml/hr x1 litter. urine osm urine electrolytes ordered (3) Atrial fibrillation Current Visit: No Status: Chronic Assessment and Plan: Rate controlled on metoprolol, diltiazem 180 mg by mouth daily. And digoxin 0.125 mg by mouth daily. Not on anticoagulation due to high risk of falls. (4) CAD (coronary artery disease) Current Visit: No Status: Chronic Assessment and Plan: Continue aspirin 81 mg by mouth daily. (5) CKD (chronic kidney disease), stage III Current Visit: No Status: Chronic Assessment and Plan: Kidney function at baseline. Continue to avoid nephrotoxic medication. (6) Diabetes mellitus Current Visit: No Status: Chronic Assessment and Plan: Blood sugar suboptimally controlled. Lispro increased to 10 units ac. levemir increased to 40 units hs. continue lispro medium dose sliding scale ac. carbs controlled diet (7) Chronic pancreatitis Current Visit: Yes Status: Chronic DVT Prophylaxis: On heparin subcutaneous. - Summary of Assessment and Plan Summary of Assessment and Plan: Patient to remain in the hospital due to acute COPD exacerbation. On high dose of IV steroids. - Time Spent with Patient Total time spent is greater than 50% in coordination of care (as documented) at patient's floor/unit and/or counseling patient: Greater than 35 minutes (35) Plan of Care Discussed with: patient (and the nurse.) Internal Medicine: Result - Labs CBC & Chem 7: 06/07/19 04:33 06/07/19 04:33 Labs: Short CBC 06/07/19 Range/Units 04:33 WBC 11.5 H (4.3-11.1) K/mcL Hgb 9.8 L (12.9-16.9) g/dL Hct 27.8 L (37.5-50.1) % Plt Count 195 (140-400) K/mcL BMP 06/07/19 04:33 Sodium 124 L Potassium 4.3 Chloride 90 L Carbon Dioxide 26 BUN 28 H Creatinine 1.00 Glucose 296 H Calcium 8.5 L Consult Discharge Plan - Plan Referrals: Roldan Collado DO [Primary Care Provider] - ___ (3) Atrial fibrillation Qualifiers: Atrial fibrillation type: chronic Qualified Code(s): I48.2 - Chronic atrial fibrillation (4) CAD (coronary artery disease) Qualifiers: Coronary Disease-Associated Artery/Lesion type: [place] artery [place] vs. transplanted heart: [place] heart Associated angina: without angina Qualified Code(s): I25.10 - Atherosclerotic heart disease of [place] coronary artery without angina pectoris (6) Diabetes mellitus Qualifiers: Diabetes mellitus type: type 2 Diabetes mellitus skilled nursing insulin use: with marine oil terminal superintendent use Diabetes mellitus complication status: without complication Qualified Code(s): E11.9 - Type 2 diabetes mellitus without complications; Z79.4 - skilled nursing (current) use of insulin (7) Chronic pancreatitis Qualifiers: Pancreatitis type: unspecified pancreatitis type Qualified Code(s): K86.1 - Other chronic pancreatitis
--- NOTE | 2019-06-07 17:45 | Electrocardiograph Report ---
[facility] Test Date: 2019-06-05 Pat Name: Lobito Johnosn Department: EXAM1 Room: 2NE33 Gender: M Percher: : 1935 Requested By: Enrrique Larsen Order Number: [id number] Reading MD: Wm Mendez Measurements Intervals [place] Rate: 109 P: IA: QRS: 88 QRSD: 126 T: 9 QT: 330 QTc: 445 Interpretive Statements Atrial fibrillation Electronically Signed On 06-07-2019 17:43:51 EDT by Wm Mendez
[2019-06-07] MEDS: Benzonatate 100 MG CAPSULE PO PRN ×2 (17:47→21:32)
[2019-06-07] MEDS: MethylPREDNISolone 40 MG/ML VIAL IVP SCH (17:47)
[2019-06-07] MEDS ORDERED: Insulin DETEMIR 100 UNIT/ML X5UNITS SQ SCH (21:00)
[2019-06-07] MEDS: ALPRAZolam 0.5 MG TABLET PO SCH (21:32)
[2019-06-07] MEDS: *HR* Metoprolol 5 MG/5 ML VIAL IVP PRN (21:33)
[2019-06-08] MEDS: MethylPREDNISolone 40 MG/ML VIAL IVP SCH ×3 (00:01→20:55)
[2019-06-08] MEDS: Ipratropium/Albuterol Neb 3 ML IH SCH ×5 (03:41→19:51)
[2019-06-08] MEDS: *HR* Heparin 5,000 UNIT/ML VIAL SQ SCH ×2 (05:38→16:55)
[2019-06-08 05:54] LABS: Hematocrit 31.7 % (37.5-50.1); Hemoglobin 10.6 g/dL (12.9-16.9); Mean Corpuscular HGB Conc 33.4 g/dL (31.6-35.5); Mean Corpuscular Hemoglobin 33.7 pg (28.0-33.3); Mean Corpuscular Volume 100.6 fL (83.0-100.0); Mean Platelet Volume 8.4 fL (9.4-12.4); Platelet Count 208 K/mcL (140-400); Red Blood Count 3.15 M/mcL (4.19-5.50); Red Cell Distribution Width 13.7 % (11.5-14.5)
[2019-06-08] MEDS: GuaiFENesin Liq 200 MG/10 ML UDC PO PRN ×2 (06:24→23:23)
[2019-06-08] MEDS: Benzonatate 100 MG CAPSULE PO PRN (06:25)
[2019-06-08] MEDS: *HR* HYDROcodone/Acet 5/325 mg TABLET PO PRN ×3 (06:25→23:23)
[2019-06-08 06:47] LABS: Lymphocytes # 0.4 K/mcL (0.6-4.6); Monocytes # 0.1 K/mcL (0.0-1.3); Neutrophils # 6.5 K/mcL (1.6-8.9); Platelet Estimate Normal (Normal)
[2019-06-08 06:53] LABS: BUN/Creatinine Ratio 25 (6-26); Blood Urea Nitrogen 24 mg/dL (8-23); Calcium 9.1 mg/dL (8.6-10.3); Carbon Dioxide 26 mEq/L (23-29); Chloride 93 mEq/L (98-107); Glucose 288 mg/dL (70-105); Magnesium 1.9 mg/dL (1.6-2.6); Osmolality,Calculated 281 (280-300); Phosphorous 2.9 mg/dL (2.7-4.5); Potassium 4.9 mEq/L (3.5-5.1); Sodium 128 mEq/L (136-145); eGFR For African Americans > 60 (> 60); eGFR For Non-African Americans > 60 (> 60)
[2019-06-08 07:04] LABS: Amylase 17 Units/L (29-103); Lipase < 3 Units/L (11-82)
[2019-06-08] MEDS: Budesonide/Formoterol 80/4.5 1 PUFF INH IH SCH ×2 (07:57→19:52)
[2019-06-08] MEDS: Spironolactone 25 MG TABLET PO SCH ×2 (08:16→20:55)
[2019-06-08] MEDS: Aspirin 81 MG TAB.CHEW PO SCH (08:16)
[2019-06-08] MEDS: levoFLOXacin 750 MG/150 ML 750 MG/150 ML BAG IVPB SCH (08:16)
[2019-06-08] MEDS: *HR* Digoxin 0.125 MG TABLET PO SCH (08:16)
[2019-06-08] MEDS: Diltiazem CD (24hr) 180 MG CAPSULE PO SCH (08:16)
[2019-06-08] MEDS: Insulin LISPRO 300 UNITS/3 ML VIAL SQ SCH ×7 (08:17→20:55)
[2019-06-08] MEDS: carBAMazepine 200 MG TABLET PO SCH ×2 (08:17→20:55)
--- NOTE | 2019-06-08 13:30 | Internal Med Progress Note ---
Hospitalist Progress Note - Encounter Date of Encounter: 06/08/19 Time of Encounter: 13:28 - Subjective Interval History: I have seen and evaluated the patient at beside. patient reported significant improvement of his respiratory status. Denies nausea, vomiting or chest pain. reports intermittent non-productive cough. - Exam Vitals: Temp Pulse Resp BP Pulse Ox 97.5 F L 100 18 119/85 98 06/08/19 07:24 06/08/19 07:24 06/08/19 11:41 06/08/19 07:24 06/08/19 11:41 Exam: Vitals: Reviewed General: Alert and oriented x4. no acute distress Cardiovascular: Irregularly irregular, normal S1 & S2, no rubs, murmurs or gallops. Lungs: CTA b/l, no rales or crackles. Abdomen: Soft, non-tender, no rigidity. Extremities: 1+ pitting edema in the lower extr b/l. Neurological: No focal neurological abnormalities Rest of the physical exam is non contributory - Assessment and Plan (1) COPD with acute exacerbation Current Visit: Yes Status: Acute Assessment and Plan: Reported multiple sick contacts at the [facility]. patient with significant clinical improvement on respiratory status when compared with yesterday. chest is clear to auscultation. plan decrease methyl-prednisolone to 40mg/IV BID c/w bronchodilators scheduled and symbicort incentive spirometry empirically on levofloxacin 750mg/IV daily. (2) Hyponatremia Current Visit: Yes Status: Acute Assessment and Plan: possible secondary to acute bronchitis. f Plan fluid restriction to 1.5 litters a day on sodium chloride 1gm/PO BID will reassess kidney function tomorrow morning. (3) Atrial fibrillation Current Visit: No Status: Chronic Assessment and Plan: HR controlled at rest but goes to the 120s during coughing spells. metroprolol increased to 25mg/PO BID c/w diltiazem 180mg/PO daily not on full dose anticoagulation due to high fall risks. (4) CAD (coronary artery disease) Current Visit: No Status: Chronic Assessment and Plan: c/w aspirin 81mg/po daily. (5) Diabetes mellitus Current Visit: No Status: Chronic Assessment and Plan: blood sugar sub-optimally controlled possible due to high dose steroids. increase levemir to 25 units bid, and continue lispro 10 units ac, plus high dose sliding scale. carbs controlled diet. (6) Chronic pancreatitis Current Visit: Yes Status: Chronic (7) Moderate malnutrition Current Visit: Yes Status: Acute (8) Stage II decubitus ulcer Current Visit: Yes Status: Chronic Assessment and Plan: wound care consulted, recommendations appreciated DVT Prophylaxis: on Heparin subq. - Summary of Assessment and Plan Summary of Assessment and Plan: Patient to remain in the hospital due to copd exacerbation on IV steroids. Potential discharge in 1-2 days. - Time Spent with Patient Total time spent is greater than 50% in coordination of care (as documented) at patient's floor/unit and/or counseling patient: Greater than 35 minutes (45) Plan of Care Discussed with: patient (and the nurse.) Internal Medicine: Result - Labs CBC & Chem 7: 06/08/19 05:39 06/08/19 05:39 Labs: Short CBC 06/08/19 Range/Units 05:39 WBC 7.0 (4.3-11.1) K/mcL Hgb 10.6 L (12.9-16.9) g/dL Hct 31.7 L (37.5-50.1) % Plt Count 208 (140-400) K/mcL Neutrophils # 6.5 (1.6-8.9) K/mcL BMP 06/08/19 05:39 Sodium 128 L Potassium 4.9 Chloride 93 L Carbon Dioxide 26 BUN 24 H Creatinine 0.96 Glucose 288 H Calcium 9.1 Consult Discharge Plan - Plan Referrals: Roldan Collado DO [Primary Care Provider] - (3) Atrial fibrillation Qualifiers: Atrial fibrillation type: chronic Qualified Code(s): I48.2 - Chronic atrial fibrillation (4) CAD (coronary artery disease) Qualifiers: Coronary Disease-Associated Artery/Lesion type: [place] artery [place] vs. transplanted heart: [place] heart Associated angina: without angina Qualified Code(s): I25.10 - Atherosclerotic heart disease of [place] coronary artery without angina pectoris (5) Diabetes mellitus Qualifiers: Diabetes mellitus type: type 2 Diabetes mellitus pen[facility]iary insulin use: with long term care administrator use Diabetes mellitus complication status: without complication Qualified Code(s): E11.9 - Type 2 diabetes mellitus without complications; Z79.4 - communication equipment repairer (current) use of insulin (6) Chronic pancreatitis Qualifiers: Pancreatitis type: unspecified pancreatitis type Qualified Code(s): K86.1 - Other chronic pancreatitis (8) Stage II decubitus ulcer Qualifiers: Pressure injury location: sacral region Qualified Code(s): L89.152 - Pressure ulcer of sacral region, stage 2
[2019-06-08] MEDS: ALPRAZolam 0.5 MG TABLET PO SCH (20:55)
[2019-06-08] MEDS: Insulin DETEMIR 100 UNIT/ML X5UNITS SQ SCH (21:00)
[2019-06-08] MEDS: *HR* Metoprolol 5 MG/5 ML VIAL IVP PRN (23:23)
[2019-06-09] MEDS: Ipratropium/Albuterol Neb 3 ML IH SCH ×7 (00:02→23:28)
[2019-06-09] MEDS: Benzonatate 100 MG CAPSULE PO PRN (02:00)
[2019-06-09] MEDS: *HR* Heparin 5,000 UNIT/ML VIAL SQ SCH ×2 (06:29→17:43)
[2019-06-09] MEDS: Budesonide/Formoterol 80/4.5 1 PUFF INH IH SCH ×2 (07:40→19:59)
[2019-06-09] MEDS: Insulin LISPRO 300 UNITS/3 ML VIAL SQ SCH ×7 (08:18→21:54)
[2019-06-09] MEDS: MethylPREDNISolone 40 MG/ML VIAL IVP SCH (08:19)
[2019-06-09] MEDS: Spironolactone 25 MG TABLET PO SCH ×2 (08:19→21:50)
[2019-06-09] MEDS: Aspirin 81 MG TAB.CHEW PO SCH (08:20)
[2019-06-09] MEDS: Diltiazem CD (24hr) 180 MG CAPSULE PO SCH (08:20)
[2019-06-09] MEDS: carBAMazepine 200 MG TABLET PO SCH ×2 (08:20→21:50)
[2019-06-09] MEDS: *HR* Digoxin 0.125 MG TABLET PO SCH (08:20)
--- NOTE | 2019-06-09 11:14 | Internal Med Progress Note ---
Hospitalist Progress Note - Encounter Date of Encounter: 06/09/19 Time of Encounter: 11:12 - Subjective Interval History: I have seen and evaluated the patient at bedside. patient reported significant improvement on his breathing, but still has pleuritic chest pain, denies abdominal pain. - Exam Vitals: Temp Pulse Resp BP Pulse Ox 98.1 F 95 16 117/82 98 06/09/19 07:43 06/09/19 07:43 06/09/19 07:43 06/09/19 07:43 06/09/19 07:43 Exam: Vitals: Reviewed General: Alert and oriented x4. no acute distress Cardiovascular: Irregularly irregular, normal S1 & S2, no rubs, murmurs or gallops. Lungs: CTA b/l, no rales or crackles. Abdomen: Soft, non-tender, no rigidity. NABS in all 4 quadrants. Extremities: 1+ pitting edema in the lower extr b/l. Neurological: No focal neurological abnormalities Rest of the physical exam is non contributory - Assessment and Plan (1) COPD with acute exacerbation Current Visit: Yes Status: Acute Assessment and Plan: patient continues to improve clinically. Plan dc IV steroids will start oral prednisone taper. On bronchodilators scheduled and symbicort incentive spirometry On levofloxacin 750mg/IV Q48HRs renally adjusted dose. (2) Hyponatremia Current Visit: Yes Status: Acute Assessment and Plan: resolving. will continue with sodium chloride 1gm/PO BID. and fluids restriction to 1.5 litters a day. (3) Atrial fibrillation Current Visit: No Status: Chronic Assessment and Plan: HR controlled at rest but fluctuating in the 110s while the patient coughs. Patient with a history of tachybradycardia syndrome, will not be aggressive regarding HR control as long the HR is not >110 consistently. c/w metoprolol 25mg/PO BID and digoxin 0.125mg/PO daily. And diltiazem. on aspirin 81mg/PO daily for secondary stroke prevention. (4) CAD (coronary artery disease) Current Visit: No Status: Chronic Assessment and Plan: c/w aspirin 81mg/PO daily (5) Diabetes mellitus Current Visit: No Status: Chronic Assessment and Plan: Blood sugar is well controlled. Continue Levemir 25 units twice a day, and lispro 10 units before meals. Carbs controlled diet. (6) Chronic pancreatitis Current Visit: Yes Status: Chronic (7) Moderate malnutrition Current Visit: Yes Status: Acute (8) Stage II decubitus ulcer Current Visit: Yes Status: Chronic Assessment and Plan: Wound care consulted. Management per their recommendation. (9) HTN (hypertension) Current Visit: Yes Status: Chronic Assessment and Plan: Blood pressures well controlled on diltiazem, spironolactone and metoprolol. We will continue to monitor and adjust medication accordingly. DVT Prophylaxis: On heparin subcutaneous, and Intermittent pneumatic compression for DVT prophylaxis. - Summary of Assessment and Plan Summary of Assessment and Plan: Patient to remain in the hospital due to resolving bronchitis. Still reporting significant pleuritic chest pain associated with cough. Potential discharge tomorrow morning. - Time Spent with Patient Total time spent is greater than 50% in coordination of care (as documented) at patient's floor/unit and/or counseling patient: Greater than 35 minutes (45) Plan of Care Discussed with: patient (and the nurse.) Internal Medicine: Result - Labs CBC & Chem 7: 06/08/19 05:39 06/08/19 05:39 Consult Discharge Plan - Plan Referrals: Roldan Collado DO [Primary Care Provider] - (3) Atrial fibrillation Qualifiers: Atrial fibrillation type: chronic Qualified Code(s): I48.2 - Chronic atrial fibrillation (4) CAD (coronary artery disease) Qualifiers: Coronary Disease-Associated Artery/Lesion type: [place] artery [place] vs. transplanted heart: [place] heart Associated angina: without angina Qualified Code(s): I25.10 - Atherosclerotic heart disease of [place] coronary artery without angina pectoris (5) Diabetes mellitus Qualifiers: Diabetes mellitus type: type 2 Diabetes mellitus [facility] insulin use: with ferry terminal agent use Diabetes mellitus complication status: without complication Qualified Code(s): E11.9 - Type 2 diabetes mellitus without complications; Z79.4 - detention (current) use of insulin (6) Chronic pancreatitis Qualifiers: Pancreatitis type: unspecified pancreatitis type Qualified Code(s): K86.1 - Other chronic pancreatitis (8) Stage II decubitus ulcer Qualifiers: Pressure injury location: sacral region Qualified Code(s): L89.152 - Pressure ulcer of sacral region, stage 2 (9) HTN (hypertension) Qualifiers: Hypertension type: unspecified Qualified Code(s): I10 - Essential (primary) hypertension
[2019-06-09] MEDS: Insulin DETEMIR 100 UNIT/ML X5UNITS SQ SCH ×2 (11:21→21:54)
[2019-06-09 12:45] LABS: BUN/Creatinine Ratio 26 (6-26); Blood Urea Nitrogen 28 mg/dL (8-23); Calcium 9.2 mg/dL (8.6-10.3); Carbon Dioxide 29 mEq/L (23-29); Chloride 94 mEq/L (98-107); Glucose 141 mg/dL (70-105); Magnesium 1.9 mg/dL (1.6-2.6); Osmolality,Calculated 274 (280-300); Phosphorous 2.5 mg/dL (2.7-4.5); Potassium 4.7 mEq/L (3.5-5.1); Sodium 128 mEq/L (136-145); eGFR For African Americans > 60 (> 60); eGFR For Non-African Americans > 60 (> 60)
[2019-06-09] MEDS: *HR* Metoprolol 5 MG/5 ML VIAL IVP PRN (17:34)
[2019-06-09] MEDS: GuaiFENesin Liq 200 MG/10 ML UDC PO PRN (17:43)
[2019-06-09] MEDS: *HR* HYDROcodone/Acet 5/325 mg TABLET PO PRN (17:43)
[2019-06-09] MEDS: ALPRAZolam 0.5 MG TABLET PO SCH (21:50)
[2019-06-09] MEDS: Acetaminophen 325 MG TABLET PO PRN (21:52)
[2019-06-10] MEDS: *HR* HYDROcodone/Acet 5/325 mg TABLET PO PRN ×4 (00:25→17:23)
[2019-06-10] MEDS: *HR* Metoprolol 5 MG/5 ML VIAL IVP PRN (02:39)
[2019-06-10] MEDS: Ipratropium/Albuterol Neb 3 ML IH SCH ×7 (04:04→23:29)
[2019-06-10] MEDS: *HR* Heparin 5,000 UNIT/ML VIAL SQ SCH ×2 (06:16→17:33)
[2019-06-10] MEDS: Budesonide/Formoterol 80/4.5 1 PUFF INH IH SCH ×2 (07:50→19:38)
[2019-06-10 08:20] LABS: BUN/Creatinine Ratio 31 (6-26); Blood Urea Nitrogen 28 mg/dL (8-23); Calcium 8.7 mg/dL (8.6-10.3); Carbon Dioxide 29 mEq/L (23-29); Chloride 95 mEq/L (98-107); Glucose 113 mg/dL (70-105); Magnesium 1.8 mg/dL (1.6-2.6); Osmolality,Calculated 274 (280-300); Phosphorous 4.3 mg/dL (2.7-4.5); Potassium 3.9 mEq/L (3.5-5.1); Sodium 129 mEq/L (136-145); eGFR For African Americans > 60 (> 60); eGFR For Non-African Americans > 60 (> 60)
[2019-06-10] MEDS: Insulin LISPRO 300 UNITS/3 ML VIAL SQ SCH ×7 (09:00→21:32)
[2019-06-10] MEDS: Aspirin 81 MG TAB.CHEW PO SCH (09:29)
[2019-06-10] MEDS: *HR* Digoxin 0.125 MG TABLET PO SCH (09:29)
[2019-06-10] MEDS: carBAMazepine 200 MG TABLET PO SCH ×2 (09:29→21:31)
[2019-06-10] MEDS: Spironolactone 25 MG TABLET PO SCH ×2 (09:29→21:31)
[2019-06-10] MEDS: Diltiazem CD (24hr) 180 MG CAPSULE PO SCH (09:29)
[2019-06-10] MEDS: predniSONE 20 MG TABLET PO SCH (09:30)
[2019-06-10] MEDS: levoFLOXacin 750 MG/150 ML 750 MG/150 ML BAG IVPB SCH (09:32)
[2019-06-10] MEDS: Insulin DETEMIR 100 UNIT/ML X5UNITS SQ SCH ×2 (09:48→21:33)
--- NOTE | 2019-06-10 11:25 | Internal Med Progress Note ---
Hospitalist Progress Note - Encounter Date of Encounter: 06/10/19 Time of Encounter: 11:23 - Subjective Interval History: I have seen and evaluated the patient at bedside. Patient reported 8/10 pleuritic chest pain every time he coughs. denies chest pain at rest, also reported RUQ abdominal pain. denies nausea, vomiting. - Exam Vitals: Temp Pulse Resp BP Pulse Ox 98.6 F 117 18 98/74 99 06/10/19 10:57 06/10/19 10:57 06/10/19 11:17 06/10/19 10:57 06/10/19 11:17 Exam: Vitals: Reviewed General: Alert and oriented x4. in mild distress due to pleuritic chest pain. Cardiovascular: Irregularly irregular, normal S1 & S2, no rubs, murmurs or gallops. Lungs: CTA b/l, no rales or crackles. Abdomen: Soft, mild tenderness to palpation RUQ, no rigidity. NABS in all 4 quadrants. Extremities: 1+ pitting edema in the lower extr b/l. Neurological: No focal neurological abnormalities Rest of the physical exam is non contributory - Assessment and Plan (1) COPD with acute exacerbation Current Visit: Yes Status: Resolved Assessment and Plan: chest is clear to auscultation. patient still reporting significant discomfort when he coughs. pleuritic 8/10 pain. Plan empirically on levofloxacin 750mg/PO Q48H c/w bronchodilators Q4RT, incentive spirometry and symbicort on O2 by nasal cannula, titrate for O2sat >92% On norco 5/325mg/PO 1tab q6HR for pain control (2) Hyponatremia Current Visit: Yes Status: Acute Assessment and Plan: patient with no neurological abnormalities. c/w sodium chloride 1gm/PO BID. fluids restriction to 1.5 litters a day. (3) Atrial fibrillation Current Visit: No Status: Chronic Assessment and Plan: HR controlled at rest but fluctuating in the 110s while the patient coughs. Patient with a history of tachybradycardia syndrome. Plan - will not be aggressive regarding HR control as long the HR is not >110 consistently. - metoprolol 25mg/PO BID and digoxin 0.125mg/PO daily. And diltiazem. - on aspirin 81mg/PO daily for secondary stroke prevention. (4) CAD (coronary artery disease) Current Visit: No Status: Chronic Assessment and Plan: On aspirin 81mg/PO daily (5) Diabetes mellitus Current Visit: No Status: Chronic Assessment and Plan: Blood sugar is well controlled. Plan -On Levemir 25 units twice a day, and lispro 10 units before meals. Carbs controlled diet. (6) Chronic pancreatitis Current Visit: Yes Status: Chronic Assessment and Plan: patient reporting RUQ pain. liver US ordered. on [place] for pain control (7) Moderate malnutrition Current Visit: Yes Status: Acute (8) Stage II decubitus ulcer Current Visit: Yes Status: Chronic Assessment and Plan: Wound care consulted. Management per their recommendation. (9) HTN (hypertension) Current Visit: Yes Status: Chronic Assessment and Plan: BP is well controlled on metoprolol, spironolactone and diltiazem. furosemide, home dose added. DVT Prophylaxis: On heparin subq for dvt prophylaxis. - Summary of Assessment and Plan Summary of Assessment and Plan: Patient to remain in the hospital due to RUQ abdominal pain, pleuritic chest pain. - Time Spent with Patient Total time spent is greater than 50% in coordination of care (as documented) at patient's floor/unit and/or counseling patient: Greater than 35 minutes (45) Plan of Care Discussed with: patient (and the nurse.) Internal Medicine: Result - Labs CBC & Chem 7: 06/08/19 05:39 06/10/19 06:24 Labs: BMP 06/09/19 06/10/19 11:51 06:24 Sodium 128 L 129 L Potassium 4.7 3.9 Chloride 94 L 95 L Carbon Dioxide 29 29 BUN 28 H 28 H Creatinine 1.07 0.91 Glucose 141 H 113 H Calcium 9.2 8.7 Consult Discharge Plan - Plan Referrals: Roldan Collado DO [Primary Care Provider] - (3) Atrial fibrillation Qualifiers: Atrial fibrillation type: chronic Qualified Code(s): I48.2 - Chronic atrial fibrillation (4) CAD (coronary artery disease) Qualifiers: Coronary Disease-Associated Artery/Lesion type: [place] artery [place] vs. transplanted heart: [place] heart Associated angina: without angina Qualified Code(s): I25.10 - Atherosclerotic heart disease of [place] coronary artery without angina pectoris (5) Diabetes mellitus Qualifiers: Diabetes mellitus type: type 2 Diabetes mellitus snf insulin use: with snf use Diabetes mellitus complication status: without complication Qualified Code(s): E11.9 - Type 2 diabetes mellitus without complications; Z79.4 - terminal system operator (current) use of insulin (6) Chronic pancreatitis Qualifiers: Pancreatitis type: unspecified pancreatitis type Qualified Code(s): K86.1 - Other chronic pancreatitis (8) Stage II decubitus ulcer Qualifiers: Pressure injury location: sacral region Qualified Code(s): L89.152 - Pressure ulcer of sacral region, stage 2 (9) HTN (hypertension) Qualifiers: Hypertension type: unspecified Qualified Code(s): I10 - Essential (primary) hypertension
[2019-06-10] MEDS: GuaiFENesin Liq 200 MG/10 ML UDC PO PRN (12:42)
--- NOTE | 2019-06-10 17:12 | AcuteCare Surgery Consult Note ---
Date of Encounter: 06/10/19 Time of Encounter: 17:08 Assessment and Plan (1) Generalized abdominal pain Current Visit: Yes Status: Acute See below (2) Chronic pancreatitis Current Visit: Yes Status: Chronic The patient that I personally reviewed the CT scan images and report which shows signs consistent with chronic pancreatitis. It is very likely that his constellation of symptoms and chronicity of his pain is related to chronic hepatitis. Patient states he has been having abdominal pain for 4 months but in review in the [facility] system he is been reporting chronic abdominal pains for years even back in 2016. I think his pain is chronic in nature and I do not think the gallbladder is the source of his pain. Chronic pancreatitis is a separate entity altogether and surgical intervention for that is focused on surgery on the pancreas itself as opposed to performing a cholecystectomy. I am uncertain of the role for performing a cholecystectomy in this patient and I do not think that this procedure would change his pain symptoms. His amylase and lipase levels are actually low and it is possible in 25-33% of patients who have chronic pancreatitis to have normal pancreatic enzyme levels while having abdominal pain. Chronic pain is the hallmark of chronic pancreatitis and I think a possible evaluation by gastroenterology may be warranted but again surgical intervention is a considerable endeavour and I am not certain that he would be an appropriate candidate for this. Surgery for chronic pancreatitis would need to be performed at a tertiary center. Will touch base with my colleagues earlier this week regarding my overall recommendations to see if there are any additional recommendations for this patient from a surgical perspective, however I would continue with conservative management at this time. Thank you very much. Will follow from a distance. Qualifiers: Pancreatitis type: unspecified pancreatitis type Qualified Code(s): K86.1 - Other chronic pancreatitis History of Present Illness Consult date: 06/10/19 Requesting physician: Ralph Wilson History of present illness: The patient is an 84-year-old male with a past medical history significant for COPD, CK 80, hypertension, atrial fibrillation, and tachybradycardia syndrome who was admitted to [facility] secondary to generalized weakness and body aches and productive cough with congestion. He was having symptoms of shortness of breath and it was deemed that he had an episode of COPD with acute exacerbation. He is being treated with antibiotics and IV steroids were converted to by mouth. In the report the patient has actually been having abdominal pain on the left side however was contacted today because he was having right upper quadrant abdominal pain. He had a CAT scan of the abdomen and pelvis on 06/05/2019 which showed an unremarkable gallbladder but signs consistent with chronic pancreatitis. He had a gallbladder ultrasound 06/10/2019 which shows gallstones and questionable contraction of the gallbladder versus mild gallbladder wall thickening. There is no pericholecystic fluid noted. When asked the patient states that he has been having abdominal pain for several months. He points to the bilateral sides and points to the upper and lower abdominal areas the location of his pain. When asked to specify the location of the worst pain he points to the left mid to upper abdominal region. No nausea or vomiting and denies any diarrhea or constipation and has a bowel movement once per day without rectal bleeding. He says that he does not have increased pain with eating but he does have abdominal pain when he coughs. He says that the coughing spells cause the abdominal pain that is intense. He feels that he was being evaluated by the cancer center for his abdominal pain with reality he is being followed by the cancer center for his anemia. The patient had a colonoscopy in 2017 and [place] and polyps were removed. Past Med Surg Social Fam HX - Past Medical History Medical history: asthma, atrial fibrillation, cancer, COPD, coronary artery disease, diabetes, hypertension, kidney stones, myocardial infarction, renal disease, other Additional medical history: anemia, type II diabetic, hernia, colon cancer, sleep apnea Psychiatric history: anxiety, depression - Past Surgical History Surgical History: cataract Additional surgical history: 5 cardiac stents, right hand - Social History Smoking Status: Former smoker Smokeless Tobacco Status: No Alcohol use: none Drug use: none - Family History Mother Living Status: Hx Family Cardiac Disorders: Yes Hx Family Respiratory Disorders: No Hx Family Cancer: No Hx Family GI Disorders: No Hx Family Endocrine Disorder: Yes Hx Family Neuromuscular Disorders: No Hx Family Neurologic Disorders: Yes Hx Family HEENT Disorders: No Hx Family Autoimmune Disorders: No Father Adopted: No Family Member Ethnicity: Non- Living Status: Hx Family Cardiac Disorders: Yes Medications and Allergies Aspirin 81 mg PO DAILY 04/20/15 [History] Digoxin [Lanoxin] 0.125 mg PO DAILY 12/02/15 [History] Apremilast [Otezla] 30 mg PO BID 01/26/18 [History] Docusate Sodium [Dok] 100 mg PO DAILY 01/26/18 [History] Fluticasone/Vilanterol [Breo Ellipta 200-25 Mcg INH] 1 puff IH DAILY 01/26/18 [H istory] Polyethylene Glycol 3350 [MiraLAX Powder Bulk 17.9 Oz] 17 g PO QAM 01/26/18 [History] carBAMazepine [Tegretol] 200 mg PO BID 01/26/18 [History] Insulin DETEMIR [Levemir] 38 units SQ HS 03/21/18 [History] Insulin Regular, Human [Novolin R] 6 units SQ TIDAC 03/21/18 [History] Metoprolol [Lopressor] 12.5 mg PO BID 03/21/18 [History] ALPRAZolam [Xanax 0.5 MG Tablet] 0.5 mg PO HS 7 Days #7 tablet 03/31/18 [Rx] Spironolactone [Aldactone] 50 mg PO BID 04/28/18 [History] Ursodiol [Actigall] 300 mg PO BID 08/25/18 [History] Furosemide [Lasix] 40 mg PO DAILY 11/24/18 [History] Acetaminophen [Non-Aspirin] 650 mg PO Q4H PRN 06/05/19 [History] Diltiazem CD (24hr) [Cardizem CD] 180 mg PO DAILY 06/05/19 [History] Allergy/AdvReac Type Severity Reaction Status Date / Time sulfamethoxazole Allergy See Verified 02/27/19 08:40 [From Bactrim] Comments trimethoprim [From Bactrim] Allergy See Verified 02/27/19 08:40 Comments atorvastatin AdvReac Dizziness Verified 02/27/19 08:40 clopidogrel [From Plavix] AdvReac Dizziness Verified 02/27/19 08:40 lovastatin AdvReac Dizziness Verified 02/27/19 08:40 pioglitazone [From Actos] AdvReac Dizziness Verified 02/27/19 08:40 pravastatin AdvReac Dizziness Verified 02/27/19 08:40 Rosiglitazone AdvReac Dizziness Verified 02/27/19 08:40 flu vaccine Allergy Dizziness Uncoded 02/27/19 08:40 Review of Systems All systems PM: reviewed and no additional remarkable complaints except as stated All systems PM: The remainder of the systems were reviewed and are negative General Surgery Exam Initial Vital Signs Temp Pulse Resp BP Pulse Ox 98.5 F 99 16 127/77 93 06/05/19 17:18 06/05/19 17:18 06/05/19 17:18 06/05/19 17:18 06/05/19 17:18 - General physical appearance well nourished, moderate pain - Eyes PERRL - Respiratory normal expansion, other (bilateral rhonchi to inspiration) - Abdomen Abdomen general surgery: Present: bowel sounds present, soft, tender (Obese, pain to palpation in bilateral upper and lower quadrants. There is no palpable mass noted. He seems to have pain equally in the bilateral lower quadrants and also the bilateral upper quadrants as well as the periumbilical region.) - Neurologic Present: CN 2-12 grossly intact - Musculoskeletal Present: other (No clubbing or cyanosis) - Psychiatric Psychiatric general surgery: Present: oriented to person, oriented to place (He states that he is here for abdominal pain when it was documented he was here for generalized weakness and cough with shortness of breath) Exam Initial Vital Signs Temp Pulse Resp BP Pulse Ox 98.5 F 99 16 127/77 93 06/05/19 17:18 06/05/19 17:18 06/05/19 17:18 06/05/19 17:18 06/05/19 17:18 Results - Labs 06/11/19 06:50 06/11/19 06:50 Abnormal lab results WBC 11.5 K/mcL (4.3-11.1) H 06/07/19 04:33 RBC 3.15 M/mcL (4.19-5.50) L 06/08/19 05:39 Hgb 10.6 g/dL (12.9-16.9) L 06/08/19 05:39 Hct 31.7 % (37.5-50.1) L 06/08/19 05:39 MCV 100.6 fL (83.0-100.0) H 06/08/19 05:39 MCH 33.7 pg (28.0-33.3) H 06/08/19 05:39 MCHC 36.2 g/dL (31.6-35.5) H 06/05/19 18:07 MPV 8.4 fL (9.4-12.4) L 06/08/19 05:39 Band Neutrophils % 7.0 % (0-4) H 06/08/19 05:39 Neutrophils # 12.3 K/mcL (1.6-8.9) H 06/05/19 18:07 Lymphocytes # 0.4 K/mcL (0.6-4.6) L 06/08/19 05:39 Nucleated RBCs/100 WBC 0.2 /100 WBC (0) H 06/06/19 01:56 Sodium 129 mEq/L (136-145) L 06/10/19 06:24 Chloride 95 mEq/L (98-107) L 06/10/19 06:24 BUN 28 mg/dL (8-23) H 06/10/19 06:24 BUN/Creatinine Ratio 31 (6-26) H 06/10/19 06:24 Glucose 113 mg/dL (70-105) H 06/10/19 06:24 POC Glucose 108 mg/dL (70-99) H 06/10/19 07:27 Calculated Osmolality 274 (280-300) L 06/10/19 06:24 Calcium 8.5 mg/dL (8.6-10.3) L 06/07/19 04:33 Phosphorus 2.5 mg/dL (2.7-4.5) L 06/09/19 11:51 Direct Bilirubin 0.3 mg/dL (0.0-0.2) H 06/05/19 18:07 Alkaline Phosphatase 124 Units/L (34-104) H 06/05/19 18:07 B-Natriuretic Peptide 147 pg/mL (Less than 100) H 06/05/19 18:07 Globulin 3.6 g/dL (2.4-3.5) H 06/05/19 18:07 Amylase 17 Units/L (29-103) L 06/08/19 05:39 Lipase < 3 Units/L (11-82) L 06/08/19 05:39 Urine Protein 100 mg/dL (Neg-Trace) H 06/05/19 19:50 Urine Glucose (UA) 100 mg/dL (Normal) H 06/05/19 19:50 Urine Blood Trace-lysed (Negative) H 06/05/19 19:50 Ur Squamous Epith Cells Moderate per lpf (None-Few) H 06/05/19 19:50 Urine Osmolality 272 mOsm/kg (300-1090) L 06/08/19 01:13 Entero/Rhino (PCR) DETECTED (Not Detect) A 06/05/19 22:30 Diabetes panel 06/10/19 Range/Units 06:24 Sodium 129 L (136-145) mEq/L Potassium 3.9 (3.5-5.1) mEq/L Chloride 95 L (98-107) mEq/L Carbon Dioxide 29 (23-29) mEq/L BUN 28 H (8-23) mg/dL Creatinine 0.91 (0.70-1.30) mg/dL Glucose 113 H (70-105) mg/dL Calcium 8.7 (8.6-10.3) mg/dL Calcium panel 06/10/19 Range/Units 06:24 Calcium 8.7 (8.6-10.3) mg/dL Phosphorus 4.3 (2.7-4.5) mg/dL Pituitary panel 06/10/19 Range/Units 06:24 Sodium 129 L (136-145) mEq/L Potassium 3.9 (3.5-5.1) mEq/L Chloride 95 L (98-107) mEq/L Carbon Dioxide 29 (23-29) mEq/L BUN 28 H (8-23) mg/dL Creatinine 0.91 (0.70-1.30) mg/dL Glucose 113 H (70-105) mg/dL Calcium 8.7 (8.6-10.3) mg/dL Adrenal panel 06/10/19 Range/Units 06:24 Sodium 129 L (136-145) mEq/L Potassium 3.9 (3.5-5.1) mEq/L Chloride 95 L (98-107) mEq/L Carbon Dioxide 29 (23-29) mEq/L BUN 28 H (8-23) mg/dL Creatinine 0.91 (0.70-1.30) mg/dL Glucose 113 H (70-105) mg/dL Calcium 8.7 (8.6-10.3) mg/dL All other labs normal. Consult Discharge Plan - Plan Referrals: Roldan Collado DO [Primary Care Provider] -
[2019-06-10] MEDS: Furosemide 40 MG TABLET PO SCH (17:22)
[2019-06-10] MEDS: Benzonatate 100 MG CAPSULE PO PRN (17:23)
[2019-06-10] MEDS: Gabapentin 400 MG CAPSULE PO SCH (21:30)
[2019-06-10] MEDS: ALPRAZolam 0.5 MG TABLET PO SCH (21:30)
[2019-06-11] MEDS: *HR* HYDROcodone/Acet 5/325 mg TABLET PO PRN ×2 (00:28→08:42)
[2019-06-11] MEDS: GuaiFENesin Liq 200 MG/10 ML UDC PO PRN ×2 (01:52→08:41)
[2019-06-11] MEDS: Benzonatate 100 MG CAPSULE PO PRN ×2 (01:53→08:41)
[2019-06-11] MEDS: Ipratropium/Albuterol Neb 3 ML IH SCH ×4 (04:48→15:34)
[2019-06-11] MEDS: *HR* Heparin 5,000 UNIT/ML VIAL SQ SCH (06:10)
[2019-06-11] MEDS: Budesonide/Formoterol 80/4.5 1 PUFF INH IH SCH (07:32)
[2019-06-11 07:34] LABS: Hemoglobin 11.1 g/dL (12.9-16.9); Mean Corpuscular HGB Conc 33.6 g/dL (31.6-35.5); Mean Corpuscular Volume 101.2 fL (83.0-100.0); Mean Platelet Volume 8.3 fL (9.4-12.4); Nucleated Red Blood Cells 0.2 /100 WBC (0); Platelet Count 233 K/mcL (140-400); Red Blood Count 3.26 M/mcL (4.19-5.50); Red Cell Distribution Width 13.9 % (11.5-14.5)
[2019-06-11 07:52] LABS: White Blood Count 13.3 K/mcL (4.3-11.1)
[2019-06-11 07:56] LABS: BUN/Creatinine Ratio 29 (6-26); Blood Urea Nitrogen 29 mg/dL (8-23); Calcium 8.9 mg/dL (8.6-10.3); Carbon Dioxide 31 mEq/L (23-29); Chloride 93 mEq/L (98-107); Glucose 187 mg/dL (70-105); Magnesium 1.8 mg/dL (1.6-2.6); Osmolality,Calculated 283 (280-300); Phosphorous 3.7 mg/dL (2.7-4.5); Potassium 4.2 mEq/L (3.5-5.1); Sodium 131 mEq/L (136-145); eGFR For African Americans > 60 (> 60); eGFR For Non-African Americans > 60 (> 60)
[2019-06-11] MEDS: Gabapentin 400 MG CAPSULE PO SCH (08:41)
[2019-06-11] MEDS: Diltiazem CD (24hr) 180 MG CAPSULE PO SCH (08:41)
[2019-06-11] MEDS: predniSONE 20 MG TABLET PO SCH (08:42)
[2019-06-11] MEDS: Furosemide 40 MG TABLET PO SCH (08:42)
[2019-06-11] MEDS: carBAMazepine 200 MG TABLET PO SCH (08:42)
[2019-06-11] MEDS: Aspirin 81 MG TAB.CHEW PO SCH (08:43)
[2019-06-11] MEDS: *HR* Digoxin 0.125 MG TABLET PO SCH (08:43)
[2019-06-11] MEDS: Spironolactone 25 MG TABLET PO SCH (08:43)
[2019-06-11] MEDS: Insulin DETEMIR 100 UNIT/ML X5UNITS SQ SCH (08:44)
[2019-06-11] MEDS: Insulin LISPRO 300 UNITS/3 ML VIAL SQ SCH ×4 (08:44→13:08)
[2019-06-11 10:24] LABS: Lymphocytes # 2.7 K/mcL (0.6-4.6); Monocytes # 0.8 K/mcL (0.0-1.3); Neutrophils # 9.8 K/mcL (1.6-8.9); Platelet Estimate Normal (Normal)
[2019-06-11 10:34] VITALS: BP 102/71
--- NOTE | 2019-06-11 11:56 | Discharge Summary ---
Orders not resulted at time of discharge: Pending orders 06/07/19 11:30 Sputum Culture [Culture,Sputum with Gram Stain] [] Stat Date of Encounter: 06/11/19 Time of Encounter: 11:52 - Discharge Diagnosis (1) COPD with acute exacerbation Priority: Primary Status: Resolved (2) Hyponatremia Priority: Secondary Status: Chronic (3) Atrial fibrillation Priority: Secondary Status: Chronic Qualifiers: Atrial fibrillation type: chronic Qualified Code(s): I48.2 - Chronic atrial fibrillation (4) CAD (coronary artery disease) Priority: Secondary Status: Chronic Qualifiers: Coronary Disease-Associated Artery/Lesion type: [place] artery [place] vs. transplanted heart: beaver heart Associated angina: without angina Qualified Code(s): I25.10 - Atherosclerotic heart disease of beaver coronary artery without angina pectoris (5) Diabetes mellitus Priority: Secondary Status: Chronic Qualifiers: Diabetes mellitus type: type 2 Diabetes mellitus half-way insulin use: with half-way use Diabetes mellitus complication status: without complication Qualified Code(s): E11.9 - Type 2 diabetes mellitus without complications; Z79.4 - half-way (current) use of insulin (6) Chronic pancreatitis Priority: Secondary Status: Chronic Qualifiers: Pancreatitis type: unspecified pancreatitis type Qualified Code(s): K86.1 - Other chronic pancreatitis (7) Moderate malnutrition Priority: Secondary Status: Chronic (8) Stage II decubitus ulcer Priority: Secondary Status: Chronic Qualifiers: Pressure injury location: sacral region Qualified Code(s): L89.152 - Pressure ulcer of sacral region, stage 2 (9) HTN (hypertension) Priority: Secondary Status: Chronic Qualifiers: Hypertension type: unspecified Qualified Code(s): I10 - Essential (primary) hypertension Hospital course: Mr. Johnson is a 84 year old male atrial fibrillation, coronary artery disease, diabetes, chronic kidney disease and COPD on home oxygen and currently resides at a retirement and went to the cancer Center today for routine blood work where he is being followed for anemia. He was referred from there to our ER because lab studies performed revealed a leukocyte count of 17 and he felt unwell. Patient was admitted to the hospital due to acute copd exacerbation, respiratory panel positive for Entero/Rhino virus. Patient was managed empiric antibiotics, IV steroids and bronchodilators. Patient reported abdominal pain CT/CT abd pelvis wo no iv no oral IMPRESSION: Findings of chronic pancreatitis. Small pleural effusions and partial consolidation lower lobes, improved. liver US was done: US/US liver IMPRESSION: Cholelithiasis. There is mild gallbladder wall thickening either due to the partially contracted state of the gallbladder or wall thickening from early gallbladder wall inflammation. Surgery consulted, recommended pain management and no other interventions. Patient started on Gabapentin with significant improvement of his symptoms. Patient is clinically stable to be discharged to ECF. - Time Spent with Patient Total time spent providing and/or coordinating discharge services: Time spent: Greater than 30 minutes (35) - Discharge Medications Prescriptions: New levoFLOXacin [Levaquin] 750 mg PO Q48H 3 Days #3 tablet Gabapentin [Neurontin] 400 mg PO TID 30 Days #90 capsule Sodium Chloride [Sodium Chloride Tab] 1 gm PO BID 30 Days #60 tablet Benzonatate [Tessalon] 100 mg PO TID PRN 30 Days #90 capsule PRN Reason: Cough Continued Aspirin 81 mg PO DAILY Digoxin [Lanoxin] 0.125 mg PO DAILY Fluticasone/Vilanterol [Breo Ellipta 200-25 Mcg INH] 1 puff IH DAILY Polyethylene Glycol 3350 [MiraLAX Powder Bulk 17.9 Oz] 17 g PO QAM Docusate Sodium [Dok] 100 mg PO DAILY Apremilast [Otezla] 30 mg PO BID carBAMazepine [Tegretol] 200 mg PO BID Insulin DETEMIR [Levemir] 38 units SQ HS Insulin Regular, Human [Novolin R] 6 units SQ TIDAC Metoprolol [Lopressor] 12.5 mg PO BID ALPRAZolam [Xanax 0.5 MG Tablet] 0.5 mg PO HS 7 Days #7 tablet Spironolactone [Aldactone] 50 mg PO BID Ursodiol [Actigall] 300 mg PO BID Furosemide [Lasix] 40 mg PO DAILY Acetaminophen [Non-Aspirin] 650 mg PO Q4H PRN PRN Reason: Pain Diltiazem CD (24hr) [Cardizem CD] 180 mg PO DAILY Home Medications: Aspirin 81 mg PO DAILY 04/20/15 [History] Digoxin [Lanoxin] 0.125 mg PO DAILY 12/02/15 [History] Apremilast [Otezla] 30 mg PO BID 01/26/18 [History] Docusate Sodium [Dok] 100 mg PO DAILY 01/26/18 [History] Fluticasone/Vilanterol [Breo Ellipta 200-25 Mcg INH] 1 puff IH DAILY 01/26/18 [History] Polyethylene Glycol 3350 [MiraLAX Powder Bulk 17.9 Oz] 17 g PO QAM 01/26/18 [History] carBAMazepine [Tegretol] 200 mg PO BID 01/26/18 [History] Insulin DETEMIR [Levemir] 38 units SQ HS 03/21/18 [History] Insulin Regular, Human [Novolin R] 6 units SQ TIDAC 03/21/18 [History] Metoprolol [Lopressor] 12.5 mg PO BID 03/21/18 [History] ALPRAZolam [Xanax 0.5 MG Tablet] 0.5 mg PO HS 7 Days #7 tablet 03/31/18 [Rx] Spironolactone [Aldactone] 50 mg PO BID 04/28/18 [History] Ursodiol [Actigall] 300 mg PO BID 08/25/18 [History] Furosemide [Lasix] 40 mg PO DAILY 11/24/18 [History] Acetaminophen [Non-Aspirin] 650 mg PO Q4H PRN 06/05/19 [History] Diltiazem CD (24hr) [Cardizem CD] 180 mg PO DAILY 06/05/19 [History] Benzonatate [Tessalon] 100 mg PO TID PRN 30 Days #90 capsule 06/11/19 [Rx] Gabapentin [Neurontin] 400 mg PO TID 30 Days #90 capsule 06/11/19 [Rx] Sodium Chloride [Sodium Chloride Tab] 1 gm PO BID 30 Days #60 tablet 06/11/19 [Rx] levoFLOXacin [Levaquin] 750 mg PO Q48H 3 Days #3 tablet 06/11/19 [Rx] Allergies/Adverse Reactions: Allergy/AdvReac Type Severity Reaction Status Date / Time sulfamethoxazole Allergy See Verified 02/27/19 08:40 [From Bactrim] Comments trimethoprim [From Bactrim] Allergy See Verified 02/27/19 08:40 Comments atorvastatin AdvReac Dizziness Verified 02/27/19 08:40 clopidogrel [From Plavix] AdvReac Dizziness Verified 02/27/19 08:40 lovastatin AdvReac Dizziness Verified 02/27/19 08:40 pioglitazone [From Actos] AdvReac Dizziness Verified 02/27/19 08:40 pravastatin AdvReac Dizziness Verified 02/27/19 08:40 Rosiglitazone AdvReac Dizziness Verified 02/27/19 08:40 flu vaccine Allergy Dizziness Uncoded 02/27/19 08:40 Date of admission: 06/07/19 15:15 Primary care physician: Roldan Collado Consults: 06/07/19 11:37 Consult to Occupational Therapy [CONS] Routine Comment: Evaluate, develop and implement POC Reason for Consult: generalized weakness Does patient have active BEDREST order?: No Is patient medically & hemodynamically stable?: Yes Consult to Physical Therapy [CONS] Routine Comment: Evaluate, develop and implement POC Reason for Consult: generalized weakness Does patient have active BEDREST order?: No Is patient medically & hemodynamically stable?: Yes 06/08/19 13:48 Consult to Wound Care [CONS] Routine Reason for Consult: decubitus ulcer Call Completed: No 06/10/19 16:10 Consult to Surgery [CONS] Routine Consulting Provider: Acute Care Surgery Reason for Consult: possible acute cholecystitis Call Completed: Yes - Constitutional Vitals: Temp Pulse Resp BP Pulse Ox 97.8 F 96 16 102/71 97 06/11/19 10:33 06/11/19 10:33 06/11/19 10:33 06/11/19 10:33 06/11/19 10:33 Exam: Vitals: Reviewed General: Alert and oriented x4. In no distress Cardiovascular: Irregularly irregular, normal S1 & S2, no rubs, murmurs or gallops. Lungs: CTA b/l, no rales or crackles. Abdomen: Soft, non-tenderness, no rigidity. NABS in all 4 quadrants. Extremities: 1+ pitting edema in the lower extr b/l. Neurological: No focal neurological abnormalities Rest of the physical exam is non contributory - Patient Status Disposition: Transfer SNF Condition: Good Functional capacity at discharge: wheelchair bound Overall status at discharge: patient is progressing back to baseline - Discharge Instructions Follow Up With: Roldan Collado DO [Primary Care Provider] - - Diet and Activity Activity: as per physical therapy Diet: low salt diet
--- NOTE | 2019-06-11 12:05 | Physician Discharge Referral ---
ExtendedCare Referral Info Transfer To: [facility] - Diagnosis (1) COPD with acute exacerbation Priority: Primary Status: Resolved (2) Hyponatremia Priority: Secondary Status: Chronic (3) Atrial fibrillation Priority: Secondary Status: Chronic (4) CAD (coronary artery disease) Priority: Secondary Status: Chronic (5) Diabetes mellitus Priority: Secondary Status: Chronic (6) Chronic pancreatitis Priority: Secondary Status: Chronic (7) Moderate malnutrition Priority: Secondary Status: Chronic (8) Stage II decubitus ulcer Priority: Secondary Status: Chronic (9) HTN (hypertension) Priority: Secondary Status: Chronic Prognosis: Fair Aware of Diagnosis: Patient Aware of Prognosis: Patient - Transfer Medications Prescriptions: levoFLOXacin [Levaquin] 750 mg PO Q48H 3 Days #3 tablet Transmission Status: Received by [facility] Gabapentin [Neurontin] 400 mg PO TID 30 Days #90 capsule Transmission Status: Received by [facility] Sodium Chloride [Sodium Chloride Tab] 1 gm PO BID 30 Days #60 tablet Transmission Status: Received by [facility] Benzonatate [Tessalon] 100 mg PO TID PRN 30 Days #90 capsule PRN Reason: Cough Transmission Status: Received by [facility] Home Medications: Aspirin 81 mg PO DAILY 04/20/15 [History] Digoxin [Lanoxin] 0.125 mg PO DAILY 12/02/15 [History] Apremilast [Otezla] 30 mg PO BID 01/26/18 [History] Docusate Sodium [Dok] 100 mg PO DAILY 01/26/18 [History] Fluticasone/Vilanterol [Breo Ellipta 200-25 Mcg INH] 1 puff IH DAILY 01/26/18 [History] Polyethylene Glycol 3350 [MiraLAX Powder Bulk 17.9 Oz] 17 g PO QAM 01/26/18 [History] carBAMazepine [Tegretol] 200 mg PO BID 01/26/18 [History] Insulin DETEMIR [Levemir] 38 units SQ HS 03/21/18 [History] Insulin Regular, Human [Novolin R] 6 units SQ TIDAC 03/21/18 [History] Metoprolol [Lopressor] 12.5 mg PO BID 03/21/18 [History] ALPRAZolam [Xanax 0.5 MG Tablet] 0.5 mg PO HS 7 Days #7 tablet 03/31/18 [Rx] Spironolactone [Aldactone] 50 mg PO BID 04/28/18 [History] Ursodiol [Actigall] 300 mg PO BID 08/25/18 [History] Furosemide [Lasix] 40 mg PO DAILY 11/24/18 [History] Acetaminophen [Non-Aspirin] 650 mg PO Q4H PRN 06/05/19 [History] Diltiazem CD (24hr) [Cardizem CD] 180 mg PO DAILY 06/05/19 [History] Benzonatate [Tessalon] 100 mg PO TID PRN 30 Days #90 capsule 06/11/19 [Rx] Gabapentin [Neurontin] 400 mg PO TID 30 Days #90 capsule 06/11/19 [Rx] Sodium Chloride [Sodium Chloride Tab] 1 gm PO BID 30 Days #60 tablet 06/11/19 [Rx] levoFLOXacin [Levaquin] 750 mg PO Q48H 3 Days #3 tablet 06/11/19 [Rx] Allergies/Adverse Reactions: Allergy/AdvReac Type Severity Reaction Status Date / Time sulfamethoxazole Allergy See Verified 02/27/19 08:40 [From Bactrim] Comments trimethoprim [From Bactrim] Allergy See Verified 02/27/19 08:40 Comments atorvastatin AdvReac Dizziness Verified 02/27/19 08:40 clopidogrel [From Plavix] AdvReac Dizziness Verified 02/27/19 08:40 lovastatin AdvReac Dizziness Verified 02/27/19 08:40 pioglitazone [From Actos] AdvReac Dizziness Verified 02/27/19 08:40 pravastatin AdvReac Dizziness Verified 02/27/19 08:40 Rosiglitazone AdvReac Dizziness Verified 02/27/19 08:40 flu vaccine Allergy Dizziness Uncoded 02/27/19 08:40 - Respiratory Orders Oxygen / L per min (2-3 litters) Smoking Cessation: Smoking cessation has been advised. For more information, call the [place] Tobacco Quit Line at 4-330-WOQA-NOW. - Advance Directives Code Status: Full Code - Mobility Orders Chair - Rehabiliation Orders Rehab Potential: Fair Rehab Orders: Evaluation for Physical Therapy, Evaluation for Occupational Therapy - Diet Orders Regular CERTIFICATION: I certify that the transfer of the above named patient to an Extended Care Facility is necessary for the continuing treatment of the diagnosis listed. The above information is true and accurate reflection of patient's current condition. Confidential - Redisclosure prohibited without a patient's written consent.
[2019-06-12] MEDS ORDERED: levoFLOXacin 750 MG TABLET PO SCH (10:00)
== END 2019-06-11 17:46 | DRG 191 ==
LOC: 2NENU 16:58 → EMEROOARM 16:58 → SUATTDRO 20:55 → 2NENU 21:48
PROVIDERS: ADMIT Internal Medicine; ATTEND Internal Medicine

== ENCOUNTER 2019-06-12 17:49 | Inpatient (IN) ==
[2019-06-12] MEDS ORDERED: Isovue-370 500 ML BOTTLE IVP ONE (18:13)
[2019-06-12 19:05] LABS: Hemoglobin 12.6 g/dL (12.9-16.9); Nucleated Red Blood Cells 0.1 /100 WBC (0)
[2019-06-12 19:06] LABS: Hematocrit 36.1 % (37.5-50.1); Mean Corpuscular HGB Conc 34.9 g/dL (31.6-35.5); Mean Corpuscular Hemoglobin 34.2 pg (28.0-33.3); Mean Corpuscular Volume 98.1 fL (83.0-100.0); Mean Platelet Volume 8.4 fL (9.4-12.4); Platelet Count 330 K/mcL (140-400); Red Blood Count 3.68 M/mcL (4.19-5.50); Red Cell Distribution Width 14.6 % (11.5-14.5); White Blood Count 29.3 K/mcL (4.3-11.1)
[2019-06-12 19:10] LABS: Alanine Aminotransferase 47 Units/L (7-52); Albumin 3.7 g/dL (3.5-5.7); Albumin/Globulin Ratio 1.3 (1.1-2.2); Alkaline Phosphatase 106 Units/L (34-104); Aspartate Amino Transferase 30 Units/L (13-39); BUN/Creatinine Ratio 32 (6-26); Bilirubin,Direct 0.1 mg/dL (0.0-0.2); Bilirubin,Indirect 0.5 mg/dL (0.0-1.2); Bilirubin,Total 0.6 mg/dL (0.3-1.0); Blood Urea Nitrogen 37 mg/dL (8-23); Calcium 9.1 mg/dL (8.6-10.3); Carbon Dioxide 29 mEq/L (23-29); Chloride 88 mEq/L (98-107); Globulin 2.9 g/dL (2.4-3.5); Glucose 266 mg/dL (70-105); Lipase < 3 Units/L (11-82); Osmolality,Calculated 274 (280-300); Sodium 123 mEq/L (136-145); Total Protein 6.6 g/dL (6.4-8.9); Troponin I 0.06 ng/mL (< 0.04); eGFR For African Americans > 60 (> 60); eGFR For Non-African Americans 59 (> 60)
[2019-06-12 19:12] LABS: INR 1.1; Prothrombin Time 12.6 Seconds (9.4-12.1)
[2019-06-12] MEDS: *HR* FentaNYL (PF) 100 MCG/2 ML VIAL IVP ONE ×2 (19:14→19:34)
--- NOTE | 2019-06-12 19:46 | Emergency Department Note ---
Disposition Clinical Impression: Hyponatremia, Elevated troponin, Atrial fibrillation with RVR, Leukocytosis Fall Qualifiers: Encounter type: initial encounter Qualified Code(s): W19.XXXA - Unspecified fall, initial encounter Disposition: Admitted As Inpatient Time of Disposition: 21:39 Fall HPI - General Chief Complaint: ED Fall Stated Complaint: fall Time Seen by Provider: 06/12/19 17:52 Source: patient, EMS Mode of arrival: EMS Limitations: no limitations Nursing Notes Reviewed: Yes Vital Signs Reviewed: Yes - History of Present Illness HPI Narrative: 84M with PMHx of afib, COPD, CAD, DM, CKD presents to the emergency department after a fall at his residential. The patient states that he was sitting in a wheelchair and leaned over and fell. He now complains of pain all over his body. He states he did hit his head. He did not lose consciousness. He does have neck and back pain. He also has abdominal pain. He denies nausea and vomiting, diarrhea, weakness or numbness in his extremities. - Related Data Home Medications Medication Instructions Recorded Confirmed Aspirin 81 mg PO QAM 04/20/15 06/12/19 Digoxin [Lanoxin] 0.125 mg PO QAM 12/02/15 06/12/19 Apremilast [Otezla] 30 mg PO BID 01/26/18 06/12/19 Docusate Sodium [Dok] 100 mg PO QAM 01/26/18 06/12/19 Fluticasone/Vilanterol [Breo 1 puff IH QAM 01/26/18 06/12/19 Ellipta 200-25 Mcg INH] carBAMazepine [Tegretol] 200 mg PO BID 01/26/18 06/12/19 Insulin DETEMIR [Levemir] 38 units SQ HS 03/21/18 06/12/19 Insulin Regular, Human [Novolin R] 6 units SQ TIDAC 03/21/18 06/12/19 Metoprolol [Lopressor] 12.5 mg PO BID 03/21/18 06/12/19 Ursodiol [Actigall] 300 mg PO BID 08/25/18 06/12/19 Furosemide [Lasix] 40 mg PO QAM 11/24/18 06/12/19 Acetaminophen [Non-Aspirin] 650 mg PO Q4H PRN 06/05/19 06/12/19 Diltiazem CD (24hr) [Cardizem CD] 180 mg PO QAM 06/05/19 06/12/19 Spironolactone [Aldactone] 50 mg PO BID 06/12/19 06/12/19 Previous Rx's Medication Instructions Recorded ALPRAZolam [Xanax 0.5 MG Tablet] 0.5 mg PO HS 7 Days #7 tablet 03/31/18 Benzonatate [Tessalon] 100 mg PO TID PRN 30 Days #90 06/11/19 capsule Gabapentin [Neurontin] 400 mg PO TID 30 Days #90 capsule 06/11/19 Sodium Chloride [Sodium Chloride 1 gm PO BID 30 Days #60 tablet 06/11/19 Tab] levoFLOXacin [Levaquin] 750 mg PO Q48H 3 Days #3 tablet 06/11/19 Allergies Allergy/AdvReac Type Severity Reaction Status Date / Time sulfamethoxazole Allergy See Verified 06/12/19 22:05 [From Bactrim] Comments trimethoprim [From Bactrim] Allergy See Verified 06/12/19 22:05 Comments atorvastatin AdvReac Dizziness Verified 06/12/19 22:05 clopidogrel [From Plavix] AdvReac Dizziness Verified 06/12/19 22:05 lovastatin AdvReac Dizziness Verified 06/12/19 22:05 pioglitazone [From Actos] AdvReac Dizziness Verified 06/12/19 22:05 pravastatin AdvReac Dizziness Verified 06/12/19 22:05 Rosiglitazone AdvReac Dizziness Verified 06/12/19 22:05 flu vaccine Allergy Dizziness Uncoded 06/12/19 22:05 All systems ED: reviewed and negative except as stated. Review of Systems: As Per HPI Constitutional: Denies: fever, chills, weakness Cardiovascular: Reports: chest pain, dyspnea on exertion. Denies: palpitations Respiratory: Denies: cough, dyspnea, wheezes Gastrointestinal: Reports: abdominal pain. Denies: nausea, vomiting, diarrhea Musculoskeletal: Reports: back pain, neck pain Endocrine: Denies: fatigue Fall PMH - Past Medical History Medical history: Reports: asthma, atrial fibrillation, cancer, COPD, coronary artery disease, diabetes, hypertension, kidney stones, myocardial infarction, renal disease, other Surgical history: Reports: cataract Psychiatric history: Reports: anxiety, depression - Social History Smoking Status: Former smoker Alcohol use: Reports: none Drug use: Reports: none Physical Exam - General Limitations: physical limitation General appearance: alert, in no apparent distress - Head Head exam: atraumatic, normocephalic - Eye Eye exam: Present: normal appearance, PERRL, EOMI - ENT ENT exam: normal exam, normal oropharynx, TM's normal bilaterally, other (no septal hematoma) - Chest Chest inspection: Present: tenderness. Absent: rash - Respiratory Respiratory exam: Present: normal lung sounds bilaterally. Absent: wheezes - Cardiovascular Cardiovascular exam: Present: regular rate, normal rhythm - Abdominal Exam Abdominal exam: Present: soft, tenderness, other (bruising evident to the epigastric and right side). Absent: distention, guarding, rebound, rigidity, Rovsing's sign, tenderness at McBurney's Point Abdominal tenderness: Present: diffuse, moderate - Extremities Exam Extremities exam: Present: normal inspection. Absent: tenderness, pedal edema - Neurological Exam Neurological exam: Present: alert, oriented X3 - Psychiatric Psychiatric exam: Present: normal affect, normal mood - Skin Skin exam: Present: warm, dry, intact Course Vital Signs Temperature 97.9 F 06/12/19 17:57 Pulse Rate 100 06/12/19 17:57 Respiratory Rate 18 06/12/19 17:57 Blood Pressure 139/78 06/12/19 17:57 O2 Sat by Pulse Oximetry 94 06/12/19 17:57 Temperature 97.9 F 06/12/19 17:57 Pulse Rate 122 06/12/19 21:22 Respiratory Rate 18 06/12/19 21:22 Blood Pressure 142/80 06/12/19 19:35 O2 Sat by Pulse Oximetry 98 06/12/19 21:22 Oxygen Delivery Oxygen Delivery Nasal Cannula Fall - [facility] Narrative Medical decision making narrative: Patient presents to the emergency department after a fall at the residential. He states he remembers the entire event but is expressing pain all over. We will obtain trauma imaging, EKG, basic labs and urinalysis. [id number] ultrasound was inconclusive as the patient's body habitus limited the exam there was no obvious intra-abdominal bleeding noted. 2137 - pt has been accepted to the hospital after a negative trauma workup. Of note his troponin is elevated for the first time ever. He had no EKG changes and complains of chest pain to palpation but not at rest. His WBC is extremely elevated at 29 and he is acutely hyponatremic again. - Medical Records Medical records reviewed: Yes I reviewed the patient's medical records. - Lab Data Lab results reviewed: Yes I reviewed the patient's lab results. Result diagrams: 06/12/19 18:27 06/12/19 18:27 Lab Results 06/12/19 06/12/19 06/12/19 Range/Units 18:27 18:27 18:27 WBC 29.3 H D (4.3-11.1) K/mcL RBC 3.68 L (4.19-5.50) M/mcL Hgb 12.6 L D (12.9-16.9) g/dL Hct 36.1 L (37.5-50.1) % MCV 98.1 (83.0-100.0) fL MCH 34.2 H (28.0-33.3) pg MCHC 34.9 (31.6-35.5) g/dL RDW 14.6 H (11.5-14.5) % Plt Count 330 (140-400) K/mcL MPV 8.4 L (9.4-12.4) fL Seg Neutrophils % 86.0 % Band Neutrophils % 2.0 (0-4) % Lymphocytes % Test Not Performed Monocytes % 4.0 % Metamyelocytes % 6.0 H (0) % Myelocytes % 2.0 H (0) % Neutrophils # 25.8 H (1.6-8.9) K/mcL Lymphocytes # [employer] Monocytes # 1.2 (0.0-1.3) K/mcL Nucleated RBCs/100 WBC 0.1 H (0) /100 WBC Platelet Estimate Normal (Normal) PT 12.6 H (9.4-12.1) Seconds INR 1.1 Sodium 123 L (136-145) mEq/L Potassium 5.0 (3.5-5.1) mEq/L Chloride 88 L (98-107) mEq/L Carbon Dioxide 29 (23-29) mEq/L BUN 37 H (8-23) mg/dL Creatinine 1.17 (0.70-1.30) mg/dL Est GFR ( Amer) > 60 (> 60) Est GFR (Non-Af Amer) 59 L (> 60) BUN/Creatinine Ratio 32 H (6-26) Glucose 266 H (70-105) mg/dL Calculated Osmolality 274 L (280-300) Lactic Acid (0.5-2.2) mmol/L Calcium 9.1 (8.6-10.3) mg/dL Total Bilirubin 0.6 (0.3-1.0) mg/dL Direct Bilirubin 0.1 (0.0-0.2) mg/dL Indirect Bilirubin 0.5 (0.0-1.2) mg/dL AST 30 (13-39) Units/L ALT 47 (7-52) Units/L Alkaline Phosphatase 106 H (34-104) Units/L Troponin I 0.06 H* (< 0.04) ng/mL Serum Total Protein 6.6 (6.4-8.9) g/dL Albumin 3.7 (3.5-5.7) g/dL Globulin 2.9 (2.4-3.5) g/dL Albumin/Globulin Ratio 1.3 (1.1-2.2) Lipase < 3 L (11-82) Units/L Urine Color (Yellow) Urine Clarity (Clear) Urine pH (5.0-8.0) pH Units Ur Specific [place] (1.010-1.025) Urine Protein (Neg-Trace) mg/dL Urine Glucose (UA) (Normal) mg/dL Urine Ketones (Negative) mg/dL Urine Blood (Negative) Urine Nitrite (Negative) Urine Bilirubin (Negative) Urine Urobilinogen (Normal) mg/dL Ur Leukocyte Esterase (Negative) Urine Microscopic RBC (0-3) per hpf Urine Microscopic WBC (0-3) per hpf Ur Squamous Epith Cells (None-Few) per lpf Ur Transition Epith Cell (None-Few) per hpf Urine Bacteria (None-Few) per hpf Hyaline Casts (None-Few) per lpf Urine Mucus (Few) Ur Culture Indicated? (NO) 06/12/19 06/12/19 Range/Units 20:53 21:01 WBC (4.3-11.1) K/mcL RBC (4.19-5.50) M/mcL Hgb (12.9-16.9) g/dL Hct (37.5-50.1) % MCV (83.0-100.0) fL MCH (28.0-33.3) pg MCHC (31.6-35.5) g/dL RDW (11.5-14.5) % Plt Count (140-400) K/mcL MPV (9.4-12.4) fL Seg Neutrophils % % Band Neutrophils % (0-4) % Lymphocytes % Monocytes % % Metamyelocytes % (0) % Myelocytes % (0) % Neutrophils # (1.6-8.9) K/mcL Lymphocytes # Monocytes # (0.0-1.3) K/mcL Nucleated RBCs/100 WBC (0) /100 WBC Platelet Estimate (Normal) PT (9.4-12.1) Seconds INR Sodium (136-145) mEq/L Potassium (3.5-5.1) mEq/L Chloride (98-107) mEq/L Carbon Dioxide (23-29) mEq/L BUN (8-23) mg/dL Creatinine (0.70-1.30) mg/dL Est GFR ( Amer) (> 60) Est GFR (Non-Af Amer) (> 60) BUN/Creatinine Ratio (6-26) Glucose (70-105) mg/dL Calculated Osmolality (280-300) Lactic Acid 1.3 (0.5-2.2) mmol/L Calcium (8.6-10.3) mg/dL Total Bilirubin (0.3-1.0) mg/dL Direct Bilirubin (0.0-0.2) mg/dL Indirect Bilirubin (0.0-1.2) mg/dL AST (13-39) Units/L ALT (7-52) Units/L Alkaline Phosphatase (34-104) Units/L Troponin I (< 0.04) ng/mL Serum Total Protein (6.4-8.9) g/dL Albumin (3.5-5.7) g/dL Globulin (2.4-3.5) g/dL Albumin/Globulin Ratio (1.1-2.2) Lipase (11-82) Units/L Urine Color Yellow (Yellow) Urine Clarity Clear (Clear) Urine pH 5.5 (5.0-8.0) pH Units Ur Specific [place] 1.015 (1.010-1.025) Urine Protein Negative (Neg-Trace) mg/dL Urine Glucose (UA) 100 H (Normal) mg/dL Urine Ketones Negative (Negative) mg/dL Urine Blood Large H (Negative) Urine Nitrite Negative (Negative) Urine Bilirubin Negative (Negative) Urine Urobilinogen Normal (Normal) mg/dL Ur Leukocyte Esterase Negative (Negative) Urine Microscopic RBC TNTC H (0-3) per hpf Urine Microscopic WBC 0-3 (0-3) per hpf Ur Squamous Epith Cells Many H (None-Few) per lpf Ur Transition Epith Cell Few (None-Few) per hpf Urine Bacteria None Seen (None-Few) per hpf Hyaline Casts Few (None-Few) per lpf Urine Mucus Few (Few) Ur Culture Indicated? NO (NO) - Radiology Data Radiology results reviewed: Yes I reviewed the patient's radiology results. - EKG Data EKG attestation: Yes I reviewed and interpreted this EKG. EKG results narrative: EKG obtained at Heart rate 1 27 bpm, QRS duration 1.5, QT to 95, QTc 429 A. fib with RVR, RBBB and LPFB. No signs of ST segment elevations or depressions. No other acute T-wave abnormalities. No significant changes when compared to previous EKG dated 06/05/2019. Attestation Statement - Attestation Attestation: I have seen this patient with the resident physician, I have personally evaluated this patient. I had reviewed the chart and document dictation by the resident physician and aM in agreement with the information documented by the resident physician. Please see documentation by the resident physician for complete chart including past medical history, family medical history, review of systems, current history and physical and laboratory and imaging studies. I was present for all procedures, provided direct supervision for all proce dures, was present for the entirety of all procedures and provided direct guidance during the procedures. Please see documentation by the resident physician for any procedures performed. I have reviewed all interpretations of EKGs, and reviewed all EKGs performed on patient's as well. I have also reviewed reports of imaging as provided by radiology. Patient presented to emergency department with reported fall at the residential facility. The patient fell out of his wheelchair fell forward and hit his head. Patient complains of pain all over. The patient states he did not lose consciousness. He denies experiencing any syncope he states he does feel generally weak. He denies acute chest pain or shortness of breath. He denies palpitations. He does endorse abdominal pain but states that that has been present for a while now and was just admitted for similar symptoms in regards to abdominal pain. He denies significant urinary changes denies diarrhea or black or bloody stool. Denies any acute lower extremity swelling. Does endorse pain in all of his extremities and has no isolated area pain. The patient is a relatively poor historian but he is oriented and able to provide the vast majority of history states he was just discharged from the hospital yesterday. Had reviewed his chart he was admitted for hyponatremia and abdominal pain. On physical examination he is alert and oriented, cranial nerves are grossly intact, no obvious evidence of trauma to the head no significant midline tenderness of the cervical spine. The lungs are slightly diminished bilaterally , no focal adventitious sounds. Cardiovascular irregularly irregular, intermittently tachycardic, the abdomen is soft and diffusely tender without areas of acute bruising there does appear to be some old bruising on the abdomen no bleeding noted. No obvious hernias. Equal pulses in all 4 extremities no obvious long bone deformity, trace to 1+ bilateral lower extremity edema without evidence of unilateral swelling or DVT. Head CT showed no acute findings cervical spine CT showed no acute findings secondary to the patient falling, having pain in his abdomen, also had some tenderness of his chest wall but without palpable crepitus or deformity, CT chest abdomen and pelvis was ordered for trauma and to evaluate for acute abnormality, including aortic pathology as a cause of his potential fall CT head and cervical spine showed no acute findings CT of the chest showed evidence for possible bronchitis and bronchiectasis no obvious focal areas of pneumonia, no acute traumatic abnormality abdomen showed no acute intra- abdominal process although demonstrated findings suggestive of prostatic enlargement with bladder outlet obstruction. CBC showed acute leukocytosis of 29,000 up from 13,000 from yesterday otherwise stable from yesterday. Renal panel showed hyponatremia 123 decreased from 131 from yesterday although was 124 at the admission to the hospital. EKG was A. fib tachycardic rhythm, no evidence of acute ischemia. Urinalysis on a straight catheter was unremarkable for any evidence of infection. Troponin was borderline at 0.06. Patient was given IV diltiazem for his atrial fibrillation with elevated heart rates. It is unclear as to the exact cause of this patient's hyponatremia which is now recurrent, as well as to his leukocytosis he has no obvious sources of infection is CT of the chest showed possible bronchiectasis but no evidence of focal infiltrate, he is afebrile, his urine is clean he is a CT chest abdomen pelvis OY shows no acute abnormality he has no headache and no neck pain, and no symptoms to suggest acute encephalitis or meningitis. He will be admitted to the hospital for further evaluation and management. He is not currently on anticoagulation secondary to history of recent GI bleed, no indication for initiating anticoagulation at this time as he has no chest pain his EKG is nonischemic although his troponin is borderline this will require further monitoring. Total critical care time as provided by myself excluding any procedures performed in evaluation and management of fall, hyponatremia, leukocytosis, A. fib with RVR was 35 minutes. Please note I did also add on a digoxin level, prior to admission to the hospital which will be followed up by the hospitalist. Please also note that patient had a Vasquez catheter placed for bladder outlet obstruction findings on CT.
[2019-06-12 19:57] LABS: Monocytes # 1.2 K/mcL (0.0-1.3); Neutrophils # 25.8 K/mcL (1.6-8.9)
[2019-06-12 19:58] LABS: Platelet Estimate Normal (Normal)
[2019-06-12] MEDS ORDERED: 0.9 % Sodium Chloride 1,000 ML IVC ONE (20:18)
[2019-06-12 21:12] LABS: Bilirubin,Urine Negative (Negative); Blood,Urine Large (Negative); Clarity,Urine Clear (Clear); Color,Urine Yellow (Yellow); Glucose,Urine (UA) 100 mg/dL (Normal); Ketones,Urine Negative (Negative); Leukocyte Esterase,Urine Negative (Negative); Nitrite,Urine Negative (Negative); PH,Urine 5.5 pH Units (5.0-8.0); Protein,Urine Negative (Neg-Trace); Specific Gravity,Urine 1.015 (1.010-1.025); Urobilinogen,Urine Normal (Normal)
[2019-06-12 21:15] LABS: Bacteria,Urine None Seen per hpf (None-Few); RBC,Urine TNTC per hpf (0-3); Squamous Epithelial Cell,Urine Many per lpf (None-Few); WBC,Urine 0-3 per hpf (0-3)
[2019-06-12 21:32] LABS: Hyaline Casts,Urine Few per lpf (None-Few); Mucus,Urine Few (Few); Transitional Epi Cells,Urine Few per hpf (None-Few)
[2019-06-12 23:28] LABS: Digoxin 1.5 ng/mL (0.8-2.0)
--- NOTE | 2019-06-13 03:00 | Internal Med History&Physical ---
Date of Encounter: 06/13/19 Time of Encounter: 02:53 Internal Medicine - H&P: HPI Chief complaint: fall Admitted From: Home Plans for Post Hospital Care: Home History of present illness: Mr. Johnson is a 84 year old male atrial fibrillation, coronary artery disease, type 2 diabetes, chronic kidney disease and COPD on home oxygen and currently resides at a assisted presented to the ED after a fall. Patient was sitting in a wheelchair and well attempting to get up and fell and landed on his face and arms. Patient denies losing consciousness and has been having leg, back pain. Patient believes this is due to weakness he had no visual changes, nausea, vomiting, diaphoresis, ulcerations. Patient however admits to having incontinence of urine and bowel for over a week and worsening low back pain sharp with no radiation and no alleviating or exacerbating factor doses she with fever, chills, night sweats, abdominal pain. Reviewed patient is minimal, surgical, family and social history. Patient's CODE STATUS verified to be full code. Patient reported he would like to be a organ donor and does not want to be on life support for a long time. In the ED patient had elevated troponin and complained of chest pain in the ED and was noted to be in A. fib with RVR and Cardizem was initiated.On my examination the chest pain have resolved on its own. Patient reported chest pain have occurred after he started coughing bilateral sharp 9/10 with no alleviating or exacerbating factor. Patient was also noted to be hyponatremic and reported to have adequate oral intake while in the assisted. Past Med Surg Social Fam HX - Past Medical History Medical history: asthma, atrial fibrillation, cancer, COPD, coronary artery disease, diabetes, hypertension, kidney stones, myocardial infarction, renal disease, other Additional medical history: anemia, type II diabetic, hernia, colon cancer, sleep apnea Psychiatric history: anxiety, depression - Past Surgical History Surgical History: cataract Additional surgical history: 5 cardiac stents, right hand - Social History Smoking Status: Former smoker Smokeless Tobacco Status: No Alcohol use: none Drug use: none - Family History Mother Living Status: Age at : 70 Cause of : unk Hx Family Cardiac Disorders: Yes Hx Family Respiratory Disorders: No Hx Family Cancer: No Hx Family GI Disorders: No Hx Family Endocrine Disorder: Yes Hx Family Neuromuscular Disorders: No Hx Family Neurologic Disorders: Yes Hx Family HEENT Disorders: No Hx Family Autoimmune Disorders: No Father Adopted: No Family Member Ethnicity: Non- Living Status: Age at : 67 Cause of : unk Hx Family Cardiac Disorders: Yes Internal Medicine - H&P: Meds Aspirin 81 mg PO QAM 04/20/15 [History] Digoxin [Lanoxin] 0.125 mg PO QAM 12/02/15 [History] Apremilast [Otezla] 30 mg PO BID 01/26/18 [History] Docusate Sodium [Dok] 100 mg PO QAM 01/26/18 [History] Fluticasone/Vilanterol [Breo Ellipta 200-25 Mcg INH] 1 puff IH QA 01/26/18 [History] carBAMazepine [Tegretol] 200 mg PO BID 01/26/18 [History] Insulin DETEMIR [Levemir] 38 units SQ HS 03/21/18 [History] Insulin Regular, Human [Novolin R] 6 units SQ TIDAC 03/21/18 [History] Metoprolol [Lopressor] 12.5 mg PO BID 03/21/18 [History] ALPRAZolam [Xanax 0.5 MG Tablet] 0.5 mg PO HS 7 Days #7 tablet 03/31/18 [Rx] Ursodiol [Actigall] 300 mg PO BID 08/25/18 [History] Furosemide [Lasix] 40 mg PO QAM 11/24/18 [History] Acetaminophen [Non-Aspirin] 650 mg PO Q4H PRN 06/05/19 [History] Diltiazem CD (24hr) [Cardizem CD] 180 mg PO QAM 06/05/19 [History] Benzonatate [Tessalon] 100 mg PO TID PRN 30 Days #90 capsule 06/11/19 [Rx] Gabapentin [Neurontin] 400 mg PO TID 30 Days #90 capsule 06/11/19 [Rx] Sodium Chloride [Sodium Chloride Tab] 1 gm PO BID 30 Days #60 tablet 06/11/19 [Rx] levoFLOXacin [Levaquin] 750 mg PO Q48H 3 Days #3 tablet 06/11/19 [Rx] Spironolactone [Aldactone] 50 mg PO BID 06/12/19 [History] Allergy/AdvReac Type Severity Reaction Status Date / Time sulfamethoxazole Allergy See Verified 06/12/19 22:05 [From Bactrim] Comments trimethoprim [From Bactrim] Allergy See Verified 06/12/19 22:05 Comments atorvastatin AdvReac Dizziness Verified 06/12/19 22:05 clopidogrel [From Plavix] AdvReac Dizziness Verified 06/12/19 22:05 lovastatin AdvReac Dizziness Verified 06/12/19 22:05 pioglitazone [From Actos] AdvReac Dizziness Verified 06/12/19 22:05 pravastatin AdvReac Dizziness Verified 06/12/19 22:05 Rosiglitazone AdvReac Dizziness Verified 06/12/19 22:05 flu vaccine Allergy Dizziness Uncoded 06/12/19 22:05 All Systems PM: A 10-system review of systems was performed and is negative for pertinent findings except as documented above in the HPI. Review of systems: General: No unintentional weightloss, No fever Head: No headahce, No injury. Ears: No discharge, No earache Eyes: No drainage, No eye pain Mouth and Throat: No new ulcers, No pain Nose and Sinus: No new congestion, No pain, Respiratory: No cough, No sputum production, No dyspnea Cardiovascular: + chest pain, No palpitations. Gastrointestinal: No nausea, No vomiting. No abdominal pain. Genital Tract: No discharge, No pain Urinary Tract:+ dysuria, No discharge. MSK: No new/worsening joint pain, No new/worsening muscle ache. Endocrine: No cold intolerance, No polyuria Psychological: No suicidal, No homocidal ideation. - Constitutional Vitals: Temp Pulse Resp BP Pulse Ox 98.5 F 98 16 125/82 100 06/12/19 23:10 06/12/19 23:10 06/12/19 23:10 06/12/19 23:10 06/12/19 23:39 Exam: General Appearance: Appearing as age, well-nourished in mild acute distress. Head: Atraumatic normocephalic Skin: Normal texture, normal turgor, warm, dry. Eyes: Conjunctivae not pale with no erythema, drainage, or ulcers. Anicteric. Neck: No Lymphadenopathy in the anterior/posterior cervical chain. No thyromegaly, masses or ulcers. Trachea midline. Heart: Tachycardia, no murmurs. Capillary refill 3 seconds Lungs: No accessory muscle usage, lungs clear to auscultation bilaterally, no wheezes or crackles. Extremities: No pitting edema, No clubbing, No cyanosis. Abdomen: Non-distended, normoactive bowel sounds. non-tender to palpation, no hepatomegally. No guarding. Neuro: AOx3 with no new sensory loss or focal deficits. : Perineal tenderness significantly to light palpation. MSK: Strength 5/5 Upper extremity equal bilaterally. Strength 5/5 Lower extremity equal bilaterally. Generalized midline spinous process tenderness worst at the lower lumbar spine Internal Med - H&P Results - Labs CBC & Chem 7: 06/13/19 16:02 06/13/19 17:51 Labs: Short CBC 06/12/19 Range/Units 18:27 WBC 29.3 H D (4.3-11.1) K/mcL Hgb 12.6 L D (12.9-16.9) g/dL Hct 36.1 L (37.5-50.1) % Plt Count 330 (140-400) K/mcL Neutrophils # 25.8 H (1.6-8.9) K/mcL BMP 06/12/19 18:27 Sodium 123 L Potassium 5.0 Chloride 88 L Carbon Dioxide 29 BUN 37 H Creatinine 1.17 Glucose 266 H Calcium 9.1 Cardiac Enzymes 06/12/19 Range/Units 18:27 Troponin I 0.06 H* (< 0.04) ng/mL Liver Function 06/12/19 Range/Units 18:27 Total Bilirubin 0.6 (0.3-1.0) mg/dL Direct Bilirubin 0.1 (0.0-0.2) mg/dL AST 30 (13-39) Units/L ALT 47 (7-52) Units/L Alkaline Phosphatase 106 H (34-104) Units/L Albumin 3.7 (3.5-5.7) g/dL Urine 06/12/19 Range/Units 20:53 Urine Color Yellow (Yellow) Urine Clarity Clear (Clear) Urine pH 5.5 (5.0-8.0) pH Units Ur Specific Ovid 1.015 (1.010-1.025) Urine Protein Negative (Neg-Trace) mg/dL Urine Glucose (UA) 100 H (Normal) mg/dL - Impressions ITS Impressions Chest X-Ray 06/12/19 18:57 IMPRESSION: No radiographic evidence of acute intrathoracic findings. D/ / Gary Daugherty MD / Gary Daugherty MD Interpreting Provider: Gary Daugherty MD Pelvis X-Ray 06/12/19 18:59 IMPRESSION: No evidence of acute osseous abnormalities. D/ / Gary Daugherty MD / Gary Daugherty MD Interpreting Provider: Gary Daugherty MD Head CT 06/12/19 20:55 IMPRESSION: No acute intracranial abnormality. Moderate diffuse cerebral volume loss. Mild amount of chronic small vessel ischemic white matter disease. D/ / 06/12/2019 21:13:44 Gary Daugherty MD / eberry Interpreting Provider: Gary Daugherty MD Cervical Spine CT 06/12/19 20:56 IMPRESSION: No acute abnormality of the cervical spine. D/ / Enrique Salcido MD / Enrique Salcido MD Interpreting Provider: Enrique Salcido MD Chest/Abdomen/Pelvis CTA 06/12/19 21:00 IMPRESSION: Essentially normal CTA of the chest, abdomen and pelvis. No evidence of an acute vascular injury. Trace [id number] bilateral low-attenuation pleural effusions. Ppob-[id number]-[id number]-right bibasilar airspace disease with mild bronchiectasis, bronchial wall thickening and mucus plugging. Cholelithiasis suspected with noncalcified gallstones. Pancreas is atrophic with dilated pancreatic duct. A calculus is suspected in the distal aspect of the pancreatic duct. Few pancreatic head calcifications suggest chronic calcific pancreatitis. Mild bilateral hydronephrosis and hydroureter with distended urinary bladder most consistent with bladder outlet obstruction related to prostatomegaly. D/ / Miguel Bentley MD / Miguel Bentley MD Interpreting Provider: Miguel Bentley MD - Summary of Assessment and Plan Summary of Assessment and Plan: 1.Atrial fibrillation uncontrolled: etiology suspected sepsis from prostitis, copd exacerbation. Unresponsive to metoprolol 12.5 mg twice a day, digoxin 0.125 mg daily and diltiazem 180 mg daily Patient was started on diltiazem drip in the ED. echo pending. Cardiology consultation 2.ACS: Elevated troponin, EKG reviewed. Heart score moderate risk. Patient is already on warfarin therapy subtherapeutic. Heparin drip Cardiology consultation 3.Leukocytosis: likely Secondary to steroid usage however Suspected sepsis source is prostitis. blood cultures obtained. Adhikari CT in the ED showed no source. Peripheral smear, procalcitonin orderred. Levaquin empirically. 4.Anemia: Anemia panel ordered 5.Low back pain with bowel and urinary incontinence(1 week duration) MRI lumbar back ordered. 6.Euvolemic hyponatremia: asymptomatic IVF given for suspected sepsis. BMP q2 hours. Await lytes and check for overcorrection. 7.BPH with bladder outlet obstruction: urology consultation. DVT prophylaxis: on heparin Dispo: Likely > 2 day stay. - Time Spent With Patient Total time spent is greater than 36 minutes 50% in coordination of care (as documented) at patient's floor/unit and/or counseling patient: Greater than 35 minutes
[2019-06-13] MEDS ORDERED: Dextrose Gel 15 GM/37.5 ML TUBE PO PRN ×2 (03:15)
[2019-06-13] MEDS ORDERED: D5% in Water 1,000 ML IVC PRN (03:15)
[2019-06-13] MEDS ORDERED: Ringers Solution, Lactated 1,000 ML IVC SCH (03:15)
[2019-06-13] MEDS ORDERED: Naloxone 0.4 MG/ML INJ IVP PRN (03:15)
[2019-06-13] MEDS ORDERED: *HR* Dextrose 50 % in Water (Syg) 50 ML SYRINGE IVP PRN (03:15)
[2019-06-13] MEDS ORDERED: *HR* Heparin 5,000 UNIT/ML VIAL IVP PRN ×2 (03:26)
[2019-06-13] MEDS ORDERED: *HR* Heparin 5,000 UNIT/ML VIAL IVP ONE (03:26)
[2019-06-13] MEDS ORDERED: Aspirin Enteric Coated 81 MG Tablet PO ONE (03:28)
[2019-06-13] MEDS ORDERED: Heparin 25,000 UNIT/250 ML D5W 25,000 UNIT/250 ML IV.SOLN IVC SCH (03:30)
[2019-06-13] MEDS ORDERED: Nitroglycerin 0.4 MG TAB.SUBL SL PRN (03:36)
[2019-06-13] MEDS ORDERED: levoFLOXacin 500 MG/100 ML 500 MG/100 ML BAG IVPB SCH (03:40)
[2019-06-13] MEDS: 0.9 % Sodium Chloride 1,000 ML IVC SCH ×2 (04:26→05:40)
[2019-06-13 04:44] LABS: Hematocrit 33.7 % (37.5-50.1); Hemoglobin 11.5 g/dL (12.9-16.9); Immature Reticulocyte % 27.7 % (11.0-38.0); Mean Corpuscular HGB Conc 34.1 g/dL (31.6-35.5); Mean Corpuscular Hemoglobin 34.2 pg (28.0-33.3); Mean Corpuscular Volume 100.3 fL (83.0-100.0); Mean Platelet Volume 8.4 fL (9.4-12.4); Platelet Count 248 K/mcL (140-400); Red Blood Count 3.36 M/mcL (4.19-5.50); Red Cell Distribution Width 14.7 % (11.5-14.5); Retculocyte # 0.27 M/mcL (0.05-0.10); White Blood Count 20.4 K/mcL (4.3-11.1)
[2019-06-13 04:57] LABS: Prothrombin Time 11.9 Seconds (9.4-12.1)
[2019-06-13 05:01] LABS: % Iron Saturation 43 % (20-55); BUN/Creatinine Ratio 30 (6-26); Blood Urea Nitrogen 31 mg/dL (8-23); Calcium 8.7 mg/dL (8.6-10.3); Carbon Dioxide 30 mEq/L (23-29); Chloride 91 mEq/L (98-107); Chol/HDL Ratio 2.8 (0-4.9); Cholesterol 154 mg/dL (< 200); Glucose 202 mg/dL (70-105); HDL Cholesterol 55 mg/dL (40-59); Iron 95 mcg/dL (65-175); LDL Cholesterol,Calculated 77 mg/dL (0-99); Magnesium 1.8 mg/dL (1.6-2.6); Osmolality,Calculated 280 (280-300); Potassium 4.3 mEq/L (3.5-5.1); Sodium 129 mEq/L (136-145); Transferrin 157 mg/dL (203-362); Triglycerides 109 mg/dL (< 150); eGFR For African Americans > 60 (> 60); eGFR For Non-African Americans > 60 (> 60)
[2019-06-13 05:13] LABS: Thyroid Stimulating Hormone 1.999 mcIU/mL (0.340-5.600)
[2019-06-13 05:18] LABS: Ferritin 712 ng/mL (20-250)
[2019-06-13 05:24] LABS: Folate 9.5 ng/mL (3.0-16.0)
[2019-06-13 05:35] LABS: Lymphocytes # 0.8 K/mcL (0.6-4.6); Monocytes # 0.6 K/mcL (0.0-1.3); Neutrophils # 18.4 K/mcL (1.6-8.9)
[2019-06-13 05:36] LABS: Platelet Estimate Normal (Normal)
[2019-06-13 05:37] LABS: Hypersegmented Neutrophils Present (Not Present)
[2019-06-13 05:38] LABS: Anisocytosis 1+ (Not Present); Macrocytosis Present (Not Present); Polychromasia 1+ (Not Present); Procalcitonin 0.24 ng/mL (0.00-0.15)
[2019-06-13 05:40] LABS: Hypochromasia Present (Not Present); Toxic Granulation Present (Not Present)
[2019-06-13] MEDS ORDERED: Insulin LISPRO 300 UNITS/3 ML VIAL SQ SCH (06:00)
--- NOTE | 2019-06-13 07:25 | Internal Med Progress Note ---
<Franco,Loc T - Last Filed: 06/13/19 15:28> Hospitalist Progress Note - Encounter Date of Encounter: 06/13/19 Time of Encounter: 07:25 - Subjective Interval History: Pt is an 84yo male pt who presented to the ED after [facility] but was also recently discharged from [facility] 06/11/19 for an acute exacerbation of COPD treated with steroids and Levaquin. He was admitted for A fib with RVR, hyponatremia, and leukocytosis. Pt was seen this morning laying in bed asleep, but upon awakening, he reported that his leg and back pain has both self resolved overnight. He denies any pain anywhere and denies any chest pain, shortness of breath, fevers, chills, nausea or vomiting. He did report sleeping well last night. Overnight, his pressures were soft, and he remained in A. fib with RVR but it did not seem to bother him overnight. - Exam Vitals: Temp Pulse Resp BP Pulse Ox 98.4 F 128 15 94/63 99 06/13/19 04:09 06/13/19 04:09 06/13/19 04:09 06/13/19 04:09 06/13/19 04:09 Exam: General: Was found asleep in bed early this morning. He was in no apparent distress and was alert and responded to questions and commands. HEENT: Normocephalic with dry mouth Heart: Irregularly irregular, tachycardic, with 2/6 systolic murmur auscultated at the aortic and pulmonic areas, but no gallops Lungs: Bilateral rhonchi auscultated all throughout both lungs in all capone, but no wheezes Abd: Normal active bowel sounds, soft, non distended, non tender to palpation : Garcia cath in place draining out dark red urine Ext: +1 bilateral pitting edema of both ankles and dry flaky skin of both feet - Assessment and Plan (1) Atrial fibrillation with RVR Current Visit: Yes Status: Chronic Assessment and Plan: - Pt was found to have A fib on admission with HRs in the range of 110s-120s - Consulted cardiology to manage A. Fib - awaiting their recommendations - Limited Echo was ordered - pending results - Restarted his home med of Digoxin 0.125mg PO - Held home metoprolol, cardizem, and lasix for fear of falls - Held IV Heparin for anticoagulation due to recent hematuria - will be placing bilateral LE SCDs for DVT ppx instead (2) Acute coronary syndrome Current Visit: Yes Status: Acute Assessment and Plan: - Elevated troponins initially which have down trended from troponins 0.6 x 2 an d last troponin now at 0.4 - Pt reported this morning that his chest pain has self resolved - Held heparin drip for the A. fib due to recent hematuria - bilateral SCDs placed on LE for DVT ppx - Limited Echo was ordered - pending results (3) Leukocytosis Current Visit: Yes Status: Acute Assessment and Plan: - Patient was recently discharged prior to this admission for COPD exacerbation which was treated with steroids and Levaquin - so likely leukocytosis from the prior steroids patient was taking - WBCs down trending today at 20.4 from 29.3 yesterday - patient remaining afebrile throughout this hospital course - Blood cultures x 2 and urine culture are collected - results pending - Adhikari CT did not show any active or acute infectious process - Resumed the home dose of Levaquin - Will monitor for any changes on repeat CBC (4) Anemia Current Visit: Yes Status: Acute Assessment and Plan: - Acute on chronic anemia due to the fact that the patient's Hb runs in the low 10s however could be worsened from recent traumatic garcia cath insertion - His H&H have held stable today at 11.5 with Hct today at 33.7 - CBC with differential showed interesting hypersegmented neutrophils, toxic granulations, polychromasia, hypochromasia, anisocytosis aand macrocytosis - Ordered peripheral blood smear - which only showed presence of macrocytosis and leukocytosis - Ordered a repeat H&H at 4PM today to monitor and trend for changes in anemia - Will hold the IV heparin until bleeding from the garcia cath stops (5) Low back pain Current Visit: Yes Status: Acute Assessment and Plan: - Likely exacerbated to the recent fall that he had prior to admission - Ordered MRI of the back which showed disc bulge of L3-S1 and bilateral facet arthroses and degenerative disc disease without mention of any fractures or a cute processes (6) Hyponatremia Current Visit: Yes Status: Acute Assessment and Plan: - Pt has chronically been hyponatremic on chart review of prior visits with Na level hovering low 130s - Na level is uptrending now today at 129 up from yesterday at 123 - Pt remains alert and oriented x 3 and is cooperative and answers questions well on exam (7) Bladder outlet obstruction Current Visit: Yes Status: Acute Assessment and Plan: - Pt had a chest/abd/pelvic CTA done which shows mild bilateral hydronephrosis and hydroureter with distended urinary bladder most consistent with bladder outlet obstruction related to prostatomegaly - Pt was recently inserted a traumatic garcia catheter which correlates with UA shwoing large blood in the urine and microscopic RBCs of too numerous to count - Garcia catheter is in place draining serosanguinous urine - Will continue to monitor urine output and monitor for further bleeding - Will stop the IV heparin due to the recent traumatic garcia cath insertion - Time Spent with Patient Total time spent is greater than 50% in coordination of care (as documented) at patient's floor/unit and/or counseling patient: Internal Medicine: Result - Labs CBC & Chem 7: 06/13/19 03:55 06/13/19 13:59 Labs: Short CBC 06/12/19 06/13/19 Range/Units 18:27 03:55 WBC 29.3 H D 20.4 H (4.3-11.1) K/mcL Hgb 12.6 L D 11.5 L (12.9-16.9) g/dL Hct 36.1 L 33.7 L (37.5-50.1) % Plt Count 330 248 (140-400) K/mcL Neutrophils # 25.8 H 18.4 H (1.6-8.9) K/mcL BMP 06/12/19 06/13/19 18:27 03:55 Sodium 123 L 129 L Potassium 5.0 4.3 Chloride 88 L 91 L Carbon Dioxide 29 30 H BUN 37 H 31 H Creatinine 1.17 1.02 Glucose 266 H 202 H Calcium 9.1 8.7 Cardiac Enzymes 06/12/19 06/13/19 Range/Units 18:27 03:55 Troponin I 0.06 H* 0.06 H* (< 0.04) ng/mL Liver Function 06/12/19 Range/Units 18:27 Total Bilirubin 0.6 (0.3-1.0) mg/dL Direct Bilirubin 0.1 (0.0-0.2) mg/dL AST 30 (13-39) Units/L ALT 47 (7-52) Units/L Alkaline Phosphatase 106 H (34-104) Units/L Albumin 3.7 (3.5-5.7) g/dL Urine 06/12/19 Range/Units 20:53 Urine Color Yellow (Yellow) Urine Clarity Clear (Clear) Urine pH 5.5 (5.0-8.0) pH Units Ur Specific [place] 1.015 (1.010-1.025) Urine Protein Negative (Neg-Trace) mg/dL Urine Glucose (UA) 100 H (Normal) mg/dL - ABG Interpretation ABG results: PT/INR, D-dimer PT 11.9 Seconds (9.4-12.1) 06/13/19 03:55 - Impressions Impressions Chest X-Ray 06/12/19 18:57 IMPRESSION: No radiographic evidence of acute intrathoracic findings. D/ / Gary Daugherty MD / Gary Daugherty MD Interpreting Provider: Gary Daugherty MD Pelvis X-Ray 06/12/19 18:59 IMPRESSION: No evidence of acute osseous abnormalities. D/ / Gary Daugherty MD / Gary Daugherty MD Interpreting Provider: Gary Daugherty MD Head CT 06/12/19 20:55 IMPRESSION: No acute intracranial abnormality. Moderate diffuse cerebral volume loss. Mild amount of chronic small vessel ischemic white matter disease. D/ / 06/12/2019 21:13:44 Gary Daugherty MD / eberry Interpreting Provider: Gary Daugherty MD Cervical Spine CT 06/12/19 20:56 IMPRESSION: No acute abnormality of the cervical spine. D/ / Enrique Salcido MD / Enrique Salcido MD Interpreting Provider: Enrique Salcido MD Chest/Abdomen/Pelvis CTA 06/12/19 21:00 IMPRESSION: Essentially normal CTA of the chest, abdomen and pelvis. No evidence of an acute vascular injury. Trace pnyg-bqesxtx-gbmk-right bilateral low-attenuation pleural effusions. Ldgf-kkbesmq-kdtv-right bibasilar airspace disease with mild bronchiectasis, bronchial wall thickening and mucus plugging. Cholelithiasis suspected with noncalcified gallstones. Pancreas is atrophic with dilated pancreatic duct. A calculus is suspected in the distal aspect of the pancreatic duct. Few pancreatic head calcifications suggest chronic calcific pancreatitis. Mild bilateral hydronephrosis and hydroureter with distended urinary bladder most consistent with bladder outlet obstruction related to prostatomegaly. D/ / Miguel Bentley MD / Miguel Bentley MD Interpreting Provider: Miguel Bentley MD - VTE Reasons for not Prescribing Prophylaxis: Not indicated-Anticoagulated or INR therapeutic Consult Discharge Plan - Plan Referrals: NONE,PCP [Primary Care Provider] - <Queta Patel - Last Filed: 06/13/19 16:14> Hospitalist Progress Note - Encounter Date of Encounter: 06/13/19 - Exam Vitals: Temp Pulse Resp BP Pulse Ox 98.1 F 113 18 109/66 100 06/13/19 12:33 06/13/19 12:33 06/13/19 12:33 06/13/19 12:33 06/13/19 12:33 - Time Spent with Patient Total time spent is greater than 50% in coordination of care (as documented) at patient's floor/unit and/or counseling patient: Internal Medicine: Result - Labs CBC & Chem 7: 06/13/19 03:55 06/13/19 13:59 Labs: Short CBC 06/12/19 06/13/19 Range/Units 18:27 03:55 WBC 29.3 H D 20.4 H (4.3-11.1) K/mcL Hgb 12.6 L D 11.5 L (12.9-16.9) g/dL Hct 36.1 L 33.7 L (37.5-50.1) % Plt Count 330 248 (140-400) K/mcL Neutrophils # 25.8 H 18.4 H (1.6-8.9) K/mcL BMP 06/12/19 06/13/19 06/13/19 18:27 03:55 09:41 Sodium 123 L 129 L 129 L Potassium 5.0 4.3 4.1 Chloride 88 L 91 L 97 L Carbon Dioxide 29 30 H 27 BUN 37 H 31 H 26 H Creatinine 1.17 1.02 0.90 Glucose 266 H 202 H 134 H Calcium 9.1 8.7 8.0 L Cardiac Enzymes 06/12/19 06/13/19 06/13/19 Range/Units 18:27 03:55 09:41 Troponin I 0.06 H* 0.06 H* 0.04 H* (< 0.04) ng/mL Liver Function 06/12/19 Range/Units 18:27 Total Bilirubin 0.6 (0.3-1.0) mg/dL Direct Bilirubin 0.1 (0.0-0.2) mg/dL AST 30 (13-39) Units/L ALT 47 (7-52) Units/L Alkaline Phosphatase 106 H (34-104) Units/L Albumin 3.7 (3.5-5.7) g/dL Urine 06/12/19 Range/Units 20:53 Urine Color Yellow (Yellow) Urine Clarity Clear (Clear) Urine pH 5.5 (5.0-8.0) pH Units Ur Specific [place] 1.015 (1.010-1.025) Urine Protein Negative (Neg-Trace) mg/dL Urine Glucose (UA) 100 H (Normal) mg/dL - ABG Interpretation ABG results: PT/INR, D-dimer PT 11.9 Seconds (9.4-12.1) 06/13/19 03:55 - Impressions Impressions Chest X-Ray 06/12/19 18:57 IMPRESSION: No radiographic evidence of acute intrathoracic findings. D/ / Gary Daugherty MD / Gary Daugherty MD Interpreting Provider: Gary Daugherty MD Pelvis X-Ray 06/12/19 18:59 IMPRESSION: No evidence of acute osseous abnormalities. D/ / Gary Daugherty MD / Gary Daugherty MD Interpreting Provider: Gary Daugherty MD Head CT 06/12/19 20:55 IMPRESSION: 1. No acute intracranial abnormality. 2. Moderate diffuse cerebral volume loss. Mild amount of chronic small vessel ischemic white matter disease. D/ / 06/12/2019 21:13:44 Gary Daugherty MD / ruben Interpreting Provider: Gary Daugherty MD Cervical Spine CT 06/12/19 20:56 IMPRESSION: No acute abnormality of the cervical spine. D/ / Enrique Salcido MD / Enrique Salcido MD Interpreting Provider: Enrique Salcido MD Chest/Abdomen/Pelvis CTA 06/12/19 21:00 IMPRESSION: Essentially normal CTA of the chest, abdomen and pelvis. No evidence of an acute vascular injury. Trace wdaf-lfguwlg-ptrq-right bilateral low-attenuation pleural effusions. Vbnm-gioxkyn-cqch-right bibasilar airspace disease with mild bronchiectasis, bronchial wall thickening and mucus plugging. Cholelithiasis suspected with noncalcified gallstones. Pancreas is atrophic with dilated pancreatic duct. A calculus is suspected in the distal aspect of the pancreatic duct. Few pancreatic head calcifications suggest chronic calcific pancreatitis. Mild bilateral hydronephrosis and hydroureter with distended urinary bladder most consistent with bladder outlet obstruction related to prostatomegaly. D/ / Miguel Bentley MD / Miguel Bentley MD Interpreting Provider: Miguel Bentley MD Lumbar Spine MRI 06/13/19 12:21 IMPRESSION: Degenerative disc disease as described above, exacerbating congenitally narrow lumbar spinal canal, grossly stable. Spinal canal narrowing, moderate at L4-5. Foraminal, miia-hh-qyeiqcof at left L5-S1. D/ / Zeferino Bass MD / Zeferino Bass MD Interpreting Provider: Zeferino Bass MD - Attending Attestation The history, physical exam, and medical decision making was performed by the medical student Franco either while I was physically present and actively involved or I personally re-performed the exam and medical decision making. I have ve rified the accuracy of the medical student's documentation with regards to the history, physical exam findings, and medical decision making. Mr Johnson is admitted for fall, Afib RVR, and bladder outlet obstruction He has a multitude of other medical conditions stable and addressed on his admission earlier this week, with [facility] awake, describes mechanical fall when attempting to idependently transfer from wheelchair to seat at snf. denies preceding sxs. He has no joints aches/pain today post fall. His low back pain has since resolved. He note shis urine was yellow until after garcia cath placed in ED. No hx hematuria. denies bladder pressure, pain, n/v, cva tenderness. He has had no fevers, chills, diarrhea, rashes or wounds. He cont to have productive cough, but denies sob or wheezing. He has no palpitations, cp, or presyncope. gen- alert, awake,appears stated age eyes- pupils equal round, no scleral icterus cv- tachy rate 110s on bedside tele and irreg/irreg rhythm, normal s1,s2, no le edema lungs- course bs throughout, no wheezing, norm resp effort on o2 nc abd- soft, non tender, non distended, + bs gu- garcia cath draining red urine, no clots neuro- AAOx3, CN grossly intact,strength 4/5 throughout without focal deficits 1. Afib RVR- is not actually on cardizem gtt, was never started apparently TSH wnl, EKG unchagned from priors without acute ischemic changes -cont tele, check echo, cards consulted - for now hep gtt with hematuria, add back home digoxin and await further cards recs, given low BPs we will hold other home med, suspect not on ac at home due to fall risk 2. Trop Elevation, adynamic without EKG changes, suspected demand ischemia Type II NSTEMI from Afib rvr- no need to trend further, await cards recs 3. Mechanical fall, suspect generalized deconditioning w recent admission CT head and C spine without acute changes, MRI L spine without acute changes - pt/ot evals, fall precautions. He is a poor AC candidate outside of the hospital setting 4. Low Back Pain- resolved, may have been related to bladder outlet obstruction or injury post fall MRI w DDD excarbating congentital L spine canal narrowing, stable -fu outpt 5. Bladder Outlet obstruction Post garcia insertion hematuria on hep gtt CT with hydronephrosis and hydroureter -appreciate urology input, flomax + finasteride, maintain garcia cath and on dc fu with Urology in 1-2 weeks, cont to monitor urine as appears bleeding is resolving, will fu hgb later today 6. Leukocytosis, present last admit, but acutely increased, now down trending to 20 I do not believe he is septic at this time, HR elevation in setting of Afib RVR, WBC may be partially reactive vs complicated by outpt steroid treatment + known rhino/entero virus this week; evidence against acute infection is afebrile, normal lactate, unremarkable procal -rule out infection: CTA C/A/P and CXR without acute changes or evidence of infection, UA unremarkable, bl cxs pending, MRI without evidence lumbar spine infection -at this time cont his prev rx levaquin q48h to complete course, received IV levaquin on admit -monitor for fever, if febrile will begin broad spectrum IV abx Chronic conditions/Recently addressed conditions from admit this week: anemia, appears at baseline 10-12- cont to monitor chronic hyponatremia w/o cognitive deficit - baseline appears to be about 125-130- cont to monitor DM- cont SSI, prn hypoglycemics CT A/P with chronic pancreatitis and pancreatic ductal dilatation- evaluated by gen surg this past week and no indication for further work up or surgery, CTA this admit shows same as CT last admit COPDE w chest imaging with mucus plugging and bronchial thickening- cont levaquin to ocmplete course, bronchodilators vte ppx hep gtt, if ok to dc with cards, will be on scds update: per cards can sto[ hep gtt, BP is low normotensive without further drops, will re initiate low dose BB while awaiting further recs will cont to hold diuretics and cardizem
[2019-06-13] MEDS: Gabapentin 400 MG CAPSULE PO SCH ×3 (10:00→21:36)
[2019-06-13] MEDS: carBAMazepine 200 MG TABLET PO SCH ×2 (10:00→21:36)
[2019-06-13] MEDS: Aspirin 81 MG TAB.CHEW PO SCH (10:01)
--- NOTE | 2019-06-13 10:02 | Electrocardiograph Report ---
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
[2019-06-13 10:13] LABS: BUN/Creatinine Ratio 29 (6-26); Blood Urea Nitrogen 26 mg/dL (8-23); Carbon Dioxide 27 mEq/L (23-29); Chloride 97 mEq/L (98-107); Glucose 134 mg/dL (70-105); Osmolality,Calculated 275 (280-300); Potassium 4.1 mEq/L (3.5-5.1); Sodium 129 mEq/L (136-145); eGFR For African Americans > 60 (> 60); eGFR For Non-African Americans > 60 (> 60)
--- NOTE | 2019-06-13 11:31 | Urology - Consult Note ---
<Deandra Richardson N - Last Filed: 06/13/19 11:27> Date of Encounter: 06/13/19 Time of Encounter: 10:45 - Assessment and Plan (1) BPH w urinary obs/LUTS Current Visit: Yes Status: Acute Assessment and plan: Patient is an 84-year-old male who presents with BPH with lower urinary tract symptoms. Patient is not likely a surgical candidate given his overall health status and multiple comorbidities. We will restart Flomax and finasteride and attempt to manage his symptoms conservatively. Patient will follow-up with Dr. Liu within 1-2 weeks of discharge. (2) Urinary retention with incomplete bladder emptying Current Visit: Yes Status: Acute Assessment and plan: Patient is an 84-year-old male who presents with urinary retention with incomplete bladder emptying. Patient was likely experiencing overflow incontine nce, and he now has an indwelling Vasquez catheter that is draining sufficiently. Urology recommendations to continue with indwelling Vasquez catheter and follow up with Dr. Liu within 1-2 weeks of discharge to discuss a voiding trial. Patient is also recommended to restart and continue Flomax and finasteride daily. (3) Hydronephrosis due to obstruction of bladder Current Visit: Yes Status: Acute Assessment and plan: Patient is an 84-year-old male who presents with a history of mild, bilateral hydronephrosis. Patient's prostate is markedly enlarged and likely creating a bladder outlet obstruction. This appears to be chronic, and patient was previously treated with Flomax and finasteride. We will restart prostate medications and continue with Vasquez decompression. Patient may require repeat imaging with renal ultrasound on an outpatient basis. (4) Gross hematuria Current Visit: Yes Status: Acute Assessment and plan: Patient is an 84-year-old male who presents with gross hematuria. Patient was catheterized in the emergency department, and urine return was initially clear. Patient was found to have atrial fibrillation and was placed on anticoagulation. Urine subsequently transitioned to a transparent, fruit punch. Nurse reports heparin was held, and his urine appears to be improved to a pink lemonade. I do not anticipate a need for hematuria catheter or continuous bladder irrigation at this time. We will continue to monitor. Urology CN:HPI Consult date: 06/13/19 Reason for consult Urology: Hydronephrosis (urinary retention,BPH) Requesting physician: Chante Johnson History of present illness: Patient is an 84-year-old male who presents with a history of BPH with lower urinary tract symptoms, urinary retention with incomplete bladder emptying and mild bilateral hydronephrosis. Patient is established with Dr. Liu and was last seen in 2018. Patient has been treated for BPH with LUTS and incomplete bladder emptying. At his last appointment, patient was off prostate medications and voiding sufficiently. Patient was transferred from his extended care facility to the emergency department after a reported fall. Patient has multiple comorbidities including atrial fibrillation with RVR, COPD requiring home oxygen, and coronary artery disease previously requiring 5 stent placements. Patient underwent trauma imaging in the emergency department, and a CT of the abdomen and pelvis revealed an enlarged prostate, overdistended bladder and mild bilateral hydronephrosis. Patient reports overflow incontinence that began occurring intermittently over the last week. He admits to baseline urinary hesitancy, nocturia every 2 hours and weak stream, but he denies any dysuria, gross hematuria, fevers, chills or flank pain. On my evaluation, patient is lying in bed in no apparent distress, and a Vasquez catheter is indwelling draining transparent, pink lemonade urine into bedside bag. Patient's nurse is at bedside, and she reports heparin was held due to gross hematuria. Patient reports no prior history of gross hematuria, and on admission, his urine was clear. Patient denies any known personal or family history of prostate cancer or other malignancy. Past Med Surg Social Fam HX - Past Medical History Medical history: asthma, atrial fibrillation, cancer, COPD, coronary artery disease, diabetes, hypertension, kidney stones, myocardial infarction, renal disease, other Additional medical history: anemia, type II diabetic, hernia, colon cancer, sleep apnea Psychiatric history: anxiety, depression - Past Surgical History Surgical History: cataract Additional surgical history: 5 cardiac stents, right hand - Social History Smoking Status: Former smoker Smokeless Tobacco Status: No Alcohol use: none Drug use: none - Family History Mother Living Status: Age at : 70 Cause of : unk Hx Family Cardiac Disorders: Yes Hx Family Respiratory Disorders: No Hx Family Cancer: No Hx Family GI Disorders: No Hx Family Endocrine Disorder: Yes Hx Family Neuromuscular Disorders: No Hx Family Neurologic Disorders: Yes Hx Family HEENT Disorders: No Hx Family Autoimmune Disorders: No Father Adopted: No Family Member Ethnicity: Non- Living Status: Age at : 67 Cause of : unk Hx Family Cardiac Disorders: Yes Medications and Allergies Aspirin 81 mg PO QAM 04/20/15 [History] Digoxin [Lanoxin] 0.125 mg PO QAM 12/02/15 [History] Apremilast [Otezla] 30 mg PO BID 01/26/18 [History] Docusate Sodium [Dok] 100 mg PO QAM 01/26/18 [History] Fluticasone/Vilanterol [Breo Ellipta 200-25 Mcg INH] 1 puff IH QAM 01/26/18 [History] carBAMazepine [Tegretol] 200 mg PO BID 01/26/18 [History] Insulin DETEMIR [Levemir] 38 units SQ HS 03/21/18 [History] Insulin Regular, Human [Novolin R] 6 units SQ TIDAC 03/21/18 [History] Metoprolol [Lopressor] 12.5 mg PO BID 03/21/18 [History] ALPRAZolam [Xanax 0.5 MG Tablet] 0.5 mg PO HS 7 Days #7 tablet 03/31/18 [Rx] Ursodiol [Actigall] 300 mg PO BID 08/25/18 [History] Furosemide [Lasix] 40 mg PO QAM 11/24/18 [History] Acetaminophen [Non-Aspirin] 650 mg PO Q4H PRN 06/05/19 [History] Diltiazem CD (24hr) [Cardizem CD] 180 mg PO QAM 06/05/19 [History] Benzonatate [Tessalon] 100 mg PO TID PRN 30 Days #90 capsule 06/11/19 [Rx] Gabapentin [Neurontin] 400 mg PO TID 30 Days #90 capsule 06/11/19 [Rx] Sodium Chloride [Sodium Chloride Tab] 1 gm PO BID 30 Days #60 tablet 06/11/19 [Rx] levoFLOXacin [Levaquin] 750 mg PO Q48H 3 Days #3 tablet 06/11/19 [Rx] Spironolactone [Aldactone] 50 mg PO BID 06/12/19 [History] Allergy/AdvReac Type Severity Reaction Status Date / Time sulfamethoxazole Allergy See Verified 06/12/19 22:05 [From Bactrim] Comments trimethoprim [From Bactrim] Allergy See Verified 06/12/19 22:05 Comments atorvastatin AdvReac Dizziness Verified 06/12/19 22:05 clopidogrel [From Plavix] AdvReac Dizziness Verified 06/12/19 22:05 lovastatin AdvReac Dizziness Verified 06/12/19 22:05 pioglitazone [From Actos] AdvReac Dizziness Verified 06/12/19 22:05 pravastatin AdvReac Dizziness Verified 06/12/19 22:05 Rosiglitazone AdvReac Dizziness Verified 06/12/19 22:05 flu vaccine Allergy Dizziness Uncoded 06/12/19 22:05 Review of Systems - Constitutional no chills, no fatigue, no fever(s) - EENT Nose, mouth and throat: no dizziness, no headache(s) - Cardiovascular no chest pain, no diaphoresis, no dyspnea - Respiratory cough, dyspnea - Gastrointestinal no abdominal pain, no nausea, no vomiting - Genitourinary change in urinary stream, difficulty urinating, hematuria, nocturia, urinary hesitancy, urinary incontinence, no dysuria, no flank pain, no urinary frequency, no urinary urgency - Musculoskeletal back pain, muscle weakness - Integumentary no erythema, no rash - Neurological weakness, no confusion, no syncope - Psychiatric no anxiety, no confusion - Hematologic/Lymphatic easy bleeding, easy bruising - Allergic/Immunologic no throat swelling, no wheezing Exam Initial Vital Signs Temp Pulse Resp BP Pulse Ox 97.9 F 100 18 139/78 94 06/12/19 17:57 06/12/19 17:57 06/12/19 17:57 06/12/19 17:57 06/12/19 17:57 - General physical appearance Present: no distress, no pain - Eyes Present: PERRL, normal ocular movement - ENT Present: normal nares, no hearing loss, no congestion - Neck Present: no masses, trachea midline, no lymphadenopathy - Respiratory Present: normal respiratory effort - Cardiovascular Cardiovascular exam IM: irregular rhythm, tachycardia - Abdomen Abdomen: Present: soft, non tender. Absent: distended - Genitourinary normal penis with no external lesions, testicles present, testicles non-tender, other (Vasquez catheter indwelling and draining transparent, pink lemonade urine into bedside bag) Penis: Present: retractable foreskin - Integumentary Present: no rash, no abnormal pigmentation - Neurologic Present: normal coordination - Musculoskeletal Present: other (Normal posture) Urology Results - Labs 06/13/19 03:55 06/13/19 09:41 Abnormal lab results WBC 20.4 K/mcL (4.3-11.1) H 06/13/19 03:55 RBC 3.36 M/mcL (4.19-5.50) L 06/13/19 03:55 Hgb 11.5 g/dL (12.9-16.9) L 06/13/19 03:55 Hct 33.7 % (37.5-50.1) L 06/13/19 03:55 MCV 100.3 fL (83.0-100.0) H 06/13/19 03:55 MCH 34.2 pg (28.0-33.3) H 06/13/19 03:55 RDW 14.7 % (11.5-14.5) H 06/13/19 03:55 MPV 8.4 fL (9.4-12.4) L 06/13/19 03:55 Reticulocyte # 0.27 M/mcL (0.05-0.10) H 06/13/19 03:55 Metamyelocytes % 6.0 % (0) H 06/12/19 18:27 Myelocytes % 3.0 % (0) H 06/13/19 03:55 Neutrophils # 18.4 K/mcL (1.6-8.9) H 06/13/19 03:55 Nucleated RBCs/100 WBC 0.1 /100 WBC (0) H 06/12/19 18:27 Hypersegmented Neuts Present (Not Present) A 06/13/19 03:55 Toxic Granulation Present (Not Present) A 06/13/19 03:55 Polychromasia 1+ (Not Present) A 06/13/19 03:55 Hypochromasia Present (Not Present) A 06/13/19 03:55 Anisocytosis 1+ (Not Present) A 06/13/19 03:55 Macrocytosis Present (Not Present) A 06/13/19 03:55 Percent Retic 8.0 % (1.6-2.8) H 06/13/19 03:55 Retic Hgb Equivalent 39.1 pg (28.61-36.33) H 06/13/19 03:55 PT 12.6 Seconds (9.4-12.1) H 06/12/19 18:27 Heparin Anti-Xa, Unfract 0.05 IU/mL (0.30-0.70) L 06/13/19 03:55 Sodium 129 mEq/L (136-145) L 06/13/19 09:41 Chloride 97 mEq/L (98-107) L 06/13/19 09:41 Carbon Dioxide 30 mEq/L (23-29) H 06/13/19 03:55 BUN 26 mg/dL (8-23) H 06/13/19 09:41 Est GFR (Non-Af Amer) 59 (> 60) L 06/12/19 18:27 BUN/Creatinine Ratio 29 (6-26) H 06/13/19 09:41 Glucose 134 mg/dL (70-105) H 06/13/19 09:41 Calculated Osmolality 275 (280-300) L 06/13/19 09:41 Calcium 8.0 mg/dL (8.6-10.3) L 06/13/19 09:41 Transferrin 157 mg/dL (203-362) L 06/13/19 03:55 Ferritin 712 ng/mL (20-250) H 06/13/19 03:55 Alkaline Phosphatase 106 Units/L (34-104) H 06/12/19 18:27 Troponin I 0.04 ng/mL (< 0.04) H* 06/13/19 09:41 B-Natriuretic Peptide 106 pg/mL (Less than 100) H 06/13/19 03:55 Lipase < 3 Units/L (11-82) L 06/12/19 18:27 Procalcitonin 0.24 ng/mL (0.00-0.15) H 06/13/19 03:55 Urine Glucose (UA) 100 mg/dL (Normal) H 06/12/19 20:53 Urine Blood Large (Negative) H 06/12/19 20:53 Urine Microscopic RBC TNTC per hpf (0-3) H 06/12/19 20:53 Ur Squamous Epith Cells Many per lpf (None-Few) H 06/12/19 20:53 Diabetes panel 06/12/19 06/13/19 06/13/19 Range/Units 18:27 03:55 09:41 Sodium 123 L 129 L 129 L (136-145) mEq/L Potassium 5.0 4.3 4.1 (3.5-5.1) mEq/L Chloride 88 L 91 L 97 L (98-107) mEq/L Carbon Dioxide 29 30 H 27 (23-29) mEq/L BUN 37 H 31 H 26 H (8-23) mg/dL Creatinine 1.17 1.02 0.90 (0.70-1.30) mg/dL Glucose 266 H 202 H 134 H (70-105) mg/dL Calcium 9.1 8.7 8.0 L (8.6-10.3) mg/dL AST 30 (13-39) Units/L ALT 47 (7-52) Units/L Alkaline Phosphatase 106 H (34-104) Units/L Albumin 3.7 (3.5-5.7) g/dL Triglycerides 109 (< 150) mg/dL HDL Cholesterol 55 (40-59) mg/dL Thyroid panel 06/13/19 Range/Units 03:55 TSH 1.999 (0.340-5.600) mcIU/mL Calcium panel 06/12/19 06/13/19 06/13/19 Range/Units 18:27 03:55 09:41 Calcium 9.1 8.7 8.0 L (8.6-10.3) mg/dL Phosphorus 3.0 (2.7-4.5) mg/dL Albumin 3.7 (3.5-5.7) g/dL Pituitary panel 06/12/19 06/13/19 06/13/19 Range/Units 18:27 03:55 09:41 Sodium 123 L 129 L 129 L (136-145) mEq/L Potassium 5.0 4.3 4.1 (3.5-5.1) mEq/L Chloride 88 L 91 L 97 L (98-107) mEq/L Carbon Dioxide 29 30 H 27 (23-29) mEq/L BUN 37 H 31 H 26 H (8-23) mg/dL Creatinine 1.17 1.02 0.90 (0.70-1.30) mg/dL Glucose 266 H 202 H 134 H (70-105) mg/dL Calcium 9.1 8.7 8.0 L (8.6-10.3) mg/dL TSH 1.999 (0.340-5.600) mcIU/mL Adrenal panel 06/12/19 06/13/19 06/13/19 Range/Units 18:27 03:55 09:41 Sodium 123 L 129 L 129 L (136-145) mEq/L Potassium 5.0 4.3 4.1 (3.5-5.1) mEq/L Chloride 88 L 91 L 97 L (98-107) mEq/L Carbon Dioxide 29 30 H 27 (23-29) mEq/L BUN 37 H 31 H 26 H (8-23) mg/dL Creatinine 1.17 1.02 0.90 (0.70-1.30) mg/dL Glucose 266 H 202 H 134 H (70-105) mg/dL Calcium 9.1 8.7 8.0 L (8.6-10.3) mg/dL Total Bilirubin 0.6 (0.3-1.0) mg/dL AST 30 (13-39) Units/L ALT 47 (7-52) Units/L Alkaline Phosphatase 106 H (34-104) Units/L Albumin 3.7 (3.5-5.7) g/dL All other labs normal. - Imaging CT scan - abdomen: report reviewed, image reviewed CT scan - pelvis: report reviewed, image reviewed Consult Discharge Plan - Plan Referrals: NONE,PCP [Primary Care Provider] - <Alvino Bee W - Last Filed: 06/13/19 17:12> Date of Encounter: 06/13/19 - Assessment and Plan (1) BPH w urinary obs/LUTS Current Visit: Yes Status: Acute Assessment and plan: Patient seen and examined independently. I am in agreement with the assessment and plan as outlined by our Urologic Surgery Department Physician Fruit Sprayer, Debra. Images reviewed. Vasquez in place and functioning. Discussed need for outpatient follow-up for consideration of surgical interventions for BPH. Patient will follow-up with my partner, Dr. Liu who is his established urologist. Initiated combination BPH meds. Exam Initial Vital Signs Temp Pulse Resp BP Pulse Ox 97.9 F 100 18 139/78 94 06/12/19 17:57 06/12/19 17:57 06/12/19 17:57 06/12/19 17:57 06/12/19 17:57 Urology Results - Labs 06/13/19 16:02 06/13/19 16:02 Abnormal lab results WBC 20.4 K/mcL (4.3-11.1) H 06/13/19 03:55 RBC 3.36 M/mcL (4.19-5.50) L 06/13/19 03:55 Hgb 11.3 g/dL (12.9-16.9) L 06/13/19 16:02 Hct 33.6 % (37.5-50.1) L 06/13/19 16:02 MCV 100.3 fL (83.0-100.0) H 06/13/19 03:55 MCH 34.2 pg (28.0-33.3) H 06/13/19 03:55 RDW 14.7 % (11.5-14.5) H 06/13/19 03:55 MPV 8.4 fL (9.4-12.4) L 06/13/19 03:55 Reticulocyte # 0.27 M/mcL (0.05-0.10) H 06/13/19 03:55 Metamyelocytes % 6.0 % (0) H 06/12/19 18:27 Myelocytes % 3.0 % (0) H 06/13/19 03:55 Neutrophils # 18.4 K/mcL (1.6-8.9) H 06/13/19 03:55 Nucleated RBCs/100 WBC 0.1 /100 WBC (0) H 06/12/19 18:27 Hypersegmented Neuts Present (Not Present) A 06/13/19 03:55 Toxic Granulation Present (Not Present) A 06/13/19 03:55 Polychromasia 1+ (Not Present) A 06/13/19 03:55 Hypochromasia Present (Not Present) A 06/13/19 03:55 Anisocytosis 1+ (Not Present) A 06/13/19 03:55 Macrocytosis Present (Not Present) A 06/13/19 03:55 Percent Retic 8.0 % (1.6-2.8) H 06/13/19 03:55 Retic Hgb Equivalent 39.1 pg (28.61-36.33) H 06/13/19 03:55 PT 12.6 Seconds (9.4-12.1) H 06/12/19 18:27 Heparin Anti-Xa, Unfract 0.05 IU/mL (0.30-0.70) L 06/13/19 03:55 Sodium 128 mEq/L (136-145) L 06/13/19 16:02 Chloride 94 mEq/L (98-107) L 06/13/19 16:02 Carbon Dioxide 30 mEq/L (23-29) H 06/13/19 12:08 BUN 26 mg/dL (8-23) H 06/13/19 16:02 Est GFR (Non-Af Amer) 59 (> 60) L 06/12/19 18:27 BUN/Creatinine Ratio 28 (6-26) H 06/13/19 16:02 Glucose 237 mg/dL (70-105) H 06/13/19 16:02 POC Glucose 166 mg/dL (70-99) H 06/13/19 12:07 Calculated Osmolality 278 (280-300) L 06/13/19 16:02 Calcium 8.2 mg/dL (8.6-10.3) L 06/13/19 16:02 Transferrin 157 mg/dL (203-362) L 06/13/19 03:55 Ferritin 712 ng/mL (20-250) H 06/13/19 03:55 Alkaline Phosphatase 106 Units/L (34-104) H 06/12/19 18:27 Troponin I 0.04 ng/mL (< 0.04) H* 06/13/19 09:41 B-Natriuretic Peptide 106 pg/mL (Less than 100) H 06/13/19 03:55 Lipase < 3 Units/L (11-82) L 06/12/19 18:27 Procalcitonin 0.24 ng/mL (0.00-0.15) H 06/13/19 03:55 Urine Glucose (UA) 100 mg/dL (Normal) H 06/12/19 20:53 Urine Blood Large (Negative) H 06/12/19 20:53 Urine Microscopic RBC TNTC per hpf (0-3) H 06/12/19 20:53 Ur Squamous Epith Cells Many per lpf (None-Few) H 06/12/19 20:53 Diabetes panel 06/12/19 06/13/19 06/13/19 Range/Units 18:27 03:55 09:41 Sodium 123 L 129 L 129 L (136-145) mEq/L Potassium 5.0 4.3 4.1 (3.5-5.1) mEq/L Chloride 88 L 91 L 97 L (98-107) mEq/L Carbon Dioxide 29 30 H 27 (23-29) mEq/L BUN 37 H 31 H 26 H (8-23) mg/dL Creatinine 1.17 1.02 0.90 (0.70-1.30) mg/dL Glucose 266 H 202 H 134 H (70-105) mg/dL Calcium 9.1 8.7 8.0 L (8.6-10.3) mg/dL AST 30 (13-39) Units/L ALT 47 (7-52) Units/L Alkaline Phosphatase 106 H (34-104) Units/L Albumin 3.7 (3.5-5.7) g/dL Triglycerides 109 (< 150) mg/dL HDL Cholesterol 55 (40-59) mg/dL 06/13/19 06/13/19 06/13/19 Range/Units 12:08 13:59 16:02 Sodium 130 L 130 L 128 L (136-145) mEq/L Potassium 4.3 4.4 4.3 (3.5-5.1) mEq/L Chloride 95 L 92 L 94 L (98-107) mEq/L Carbon Dioxide 30 H 28 28 (23-29) mEq/L BUN 26 H 26 H 26 H (8-23) mg/dL Creatinine 0.96 0.98 0.93 (0.70-1.30) mg/dL Glucose 163 H 237 H 237 H (70-105) mg/dL Calcium 8.0 L 8.0 L 8.2 L (8.6-10.3) mg/dL AST (13-39) Units/L ALT (7-52) Units/L Alkaline Phosphatase (34-104) Units/L Albumin (3.5-5.7) g/dL Triglycerides (< 150) mg/dL HDL Cholesterol (40-59) mg/dL Thyroid panel 06/13/19 Range/Units 03:55 TSH 1.999 (0.340-5.600) mcIU/mL Calcium panel 06/12/19 06/13/19 06/13/19 Range/Units 18:27 03:55 09:41 Calcium 9.1 8.7 8.0 L (8.6-10.3) mg/dL Phosphorus 3.0 (2.7-4.5) mg/dL Albumin 3.7 (3.5-5.7) g/dL 06/13/19 06/13/19 06/13/19 Range/Units 12:08 13:59 16:02 Calcium 8.0 L 8.0 L 8.2 L (8.6-10.3) mg/dL Phosphorus (2.7-4.5) mg/dL Albumin (3.5-5.7) g/dL Pituitary panel 06/12/19 06/13/19 06/13/19 Range/Units 18:27 03:55 09:41 Sodium 123 L 129 L 129 L (136-145) mEq/L Potassium 5.0 4.3 4.1 (3.5-5.1) mEq/L Chloride 88 L 91 L 97 L (98-107) mEq/L Carbon Dioxide 29 30 H 27 (23-29) mEq/L BUN 37 H 31 H 26 H (8-23) mg/dL Creatinine 1.17 1.02 0.90 (0.70-1.30) mg/dL Glucose 266 H 202 H 134 H (70-105) mg/dL Calcium 9.1 8.7 8.0 L (8.6-10.3) mg/dL TSH 1.999 (0.340-5.600) mcIU/mL 06/13/19 06/13/19 06/13/19 Range/Units 12:08 13:59 16:02 Sodium 130 L 130 L 128 L (136-145) mEq/L Potassium 4.3 4.4 4.3 (3.5-5.1) mEq/L Chloride 95 L 92 L 94 L (98-107) mEq/L Carbon Dioxide 30 H 28 28 (23-29) mEq/L BUN 26 H 26 H 26 H (8-23) mg/dL Creatinine 0.96 0.98 0.93 (0.70-1.30) mg/dL Glucose 163 H 237 H 237 H (70-105) mg/dL Calcium 8.0 L 8.0 L 8.2 L (8.6-10.3) mg/dL TSH (0.340-5.600) mcIU/mL Adrenal panel 06/12/19 06/13/19 06/13/19 Range/Units 18:27 03:55 09:41 Sodium 123 L 129 L 129 L (136-145) mEq/L Potassium 5.0 4.3 4.1 (3.5-5.1) mEq/L Chloride 88 L 91 L 97 L (98-107) mEq/L Carbon Dioxide 29 30 H 27 (23-29) mEq/L BUN 37 H 31 H 26 H (8-23) mg/dL Creatinine 1.17 1.02 0.90 (0.70-1.30) mg/dL Glucose 266 H 202 H 134 H (70-105) mg/dL Calcium 9.1 8.7 8.0 L (8.6-10.3) mg/dL Total Bilirubin 0.6 (0.3-1.0) mg/dL AST 30 (13-39) Units/L ALT 47 (7-52) Units/L Alkaline Phosphatase 106 H (34-104) Units/L Albumin 3.7 (3.5-5.7) g/dL 06/13/19 06/13/19 06/13/19 Range/Units 12:08 13:59 16:02 Sodium 130 L 130 L 128 L (136-145) mEq/L Potassium 4.3 4.4 4.3 (3.5-5.1) mEq/L Chloride 95 L 92 L 94 L (98-107) mEq/L Carbon Dioxide 30 H 28 28 (23-29) mEq/L BUN 26 H 26 H 26 H (8-23) mg/dL Creatinine 0.96 0.98 0.93 (0.70-1.30) mg/dL Glucose 163 H 237 H 237 H (70-105) mg/dL Calcium 8.0 L 8.0 L 8.2 L (8.6-10.3) mg/dL Total Bilirubin (0.3-1.0) mg/dL AST (13-39) Units/L ALT (7-52) Units/L Alkaline Phosphatase (34-104) Units/L Albumin (3.5-5.7) g/dL All other labs normal.
[2019-06-13] MEDS: Insulin LISPRO 300 UNITS/3 ML VIAL SQ SCH ×3 (12:27→21:37)
[2019-06-13] MEDS: *HR* Digoxin 0.125 MG TABLET PO SCH (12:27)
--- NOTE | 2019-06-13 13:07 | Cardiology Consult Note ---
<Nicola Bay - Last Filed: 06/14/19 08:00> Date of Encounter: 06/14/19 Time of Encounter: 09:00 Assessment and Plan (1) Atrial fibrillation with RVR Current Visit: Yes Status: Chronic Known history of Afib with previous admissions for RVR Presented with HR in the 130's Patient has been compliant with home medications Patient takes Digoxin 0.125mg, Cardizem 180mg, Lopressor 12.5 BID Patient was complaining of pleuritic type chest pain 2/2 cough from COPDE Chest Pain has spontaneously resolved Adynamic mild elevation in troponins, 0.06-->0.04 Last Echo 07/05/18: LVEF 55%, indeterminate Diastolic Function, Normal RV structure and function, Moderately dilated LA, calcified aortic valve w/o stenosis Patient was started on Heparin drip but did subsequently develop gross hematuria Patient is not on anticoagulation at home d/t history of GI bleed and fall risk Plan: -Will stop Heparin drip d/t hematuria -Limited Echo ordered -Resume home dose Digoxin and Cardizem PO -May titrate up to 240mg PO Cardizem if need be -Continue telemetry and monitor vitals Discussion w patient/family: The assessment and plan as outlined above was discussed with the patient and/or family members who expressed understanding and agreement. All questions were answered. Thank you for involving us in the care of your patient. Please call with any questions. History of Present Illness Consult date: 06/13/19 Consult reason: afib Chief complaint: chest pain History of present illness: Mr. Johnson is a 84 year old male with PMHx of CAD, AFibCOPD, HTN, DM, Remote [place], CKD, who presents from SN[facility] after suffering mechanical fall. Patient did not have L.O.C. He reports he has recently been short of breath and is being treated for COPD Exacerbation with Levaquin and steroids. He denies chest pain, palpita tions, syncope but states that he had been experiencing some pleuritic type chest pain 2/2 his cough which has spontaneously resolved. The patient was noted to be in AFib with RVR, HR was 130's on admission. The patient was given a bolus of cardizem and was suppossed to be started on cardizem drip however this was never actually initiated and his home meds were held. As a result, this morning on examination the patient was still in Afib RVR, HR in the 110-120's. The patients laboratory workup was significant for WBC 29,000, sodium 123, BNP 106, GFR 59. and troponin was slightly elevated at 0.06. Trauma scan workup was negative. CT chest did reveal bibasilar airspace disease with bronchial th ickening and mucous plugging. The patient was started on heparin drip and cardiology was consulted. He did develop gross hematuria post-garcia insertion 2/2 heparin gtt in setting of prostatomegaly. The patient was not on anticoagulation prior to presentation d/t fall risk in addition to prior GI Ble ed. Past Med Surg Social Fam HX - Past Medical History Medical history: asthma, atrial fibrillation, cancer, COPD, coronary artery di sease, diabetes, hypertension, kidney stones, myocardial infarction, renal disease, other Additional medical history: anemia, type II diabetic, hernia, colon cancer, sleep apnea Psychiatric history: anxiety, depression - Past Surgical History Surgical History: cataract Additional surgical history: 5 cardiac stents, right hand - Social History Smoking Status: Former smoker Smokeless Tobacco Status: No Alcohol use: none Drug use: none - Family History Mother Living Status: Age at : 70 Cause of : unk Hx Family Cardiac Disorders: Yes Hx Family Respiratory Disorders: No Hx Family Cancer: No Hx Family GI Disorders: No Hx Family Endocrine Disorder: Yes Hx Family Neuromuscular Disorders: No Hx Family Neurologic Disorders: Yes Hx Family HEENT Disorders: No Hx Family Autoimmune Disorders: No Father Adopted: No Family Member Ethnicity: Non- Living Status: Age at : 67 Cause of : unk Hx Family Cardiac Disorders: Yes Medications and Allergies Aspirin 81 mg PO QA 04/20/15 [History] Digoxin [Lanoxin] 0.125 mg PO QAM 12/02/15 [History] Apremilast [Otezla] 30 mg PO BID 01/26/18 [History] Docusate Sodium [Dok] 100 mg PO QAM 01/26/18 [History] Fluticasone/Vilanterol [Breo Ellipta 200-25 Mcg INH] 1 puff IH QA 01/26/18 [History] carBAMazepine [Tegretol] 200 mg PO BID 01/26/18 [History] Insulin DETEMIR [Levemir] 38 units SQ HS 03/21/18 [History] Insulin Regular, Human [Novolin R] 6 units SQ TIDAC 03/21/18 [History] Metoprolol [Lopressor] 12.5 mg PO BID 03/21/18 [History] ALPRAZolam [Xanax 0.5 MG Tablet] 0.5 mg PO HS 7 Days #7 tablet 03/31/18 [Rx] Ursodiol [Actigall] 300 mg PO BID 08/25/18 [History] Furosemide [Lasix] 40 mg PO QAM 11/24/18 [History] Acetaminophen [Non-Aspirin] 650 mg PO Q4H PRN 06/05/19 [History] Diltiazem CD (24hr) [Cardizem CD] 180 mg PO QAM 06/05/19 [History] Benzonatate [Tessalon] 100 mg PO TID PRN 30 Days #90 capsule 06/11/19 [Rx] Gabapentin [Neurontin] 400 mg PO TID 30 Days #90 capsule 06/11/19 [Rx] Sodium Chloride [Sodium Chloride Tab] 1 gm PO BID 30 Days #60 tablet 06/11/19 [Rx] levoFLOXacin [Levaquin] 750 mg PO Q48H 3 Days #3 tablet 06/11/19 [Rx] Spironolactone [Aldactone] 50 mg PO BID 06/12/19 [History] Allergy/AdvReac Type Severity Reaction Status Date / Time sulfamethoxazole Allergy See Verified 06/12/19 22:05 [From Bactrim] Comments trimethoprim [From Bactrim] Allergy See Verified 06/12/19 22:05 Comments atorvastatin AdvReac Dizziness Verified 06/12/19 22:05 clopidogrel [From Plavix] AdvReac Dizziness Verified 06/12/19 22:05 lovastatin AdvReac Dizziness Verified 06/12/19 22:05 pioglitazone [From Actos] AdvReac Dizziness Verified 06/12/19 22:05 pravastatin AdvReac Dizziness Verified 06/12/19 22:05 Rosiglitazone AdvReac Dizziness Verified 06/12/19 22:05 flu vaccine Allergy Dizziness Uncoded 06/12/19 22:05 All Systems Review: The remainder of the systems were reviewed and are negative Physical Examination Vital Signs, Last 4 Hours Temp Pulse Resp BP Pulse Ox 06/13/19 12:33 98.1 F 113 18 109/66 100 Other: Gen: alert and oriented x3, NAD, Vitals stable Head: atraumatic normocephalic Eyes: Anicteric sclera, moist conjunctiva ENT: Mucous Membranes Moist, oropharynx clear CV: Tachycardic, irregular rhythm, no murmurs gallops rubs Resp: diffuse expiratory wheezes noted on exam, no rales, non labored breathing Ext: no edema, rash, cyanosis, clubbing Results 06/14/19 03:59 06/13/19 17:51 Lab Results 06/12/19 06/12/19 06/12/19 18:27 18:27 18:27 WBC 29.3 H D Hgb 12.6 L D Hct 36.1 L Plt Count 330 INR 1.1 Sodium 123 L Potassium 5.0 Chloride 88 L Carbon Dioxide 29 BUN 37 H Creatinine 1.17 Glucose 266 H Calcium 9.1 Magnesium Total Bilirubin 0.6 AST 30 ALT 47 Alkaline Phosphatase 106 H Troponin I 0.06 H* B-Natriuretic Peptide Lipase < 3 L TSH 06/13/19 06/13/19 06/13/19 03:55 03:55 03:55 WBC 20.4 H Hgb 11.5 L Hct 33.7 L Plt Count 248 INR 1.0 Sodium Potassium Chloride Carbon Dioxide BUN Creatinine Glucose Calcium Magnesium Total Bilirubin AST ALT Alkaline Phosphatase Troponin I 0.06 H* B-Natriuretic Peptide Lipase TSH 06/13/19 06/13/19 06/13/19 03:55 03:55 09:41 WBC Hgb Hct Plt Count INR Sodium 129 L Potassium 4.3 Chloride 91 L Carbon Dioxide 30 H BUN 31 H Creatinine 1.02 Glucose 202 H Calcium 8.7 Magnesium 1.8 Total Bilirubin AST ALT Alkaline Phosphatase Troponin I 0.04 H* B-Natriuretic Peptide 106 H Lipase TSH 1.999 06/13/19 09:41 WBC Hgb Hct Plt Count INR Sodium 129 L Potassium 4.1 Chloride 97 L Carbon Dioxide 27 BUN 26 H Creatinine 0.90 Glucose 134 H Calcium 8.0 L Magnesium Total Bilirubin AST ALT Alkaline Phosphatase Troponin I B-Natriuretic Peptide Lipase TSH Consult Discharge Plan - Plan Referrals: NONE,PCP [Primary Care Provider] - <NaniWednesday A - Last Filed: 06/14/19 09:41> Date of Encounter: 06/14/19 - Attending Attestation I have personally performed a face to face evaluation on this patient. I have reviewed and agree with the documented findings and care plan as documented by the resident. History and Exam by me shows: 84-year-old pleasant gentleman with history of chronic atrial fibrillation not on oral anticoagulation due to GI bleed and frequent falls. Admitted for A. fib with RVR. Continue Digoxin 0.125mg, metoprolol tartrate 12.5 mg twice daily, may increase Cardizem to 240mg daily. Thanks for the consult, please call with questions. Rubio Cardoza MD [facility] Assessment and Plan Discussion w patient/family: The assessment and plan as outlined above was discussed with the patient and/or family members who expressed understanding and agreement. All questions were answered. Thank you for involving us in the care of your patient. Please call with any questions. History of Present Illness History of present illness: Mr. Johnson is a 84 year old male All Systems Review: The remainder of the systems were reviewed and are negative Physical Examination Vital Signs, Last 4 Hours Temp Pulse Resp BP Pulse Ox 06/14/19 07:36 97.8 F 85 20 120/77 100 Results 06/14/19 03:59 06/13/19 17:51 Lab Results 06/13/19 06/13/19 06/13/19 09:41 09:41 12:08 WBC Hgb Hct Plt Count Sodium 129 L 130 L Potassium 4.1 4.3 Chloride 97 L 95 L Carbon Dioxide 27 30 H BUN 26 H 26 H Creatinine 0.90 0.96 Glucose 134 H 163 H Calcium 8.0 L 8.0 L Troponin I 0.04 H* 06/13/19 06/13/19 06/13/19 13:59 16:02 16:02 WBC Hgb 11.3 L Hct 33.6 L Plt Count Sodium 130 L 128 L Potassium 4.4 4.3 Chloride 92 L 94 L Carbon Dioxide 28 28 BUN 26 H 26 H Creatinine 0.98 0.93 Glucose 237 H 237 H Calcium 8.0 L 8.2 L Troponin I 06/13/19 06/14/19 17:51 03:59 WBC 11.2 H Hgb 10.0 L Hct 29.6 L Plt Count 179 Sodium 129 L Potassium 4.3 Chloride 94 L Carbon Dioxide 28 BUN 26 H Creatinine 1.01 Glucose 240 H Calcium 8.2 L Troponin I
[2019-06-13 13:08] LABS: BUN/Creatinine Ratio 27 (6-26); Blood Urea Nitrogen 26 mg/dL (8-23); Carbon Dioxide 30 mEq/L (23-29); Chloride 95 mEq/L (98-107); Glucose 163 mg/dL (70-105); Osmolality,Calculated 278 (280-300); Potassium 4.3 mEq/L (3.5-5.1); Sodium 130 mEq/L (136-145); eGFR For African Americans > 60 (> 60); eGFR For Non-African Americans > 60 (> 60)
[2019-06-13] MEDS: Finasteride 5 MG TABLET PO SCH (14:20)
[2019-06-13 15:04] LABS: BUN/Creatinine Ratio 27 (6-26); Blood Urea Nitrogen 26 mg/dL (8-23); Carbon Dioxide 28 mEq/L (23-29); Chloride 92 mEq/L (98-107); Glucose 237 mg/dL (70-105); Osmolality,Calculated 282 (280-300); Potassium 4.4 mEq/L (3.5-5.1); Sodium 130 mEq/L (136-145); eGFR For African Americans > 60 (> 60); eGFR For Non-African Americans > 60 (> 60)
[2019-06-13 16:29] LABS: Hematocrit 33.6 % (37.5-50.1); Hemoglobin 11.3 g/dL (12.9-16.9)
[2019-06-13 16:55] LABS: BUN/Creatinine Ratio 28 (6-26); Blood Urea Nitrogen 26 mg/dL (8-23); Calcium 8.2 mg/dL (8.6-10.3); Carbon Dioxide 28 mEq/L (23-29); Chloride 94 mEq/L (98-107); Glucose 237 mg/dL (70-105); Osmolality,Calculated 278 (280-300); Potassium 4.3 mEq/L (3.5-5.1); Sodium 128 mEq/L (136-145); eGFR For African Americans > 60 (> 60); eGFR For Non-African Americans > 60 (> 60)
[2019-06-13] MEDS: Diltiazem CD (24hr) 180 MG CAPSULE PO SCH (18:22)
[2019-06-13 18:52] LABS: BUN/Creatinine Ratio 26 (6-26); Blood Urea Nitrogen 26 mg/dL (8-23); Calcium 8.2 mg/dL (8.6-10.3); Carbon Dioxide 28 mEq/L (23-29); Chloride 94 mEq/L (98-107); Glucose 240 mg/dL (70-105); Osmolality,Calculated 281 (280-300); Potassium 4.3 mEq/L (3.5-5.1); Sodium 129 mEq/L (136-145); eGFR For African Americans > 60 (> 60); eGFR For Non-African Americans > 60 (> 60)
[2019-06-13] MEDS: ALPRAZolam 0.5 MG TABLET PO SCH (21:36)
[2019-06-14 04:27] LABS: Basophils % 0.3 %; Eosinophils # 0.1 K/mcL (0.0-0.6); Eosinophils % 0.8 %; Hematocrit 29.6 % (37.5-50.1); Immature Granulocytes % 4.5 % (0-4); Lymphocytes # 0.6 K/mcL (0.6-4.6); Lymphocytes % 5.1 %; Mean Corpuscular HGB Conc 33.8 g/dL (31.6-35.5); Mean Corpuscular Hemoglobin 34.5 pg (28.0-33.3); Mean Corpuscular Volume 102.1 fL (83.0-100.0); Mean Platelet Volume 8.4 fL (9.4-12.4); Monocytes # 0.8 K/mcL (0.0-1.3); Monocytes % 7.2 %; Neutrophils # 9.2 K/mcL (1.6-8.9); Platelet Count 179 K/mcL (140-400); Red Cell Distribution Width 14.7 % (11.5-14.5); Segmented Neutrophils % 82.1 %; White Blood Count 11.2 K/mcL (4.3-11.1)
--- NOTE | 2019-06-14 08:45 | Internal Med Progress Note ---
<Franco,Loc T - Last Filed: 06/14/19 17:18> Hospitalist Progress Note - Encounter Date of Encounter: 06/14/19 Time of Encounter: 08:45 - Subjective Interval History: Pt is an 84yo male pt who presented to the ED [facility] but was also recently discharged from [place] 06/11/19 for an acute exacerbation of COPD treated with steroids and Levaquin. He was admitted for A fib with RVR, hyponatremia, and leukocytosis. Pt was seen today, stating that he "feels bad" today and that he is in mild respiratory distress when coughing which sounds very congested. He states that when he coughs, he would have an intermittent 10/10 sharp pain that travels down both sides of his chest and crosses both hips, worse on coughing and better when not coughing. He states that he [facility] on his Rt side but reports both sides hurting on his cough. He denies any fevers, chills, nausea or vomiting. - Exam Vitals: Temp Pulse Resp BP Pulse Ox 97.8 F 85 20 120/77 100 06/14/19 07:36 06/14/19 07:36 06/14/19 07:36 06/14/19 07:36 06/14/19 07:36 Exam: General: Pt was found sitting up in his chair this afternoon in mild respiratory distress when he is coughing. He is alert and answers all questions. Heart: Irregularly, irregular with S1 and S2 present but unable to adequately assess for murmurs or gallops due to his congested sounding cough and wailing after each cough. Lungs: Coarse rhonchi head in all lung capone without wheezing or rhonchi. Abd: Normal active bowel sounds of 4 quadrants, soft, non distended, non tender to palpation Back: A big patch of erythema and white colored area of his middle lower back to the waistline is present without any drainage or open areas. : Garcia cath in place draining straw colored urine with no blood Ext: +1 bilateral pitting edema of both ankles and dry flaky skin of both feet. - Assessment and Plan (1) Atrial fibrillation with RVR Current Visit: Yes Status: Chronic Assessment and Plan: - Pt still in A. fib - Cardiology is on board - stopped the heparin due to traumatic garcia cath insertion, scheduled limited echo, resumed his home digoxin 0.125mg PO Qday and home PO Cardizem 180mg - Resumed his home dose of Metoprolol of 12.5mg PO BID to better rate control his A. fib - Limited echo performed this AM - resulted LVEF of 70% with no wall motion abnormalities, A. fib, normal LV chamber and valves not assessed (2) Acute coronary syndrome Current Visit: Yes Status: Ruled-out Assessment and Plan: - Pt was ruled out of ACS due to EKG showing A. Fib w/ RVR and though the first two Troponins were 0.6 his last troponin was 0.4 - Pt does not report any substernal chest pain or diaphoresis - Cardiology on board (3) Leukocytosis Current Visit: Yes Status: Resolved Assessment and Plan: - Initial WBC was 29.3 on admission but is now 11.2 this AM, remaining afebrile without chills or night sweats throughout the entire hospital course - Urine culture is finalized with "no growth" - Blood culture x2 is still preliminary - pending results - Will keep the home dose of Levaquin 750mg PO q48hrs to finish off the original course of COPDE treatment on prior hospital admission - Will continue to monitor and trend WBCs on CBCs (4) COPD (chronic obstructive pulmonary disease) Current Visit: Yes Status: Acute Assessment and Plan: - Pt sounded congested with coughing and rhonchi on lung exam - CXR (06/12/19) showed no acute intrathoracic findings - May benefit from a breathing treatment with possibly duonebs - Satting well at 100% on 3L O2 NC - Symbicort inhaler scheduled - Tessilon pearls available PRN cough (5) Anemia Current Visit: Yes Status: Chronic Assessment and Plan: - Anemia is likely acute on chronic, given likely Anemia of Chronic Disease with Transferrin level of 157 and Ferritin level of 712 - Anemia was likely acutely worsened with some blood loss with recent traumatic garcia insertion with his h/o BPH - He has a known history of macrocytic anemia consistent with hypersegmented neutrophils on differentials on 06/13/19 - With his heparin held and garcia cath with resolved hematuria, hopefully his H&H will remain stable on recheck tomorrow (6) Low back pain Current Visit: Yes Status: Chronic Assessment and Plan: - Stable due to the Lumbar MRI only showed L3-S1 lumbar disc bulge with spinal canal narrowing L4-5, and foraminal narrowing mild to moderate Lt L5-S1 - Will continue to monitor for further changes (7) Hyponatremia Current Visit: Yes Status: Acute Assessment and Plan: -Likely pseudohyponatremia with Na today at 126 because his glucose this morning was at 409, therefore corrected sodium in setting of hyperglycemia is calculated to be 130, which is where he hovers chronically - Will continue to monitor Na levels on repeat BMPs (8) Bladder outlet obstruction Current Visit: Yes Status: Chronic Assessment and Plan: - Likely due to enlarged prostate found on recent CTA of chest, abd and pelvis - Had a recent traumatic insertion of the garcia catheter in setting of BPH likely the cause of his bladder outlet obstruction - hematuria resolved as garcia cath draining straw colored urine without blood - Urology is on board resuming home Flomax 0.4mg PO Qday and Finasteride 5mg PO Qday and to continue the garcia cath even on discharge until post discharge follow up with Dr. Liu for outpatient renal ultrasound without the need for continuous bladder irrigation DVT Prophylaxis: SCDs to bilateral LE ordered - Time Spent with Patient Total time spent is greater than 50% in coordination of care (as documented) at patient's floor/unit and/or counseling patient: Greater than 35 minutes Internal Medicine: Result - Labs CBC & Chem 7: 06/14/19 03:59 06/14/19 09:51 Labs: Short CBC 06/13/19 06/14/19 Range/Units 16:02 03:59 WBC 11.2 H (4.3-11.1) K/mcL Hgb 11.3 L 10.0 L (12.9-16.9) g/dL Hct 33.6 L 29.6 L (37.5-50.1) % Plt Count 179 (140-400) K/mcL Neutrophils # 9.2 H (1.6-8.9) K/mcL BMP 06/13/19 06/13/19 06/13/19 09:41 12:08 13:59 Sodium 129 L 130 L 130 L Potassium 4.1 4.3 4.4 Chloride 97 L 95 L 92 L Carbon Dioxide 27 30 H 28 BUN 26 H 26 H 26 H Creatinine 0.90 0.96 0.98 Glucose 134 H 163 H 237 H Calcium 8.0 L 8.0 L 8.0 L 06/13/19 06/13/19 16:02 17:51 Sodium 128 L 129 L Potassium 4.3 4.3 Chloride 94 L 94 L Carbon Dioxide 28 28 BUN 26 H 26 H Creatinine 0.93 1.01 Glucose 237 H 240 H Calcium 8.2 L 8.2 L Cardiac Enzymes 06/13/19 Range/Units 09:41 Troponin I 0.04 H* (< 0.04) ng/mL - ABG Interpretation ABG results: PT/INR, D-dimer PT 11.9 Seconds (9.4-12.1) 06/13/19 03:55 - Impressions Impressions Head CT 06/12/19 20:55 IMPRESSION: 1. No acute intracranial abnormality. 2. Moderate diffuse cerebral volume loss. Mild amount of chronic small vessel ischemic white matter disease. D/ / 06/12/2019 21:13:44 Gary Daugherty MD / ruben Interpreting Provider: Gary Daugherty MD Lumbar Spine MRI 06/13/19 12:21 IMPRESSION: Degenerative disc disease as described above, exacerbating congenitally narrow lumbar spinal canal, grossly stable. Spinal canal narrowing, moderate at L4-5. Foraminal, [id number] at left L5-S1. D/ / Zeferino Bass MD / Zeferino Bass MD Interpreting Provider: Zeferino Bass MD - VTE Reasons for not Prescribing Prophylaxis: Not indicated-Anticoagulated or INR therapeutic Consult Discharge Plan - Plan Referrals: NONE,PCP [Primary Care Provider] - <Twin Noyola - Last Filed: 06/14/19 18:46> Hospitalist Progress Note - Encounter Date of Encounter: 06/14/19 - Exam Vitals: Temp Pulse Resp BP Pulse Ox 98.5 F 103 94 111/70 100 06/14/19 16:00 06/14/19 16:00 06/14/19 16:00 06/14/19 16:00 06/14/19 16:00 - Time Spent with Patient Total time spent is greater than 50% in coordination of care (as documented) at patient's floor/unit and/or counseling patient: Internal Medicine: Result - Labs CBC & Chem 7: 06/14/19 03:59 06/14/19 09:51 Labs: Short CBC 06/14/19 Range/Units 03:59 WBC 11.2 H (4.3-11.1) K/mcL Hgb 10.0 L (12.9-16.9) g/dL Hct 29.6 L (37.5-50.1) % Plt Count 179 (140-400) K/mcL Neutrophils # 9.2 H (1.6-8.9) K/mcL BMP 06/13/19 06/14/19 17:51 09:51 Sodium 129 L 126 L Potassium 4.3 4.4 Chloride 94 L 94 L Carbon Dioxide 28 29 BUN 26 H 26 H Creatinine 1.01 1.08 Glucose 240 H 409 H Calcium 8.2 L 8.3 L - ABG Interpretation ABG results: PT/INR, D-dimer PT 11.9 Seconds (9.4-12.1) 06/13/19 03:55 - Impressions Impressions Echocardiogram Limited Views 06/14/19 09:30 Impressions: LVEF 70%. Normal LV chamber size, wall thickness and function. Valves were not assessed. Left Ventricular Wall Motion: Rest Echo Findings All wall segments showed normal motion. Findings: Study Quality * Technically sub-optimal due to poor echocardiographic windows. ECG Findings * Atrial fibrillation. Left Ventricle * LVEF 70%. * Normal LV chamber size, wall thickness and function. Right Ventricle * Normal right ventricular structure and function. - Attending Attestation The history, physical exam, and medical decision making was performed by the medical student either while I was physically present and actively involved or I personally re-performed the exam and medical decision making. I have verified the accuracy of the medical student's documentation with regards to the history, physical exam findings, and medical decision making on 06/14/19. Mr Johnson is currently admitted for fall and rapid atrial fibrillation. He remains moderate to high risk due to potential for worsening clinical status. Mr Johnson is not feeling well at this time. He is having a lot of pleuritic chest pain. No fever or chills. Some cough - cannot bring up sputum. No GI issues. Exam Alert. Moderate distress. NC. Mucus membranes dry. EOMI. Neck supple. Heart irreg - not tachy now. Lungs with rhonchi bilaterally. Abd soft. No edema. Moves all extremities. No rash. I/P 1. Atrial fibrillation - adjusting meds for rate control. 2. Anemia 3. Low back pain - chronic Further diagnoses and plan as above. <Franco,Loc T - Last Filed: 06/14/19 17:18> (5) Anemia Qualifiers: Anemia type: unspecified type Qualified Code(s): D64.9 - Anemia, unspecified
[2019-06-14] MEDS ORDERED: Budesonide/Formoterol 160/4.5 1 PUFF INH IH SCH (09:00)
[2019-06-14] MEDS: Finasteride 5 MG TABLET PO SCH (09:51)
[2019-06-14] MEDS: Diltiazem CD (24hr) 180 MG CAPSULE PO SCH (09:51)
[2019-06-14] MEDS: Aspirin 81 MG TAB.CHEW PO SCH (09:51)
[2019-06-14] MEDS: Gabapentin 400 MG CAPSULE PO SCH ×3 (09:52→21:43)
[2019-06-14] MEDS: carBAMazepine 200 MG TABLET PO SCH ×2 (09:52→21:44)
[2019-06-14] MEDS: *HR* Digoxin 0.125 MG TABLET PO SCH (09:53)
[2019-06-14] MEDS: Insulin LISPRO 300 UNITS/3 ML VIAL SQ SCH ×5 (09:56→21:47)
[2019-06-14 10:26] LABS: BUN/Creatinine Ratio 24 (6-26); Blood Urea Nitrogen 26 mg/dL (8-23); Calcium 8.3 mg/dL (8.6-10.3); Carbon Dioxide 29 mEq/L (23-29); Chloride 94 mEq/L (98-107); Glucose 409 mg/dL (70-105); Osmolality,Calculated 284 (280-300); Potassium 4.4 mEq/L (3.5-5.1); Sodium 126 mEq/L (136-145); eGFR For African Americans > 60 (> 60); eGFR For Non-African Americans > 60 (> 60)
--- NOTE | 2019-06-14 11:05 | Cardiology Progress Note ---
<Nicola Bay - Last Filed: 06/14/19 10:50> Date of Encounter: 06/14/19 Time of Encounter: 09:00 Assessment and Plan (1) Atrial fibrillation with RVR Current Visit: Yes Status: Chronic Known history of Afib with previous admissions for RVR Presented with HR in the 130's Patient has been compliant with home medications Patient takes Digoxin 0.125mg, Cardizem 180mg, Lopressor 12.5 BID Patient was complaining of pleuritic type chest pain 2/2 cough from COPDE Chest Pain has spontaneously resolved Adynamic mild elevation in troponins, 0.06-->0.04 Last Echo 07/05/18: LVEF 55%, indeterminate Diastolic Function, Normal RV structure and function, Moderately dilated LA, calcified aortic valve w/o stenosis Patient was started on Heparin drip but did subsequently develop gross hematuria Patient is not on anticoagulation at home d/t history of GI bleed and fall risk Plan: -Heparin gtt stopped yesterday, ordered SCD's but patient not wearing them, will coordinate with nursing -Echo 06/14/19: LVEF 70%, normal LV size, wall thickness, function, normal RV structure/function, valves not assessed -Continue Digoxin 0.125mg and Metroprolol 12.5 BID -Continue Cardizem PO 180mg for now, may titrate up to 240 if necessary -Continue telemetry and monitor vitals Discussion w patient/family: The assessment and plan as outlined above was discussed with the patient and/or family members who expressed understanding and agreement. All questions were answered. Thank you for involving us in the care of your patient. Please call with any questions. Subjective Principal diagnosis: Afib RVR Interval history: Patient seen and examined at bedside this morning. Reports no new or worsening complaints at this time. No acute events overnight. MRI yesterday showed DDD. Echo this morning revealed LVEF 70%, normal LV size, wall thickness, function, normal RV structure/function, valves not assessed. Patient denies any return of chest pain at this time, denies SOB but remains significantly wheezy on exam with diffuse rhonchi. No return of hematuria, urine appears straw colored this morning, however his Hgb continues to trend down, 12.6-->11.3-->10.0 this morning. HR stable overnight, between 95-105 on exam today. Objective Vital Signs, Last 4 Hours Temp Pulse Resp BP Pulse Ox 06/14/19 07:36 97.8 F 85 20 120/77 100 Other: Gen: alert and oriented x3, NAD, Vitals stable Head: atraumatic normocephalic Eyes: Anicteric sclera, moist conjunctiva ENT: Mucous Membranes Moist, oropharynx clear CV: Tachycardic, irregular rhythm, no murmurs gallops rubs Resp: diffuse expiratory wheezes and rhonchi noted on exam, no rales, non labored breathing Abd: soft, nontender, nondistended Skin: pale, normal skin turgor, cap refill<2secs Ext: no edema, cyanosis, clubbing Results 06/14/19 03:59 06/14/19 09:51 Lab Results 06/13/19 06/13/19 06/13/19 12:08 13:59 16:02 WBC Hgb Hct Plt Count Sodium 130 L 130 L 128 L Potassium 4.3 4.4 4.3 Chloride 95 L 92 L 94 L Carbon Dioxide 30 H 28 28 BUN 26 H 26 H 26 H Creatinine 0.96 0.98 0.93 Glucose 163 H 237 H 237 H Calcium 8.0 L 8.0 L 8.2 L 06/13/19 06/13/19 06/14/19 16:02 17:51 03:59 WBC 11.2 H Hgb 11.3 L 10.0 L Hct 33.6 L 29.6 L Plt Count 179 Sodium 129 L Potassium 4.3 Chloride 94 L Carbon Dioxide 28 BUN 26 H Creatinine 1.01 Glucose 240 H Calcium 8.2 L 06/14/19 09:51 WBC Hgb Hct Plt Count Sodium 126 L Potassium 4.4 Chloride 94 L Carbon Dioxide 29 BUN 26 H Creatinine 1.08 Glucose 409 H Calcium 8.3 L - VTE Reasons for not Prescribing Prophylaxis: Not indicated-Anticoagulated or INR therapeutic Consult Discharge Plan - Plan Referrals: NONE,PCP [Primary Care Provider] - <NaniWednesday A - Last Filed: 06/14/19 21:12> Date of Encounter: 06/14/19 Assessment and Plan Discussion w patient/family: The assessment and plan as outlined above was discussed with the patient and/or family members who expressed understanding and agreement. All questions were answered. Thank you for involving us in the care of your patient. Please call with any questions. Objective Vital Signs, Last 4 Hours Temp Pulse Resp BP Pulse Ox 06/14/19 20:55 98.2 F 98 15 115/76 100 Results 06/14/19 03:59 06/14/19 09:51 Lab Results 06/14/19 06/14/19 03:59 09:51 WBC 11.2 H Hgb 10.0 L Hct 29.6 L Plt Count 179 Sodium 126 L Potassium 4.4 Chloride 94 L Carbon Dioxide 29 BUN 26 H Creatinine 1.08 Glucose 409 H Calcium 8.3 L - Attending Attestation I have personally performed a face to face evaluation on this patient. I have reviewed and agree with the documented findings and care plan as documented by the resident. History and Exam by me shows: 84-year-old pleasant gentleman with history of chronic atrial fibrillation not on oral anticoagulation due to GI bleed and frequent falls. Admitted for A. fib with RVR. Continue Digoxin 0.125mg, metoprolol tartrate 12.5 mg twice daily, may increase Cardizem to 240mg daily. Thanks for the consult, please call with questions. Rubio Cardoza MD [facility]
[2019-06-14] MEDS: Acetaminophen 325 MG TABLET PO PRN (13:44)
[2019-06-14] MEDS: Benzonatate 100 MG CAPSULE PO PRN (13:45)
[2019-06-14] MEDS ORDERED: Insulin DETEMIR 100 UNIT/ML X5UNITS SQ SCH (21:00)
[2019-06-14] MEDS: ALPRAZolam 0.5 MG TABLET PO SCH (21:43)
[2019-06-14] MEDS: Insulin DETEMIR 100 UNIT/ML X5UNITS SQ SCH (21:47)
[2019-06-15] MEDS: Acetaminophen 325 MG TABLET PO PRN (01:40)
[2019-06-15 02:44] LABS: Basophils % 0.2 %; Eosinophils # 0.2 K/mcL (0.0-0.6); Eosinophils % 1.3 %; Hematocrit 30.3 % (37.5-50.1); Hemoglobin 10.2 g/dL (12.9-16.9); Immature Granulocytes % 4.3 % (0-4); Lymphocytes # 0.5 K/mcL (0.6-4.6); Lymphocytes % 4.5 %; Mean Corpuscular HGB Conc 33.7 g/dL (31.6-35.5); Mean Corpuscular Hemoglobin 34.1 pg (28.0-33.3); Mean Corpuscular Volume 101.3 fL (83.0-100.0); Mean Platelet Volume 8.4 fL (9.4-12.4); Monocytes # 0.9 K/mcL (0.0-1.3); Monocytes % 7.3 %; Neutrophils # 9.8 K/mcL (1.6-8.9); Platelet Count 191 K/mcL (140-400); Red Blood Count 2.99 M/mcL (4.19-5.50); Red Cell Distribution Width 14.9 % (11.5-14.5); Segmented Neutrophils % 82.4 %; White Blood Count 11.9 K/mcL (4.3-11.1)
[2019-06-15 03:32] LABS: Alanine Aminotransferase 22 Units/L (7-52); Alkaline Phosphatase 78 Units/L (34-104); Aspartate Amino Transferase 16 Units/L (13-39); BUN/Creatinine Ratio 31 (6-26); Bilirubin,Total 0.5 mg/dL (0.3-1.0); Blood Urea Nitrogen 28 mg/dL (8-23); Carbon Dioxide 28 mEq/L (23-29); Chloride 94 mEq/L (98-107); Glucose 201 mg/dL (70-105); Osmolality,Calculated 277 (280-300); Potassium 4.3 mEq/L (3.5-5.1); Sodium 128 mEq/L (136-145); Total Protein 5.5 g/dL (6.4-8.9); eGFR For African Americans > 60 (> 60); eGFR For Non-African Americans > 60 (> 60)
[2019-06-15 03:33] LABS: Albumin/Globulin Ratio 1.2 (1.1-2.2); Globulin 2.5 g/dL (2.4-3.5)
[2019-06-15] MEDS: Insulin LISPRO 300 UNITS/3 ML VIAL SQ SCH ×6 (08:04→16:16)
[2019-06-15] MEDS: Gabapentin 400 MG CAPSULE PO SCH ×3 (08:05→21:15)
[2019-06-15] MEDS: Finasteride 5 MG TABLET PO SCH (08:05)
[2019-06-15] MEDS: carBAMazepine 200 MG TABLET PO SCH ×2 (08:06→21:15)
[2019-06-15] MEDS: *HR* Digoxin 0.125 MG TABLET PO SCH (08:06)
[2019-06-15] MEDS: Diltiazem CD (24hr) 180 MG CAPSULE PO SCH (08:06)
[2019-06-15] MEDS ORDERED: levoFLOXacin 750 MG TABLET PO SCH (09:00)
--- NOTE | 2019-06-15 10:03 | Internal Med Progress Note ---
<Franco,Loc T - Last Filed: 06/15/19 16:16> Hospitalist Progress Note - Encounter Date of Encounter: 06/15/19 Time of Encounter: 08:05 - Subjective Interval History: Pt is an 84yo male pt who presented to the ED after falling forward off of his wheelchair at the long-term but was also recently discharged from [place] 06/11/19 for an acute exacerbation of COPD treated with steroids and Levaquin. He was admitted for A fib with RVR, hyponatremia, and leukocytosis. Pt was seen this morning laying in bed in no apparent distress. He reported that he slept quite well last night, ate most of his breakfast this morning, drinking plenty of fluids, and reported feeling better today as compared to yesterday. He only reported intermittent sharp 10/10 pain radiating down both lateral sides of chest only when coughing and better when not coughing and laying still. He denies any fevers, chills, nausea, vomiting but does report some shortness of breath though he is satting well at 98% on 3L O2 NC. He does not have any other concerns. - Exam Vitals: Temp Pulse Resp BP Pulse Ox 98.1 F 98 20 114/78 98 06/15/19 07:54 06/15/19 07:54 06/15/19 07:54 06/15/19 07:54 06/15/19 07:54 Exam: General: Patient was found awake laying in bed in no acute distress. He was alert and cooperative with the exam and answered all questions. Heart: Irregularly, irregular with tachycardia and a faint 2/6 systolic murmur heard best at the aortic and pulmonic areas Lungs: Has a congested sounding cough when he does cough but lungs are clear to auscultation over the anterior aspect of his lung capone Abd: Normal active bowel sounds x 4 quadrants, soft, non distended, non tender to palpation Ext: Bilateral SCDs on LEs and in place with +1 bilateral pitting edema of both ankles - Assessment and Plan (1) Atrial fibrillation with RVR Current Visit: Yes Status: Chronic Assessment and Plan: - Cardiology on board - recommending to keep the Cardizem 180mg PO home dose and to titrate up to 240mg as necessary while continuing the Digoxin and Metoprolol - HR is still in the low 100s, therefore will double his current metoprolol from 12.5mg to 25mg PO BID for better rate control of the A. Fib - Heparin was held here due to the traumatic garcia cath insertion (2) Acute coronary syndrome Current Visit: Yes Status: Ruled-out Assessment and Plan: - Resolved as troponins trended down and EKG only showed A. Fib with RVR - Limited echo performed on this admission showed LVEF 70% no wall motion abnormlaities, and normal LV chamber with no valves assessed - Will continue to monitor for changes (3) Leukocytosis Current Visit: Yes Status: Resolved Assessment and Plan: - Has resolved as WBCs normal today at 11.9 and remained afebrile throughout entire hospital course - Still on Levaquin PO 750mg q 48hrs for prior COPDE Tx - Urine Cx is negative and blood cultures still pending - Will monitor for changes (4) COPD (chronic obstructive pulmonary disease) Current Visit: Yes Status: Acute Assessment and Plan: - Continue the supplemental oxygen of 3L NC - Repeat CXR showed LLL airspace disease possible for PNA - Continue the Symbicort and the Levaquin 750mg PO q48 hrs (5) Anemia Current Visit: Yes Status: Chronic Assessment and Plan: - Likely anemia of chronic disease - Improving as the H&H are up trending with Hb 10.2 and Hct of 30.3 - Will continue to monitor - Holding IV Heparin (6) Low back pain Current Visit: Yes Status: Chronic Assessment and Plan: - Stable as recent lumbar MRI only significant for disc bulge and foraminal stenosis and narrowing - Will monitor for changes (7) Hyponatremia Current Visit: Yes Status: Acute Assessment and Plan: - Likely pseudohyponatremia in a setting of hyperglycemia as calculated corrected Na levels at 129.62 which is where his sodium levels hovers - Will continue to trend and monitor (8) Bladder outlet obstruction Current Visit: Yes Status: Chronic Assessment and Plan: - Traumatic garcia cath insertion now resolving as it is now draining dark yellow urine output - Urology on board - will await their further recommendations - Will follow up with Dr. Liu on post discharge in 1-2 weeks DVT Prophylaxis: Bilateral SCDs on LEs in place and working - Time Spent with Patient Total time spent is greater than 50% in coordination of care (as documented) at patient's floor/unit and/or counseling patient: Internal Medicine: Result - Labs CBC & Chem 7: 06/15/19 02:00 06/15/19 02:00 Labs: Short CBC 06/15/19 Range/Units 02:00 WBC 11.9 H (4.3-11.1) K/mcL Hgb 10.2 L (12.9-16.9) g/dL Hct 30.3 L (37.5-50.1) % Plt Count 191 (140-400) K/mcL Neutrophils # 9.8 H (1.6-8.9) K/mcL BMP 06/14/19 06/15/19 09:51 02:00 Sodium 126 L 128 L Potassium 4.4 4.3 Chloride 94 L 94 L Carbon Dioxide 29 28 BUN 26 H 28 H Creatinine 1.08 0.91 Glucose 409 H 201 H Calcium 8.3 L 8.0 L Liver Function 06/15/19 Range/Units 02:00 Total Bilirubin 0.5 (0.3-1.0) mg/dL AST 16 (13-39) Units/L ALT 22 (7-52) Units/L Alkaline Phosphatase 78 (34-104) Units/L Albumin 3.0 L (3.5-5.7) g/dL - ABG Interpretation ABG results: PT/INR, D-dimer PT 11.9 Seconds (9.4-12.1) 06/13/19 03:55 - Impressions Impressions Echocardiogram Limited Views 06/14/19 09:30 Impressions: LVEF 70%. Normal LV chamber size, wall thickness and function. Valves were not assessed. Left Ventricular Wall Motion: Rest Echo Findings All wall segments showed normal motion. Findings: Study Quality * Technically sub-optimal due to poor echocardiographic windows. ECG Findings * Atrial fibrillation. Left Ventricle * LVEF 70%. * Normal LV chamber size, wall thickness and function. Right Ventricle * Normal right ventricular structure and function. Chest X-Ray 06/14/19 21:38 IMPRESSION: Left lower lobe airspace disease best seen on the lateral projection, possible pneumonia. RECOMMENDATION: Follow-up recommended D/ / Mo Garcia MD / Mo Garcia MD Interpreting Provider: oM Garcia MD - VTE Reasons for not Prescribing Prophylaxis: Not indicated-Anticoagulated or INR therapeutic Consult Discharge Plan - Plan Referrals: NONE,PCP [Primary Care Provider] - <Twin Noyola - Last Filed: 06/15/19 18:15> Hospitalist Progress Note - Encounter Date of Encounter: 06/15/19 - Exam Vitals: Temp Pulse Resp BP Pulse Ox 98.2 F 101 18 126/69 99 06/15/19 15:48 06/15/19 15:48 06/15/19 15:48 06/15/19 15:48 06/15/19 15:48 - Time Spent with Patient Total time spent is greater than 50% in coordination of care (as documented) at patient's floor/unit and/or counseling patient: Internal Medicine: Result - Labs CBC & Chem 7: 06/15/19 02:00 06/15/19 02:00 Labs: Short CBC 06/15/19 Range/Units 02:00 WBC 11.9 H (4.3-11.1) K/mcL Hgb 10.2 L (12.9-16.9) g/dL Hct 30.3 L (37.5-50.1) % Plt Count 191 (140-400) K/mcL Neutrophils # 9.8 H (1.6-8.9) K/mcL BMP 06/15/19 02:00 Sodium 128 L Potassium 4.3 Chloride 94 L Carbon Dioxide 28 BUN 28 H Creatinine 0.91 Glucose 201 H Calcium 8.0 L Liver Function 06/15/19 Range/Units 02:00 Total Bilirubin 0.5 (0.3-1.0) mg/dL AST 16 (13-39) Units/L ALT 22 (7-52) Units/L Alkaline Phosphatase 78 (34-104) Units/L Albumin 3.0 L (3.5-5.7) g/dL - ABG Interpretation ABG results: PT/INR, D-dimer PT 11.9 Seconds (9.4-12.1) 06/13/19 03:55 - Impressions Impressions Chest X-Ray 06/14/19 21:38 IMPRESSION: Left lower lobe airspace disease best seen on the lateral projection, possible pneumonia. RECOMMENDATION: Follow-up recommended D/ / Mo Garcia MD / Mo Garcia MD Interpreting Provider: oM Garcia MD - Attending Attestation The history, physical exam, and medical decision making was performed by the medical student either while I was physically present and actively involved or I personally re-performed the exam and medical decision making. I have verified the accuracy of the medical student's documentation with regards to the history, physical exam findings, and medical decision making on 06/15/19. Mr Johnson is currently admitted for pneumonia and weakness. He remains moderate to high risk due to potential for worsening clinical status. Mr Johnson is feeling somewhat better today. Less cough and pain. No fever or chills. No GI issues. Exam: ALert. Comfortable. NC. EOMI. Mucus membranes moist. Neck supple. Heart not tachy. Less rhonchi today. abd soft. No edema. Moves all ext. No rash. I/P 1. Pneumonia - complete treatment 2. Anemia FUrther diagnoses and plan as above. <Franco,Loc T - Last Filed: 06/15/19 16:16> (5) Anemia Qualifiers: Anemia type: unspecified type Qualified Code(s): D64.9 - Anemia, unspecified
[2019-06-15] MEDS: Aspirin 81 MG TAB.CHEW PO SCH (10:52)
[2019-06-15] MEDS ORDERED: Budesonide/Formoterol 160/4.5 1 PUFF INH IH SCH (12:00)
[2019-06-15 12:35] LABS: Creatinine,Urine 48 mg/dL
[2019-06-15] MEDS: Budesonide/Formoterol 160/4.5 1 PUFF INH IH SCH ×2 (15:40→22:02)
[2019-06-15] MEDS ORDERED: Insulin LISPRO 300 UNITS/3 ML VIAL SQ SCH (21:00)
[2019-06-15] MEDS: ALPRAZolam 0.5 MG TABLET PO SCH (21:15)
[2019-06-15] MEDS: Insulin DETEMIR 100 UNIT/ML X5UNITS SQ SCH (21:15)
[2019-06-16] MEDS: Benzonatate 100 MG CAPSULE PO PRN (00:14)
[2019-06-16 01:49] LABS: Hematocrit 27.9 % (37.5-50.1); Hemoglobin 9.7 g/dL (12.9-16.9); Mean Corpuscular HGB Conc 34.8 g/dL (31.6-35.5); Mean Corpuscular Hemoglobin 34.5 pg (28.0-33.3); Mean Corpuscular Volume 99.3 fL (83.0-100.0); Mean Platelet Volume 8.4 fL (9.4-12.4); Platelet Count 194 K/mcL (140-400); Red Blood Count 2.81 M/mcL (4.19-5.50); Red Cell Distribution Width 15.2 % (11.5-14.5); White Blood Count 10.3 K/mcL (4.3-11.1)
[2019-06-16 02:09] LABS: BUN/Creatinine Ratio 33 (6-26); Blood Urea Nitrogen 31 mg/dL (8-23); Calcium 7.9 mg/dL (8.6-10.3); Carbon Dioxide 28 mEq/L (23-29); Chloride 96 mEq/L (98-107); Glucose 165 mg/dL (70-105); Osmolality,Calculated 278 (280-300); Potassium 4.5 mEq/L (3.5-5.1); Sodium 129 mEq/L (136-145); eGFR For African Americans > 60 (> 60); eGFR For Non-African Americans > 60 (> 60)
[2019-06-16 06:36] VITALS: BP 110/65
[2019-06-16] MEDS: Budesonide/Formoterol 160/4.5 1 PUFF INH IH SCH (08:06)
--- NOTE | 2019-06-16 08:34 | Internal Med Progress Note ---
Hospitalist Progress Note - Encounter Date of Encounter: 06/16/19 Time of Encounter: 08:34 - Exam Vitals: Temp Pulse Resp BP Pulse Ox 98.1 F 88 16 110/65 100 06/16/19 06:30 06/16/19 06:30 06/16/19 06:30 06/16/19 06:30 06/16/19 06:30 - Assessment and Plan (1) Atrial fibrillation with RVR Current Visit: Yes Status: Chronic (2) Acute coronary syndrome Current Visit: Yes Status: Ruled-out (3) Leukocytosis Current Visit: Yes Status: Resolved (4) COPD (chronic obstructive pulmonary disease) Current Visit: Yes Status: Acute (5) Anemia Current Visit: Yes Status: Chronic (6) Low back pain Current Visit: Yes Status: Chronic (7) Hyponatremia Current Visit: Yes Status: Acute (8) Bladder outlet obstruction Current Visit: Yes Status: Chronic - Time Spent with Patient Total time spent is greater than 50% in coordination of care (as documented) at patient's floor/unit and/or counseling patient: Internal Medicine: Result - Labs CBC & Chem 7: 06/16/19 01:29 06/16/19 01:29 Labs: Short CBC 06/16/19 Range/Units 01:29 WBC 10.3 (4.3-11.1) K/mcL Hgb 9.7 L (12.9-16.9) g/dL Hct 27.9 L (37.5-50.1) % Plt Count 194 (140-400) K/mcL BMP 06/16/19 01:29 Sodium 129 L Potassium 4.5 Chloride 96 L Carbon Dioxide 28 BUN 31 H Creatinine 0.93 Glucose 165 H Calcium 7.9 L - ABG Interpretation ABG results: PT/INR, D-dimer PT 11.9 Seconds (9.4-12.1) 06/13/19 03:55 - VTE Reasons for not Prescribing Prophylaxis: Not indicated-Anticoagulated or INR therapeutic Consult Discharge Plan - Plan Referrals: NONE,PCP [Primary Care Provider] - (5) Anemia Qualifiers: Anemia type: unspecified type Qualified Code(s): D64.9 - Anemia, unspecified
[2019-06-16] MEDS: Insulin LISPRO 300 UNITS/3 ML VIAL SQ SCH ×4 (09:06→12:27)
[2019-06-16] MEDS: Finasteride 5 MG TABLET PO SCH (09:15)
[2019-06-16] MEDS: Diltiazem CD (24hr) 180 MG CAPSULE PO SCH (09:15)
[2019-06-16] MEDS: carBAMazepine 200 MG TABLET PO SCH (09:15)
[2019-06-16] MEDS: Gabapentin 400 MG CAPSULE PO SCH (09:15)
[2019-06-16] MEDS: *HR* Digoxin 0.125 MG TABLET PO SCH (09:15)
[2019-06-16] MEDS: Aspirin 81 MG TAB.CHEW PO SCH (09:15)
--- NOTE | 2019-06-16 09:59 | Physician Discharge Referral ---
ExtendedCare Referral Info Transfer To: [facility] Provider in Charge after Transfer: PCP Institutional Level of Care: Skilled - Diagnosis (1) Pneumonia Priority: Primary Status: Acute (2) UTI (urinary tract infection) Priority: Secondary Status: Acute (3) Gross hematuria Priority: Secondary Status: Acute (4) CAD (coronary artery disease) Priority: Secondary Status: Chronic Prognosis: Fair Aware of Diagnosis: Patient Aware of Prognosis: Patient - Transfer Medications Home Medications: Aspirin 81 mg PO QAM 04/20/15 [History] Digoxin [Lanoxin] 0.125 mg PO QAM 12/02/15 [History] Apremilast [Otezla] 30 mg PO BID 01/26/18 [History] Docusate Sodium [Dok] 100 mg PO QAM 01/26/18 [History] Fluticasone/Vilanterol [Breo Ellipta 200-25 Mcg INH] 1 puff IH QAM 01/26/18 [History] carBAMazepine [Tegretol] 200 mg PO BID 01/26/18 [History] Insulin Regular, Human [Novolin R] 6 units SQ TIDAC 03/21/18 [History] Metoprolol [Lopressor] 12.5 mg PO BID 03/21/18 [History] ALPRAZolam [Xanax 0.5 MG Tablet] 0.5 mg PO HS 7 Days #7 tablet 03/31/18 [Rx] Ursodiol [Actigall] 300 mg PO BID 08/25/18 [History] Furosemide [Lasix] 40 mg PO QAM 11/24/18 [History] Acetaminophen [Non-Aspirin] 650 mg PO Q4H PRN 06/05/19 [History] Diltiazem CD (24hr) [Cardizem CD] 180 mg PO QAM 06/05/19 [History] Benzonatate [Tessalon] 100 mg PO TID PRN 30 Days #90 capsule 06/11/19 [Rx] Gabapentin [Neurontin] 400 mg PO TID 30 Days #90 capsule 06/11/19 [Rx] Sodium Chloride [Sodium Chloride Tab] 1 gm PO BID 30 Days #60 tablet 06/11/19 [Rx] Spironolactone [Aldactone] 50 mg PO BID 06/12/19 [History] Finasteride [Proscar] 5 mg PO DAILY tablet 06/16/19 [Rx] Insulin DETEMIR [Levemir] 25 unit SQ HS [id number] 06/16/19 [Rx] Tamsulosin [Flomax] 0.4 mg PO DAILY capsule 06/16/19 [Rx] levoFLOXacin [Levaquin] 750 mg PO Q48H #3 tablet 06/16/19 [Rx] Allergies/Adverse Reactions: Allergy/AdvReac Type Severity Reaction Status Date / Time sulfamethoxazole Allergy See Verified 06/12/19 22:05 [From Bactrim] Comments trimethoprim [From Bactrim] Allergy See Verified 06/12/19 22:05 Comments atorvastatin AdvReac Dizziness Verified 06/12/19 22:05 clopidogrel [From Plavix] AdvReac Dizziness Verified 06/12/19 22:05 lovastatin AdvReac Dizziness Verified 06/12/19 22:05 pioglitazone [From Actos] AdvReac Dizziness Verified 06/12/19 22:05 pravastatin AdvReac Dizziness Verified 06/12/19 22:05 Rosiglitazone AdvReac Dizziness Verified 06/12/19 22:05 flu vaccine Allergy Dizziness Uncoded 06/12/19 22:05 - Respiratory Orders Oxygen / L per min (2 liters/min) Smoking Cessation: Smoking cessation has been advised. For more information, call the [place] Tobacco Quit Line at 5-494-OWXT-NOW. - Lab Orders Lab Orders: CBC (Please monitor H/H), Ryan 17 - Ancillary Orders May use pressure relief devices daily prn, May consult with Dentist, Police Captain Senior, Art Model PRN - Advance Directives Code Status: Full Code - Mobility Orders Chair, Ambulate - Rehabiliation Orders Rehab Potential: Fair Rehab Orders: Evaluation for Physical Therapy, Evaluation for Occupational Therapy - Treatments Skin tear care topically daily PRN per policy, May check for fecal impaction rectally daily PRN, Fleet enema rectally every other day PRN cleansing purposes - Diet Orders No Concentrated Sweets, Cardiac CERTIFICATION: I certify that the transfer of the above named patient to an Extended Care Facility is necessary for the continuing treatment of the diagnosis listed. The above information is true and accurate reflection of patient's current condition. Confidential - Redisclosure prohibited without a patient's written consent.
[2019-06-16] MEDS ORDERED: FLU Vac QV 19-20 (6Month+)/PF 0.5 ML SYRINGE IM ONE (11:14)
--- NOTE | 2019-06-16 17:43 | Discharge Summary ---
- NOTES TO OUTPATIENT PROVIDER Notes to Outpatient Provider: Pt initially admitted for fall and pneumonia. Had traumatic garcia with gross hematuria. He slowly improved and returns to SNF. H/H needs to be monitored. Orders not resulted at time of discharge: Pending orders 06/13/19 03:59 Blood Culture [Culture,Blood] [BC] Stat 06/14/19 13:51 MMA (VIT B12 STATUS) Routine Date of Encounter: 06/16/19 Time of Encounter: 08:30 - Discharge Diagnosis (1) Pneumonia Priority: Secondary Status: Acute Qualifiers: Pneumonia type: due to unspecified organism Laterality: right Lung location: unspecified part of lung Qualified Code(s): J18.9 - Pneumonia, unspecified organism (2) UTI (urinary tract infection) Priority: Primary Status: Acute Qualifiers: Urinary tract infection type: acute cystitis Hematuria presence: with hematuria Qualified Code(s): N30.01 - Acute cystitis with hematuria (3) Gross hematuria Priority: Secondary Status: Resolved (4) CAD (coronary artery disease) Priority: Secondary Status: Chronic Qualifiers: Coronary Disease-Associated Artery/Lesion type: [place] artery [place] vs. transplanted heart: [place] heart Associated angina: without angina Qualified Code(s): I25.10 - Atherosclerotic heart disease of [place] coronary artery [facility] angina pectoris Hospital course: Mr. Johnson is a 84 year old male brought to ED after a fall. He was found to have rapid a fib and elevated troponin and admitted. Mr Johnson was admitted to [facility]. Initially he had heparin drip due to low INR. He was evaluated by cardiology with med management. Garcia was placed due to bladder outlet obstruction with hydronephrosis. He developed gross hematuria. Garcia to be maintained till outpatient appt. He continued to have issues with cough and dyspnea. He had recently been diagnoses with rhinovirus. We continued Levaquin as at discharge. He slowly improved. Today he feels well. He is afebrile and coughing has improved. H/H has decreased and will need monitored. He is ready for discharged back to SNF. - Time Spent with Patient Total time spent providing and/or coordinating discharge services: 38min - Discharge Medications Prescriptions: New levoFLOXacin [Levaquin] 750 mg PO Q48H #3 tablet Tamsulosin [Flomax] 0.4 mg PO DAILY capsule Insulin DETEMIR [Levemir] 25 unit SQ HS [id number] Finasteride [Proscar] 5 mg PO DAILY tablet Continued Aspirin 81 mg PO QAM Digoxin [Lanoxin] 0.125 mg PO QAM Fluticasone/Vilanterol [Breo Ellipta 200-25 Mcg INH] 1 puff IH QAM Docusate Sodium [Dok] 100 mg PO QAM Apremilast [Otezla] 30 mg PO BID carBAMazepine [Tegretol] 200 mg PO BID Insulin Regular, Human [Novolin R] 6 units SQ TIDAC Metoprolol [Lopressor] 12.5 mg PO BID Ursodiol [Actigall] 300 mg PO BID Furosemide [Lasix] 40 mg PO QAM Acetaminophen [Non-Aspirin] 650 mg PO Q4H PRN PRN Reason: Pain Diltiazem CD (24hr) [Cardizem CD] 180 mg PO QAM Gabapentin [Neurontin] 400 mg PO TID 30 Days #90 capsule Sodium Chloride [Sodium Chloride Tab] 1 gm PO BID 30 Days #60 tablet Benzonatate [Tessalon] 100 mg PO TID PRN 30 Days #90 capsule PRN Reason: Cough Spironolactone [Aldactone] 50 mg PO BID ALPRAZolam [Xanax 0.5 MG Tablet] 0.5 mg PO HS 3 Days #3 tablet Discontinued Insulin DETEMIR [Levemir] 38 units SQ HS levoFLOXacin [Levaquin] 750 mg PO Q48H 3 Days #3 tablet Home Medications: Aspirin 81 mg PO QAM 04/20/15 [History] Digoxin [Lanoxin] 0.125 mg PO QAM 12/02/15 [History] Apremilast [Otezla] 30 mg PO BID 01/26/18 [History] Docusate Sodium [Dok] 100 mg PO QAM 01/26/18 [History] Fluticasone/Vilanterol [Breo Ellipta 200-25 Mcg INH] 1 puff IH QAM 01/26/18 [History] carBAMazepine [Tegretol] 200 mg PO BID 01/26/18 [History] Insulin Regular, Human [Novolin R] 6 units SQ TIDAC 03/21/18 [History] Metoprolol [Lopressor] 12.5 mg PO BID 03/21/18 [History] Ursodiol [Actigall] 300 mg PO BID 08/25/18 [History] Furosemide [Lasix] 40 mg PO QAM 11/24/18 [History] Acetaminophen [Non-Aspirin] 650 mg PO Q4H PRN 06/05/19 [History] Diltiazem CD (24hr) [Cardizem CD] 180 mg PO QAM 06/05/19 [History] Benzonatate [Tessalon] 100 mg PO TID PRN 30 Days #90 capsule 06/11/19 [Rx] Gabapentin [Neurontin] 400 mg PO TID 30 Days #90 capsule 06/11/19 [Rx] Sodium Chloride [Sodium Chloride Tab] 1 gm PO BID 30 Days #60 tablet 06/11/19 [Rx] Spironolactone [Aldactone] 50 mg PO BID 06/12/19 [History] ALPRAZolam [Xanax 0.5 MG Tablet] 0.5 mg PO HS 3 Days #3 tablet 06/16/19 [Rx] Finasteride [Proscar] 5 mg PO DAILY tablet 06/16/19 [Rx] Insulin DETEMIR [Levemir] 25 unit SQ HS u5amdip 06/16/19 [Rx] Tamsulosin [Flomax] 0.4 mg PO DAILY capsule 06/16/19 [Rx] levoFLOXacin [Levaquin] 750 mg PO Q48H #3 tablet 06/16/19 [Rx] Allergies/Adverse Reactions: Allergy/AdvReac Type Severity Reaction Status Date / Time sulfamethoxazole Allergy See Verified 06/12/19 22:05 [From Bactrim] Comments trimethoprim [From Bactrim] Allergy See Verified 06/12/19 22:05 Comments atorvastatin AdvReac Dizziness Verified 06/12/19 22:05 clopidogrel [From Plavix] AdvReac Dizziness Verified 06/12/19 22:05 lovastatin AdvReac Dizziness Verified 06/12/19 22:05 pioglitazone [From Actos] AdvReac Dizziness Verified 06/12/19 22:05 pravastatin AdvReac Dizziness Verified 06/12/19 22:05 Rosiglitazone AdvReac Dizziness Verified 06/12/19 22:05 flu vaccine Allergy Dizziness Uncoded 06/12/19 22:05 Date of admission: 06/13/19 03:16 Primary care physician: PCP NONE Consults: 06/13/19 03:12 Consult to Nutrition [CONS] Routine Comment: Consulting Provider: NUTRITION Reason for Dietary Consult: Other Other:: Severe malnutrition. 06/13/19 03:13 Consult to Physical Therapy [CONS] Routine Comment: Evaluate, develop and implement POC Reason for Consult: Evaluation and treatment. Does patient have active BEDREST order?: No Is patient medically & hemodynamically stable?: Yes Patient assessed for mobility or mobilized this visit?: No 06/13/19 06:00 Consult to Cardiology [CONS] Routine Comment: Consulting Provider: Cardiology [place] Reason for Consult: atrial fibrilliation with rvr failed oral. elevated troponin noncardiac presentation. Call Completed: No Consult to Urology [CONS] Routine Consulting Provider: Urology [place] Reason for Consult: severe BPH with hydronephrosis noted. suspect sepsis 2/2 prostatitis. Call Completed: No Discharging clinician: [place] Anticipated date of discharge: 06/16/19 - Constitutional Vitals: Temp Pulse Resp BP Pulse Ox 98.1 F 88 16 110/65 99 06/16/19 06:30 06/16/19 06:30 06/16/19 08:06 06/16/19 08:06 06/16/19 08:06 General appearance: Present: A&O X 3 Exam: See below - Head Head exam: Present: atraumatic, normocephalic - Eye Eye exam: Present: EOMI, conjuntiva pink - ENT ENT exam: Present: mucous membranes moist - Neck Neck exam general surgery: Present: supple - Respiratory Respiratory exam: Present: CTAB. Absent: rales, rhonchi, wheezes - Cardiovascular Cardiovascular exam: Present: irregular rhythm. Absent: tachycardia - GI/Abdominal GI/Abdominal exam: Present: soft. Absent: tenderness - Extremities Exam Extremities exam: Present: warm. Absent: tenderness - Neurological Exam Neurological exam: Present: alert, oriented X3 - Skin Skin exam: Present: dry, warm - Patient Status Disposition: Transfer SNF Condition: Fair - Discharge Instructions Instructions: Heart Failure (DC), Atrial Fibrillation (DC), Chest Pain (DC), Urinary Tract Infection in Men (DC), Diabetes Mellitus Type 2 in Adults (DC), Chronic Obstructive Pulmonary Disease (DC), Sepsis (DC), Anemia (GEN), Fall Prevention (DC), Pneumonia (DC) Follow Up With: NONE,PCP [Primary Care Provider] - Tiburcio Liu MD [Partnered Physician] - 07/03/19 2:30 pm (Follow up in 1-2 weeks for voiding trial) - VTE Reasons for not Prescribing Prophylaxis: Not indicated-Anticoagulated or INR therapeutic
== END 2019-06-16 17:10 | DRG 308 ==
LOC: 2NENU 17:49 → EMEROOARM 17:49 → 2NENU 23:05 → SUATTDRO 06-13 03:16 → 2NENU 06-14 22:42
PROVIDERS: ADMIT Internal Medicine; ATTEND Internal Medicine